=== PATIENT | male | born 1965 | race Caucasian/White ===

== ENCOUNTER 2020-09-10 09:25 | Outpatient (REF) | payer OTHER, SELFPAY | END 2020-09-10 09:26 | disposition home or self-care (01) | LOC: HO.LAB 09:25 | PROVIDERS: Visit Provider Internal Medicine | DX: Z20.828 Contact with and (suspected) exposure to other viral communicable diseases (principal) | CPT/HCPCS: C9803; U0003 ==

== ENCOUNTER 2021-01-16 07:29 | Outpatient (REF) | payer OTHER, SELFPAY ==
--- NOTE | ~2021-01-16 | US_ITS ---
EXAMINATION: US ABDOMEN COMPLETE CLINICAL INFORMATION: Liver cirrhosis. COMPARISON: Ultrasound abdomen 12/06/2019 and 12/27/2018. CT abdomen pelvis 06/23/2010. TECHNIQUE: Real-time imaging of the abdominal viscera. FINDINGS: PANCREAS: Normal ABDOMINAL AORTA: The proximal, mid, and distal segments are normal in caliber. INFERIOR VENA CAVA: Visualized portions are normal. LIVER: The liver is normal in size. The liver contour is normal. Liver echotexture is increased. No focal hepatic lesion. There is no intrahepatic biliary duct dilatation seen. GALLBLADDER: Normal. The gallbladder is physiologically distended without evidence of stones, sludge, polyps, wall thickening or pericholecystic fluid. COMMON BILE DUCT: Normal in caliber measuring 0.3 cm in diameter. RIGHT KIDNEY: Normal. No hydronephrosis. No renal calculi or focal parenchymal lesions. The kidney measures 10.3 cm in maximum dimension. LEFT KIDNEY: Normal. No hydronephrosis. No renal calculi or focal parenchymal lesions. The kidney measures 11.6 cm in maximum dimension. SPLEEN: Normal. The spleen measures 10.0 cm in maximum dimension. FREE FLUID: None. US/US abdomen complete IMPRESSION: Echogenic liver. No focal liver lesion or evidence of cirrhosis.
== END 2021-01-16 07:30 | disposition home or self-care (01) ==
LOC: HO.US 07:29
PROVIDERS: Visit Provider Internal Medicine Geriatric Medicine
DX: K74.60 Unspecified cirrhosis of liver (principal)
CPT/HCPCS: 76700

== ENCOUNTER 2021-02-04 10:17 | Outpatient (REF) | payer OTHER, SELFPAY ==
--- NOTE | ~2021-02-04 | XR_ITS ---
EXAMINATION: XR SHOULDER, RIGHT CLINICAL INFORMATION: Shoulder pain. COMPARISON: None TECHNIQUE: AP external rotation, Grashey, scapular Y, and axillary views of the right shoulder. FINDINGS: The bones and soft tissues are normal. No fracture. Mild acromioclavicular arthritis. Glenohumeral and acromioclavicular alignment is anatomic with normal joint space. No abnormal soft tissue calcifications. XR/XR shoulder RT min 2V IMPRESSION: Mild acromioclavicular arthritis.
== END 2021-02-04 10:18 | disposition home or self-care (01) ==
LOC: HO.XRAY 10:17
PROVIDERS: PCP Internal Medicine Geriatric Medicine; Visit Provider Internal Medicine Geriatric Medicine
DX: M25.511 Pain in right shoulder (principal)
CPT/HCPCS: 73030

== ENCOUNTER 2021-05-17 13:51 | Outpatient (REF) | payer OTHER, SELFPAY ==
--- NOTE | ~2021-05-17 | XR_ITS ---
EXAMINATION: XR LUMBOSACRAL SPINE WITH OBLIQUES CLINICAL INFORMATION: Lumbago and sciatica. COMPARISON: None TECHNIQUE: AP, both oblique, and lateral views of the lumbar spine. Lateral view of the lumbosacral junction. FINDINGS: There is maintained lumbar lordosis. The vertebral heights, alignment and disc heights are normal. There is mild ventral superior endplate spondylosis at L3 and L4 vertebra. No lytic or sclerotic process seen. The paravertebral soft tissues are normal. The SI joints are symmetrical and normal. XR/XR lumbar spine 4V min IMPRESSION: Mild ventral superior endplate spondylosis L3 and L4 vertebra. No visible acute fracture or dislocation seen.
== END 2021-05-17 13:52 | disposition home or self-care (01) ==
LOC: HO.XRAY 13:51
PROVIDERS: Absent Provider Internal Medicine Geriatric Medicine; PCP Internal Medicine Geriatric Medicine; Visit Provider Registered Nurse
DX: M54.41 Lumbago with sciatica, right side (principal); M54.42 Lumbago with sciatica, left side; M79.605 Pain in left leg; M79.672 Pain in left foot
CPT/HCPCS: 72110

== ENCOUNTER 2022-01-14 11:50 | Emergency (ER) | payer OTHER, SELFPAY ==
--- NOTE | ~2022-01-14 | CT_ITS ---
EXAMINATION: CT BRAIN AND CHEST X-RAY. CLINICAL INFORMATION: Dizziness and lower extremity weakness. COMPARISON: None TECHNIQUE: 5 mm thin axial and reformatted 2 mm thin sagittal and coronal images of brain were obtained without contrast. DLP 711 FINDINGS: BRAIN: There is no acute intra-axial, extra-axial bleed, masses or midline shift. There is no acute infarction evolution. The anderson to white matter difference is maintained normal. The lateral ventricles are symmetrical in size and configuration without enlargement. Bone windows reveal no calvarial abnormality. There is a left posterior occipital scalp lipoma on axial image 26/3. No soft tissue swelling seen. CHEST: The lungs are well-expanded and clear. Heart size and pulmonary vascularity is normal. No gross bony abnormality seen. CT/CT head/brain wo con IMPRESSION: Unremarkable CT brain without contrast.
[2022-01-14 12:27] VITALS: BP 142/82; PULSE 85; RESP 18; TEMP 37.1; O2SAT 96
--- NOTE | 2022-01-14 12:29 | ECG_ITS ---
Test Reason : dizziness Blood Pressure : / mmHG Vent. Rate : 074 BPM Atrial Rate : 074 BPM P-R Int : 162 ms QRS Dur : 084 ms QT Int : 378 ms P-R-T Axes : 010 004 028 degrees QTc Int : 419 ms Normal sinus rhythm Normal ECG When compared with ECG of 07-MAR-2014 22:59, No significant change was found Referred By: Generic ED Physician Electronically Signed By:LEFTY MILLER MD
[2022-01-14 13:19] LABS: MANUAL DIFF FLAG NO
[2022-01-14 13:21] LABS: Basophils Percent Auto 0.3 % (0-2); Eosinophils Absolute Auto 0.1 X10*3/uL (0.0-0.4); Eosinophils Percent Auto 1.4 % (0-4); Hematocrit 40.9 % (42.0-52.0); Hemoglobin 14.7 g/dl (14.0-18.0); Imm Gran Abs Auto 0.02 X10*3/uL (0.00-0.03); Imm Gran Pct Auto 0.3 % (0.0-0.4); Lymphocytes Absolute Auto 1.7 X10*3/uL (1.2-4.9); Lymphocytes Percent Auto 27.8 % (20-40); Mean Corpuscular HGB Conc 35.9 g/dl (31.0-36.0); Mean Corpuscular Hemoglobin 30.5 pg (27.0-33.0); Mean Corpuscular Volume 84.9 fL (80.0-98.0); Mean Platelet Volume 10.7 fL (9.4-12.4); Monocytes Absolute Auto 0.5 X10*3/uL (0.1-1.2); Monocytes Percent Auto 7.9 % (2-11); Neutrophils Absolute Auto 3.9 x10*3/uL (2.0-8.3); Neutrophils Percent Auto 62.3 % (45-73); Platelet Count 166 X10*3/uL (160-400); Red Blood Count 4.82 X10*6/uL (4.60-5.80); Red Cell Distribution Width 11.9 % (11.0-16.0); White Blood Count 6.2 X10*3/uL (4.8-10.8)
[2022-01-14 13:37] LABS: Alanine Aminotransferase 39 U/L (0-40); Albumin Level 4.5 g/dL (3.5-5.0); Alkaline Phosphatase 48 U/L (39-117); Anion Gap 12 (12-20); Aspartate Amino Transferase 30 U/L (5-37); Blood Urea Nitrogen 15 mg/dL (9-16); Calcium 9.8 mg/dL (8.4-10.2); Carbon Dioxide 31 mmol/L (22-29); Chloride 103 mmol/L (96-108); Creatinine Clr Calc Pharmacy 90.3; Estimated Glomerular Filt Rate > 60; Glucose Random 96 mg/dL (60-115); Potassium 3.7 mmol/L (3.3-5.1); Sodium 142 mmol/L (135-145); Total Protein 7.3 g/dL (6.5-8.0)
[2022-01-14 13:38] LABS: COVID-19 Test Negative (Negative)
[2022-01-14 13:42] LABS: IDNOW Serial# 08D9AD1C; Influenza A Negative (Negative); Influenza B2 Negative (Negative)
[2022-01-14 13:43] LABS: Troponin-I High Sensitivity < 3.5 ng/L (<3.5-35.0)
[2022-01-14 13:51] LABS: Appearance Urine CLEAR; Color Urine YELLOW; Glucose Urine UA NEG (NEG); Leukocyte Esterase Urine NEG (NEG); Nitrite Urine NEG (NEG); Urine Blood NEG (NEG); Urine Ketones NEG (NEG); Urine Protein NEG (NEG-TRACE)
[2022-01-14 14:07] LABS: Amphetamine Screen Urine Not Detected (Not Detect); Barbiturates, Urine Not Detected (Not Detect); Benzodiazepines Screen Urine Not Detected (Not Detect); Cannabinoid Screen Urine Not Detected (Not Detect); Cocaine Screen Urine Not Detected (Not Detect); Fentanyl, urine Not Detected (Not Detect); Opiate Screen Urine Not Detected (Not Detect); Phencyclidine Screen Urine Not Detected (Not Detect)
[2022-01-14 15:19] VITALS: BP 136/92; PULSE 77; RESP 11; TEMP 36.8; O2SAT 98
--- NOTE | 2022-01-14 15:43 | ED_ITS ---
HPI - Dizziness General Chief Complaint: Dizziness Stated Complaint: dizziness/fatigue Time Seen by Provider: 01/14/22 15:29 Source: patient Mode of arrival: ambulatory Limitations: no limitations History of Present Illness HPI Narrative: 56 y/o male with history of HTN presents to the ER with 2+ weeks of intermittent dizziness, malaise, generalized fatigue, lower extremity weakness and shakiness. He also reports intermittently having night sweats. He denies any fevers or chills. He has been eating and drinking normally. He states the dizziness and lightheadedness are worse when he is standing on his feet for several hours at a time, especially at work. He is very active and walking around a lot at work. He denies any shortness of breath or dizziness. He feels intermittently like he may pass out, but this subsides with sitting down and rest. He denies any episodes of diaphoresis when feeling lightheaded. No nausea or vomiting. He feels like he is not getting enough sleep and feels extremely fatigued throughout the day. He denies any joint or muscle pain. No known sick contacts. He does not spend time outside to go hiking. No known tick bites. No new medications and no supplements. MD elicited complaint: dizziness and lightheadedness Onset (ago): week(s) (2) Timing: gradual onset, intermittent and episodic Severity: moderate Description: lightheadedness and near-syncope History of similar symptoms: No Exacerbating factors: movement/ambulation Relieving factors: rest Associated symptoms: malaise and weakness Stroke scale total: 0 Related Data Allergies Allergy/AdvReac Type Severity Reaction Status Date / Time sulfamethoxazole Allergy Unknown ITCHINESS Verified 01/14/22 12:26 [From Bactrim] trimethoprim [From Bactrim] Allergy Unknown ITCHINESS Verified 01/14/22 12:26 Review of Systems Review of Systems: Constitutional: No Fever, No Chills, +night sweats ENT/Mouth: No sore throat, No Rhinorrhea, No Swallowing Difficulty Eyes: No Eye Pain, No Swelling, No Redness Cardiovascular: No Chest Pain, No SOB, No Orthopnea, No Edema Respiratory: No Cough, No Sputum, No Wheezing, No dyspnea Gastrointestinal: No Nausea, No Vomiting, No Diarrhea, No abdominal Pain, No Hematochezia, No Melena Genitourinary: No Dysuria, No Urinary Frequency, No Hematuria Musculoskeletal: No joint pain, No Myalgias Skin: No Skin Lesions, No rash Neuro: + Weakness, No Numbness, + Dizziness, No Headache Psych: No Anxiety/Panic, No Depression Heme/Lymph: No Bruising, No Lymphadenopathy Endocrine: No Polyuria, No Polydipsia [facility] Social History Social History Alcohol intake: never Patient Tobacco Use Status: Never used Tobacco Use of substances other than those prescribed or required for medical reasons: No Advance Directives: No Advance Directives Information Provided: Yes Physical Exam Vital Signs: Vital Signs: Last Vital Signs Temp 98.2 F 01/14/22 15:19 Pulse 75 01/14/22 16:18 Resp 11 L 01/14/22 15:19 BP 129/91 H 01/14/22 16:18 Pulse Ox 98 01/14/22 15:19 BMI result Body Mass Index 30.0 Appearance: Alert. Oriented X3. No acute distress. Eyes: Pupils equal, round and reactive to light. ENT: Pharynx normal. Neck: Normal inspection. Neck supple. CVS: Normal heart rate and rhythm. Pulses normal. Respiratory: No respiratory distress. Breath sounds normal. Abdomen: Soft and nontender. +BS x4 Skin: Skin warm and dry. Normal skin color. Normal skin turgor. No rashes. Extremities: No lower extremity edema. Neuro: Oriented X 3. No motor deficit. No sensory deficit. Equal and symmetrical strength throughout. Steady gait. Normal speech. CN II-XII intact. Course Course Course Narrative: 56-year-old male with history of hypertension presents to the ER with vague constitutional complaints. He reports intermittent lightheaded and dizziness for the last 2 weeks along with generalized weakness, fatigue. He states he intermittently has had night sweats as well. He just generally feels unwell and not like himself. His boss sent him in for evaluation. On arrival to the ER patient's vital signs are normal. His physical examination is unremarkable. No focal neural deficits. Will get basic lab workup, chest x- ray, CT head, EKG, viral swabs, orthostatic VS. He appears well. Reevaluation(s) Reevaluation #1: Workup is unremarkable. No leukocytosis. COVID and flu negative. CT head is normal. Chest x-ray normal. EKG normal and troponin is negative. Orthostatics are normal. Unclear etiology of patient's symptoms. This appears to be no signs of infection. At this time patient is stable for discharge home with plan to follow up with his primary care doctor or return to the ER for new or worsening symptoms. Patient agrees with plan. Work note provided per request. MDM - Dizziness Medical Records Attestation: I reviewed the patient's medical records. Medical records narrative: HTN Lab Data Attestation: I reviewed the patient's lab results. Result diagrams: 01/14/22 13:15 01/14/22 13:15 Labs: Lab Results 01/14/22 01/14/22 01/14/22 Range/Units 13:15 13:15 13:15 WBC 6.2 (4.8-10.8) X10*3/uL RBC 4.82 (4.60-5.80) X10*6/uL Hgb 14.7 (14.0-18.0) g/dl Hct 40.9 L (42.0-52.0) % MCV 84.9 (80.0-98.0) fL MCH 30.5 (27.0-33.0) pg MCHC 35.9 (31.0-36.0) g/dl RDW 11.9 (11.0-16.0) % Plt Count 166 (160-400) X10*3/uL MPV 10.7 (9.4-12.4) fL Immature Gran % (Auto) 0.3 (0.0-0.4) % Neut % (Auto) 62.3 (45-73) % Lymph % (Auto) 27.8 (20-40) % [place] % (Auto) 7.9 (2-11) % Eos % (Auto) 1.4 (0-4) % Baso % (Auto) 0.3 (0-2) % Lymph # (Auto) 1.7 (1.2-4.9) X10*3/uL [place] # (Auto) 0.5 (0.1-1.2) X10*3/uL Eos # (Auto) 0.1 (0.0-0.4) X10*3/uL Baso # (Auto) 0.0 (0.0-0.2) X10*3/uL Abs Immat Gran (auto) 0.02 (0.00-0.03) X10*3/uL Absolute Neuts (auto) 3.9 (2.0-8.3) x10*3/uL Absolute Nucleated RBC 0.000 (0.0-0.012) X10*3/uL Nucleated RBC % (auto) 0.0 (0.0-0.2) /100WBC Sodium 142 (135-145) mmol/L Potassium 3.7 (3.3-5.1) mmol/L Chloride 103 (96-108) mmol/L Carbon Dioxide 31 H (22-29) mmol/L Anion Gap 12 (12-20) BUN 15 (9-16) mg/dL Creatinine 0.90 (0.5-1.4) mg/dL Estim Creat Clear Calc 90.3 Estimated GFR > 60 Random Glucose 96 (60-115) mg/dL Calcium 9.8 (8.4-10.2) mg/dL Total Bilirubin 1.0 (0.0-1.0) mg/dL AST 30 (5-37) U/L ALT 39 (0-40) U/L Alkaline Phosphatase 48 (39-117) U/L Troponin I High Sens (<3.5-35.0) ng/L Total Protein 7.3 (6.5-8.0) g/dL Albumin 4.5 (3.5-5.0) g/dL Urine Color Urine Appearance Urine pH (5.0-8.0) Ur Specific [place] (1.005-1.025) Urine Protein (NEG-TRACE) MG/DL Urine Glucose (UA) (NEG) MG/DL Urine Ketones (NEG) MG/DL Urine Blood (NEG) Urine Nitrite (NEG) Ur Leukocyte Esterase (NEG) Urine Opiates Screen (Not Detect) Urine Fentanyl Screen (Not Detect) Ur Barbiturates Screen (Not Detect) Ur Phencyclidine Scrn (Not Detect) Ur Amphetamines Screen (Not Detect) U Benzodiazepines Scrn (Not Detect) Urine Cocaine Screen (Not Detect) U Marijuana (THC) Screen (Not Detect) COVID-19 (YENNI) Negative (Negative) COVID-19 Clin Com See Note Influenza Type A (RAIN) (Negative) Influenza Type B (RAIN) (Negative) Influenza A & B Note 01/14/22 01/14/22 01/14/22 Range/Units 13:15 13:15 13:32 WBC (4.8-10.8) X10*3/uL RBC (4.60-5.80) X10*6/uL Hgb (14.0-18.0) g/dl Hct (42.0-52.0) % MCV (80.0-98.0) fL MCH (27.0-33.0) pg MCHC (31.0-36.0) g/dl RDW (11.0-16.0) % Plt Count (160-400) X10*3/uL MPV (9.4-12.4) fL Immature Gran % (Auto) (0.0-0.4) % Neut % (Auto) (45-73) % Lymph % (Auto) (20-40) % [place] % (Auto) (2-11) % Eos % (Auto) (0-4) % Baso % (Auto) (0-2) % Lymph # (Auto) (1.2-4.9) X10*3/uL [place] # (Auto) (0.1-1.2) X10*3/uL Eos # (Auto) (0.0-0.4) X10*3/uL Baso # (Auto) (0.0-0.2) X10*3/uL Abs Immat Gran (auto) (0.00-0.03) X10*3/uL Absolute Neuts (auto) (2.0-8.3) x10*3/uL Absolute Nucleated RBC (0.0-0.012) X10*3/uL Nucleated RBC % (auto) (0.0-0.2) /100WBC Sodium (135-145) mmol/L Potassium (3.3-5.1) mmol/L Chloride (96-108) mmol/L Carbon Dioxide (22-29) mmol/L Anion Gap (12-20) BUN (9-16) mg/dL Creatinine (0.5-1.4) mg/dL Estim Creat Clear Calc Estimated GFR Random Glucose (60-115) mg/dL Calcium (8.4-10.2) mg/dL Total Bilirubin (0.0-1.0) mg/dL AST (5-37) U/L ALT (0-40) U/L Alkaline Phosphatase (39-117) U/L Troponin I High Sens < 3.5 (<3.5-35.0) ng/L Total Protein (6.5-8.0) g/dL Albumin (3.5-5.0) g/dL Urine Color Urine Appearance Urine pH (5.0-8.0) Ur Specific [place] (1.005-1.025) Urine Protein (NEG-TRACE) MG/DL Urine Glucose (UA) (NEG) MG/DL Urine Ketones (NEG) MG/DL Urine Blood (NEG) Urine Nitrite (NEG) Ur Leukocyte Esterase (NEG) Urine Opiates Screen Not Detected (Not Detect) Urine Fentanyl Screen Not Detected (Not Detect) Ur Barbiturates Screen Not Detected (Not Detect) Ur Phencyclidine Scrn Not Detected (Not Detect) Ur Amphetamines Screen Not Detected (Not Detect) U Benzodiazepines Scrn Not Detected (Not Detect) Urine Cocaine Screen Not Detected (Not Detect) U Marijuana (THC) Screen Not Detected (Not Detect) COVID-19 (YENNI) (Negative) COVID-19 Clin Com Influenza Type A (RAIN) Negative (Negative) Influenza Type B (RAIN) Negative (Negative) Influenza A & B Note See Note 01/14/22 Range/Units 13:32 WBC (4.8-10.8) X10*3/uL RBC (4.60-5.80) X10*6/uL Hgb (14.0-18.0) g/dl Hct (42.0-52.0) % MCV (80.0-98.0) fL MCH (27.0-33.0) pg MCHC (31.0-36.0) g/dl RDW (11.0-16.0) % Plt Count (160-400) X10*3/uL MPV (9.4-12.4) fL Immature Gran % (Auto) (0.0-0.4) % Neut % (Auto) (45-73) % Lymph % (Auto) (20-40) % [place] % (Auto) (2-11) % Eos % (Auto) (0-4) % Baso % (Auto) (0-2) % Lymph # (Auto) (1.2-4.9) X10*3/uL [place] # (Auto) (0.1-1.2) X10*3/uL Eos # (Auto) (0.0-0.4) X10*3/uL Baso # (Auto) (0.0-0.2) X10*3/uL Abs Immat Gran (auto) (0.00-0.03) X10*3/uL Absolute Neuts (auto) (2.0-8.3) x10*3/uL Absolute Nucleated RBC (0.0-0.012) X10*3/uL Nucleated RBC % (auto) (0.0-0.2) /100WBC Sodium (135-145) mmol/L Potassium (3.3-5.1) mmol/L Chloride (96-108) mmol/L Carbon Dioxide (22-29) mmol/L Anion Gap (12-20) BUN (9-16) mg/dL Creatinine (0.5-1.4) mg/dL Estim Creat Clear Calc Estimated GFR Random Glucose (60-115) mg/dL Calcium (8.4-10.2) mg/dL Total Bilirubin (0.0-1.0) mg/dL AST (5-37) U/L ALT (0-40) U/L Alkaline Phosphatase (39-117) U/L Troponin I High Sens (<3.5-35.0) ng/L Total Protein (6.5-8.0) g/dL Albumin (3.5-5.0) g/dL Urine Color YELLOW Urine Appearance CLEAR Urine pH 6.0 (5.0-8.0) Ur Specific [place] 1.020 (1.005-1.025) Urine Protein NEG (NEG-TRACE) MG/DL Urine Glucose (UA) NEG (NEG) MG/DL Urine Ketones NEG (NEG) MG/DL Urine Blood NEG (NEG) Urine Nitrite NEG (NEG) Ur Leukocyte Esterase NEG (NEG) Urine Opiates Screen (Not Detect) Urine Fentanyl Screen (Not Detect) Ur Barbiturates Screen (Not Detect) Ur Phencyclidine Scrn (Not Detect) Ur Amphetamines Screen (Not Detect) U Benzodiazepines Scrn (Not Detect) Urine Cocaine Screen (Not Detect) U Marijuana (THC) Screen (Not Detect) COVID-19 (YENNI) (Negative) COVID-19 Clin Com Influenza Type A (RAIN) (Negative) Influenza Type B (RAIN) (Negative) Influenza A & B Note ECG Data Attestation: I personally reviewed and interpreted this ECG as follows: ECG interpretation date: 01/14/22 ECG interpretation time: 16:40 Prior ECG tracings: available for review Interpretation: Normal sinus rhythm, heart rate 74 beats per minute, normal GA interval, normal QTC, no ST segment elevations or depressions, no change from prior in 2013. Critical Care Time Critical Care Time Critical Care Time: No Discharge Plan Discharge Clinical Impression: Intermittent lightheadedness, Fatigue Patient Disposition: Home, Self-Care Instructions: Dizziness (ED), Fatigue (ED) Additional Instructions: Your lab workup today was normal. Your CT scan was normal. Your x-ray was normal. You were negative for Influenza and COVID. Unclear cause of your symptoms. Recommend rest, drinking plenty of fluids. Follow up with your doctor. If you develop new or worsening symptoms call 911 or come back to the ER for further evaluation. Referrals: Name,MD Rishi [Primary Care Provider] - (lightheadedness, fatigue, gen weakness x2 weeks workup negative in ED) Stand Alone Forms: Work/School Release
[2022-01-14 16:15] VITALS: BP 130/86; PULSE 72
[2022-01-14 16:16] VITALS: BP 135/94; PULSE 71
[2022-01-14 16:18] VITALS: BP 129/91; PULSE 75
== END 2022-01-14 16:45 | disposition home or self-care (01) ==
PROVIDERS: Emergency Provider Emergency Medicine; PCP Internal Medicine Geriatric Medicine
DX: R42 Dizziness and giddiness (principal); I10 Essential (primary) hypertension; R53.83 Other fatigue; Z20.822 Contact with and (suspected) exposure to COVID-19
CPT/HCPCS: 70450; 71045; 80053; 80307; 81003; 84484; 85025; 87502; 87635; 93005; 99284

== ENCOUNTER 2022-06-06 08:52 | Outpatient (REF) | payer OTHER, SELFPAY ==
--- NOTE | ~2022-06-06 | XR_ITS ---
EXAMINATION: XR LUMBOSACRAL SPINE CLINICAL INFORMATION: Lumbago with sciatica. COMPARISON: Lumbar radiographs 05/17/2021, 03/08/2009, ultrasound abdomen 01/16/2021. TECHNIQUE: Three views of the lumbosacral spine. FINDINGS: There is normal lumbar segmentation with 5 nonrib-bearing lumbar vertebrae of normal height and normal lumbar lordosis. No vertebral compression, spondylolisthesis, or destructive process. There are mild degenerative changes with multilevel vertebral body spurring. No focal disc narrowing or definite endplate sclerosis. No erosive changes. The SI joints and visualized sacrum are unremarkable. There are some small calcifications overlying the renal fossa or mesenteric lymph nodes on the frontal view similar to prior exam 2020. No renal calculi visualized on ultrasound abdomen. XR/XR lumbar spine 2-3V IMPRESSION: -Multilevel vertebral body spurring. -No vertebral compression, spondylolisthesis, or definite disc narrowing.
== END 2022-06-06 08:53 | disposition home or self-care (01) ==
LOC: HO.XRAY 08:52
PROVIDERS: Absent Provider Internal Medicine Geriatric Medicine; PCP Internal Medicine Geriatric Medicine; Visit Provider Family Medicine
DX: M54.41 Lumbago with sciatica, right side (principal); M54.42 Lumbago with sciatica, left side
CPT/HCPCS: 72100

== ENCOUNTER 2022-10-07 11:00 | Outpatient (RCR) | payer OTHER, SELFPAY ==
--- NOTE | 2022-09-10 17:00 | MHC.PT.EP ---
[facility] Office [place] Office [place] Office [address] Osbaldo Knox [address] [phone] F: [phone] F: [phone] F: [phone] F: [phone] Physical Therapy Plan of Care Date of Evaluation: Date of Surgery: N/A Diagnosis: radiculopathy lumbar region (RC) Assessment: pt is a 57 y/o male presenting to physical therapy w/ referring diagnosis of radiculopathy lumbar region. pt's signs and symptoms more consistent w/ poor muscular extensibility. Impairments include pain, decreased range of motion, decreased strength, impaired functional mobility, impaired postural awareness, and altered ambulation mechanics. pt is a good candidate for skilled PT due to age, potential remediation of impairments, typical disease/condition progression and prognosis, comorbidities, and motivation. pt would benefit from skilled PT intervention to provide a tailored strengthening and stretching exercise program, functional training, gait training, postural re-training, neuromuscular re-education, modalities as needed for pain, equipment safety demonstration. Frequency and Duration: The patient will be seen 2x/wk for 6 wks Short Term Goals: pt will be I w/ HEP to promote self-management of condition. pt will improve B hip abduction strength by 1 MMT grade to reduce postural sway w/ gait on even ground. Penitentiary Goals: pt will report a statistically significant improvement in self-reported outcome measure, Surendra, to promote return to PLOF. pt will demo proper lifting mechanics w/ 30# object from floor to chest height x5 reps w/o verbal cueing to promote neutral spine w/ work-related tasks. Treatment Plan: Modalities to reduce pain, spasms and effusion. Manual therapy to restore motion and function. Therapeutic exercise to improve strength and flexibility. Neuromuscular re-education for posture and balance. Therapeutic activities to return to functional activities of daily living. Electronically signed by: Ngoc Courtney PT, DPT Please sign and return to therapist. Thank you for your referral.
--- NOTE | 2022-10-21 10:29 | MHC.PT.DC ---
[facility] [place] Office [place] Office [place] Office [address] Osbaldo Knox [address] [phone] F: [phone] F: [phone] F: [phone] F: [phone] Physical Therapy Discharge Report Diagnosis: radiculopathy lumbar region (RC) Date of Surgery: N/A Date of Evaluation: 09/10/22 Date of Discharge: 10/21/22 Treatments to Date: 5 Cancellations to Date: 2 No Shows to Date: 1 Discharge Status: Improved Function Independent with HEP Discharge Summary: The patient has been experiencing little to no pain over the past couple weeks and visits. He no showed his last scheduled appointment and has not rescheduled. At the time of his last visit he was independent with his home exercise program. He is discharged from this physical therapy plan of care at this time. Electronically signed by: Ngoc Courtney PT, DPT Please sign and return to therapist. Thank you for your referral.
== END 2022-10-21 10:30 | disposition home or self-care (01) ==
LOC: HO.PT 11:00
PROVIDERS: PCP Internal Medicine Geriatric Medicine; Visit Provider Nurse Practitioner Family
DX: M47.816 Spondylosis without myelopathy or radiculopathy, lumbar region (principal); M51.36 Other intervertebral disc degeneration, lumbar region; M53.3 Sacrococcygeal disorders, not elsewhere classified; M54.16 Radiculopathy, lumbar region
CPT/HCPCS: 97110; 97140; 97162; 97530

== ENCOUNTER 2023-01-09 19:56 | Inpatient (IN) | payer OTHER, SELFPAY ==
--- NOTE | ~2023-01-09 | CT_ITS ---
EXAMINATION: CT ABDOMEN AND PELVIS WITHOUT CONTRAST CLINICAL INFORMATION: Left lower quadrant vein COMPARISON: CT abdomen/pelvis dated 06/23/2010 TECHNIQUE: Multidetector volumetric imaging was performed from the superior aspect of the liver through the pubic symphysis. Sagittal and coronal reformatted images were obtained on the technologist's workstation. This CT examination was performed using dose optimization techniques as appropriate, variously including the following: *Automated exposure control *Adjustment of mA and/or kV according to patient size (this includes techniques or standardized protocols for targeted exams where dose is matched to indication/reason for exam; i.e. extremities or head) *Use of iterative reconstruction technique DLP: 555 mGy-cm FINDINGS: LUNG BASES: The visualized lung bases are unremarkable. LIVER, GALLBLADDER, AND BILIARY TREE: The liver is normal in size, shape, and contour. Diffuse hepatic steatosis. No focal hepatic lesion or biliary ductal dilatation is present. The gallbladder is unremarkable with no evidence of radiopaque gallstones, gallbladder wall thickening, or obvious pericholecystic inflammatory changes. PANCREAS: Unremarkable. SPLEEN: Unremarkable. ADRENAL GLANDS: Unremarkable. KIDNEYS AND URETERS: The kidneys are normal in size, shape, and attenuation. Multiple bilateral nonobstructive intrarenal calculi number at least 5 within the right kidney and 4 within the left kidney. The largest in the right kidney measures up to 7 mm, while the largest in the left kidney measures 3 mm. No ureteral calculi or hydronephrosis. No perinephric abnormalities. BLADDER: Unremarkable. GASTROINTESTINAL TRACT: There is focal edematous wall thickening of the distal descending colon centered around an inflamed diverticulum, associated with pericolic fat stranding. No associated fluid collection to suggest abscess formation. No intraperitoneal free air to suggest gross perforation. Diverticulosis coli. Normal appendix. Stomach and small bowel unremarkable. ABDOMINAL WALL: No significant hernia is appreciated. LYMPH NODES: Normal. VASCULAR: Unremarkable. PELVIC VISCERA: Prostate and seminal vesicles unremarkable. OSSEOUS STRUCTURES: No acute or suspicious osseous abnormalities. CT/CT abdomen pelvis wo IV con IMPRESSION: * Acute uncomplicated distal descending colonic diverticulitis. * Diffuse hepatic steatosis. * Bilateral nonobstructive intrarenal calculi.
--- NOTE | ~2023-01-09 | XR_ITS ---
EXAMINATION: XR PORTABLE CHEST CLINICAL INFORMATION: Chest pain COMPARISON: 10/22/2017 TECHNIQUE: AP portable upright view of the chest FINDINGS: Mild elevation of the right hemidiaphragm. No consolidation, pneumothorax, or pleural effusion. Cardiac and mediastinal contours are normal. Pulmonary vasculature is unremarkable. Osseous structures are unremarkable. XR/XR chest 1V IMPRESSION: No acute cardiopulmonary findings
[2023-01-09 20:06] VITALS: BP 142/97; PULSE 86; RESP 16; TEMP 36.1; O2SAT 98; BMI 28.2
[2023-01-09 20:15] LABS: Hematocrit 44.8 % (42.0-52.0); Hemoglobin 15.9 g/dl (14.0-18.0); Mean Corpuscular HGB Conc 35.5 g/dl (31.0-36.0); Mean Corpuscular Hemoglobin 29.8 pg (27.0-33.0); Mean Corpuscular Volume 84.1 fL (80.0-98.0); Mean Platelet Volume 10.8 fL (9.4-12.4); Platelet Count 187 X10*3/uL (160-400); Red Blood Count 5.33 X10*6/uL (4.60-5.80); Red Cell Distribution Width 11.8 % (11.0-16.0)
[2023-01-09 20:40] LABS: Alanine Aminotransferase 53 U/L (0-40); Albumin Level 4.6 g/dL (3.5-5.0); Alkaline Phosphatase 55 U/L (39-117); Anion Gap 12 (12-20); Aspartate Amino Transferase 36 U/L (5-37); Bilirubin Direct 0.2 mg/dL (0.0-0.5); Blood Urea Nitrogen 17 mg/dL (9-16); Calcium 9.7 mg/dL (8.4-10.2); Carbon Dioxide 29 mmol/L (22-29); Chloride 105 mmol/L (96-108); Creatinine Clr Calc Pharmacy 73.3; Estimated Glomerular Filt Rate > 60; Glucose Random 92 mg/dL (60-115); Lipase 40 U/L (8-78); Potassium 4.2 mmol/L (3.3-5.1); Sodium 142 mmol/L (135-145); Total Protein 7.3 g/dL (6.5-8.0)
[2023-01-09 21:38] VITALS: BP 150/92; PULSE 83; RESP 20; TEMP 36.8; O2SAT 100
[2023-01-09 21:50] LABS: Appearance Urine Clear; Color Urine Yellow; Glucose Urine UA Negative (Negative); Leukocyte Esterase Urine Negative (Negative); Nitrite Urine Negative (Negative); Urine Blood Negative (Negative); Urine Ketones Negative (Negative); Urine Protein Negative (Neg-Trace)
[2023-01-09 21:55] LABS: Bacteria Urine None Seen (None Seen); Hyaline Casts Urine 0-2 /LPF (0-2); RBC Urine 0-2 /HPF (0-2); Squamous Epithelial Cell Urine 0-2 /HPF (0-2); WBC Urine 0-5 /HPF (0-5)
--- NOTE | 2023-01-09 22:06 | ED.ABDPAIN ---
HPI - Abdominal Pain General Chief Complaint: Abdominal Pain Stated Complaint: Lower Left abd pain Time Seen by Provider: 01/09/23 22:01 Source: patient Mode of arrival: ambulatory Limitations: no limitations History of Present Illness HPI narrative: 57-year-old male came in for evaluation of left lower quadrant abdominal pain started since this a.m. when he was working. Pain started in the left lower quadrant area as a mild pain 3/10 and progressively getting worse now it is 10/10 pain is radiating to the left side of his back, pain is constantly now no association with nausea, vomiting, diarrhea , frequency urination or hematuria. No exacerbating factors, no relieving factors, never had similar pain in the past, no history of intra-abdominal surgery. Related Data Home Medications Medication Instructions Recorded Confirmed lisinopril 10 mg tablet 10 mg PO DAILY 07/22/22 triamcinolone acetonide 55 mcg intranasal 07/22/22 nasal spray aerosol Previous Rx's Medication Instructions Recorded diclofenac potassium 50 mg tablet 50 mg PO BID PRN pain 30 days #60 07/22/22 tabs lidocaine 5 % topical patch 1 patch topical DAILY PRN pain 30 07/22/22 days #30 ea methocarbamol 750 mg tablet 750 mg PO BID-TID PRN muscle spasm 07/22/22 30 days #90 tabs Allergies Allergy/AdvReac Type Severity Reaction Status Date / Time sulfamethoxazole Allergy Unknown ITCHINESS Verified 01/14/22 12:26 [From Bactrim] trimethoprim [From Bactrim] Allergy Unknown ITCHINESS Verified 01/14/22 12:26 Review of Systems Review of Systems All other systems are reviewed and are negative Constitutional: Reports as per HPI and Reports no additional constitutional complaints Eyes: Reports as per HPI and Reports no additional eye complaints Reports system reviewed and no additional complaints, except as documented Cardiovascular: Reports as per HPI and Reports no additional cardiovascular complaints Respiratory: Reports as per HPI and Reports no additional respiratory complaints Gastrointestinal: Reports as per HPI and Reports no additional gastrointestinal complaints Genitourinary: Reports no additional female genitourinary complaints Musculoskeletal: Reports no additional musculoskeletal complaints Skin/Breast: Reports system reviewed and no additional complaints, except as docu Psychiatric: Reports no additional psychiatric complaints Endocrine: Reports no additional endocrine complaints Hematologic/Lymphatic: Reports no additional hematologic/lymphatic complaints Allergic/Immunologic: Reports no additional allergic/immunologic complaints Reports system reviewed and no additional complaints, except as documented and Reports Abnormal speech present [facility] Past Medical History Medical History Allergic rhinitis, seasonal Bilateral carpal tunnel syndrome BPH associated with nocturia COVID Fatigue Hepatitis C Hypertension Liver cirrhosis Lumbar spondylosis Other intervertebral disc degeneration, lumbar region Vitamin D deficiency Social History Social History Alcohol intake: former Patient Tobacco Use Status: Former Tobacco user Substance Use Type: Crack/Cocaine and Heroin Advance Directives: No Advance Directives Information Provided: Yes Physical Exam ED Vital Signs: Vital Signs - 24 hr 01/09/23 20:06 01/09/23 21:38 01/10/23 00:53 Temperature 97 F 98.2 F 98.3 F Pulse Rate 86 83 93 Respiratory Rate 16 20 18 Blood Pressure 142/97 H 150/92 H 135/76 Pulse Oximetry 98 100 98 Oxygen Delivery Method Room Air Room Air Room Air BMI result Body Mass Index 28.2 Vital signs have been reviewed as appeared to be correct. Blood pressure normal. Heart rate normal. Respiration rate normal. Temperature normal. Oxygen saturation normal. Appearance: Alert. Oriented X3. No acute distress. Head: Normal external exam. Normocephalic. Atraumatic. No Hamilton signs noted. No raccoon eyes noted Eyes: PERRLA. EOMI. Conjunctiva and sclera normal. Eyelids normal. ENT: TM's Normal. Pharynx normal. Uvula midline. Moist mucous membranes. No trismus noted. No drooling noted. No muffled voice noted. Neck: Normal inspection. Neck supple. FROM. No adenopathy. Thyroid Normal. No meningeal signs. No neck mass noted. CVS: Normal heart rate and rhythm. Heart sound normal. No murmurs noted. Pulses normal throughout. Respiratory: No respiratory distress. Painless inspiration. Breath sounds normal. No wheezes/rales/rhonchi noted. Chest nontender. No accessory muscle usage noted or decreased air movement noted. Abdomen: Soft, left lower quadrant tenderness, no rebound tenderness, no guarding. Bowel sounds normal in all 4 quadrants. No distention noted. No organomegaly noted. No visible injury noted. Back: Left CVA tenderness. Full range of motion noted. Skin: Skin warm and dry. Normal skin color. Normal skin turgor. No rashes/lesions/lacerations noted. Extremities: No lower extremity edema. Extremities exhibit normal range of motion. Extremities nontender. Neuro: Oriented X 3. Cranial nerve exam: II-XII are grossly intact No motor deficit. No sensory deficit. Reflexes normal. Course Course Course Narrative: 57-year-old male came in with severe abdominal pain due to an acute diverticulitis, patient required multiple doses pain medications in the ED, will require admission for pain control and antibiotic patient meets criteria for discharge. Reevaluation(s) Reevaluation #1: 57-year-old male with left lower abdominal pain, CT of the abdomen and pelvis is showing diverticulitis patient meet criteria for SIRS but no septic shock or severe sepsis will start the patient Zosyn. Time: 01:13 Medical Decision Making Differential Diagnosis Differential Diagnoses: The differential diagnosis associated with the presentation includes (Intra-abdominal pathology, diverticulitis, left ureteric stone perforated viscus, colitis, chest pain, ACS, pneumonia.) Admission/Observation Consideration of admission/observation: Escalation of care including admission/observation considered Consult Healthcare Provider Management of the patient was discussed with: Hospitalist Lab Data MDM Lab Attestation statement: I reviewed the patient's lab results. 01/09/23 20:10 01/09/23 20:10 Labs: Lab Results 01/09/23 01/09/23 01/09/23 Range/Units 20:10 20:10 21:41 WBC 12.0 H (4.8-10.8) X10*3/uL RBC 5.33 (4.60-5.80) X10*6/uL Hgb 15.9 (14.0-18.0) g/dl Hct 44.8 (42.0-52.0) % MCV 84.1 (80.0-98.0) fL MCH 29.8 (27.0-33.0) pg MCHC 35.5 (31.0-36.0) g/dl RDW 11.8 (11.0-16.0) % Plt Count 187 (160-400) X10*3/uL MPV 10.8 (9.4-12.4) fL Absolute Nucleated RBC 0.000 (0.0-0.012) X10*3/uL Nucleated RBC % (auto) 0.0 (0.0-0.2) /100WBC Sodium 142 (135-145) mmol/L Potassium 4.2 (3.3-5.1) mmol/L Chloride 105 (96-108) mmol/L Carbon Dioxide 29 (22-29) mmol/L Anion Gap 12 (12-20) BUN 17 H (9-16) mg/dL Creatinine 1.10 (0.5-1.4) mg/dL Estim Creat Clear Calc 73.3 Estimated GFR > 60 Random Glucose 92 (60-115) mg/dL Calcium 9.7 (8.4-10.2) mg/dL Total Bilirubin 1.0 (0.0-1.0) mg/dL Direct Bilirubin 0.2 (0.0-0.5) mg/dL AST 36 (5-37) U/L ALT 53 H (0-40) U/L Alkaline Phosphatase 55 (39-117) U/L Troponin I High Sens (<3.5-35.0) ng/L Total Protein 7.3 (6.5-8.0) g/dL Albumin 4.6 (3.5-5.0) g/dL Lipase 40 (8-78) U/L Urine Color Yellow Urine Appearance Clear Urine pH 6.0 (5.0-9.0) Ur Specific [place] 1.020 (1.005-1.025) Urine Protein Negative (Neg-Trace) mg/dL Urine Glucose (UA) Negative (Negative) mg/dL Urine Ketones Negative (Negative) mg/dL Urine Blood Negative (Negative) Urine Nitrite Negative (Negative) Ur Leukocyte Esterase Negative (Negative) Urine RBC 0-2 (0-2) /HPF Urine WBC 0-5 (0-5) /HPF Ur Squamous Epith Cells 0-2 (0-2) /HPF Urine Bacteria None Seen (None Seen) Hyaline Casts 0-2 (0-2) /LPF 01/09/23 Range/Units 22:12 WBC (4.8-10.8) X10*3/uL RBC (4.60-5.80) X10*6/uL Hgb (14.0-18.0) g/dl Hct (42.0-52.0) % MCV (80.0-98.0) fL MCH (27.0-33.0) pg MCHC (31.0-36.0) g/dl RDW (11.0-16.0) % Plt Count (160-400) X10*3/uL MPV (9.4-12.4) fL Absolute Nucleated RBC (0.0-0.012) X10*3/uL Nucleated RBC % (auto) (0.0-0.2) /100WBC Sodium (135-145) mmol/L Potassium (3.3-5.1) mmol/L Chloride (96-108) mmol/L Carbon Dioxide (22-29) mmol/L Anion Gap (12-20) BUN (9-16) mg/dL Creatinine (0.5-1.4) mg/dL Estim Creat Clear Calc Estimated GFR Random Glucose (60-115) mg/dL Calcium (8.4-10.2) mg/dL Total Bilirubin (0.0-1.0) mg/dL Direct Bilirubin (0.0-0.5) mg/dL AST (5-37) U/L ALT (0-40) U/L Alkaline Phosphatase (39-117) U/L Troponin I High Sens < 3.5 (<3.5-35.0) ng/L Total Protein (6.5-8.0) g/dL Albumin (3.5-5.0) g/dL Lipase (8-78) U/L Urine Color Urine Appearance Urine pH (5.0-9.0) Ur Specific [place] (1.005-1.025) Urine Protein (Neg-Trace) mg/dL Urine Glucose (UA) (Negative) mg/dL Urine Ketones (Negative) mg/dL Urine Blood (Negative) Urine Nitrite (Negative) Ur Leukocyte Esterase (Negative) Urine RBC (0-2) /HPF Urine WBC (0-5) /HPF Ur Squamous Epith Cells (0-2) /HPF Urine Bacteria (None Seen) Hyaline Casts (0-2) /LPF Independent Interpretation I performed an independent interpretation of an: EKG (Normal sinus rhythm at 82 beats per minutes, left axis deviation, normal intervals, no ST-T changes.), Plain X-Ray (No acute intrathoracic pathology.) and CT Scan (Uncomplicated distal descending colonic diverticulitis.) Radiology Impression Discussion of test interpretation with radiology: I have reviewed the radiologist's reading. Medications Administered Discontinued Medications Generic Name Dose Route Start Last Admin Trade Name Yvette PRN Reason Stop Dose Admin Hydromorphone HCl 2 mg 01/09/23 22:52 01/09/23 23:50 Hydromorphone Hcl 2 Mg/Ml Vial IVPUSH 01/09/23 22:53 2 mg ONCE ONE Administration Protocol Sodium Chloride 1,000 mls @ 999 mls/hr 01/09/23 22:09 01/09/23 23:45 Ns IV 01/09/23 23:09 Infused .Q1H1M ONE Infusion Ketorolac Tromethamine 15 mg 01/09/23 22:08 01/09/23 22:20 Ketorolac Tromethamine 15 Mg/Ml Vial IVPUSH 01/09/23 22:09 15 mg ONCE ONE Administration Morphine Sulfate 2 mg 01/09/23 22:08 01/09/23 22:20 Morphine Sulfate 2 Mg/Ml Cartridge IVPUSH 01/09/23 22:09 2 mg ONCE ONE Administration Protocol Discharge Plan Discharge Clinical Impression: Acute diverticulitis Patient Disposition: Admitted As Inpatient
--- NOTE | 2023-01-09 22:07 | ECG_ITS ---
Test Reason : ABD PAIN Blood Pressure : / mmHG Vent. Rate : 082 BPM Atrial Rate : 082 BPM P-R Int : 158 ms QRS Dur : 084 ms QT Int : 354 ms P-R-T Axes : 017 -02 016 degrees QTc Int : 413 ms Normal sinus rhythm Normal ECG When compared with ECG of 14-JAN-2022 12:59, No significant change was found Referred By: Estefania Denney Electronically Signed By:RANJAN MONROY
[2023-01-09] MEDS: Morphine Sulfate 2 MG/ML CARTRIDGE IVPUSH (22:20)
[2023-01-09] MEDS: 0.9 % Sodium Chloride 1,000 ML 999 ML IV (22:20)
[2023-01-09] MEDS: Ketorolac Tromethamine 15 MG/ML VIAL IVPUSH (22:20)
[2023-01-09 22:54] LABS: Troponin-I High Sensitivity < 3.5 ng/L (<3.5-35.0)
[2023-01-09] MEDS: HYDROmorphone HCl 2 MG/ML VIAL IVPUSH (23:50)
[2023-01-10 00:53] VITALS: BP 135/76; PULSE 93; RESP 18; TEMP 36.8; O2SAT 98
--- NOTE | 2023-01-10 01:49 | P.HPHOSP_ITS ---
History of Present Illness Date of Service: 01/10/23 Chief Complaint: Abdominal Pain This is a 57-year-old male with pertinent history of essential hypertension, degenerative lumbar disc disease presents to the emergency department for evaluation of abdominal discomfort. Patient states he had sudden onset of left lower quadrant pain that started in the morning. It was progressive and soon became constant. It was nonradiating and without any relieving factors. It was associated with nausea. Patient states throughout the day it progressed and he could not tolerate and hence he decided to present to the ER. No history of similar complaints in the past. Patient denies fever, chills, chest discomfort, palpitations, shortness of breath, changes in urinary or bowel habits In the emergency department, imaging revealed acute uncomplicated diverticulitis Review of Systems Constitutional: Constitutional: Reports no additional constitutional complaints Cardiovascular: Cardiovascular: Reports no additional cardiovascular complaints Respiratory: Respiratory: Reports no additional respiratory complaints Gastrointestinal: Gastrointestinal: Reports abdominal pain and Reports nausea Genitourinary: Genitourinary: Reports no additional male genitourinary complaints Musculoskeletal: Musculoskeletal: Reports no additional musculoskeletal complaints [facility] Medical History Allergic rhinitis, seasonal Bilateral carpal tunnel syndrome BPH associated with nocturia COVID Fatigue Hepatitis C Hypertension Liver cirrhosis Lumbar spondylosis Other intervertebral disc degeneration, lumbar region Vitamin D deficiency Pertinent family history: No family history of CAD Social History Alcohol intake: former Patient Tobacco Use Status: Former Tobacco user Substance Use Type: Crack/Cocaine and Heroin Advance Directives: No Advance Directives Information Provided: Yes Meds Allergies Allergy/AdvReac Type Severity Reaction Status Date / Time sulfamethoxazole Allergy Unknown ITCHINESS Verified 01/14/22 12:26 [From Bactrim] trimethoprim [From Bactrim] Allergy Unknown ITCHINESS Verified 01/14/22 12:26 Active Medications: Current Medications Acetaminophen (Acetaminophen 325 Mg Tablet) 650 mg PO Q6H PRN PRN Reason: Pain, Mild (Pain Scale 1-3) Acetaminophen (Acetaminophen Supp 650 Mg Supp.Rect) 650 mg IN Q6H PRN PRN Reason: Pain, Mild (Pain Scale 1-3) Enoxaparin Sodium (Enoxaparin Sodium 40 Mg/0.4 Ml Syringe) 40 mg SUBCUT Q24H VANESA Melatonin (Melatonin 3 Mg Tablet) 6 mg PO BEDTIME PRN PRN Reason: Insomnia Morphine Sulfate (Morphine Sulfate 4 Mg/Ml Cartridge) 4 mg IVPUSH Q4H PRN; Protocol PRN Reason: Pain, Severe (Pain Scale 7-10) Ondansetron HCl (Ondansetron Hcl 4 Mg/2 Ml Vial) 4 mg IVPUSH Q8H PRN PRN Reason: Nausea and Vomiting Pharmacy Consult (Consult Rx Perform Med Rec) 1 each MISCELLANE ONCE PRN PRN Reason: Consult order Home Medications Medication Instructions Recorded Confirmed Last Taken Type lisinopril 10 mg tablet 10 mg PO DAILY 07/22/22 Unknown History triamcinolone acetonide 55 mcg intranasal 07/22/22 Unknown History nasal spray aerosol Physical Exam Vital Signs and Narrative: Vital Signs: Last Vital Signs Temp 98.3 F 01/10/23 00:53 Pulse 93 01/10/23 00:53 Resp 18 01/10/23 00:53 BP 135/76 01/10/23 00:53 Pulse Ox 98 01/10/23 00:53 O2 Del Method Room Air 01/10/23 00:53 BMI result Body Mass Index 28.2 Middle-aged male lying in bed in mild distress Neck supple, no JVD Regular rate and rhythm, S1-S2 heard Regular breath sounds bilaterally, no wheezing or crackles appreciated Abdomen with left lower quadrant tenderness, no guarding, no rigidity, no rebound tenderness Patient is awake, alert and oriented to self, place, time and person ; no focal motor deficit Psych: Normal mood No pedal edema Results Labs 01/09/23 20:10 01/09/23 20:10 Labs: Laboratory Results - last 24 hr 01/09/23 01/09/23 01/09/23 20:10 20:10 21:41 MCV 84.1 MCH 29.8 MCHC 35.5 RDW 11.8 Plt Count 187 MPV 10.8 Absolute Nucleated RBC 0.000 Nucleated RBC % (auto) 0.0 Anion Gap 12 Estim Creat Clear Calc 73.3 Estimated GFR > 60 Random Glucose 92 Calcium 9.7 Total Bilirubin 1.0 Direct Bilirubin 0.2 AST 36 ALT 53 H Alkaline Phosphatase 55 Troponin I High Sens Total Protein 7.3 Albumin 4.6 Lipase 40 Urine Color Yellow Urine Appearance Clear Urine pH 6.0 Ur Specific [place] 1.020 Urine Protein Negative Urine Glucose (UA) Negative Urine Ketones Negative Urine Blood Negative Urine Nitrite Negative Ur Leukocyte Esterase Negative Urine RBC 0-2 Urine WBC 0-5 Ur Squamous Epith Cells 0-2 Urine Bacteria None Seen Hyaline Casts 0-2 01/09/23 22:12 MCV MCH MCHC RDW Plt Count MPV Absolute Nucleated RBC Nucleated RBC % (auto) Anion Gap Estim Creat Clear Calc Estimated GFR Random Glucose Calcium Total Bilirubin Direct Bilirubin AST ALT Alkaline Phosphatase Troponin I High Sens < 3.5 Total Protein Albumin Lipase Urine Color Urine Appearance Urine pH Ur Specific [place] Urine Protein Urine Glucose (UA) Urine Ketones Urine Blood Urine Nitrite Ur Leukocyte Esterase Urine RBC Urine WBC Ur Squamous Epith Cells Urine Bacteria Hyaline Casts Imaging Radiologist's Impressions: Impressions Chest X-Ray 01/09/23 22:28 IMPRESSION: No acute cardiopulmonary findings Abdomen/Pelvis CT 01/09/23 22:35 IMPRESSION: * Acute uncomplicated distal descending colonic diverticulitis. * Diffuse hepatic steatosis. * Bilateral nonobstructive intrarenal calculi. Assessment and Plan (1) Acute diverticulitis: Status: Acute Plan This is a 57-year-old male with pertinent history of essential hypertension, degenerative lumbar disc disease presents to the emergency department for evaluation of abdominal discomfort. #. Sepsis due to Acute uncomplicated diverticulitis: Resuscitated with IV cr ystalloids. Initiated empiric IV antibiotics. Pain control with IV morphine p.r.n.. Lactic acid pending. Full liquid diet and advance as tolerated. Recommend outpatient colonoscopy in 6-8 weeks after symptom resolution #. Essential hypertension: Hold home antihypertensives in the setting of sepsis. Restart as appropriate #. Lumbar degenerative disc disease: Continue home muscle relaxants Med rec pending DVT prophylaxis: Lovenox 40 mg daily Full code Full liquid diet. Advance as tolerated Admit as inpatient and will require two night minimum hospital stay for IV antibiotics Time Spent With Patient Time: Total time managing care of this patient today ____ minutes. Quality Stroke Does the patient have a stroke diagnosis?: No VTE Prior VTE?: No VTE Risk Level:: Medical - moderate - high VTE Device Contraindication: Treatment Not Indicated VTE Drug Contraindication: N/A - Med Ordered
[2023-01-10] MEDS: Piperacillin Sodium/Tazobactam 3.375 GM in 0.9 % Sodium Chloride 50 ML IV ×4 (02:03→20:10)
[2023-01-10 02:18] LABS: COVID-19 Test Negative (Negative); IDNOW Serial# BCCEAD1C
[2023-01-10 03:00] VITALS: BMI 29.8
[2023-01-10 03:06] VITALS: BP 134/81; PULSE 82; RESP 18; TEMP 36.2; O2SAT 98
[2023-01-10] MEDS: Enoxaparin Sodium 40 MG/0.4 ML SYRINGE SUBCUT (05:04)
[2023-01-10 05:44] LABS: MANUAL DIFF FLAG NO
[2023-01-10 05:49] LABS: Basophils Percent Auto 0.2 % (0-2); Eosinophils Percent Auto 0.3 % (0-4); Hematocrit 39.5 % (42.0-52.0); Hemoglobin 14.1 g/dl (14.0-18.0); Imm Gran Abs Auto 0.05 X10*3/uL (0.00-0.03); Imm Gran Pct Auto 0.5 % (0.0-0.4); Lymphocytes Percent Auto 8.9 % (20-40); Mean Corpuscular HGB Conc 35.7 g/dl (31.0-36.0); Mean Corpuscular Hemoglobin 30.5 pg (27.0-33.0); Mean Corpuscular Volume 85.5 fL (80.0-98.0); Mean Platelet Volume 11.1 fL (9.4-12.4); Monocytes Absolute Auto 0.8 X10*3/uL (0.1-1.2); Monocytes Percent Auto 7.4 % (2-11); Neutrophils Percent Auto 82.7 % (45-73); Platelet Count 164 X10*3/uL (160-400); Red Blood Count 4.62 X10*6/uL (4.60-5.80); Red Cell Distribution Width 11.8 % (11.0-16.0); White Blood Count 10.9 X10*3/uL (4.8-10.8)
[2023-01-10 06:10] LABS: Anion Gap 13 (12-20); Blood Urea Nitrogen 15 mg/dL (9-16); Calcium 8.8 mg/dL (8.4-10.2); Carbon Dioxide 24 mmol/L (22-29); Chloride 108 mmol/L (96-108); Creatinine Clr Calc Pharmacy 98.5; Estimated Glomerular Filt Rate > 60; Glucose Random 155 mg/dL (60-115); Potassium 3.8 mmol/L (3.3-5.1); Sodium 141 mmol/L (135-145)
[2023-01-10 07:36] VITALS: BP 107/64; PULSE 80; RESP 18; TEMP 36.7; O2SAT 96
[2023-01-10 08:13] LABS: C Reactive Protein 0.77 mg/dL (< or = 0.50)
[2023-01-10] MEDS: Lactated Ringers 1,000 ML 100 ML IVCONT ×2 (08:39→20:41)
--- NOTE | 2023-01-10 09:03 | PHA.MEDREC ---
Pharmacy Consult ? Medication Reconciliation Pharmacy has completed the medication reconciliation. spoke with patient through an appliance fixer. patient verified his medications.
--- NOTE | 2023-01-10 10:55 | PM.EVENT ---
Event Note Date of Service: 01/10/23 Event Note: Day hospitalist update S: C/o LLQ pain No fever or hematochezia O: Temp Pulse Resp BP Pulse Ox O2 Del Method 98.0 F 80 18 107/64 96 Room Air 01/10/23 07:36 01/10/23 07:36 01/10/23 07:36 01/10/23 07:36 01/10/23 07:36 01/10/23 07:36 Gen: in no acute distress HEENT: sclera anicteric, moist mucus membranes Neck: supple Lungs: clear to auscultation bilaterally Heart: regular rate and rhythm, no murmurs Abd: soft, tender LLQ, non-distended Ext: no edema Skin: warm/well-perfused Neuro: alert and oriented x3, no focal findings Psych: appropriate affect Labs: WBC 10.9, CRP 0.77 A/P: hospital day#1 57yo M with HTN admitted for sepsis from diverticulitis # sepsis from acute diverticulitis - pip/joel d#1, full liquid diet, IV fluids - lactate normal - full liquid diet # HTN - hold lisinopril # polysubstance abuse - no withdrawal syndrome - screen HBV/HCV/HIV # VTE ppx: LMWH # dispo: anticipate home eventually In my clinical judgment, the patient requires continued inpatient hospitalization for the following reasons: IV ABX Time Spent With Patient Time: Total time managing care of this patient today ____ minutes.
[2023-01-10 14:59] VITALS: BP 119/71; PULSE 86; RESP 18; TEMP 36.7; O2SAT 96
[2023-01-10] MEDS: Morphine Sulfate 4 MG/ML CARTRIDGE IVPUSH (14:59)
[2023-01-10 20:00] VITALS: BP 128/77; PULSE 110; RESP 18; TEMP 37.4; O2SAT 97
[2023-01-10 23:43] VITALS: BP 109/69; PULSE 90; RESP 18; TEMP 36.9; O2SAT 94
[2023-01-11] MEDS: Piperacillin Sodium/Tazobactam 3.375 GM in 0.9 % Sodium Chloride 50 ML IV ×4 (02:28→19:32)
[2023-01-11] MEDS: Lactated Ringers 1,000 ML 100 ML IVCONT ×2 (06:05→17:55)
[2023-01-11 06:07] LABS: Hematocrit 39.2 % (42.0-52.0); Hemoglobin 13.9 g/dl (14.0-18.0); Mean Corpuscular HGB Conc 35.5 g/dl (31.0-36.0); Mean Corpuscular Volume 84.5 fL (80.0-98.0); Platelet Count 152 X10*3/uL (160-400); Red Blood Count 4.64 X10*6/uL (4.60-5.80); Red Cell Distribution Width 11.9 % (11.0-16.0); White Blood Count 7.9 X10*3/uL (4.8-10.8)
[2023-01-11] MEDS: Enoxaparin Sodium 40 MG/0.4 ML SYRINGE SUBCUT (06:07)
[2023-01-11 06:43] LABS: Anion Gap 15 (12-20); Blood Urea Nitrogen 9 mg/dL (9-16); Calcium 8.8 mg/dL (8.4-10.2); Carbon Dioxide 25 mmol/L (22-29); Chloride 106 mmol/L (96-108); Creatinine Clr Calc Pharmacy 82.8; Estimated Glomerular Filt Rate > 60; Glucose Random 93 mg/dL (60-115); Potassium 3.6 mmol/L (3.3-5.1); Sodium 142 mmol/L (135-145)
[2023-01-11 07:28] VITALS: BP 133/98; PULSE 78; RESP 18; TEMP 37.2; O2SAT 96
--- NOTE | 2023-01-11 09:24 | P.PNIM_ITS ---
Subjective Subjective Date of Service: 01/11/23 Interval History: This history was taken in Turkish from the patient. Abd pain improved, tolerating liquids, hungry. C/o back pain. Review of Systems Review of Systems: Yes all other systems are reviewed and are negative Physical Exam Vital Signs: Vital Signs: Last Vital Signs Temp 99.0 F 01/11/23 07:28 Pulse 78 01/11/23 07:28 Resp 18 01/11/23 07:28 BP 133/98 H 01/11/23 07:28 Pulse Ox 96 01/11/23 07:28 O2 Del Method Room Air 01/11/23 07:28 BMI result Body Mass Index 29.8 Gen: in no acute distress HEENT: sclera anicteric, moist mucus membranes Neck: supple Lungs: clear to auscultation bilaterally Heart: regular rate and rhythm, no murmurs Abd: soft, tender LLQ, non-distended Ext: no edema Skin: warm/well-perfused Neuro: alert and oriented x3, no focal findings Psych: appropriate affect Objective Data Active Medications Acetaminophen (Acetaminophen 325 Mg Tablet) 650 mg PO Q6H PRN PRN Reason: Pain, Mild (Pain Scale 1-3) Acetaminophen (Acetaminophen Supp 650 Mg Supp.Rect) 650 mg MI Q6H PRN PRN Reason: Pain, Mild (Pain Scale 1-3) Enoxaparin Sodium (Enoxaparin Sodium 40 Mg/0.4 Ml Syringe) 40 mg SUBCUT Q24H [facility] Last Admin: 01/11/23 06:07 Dose: 40 mg Documented By: MIKE Lactated Ringer's (Lr) 1,000 mls @ 100 mls/hr IVCONT .Q10H [facility] Last Admin: 01/11/23 06:05 Dose: 100 mls/hr Documented By: MIKE Piperacillin Sod/Tazobactam (Sod 3.375 gm/ Sodium Chloride) 50 mls @ 200 mls/hr IV Q6H [facility] Last Infusion: 01/11/23 08:12 Dose: 0 mls/hr Documented By: BHASKAR Lidocaine (Lidocaine 4 % Patch Adh..Patch) 1 patch TRANSDERMA DAILY [facility]; Protocol Melatonin (Melatonin 3 Mg Tablet) 6 mg PO BEDTIME PRN PRN Reason: Insomnia Morphine Sulfate (Morphine Sulfate 4 Mg/Ml Cartridge) 4 mg IVPUSH Q4H PRN; Protocol PRN Reason: Pain, Severe (Pain Scale 7-10) Last Admin: 01/10/23 14:59 Dose: 4 mg Documented By: BHASKAR Ondansetron HCl (Ondansetron Hcl 4 Mg/2 Ml Vial) 4 mg IVPUSH Q8H PRN PRN Reason: Nausea and Vomiting Pharmacy Consult (Consult Rx Perform Med Rec) 1 each MISCELLANE ONCE PRN PRN Reason: Consult order Labs 01/11/23 05:25 01/11/23 05:25 Labs: Laboratory Results - last 24 hr 01/11/23 01/11/23 05:25 05:25 MCV 84.5 MCH 30.0 MCHC 35.5 RDW 11.9 Plt Count 152 L MPV 11.0 Absolute Nucleated RBC 0.000 Nucleated RBC % (auto) 0.0 Anion Gap 15 Estim Creat Clear Calc 82.8 Estimated GFR > 60 Random Glucose 93 Calcium 8.8 Microbiology Microbiology Results: Microbiology 01/10/23 01:47 Blood Culture - Preliminary Blood - Venous No growth after 24 hours. 01/10/23 01:47 Blood Culture - Preliminary Blood - Venous No growth after 24 hours. Assessment and Plan (1) Acute diverticulitis: Status: Acute Plan hospital day#2 57yo M with HTN admitted for sepsis from diverticulitis # sepsis from acute diverticulitis - pip/joel d#2, IV fluids - lactate normal - advance diet to solids # HTN - hold lisinopril, resume if BP persistently high # back pain - lidocaine patch, APAP # polysubstance abuse - no withdrawal syndrome - screen HBV/HCV/HIV # VTE ppx: LMWH # dispo: anticipate home, possibly tomorrow In my clinical judgment, the patient requires continued inpatient hospital ization for the following reasons: IV ABX Time Spent With Patient Time: Total time managing care of this patient today _35___ minutes. Quality Stroke Does the patient have a stroke diagnosis?: No VTE Prior VTE?: No VTE Risk Level:: Medical - moderate - high VTE Device Contraindication: Treatment Not Indicated VTE Drug Contraindication: N/A - Med Ordered
[2023-01-11] MEDS: Lidocaine 4 % Patch ADH..PATCH 1 PATCH TRANSDERMA (09:59)
--- NOTE | 2023-01-11 15:38 | MHC.CM.PN ---
PT REPORTS HE LIVES WITH [facility] S/O, WORKS AND IS INDEPENDENT WITH CARE PT HAS NO DME AND NO SERVICES PT DECLINES TO COMPLETE A HCP PCP: ASHWINI NAME HE IS PAULIEID VAX X 3 DCP: HOME NO SERVICES FAMILY/FRIEND TRANSPORT
[2023-01-11 15:47] VITALS: BP 131/74; PULSE 76; RESP 17; TEMP 36.4; O2SAT 96
[2023-01-11 19:17] VITALS: BP 136/86; PULSE 85; RESP 18; TEMP 36.2; O2SAT 95
[2023-01-11] MEDS: Acetaminophen 325 MG TABLET 650 MG PO (19:38)
[2023-01-12] MEDS: Lactated Ringers 1,000 ML 100 ML IVCONT (02:50)
[2023-01-12] MEDS: Piperacillin Sodium/Tazobactam 3.375 GM in 0.9 % Sodium Chloride 50 ML IV ×2 (02:50→09:15)
[2023-01-12 03:01] VITALS: BP 113/67; PULSE 64; RESP 16; TEMP 36.1; O2SAT 93
[2023-01-12] MEDS: Enoxaparin Sodium 40 MG/0.4 ML SYRINGE SUBCUT (05:39)
[2023-01-12 06:45] LABS: Anion Gap 11 (12-20); Blood Urea Nitrogen 12 mg/dL (9-16); Calcium 8.8 mg/dL (8.4-10.2); Carbon Dioxide 28 mmol/L (22-29); Chloride 108 mmol/L (96-108); Creatinine Clr Calc Pharmacy 80.4; Estimated Glomerular Filt Rate > 60; Glucose Random 103 mg/dL (60-115); Potassium 3.8 mmol/L (3.3-5.1); Sodium 143 mmol/L (135-145)
[2023-01-12 07:02] VITALS: BP 130/84; PULSE 74; RESP 18; TEMP 36.6; O2SAT 97
[2023-01-12 07:10] LABS: HIV AB/AG Nonreactive (Nonreactive); HIV Num 1 0.07 S/CO (0.00-0.99)
[2023-01-12 08:34] LABS: HBc Num1 7.71 S/CO (0.00-0.79); Hepatitis B Surface Antigen Negative (Negative); ~Hepatitis B Surface Antibody REACTIVE (Nonreactive)
[2023-01-12 08:35] LABS: ~HepC Num1 13.63 S/CO (0.00-0.79); ~Hepatitis C Antibody Reactive (Nonreactive)
[2023-01-12] MEDS: Lidocaine 4 % Patch ADH..PATCH 1 PATCH TRANSDERMA (09:16)
[2023-01-12 10:01] LABS: HBc Num2 7.76 S/CO; HBc Num3 8.02 S/CO; Hepatitis B Core Antibody Reactive (Nonreactive)
--- NOTE | 2023-01-12 10:10 | PM.DS ---
DS: Providers Provider Date of Service: 01/12/23 Date of admission: 01/10/23 01:46 Date of discharge: 01/12/23 Primary care physician: Rishi Hyman MD DS: Diagnosis Discharge Diagnosis (1) Acute diverticulitis: Status: Acute (2) Sepsis: Status: Acute (3) Hepatitis C antibody positive in blood: Status: Acute DS: Summary Hospital Course Hospital Course: from admission H+P by hospitalist Rosa Peters MD, 01/10/23: This is a 57-year-old male with pertinent history of essential hypertension, degenerative lumbar disc disease presents to the emergency department for evaluation of abdominal discomfort.? Patient states he had sudden onset of left lower quadrant pain that started in the morning.? It was progressive and soon became constant.? It was nonradiating and without any relieving factors.? It was associated with nausea.? Patient states throughout the day it progressed and he could not tolerate and hence he decided to present to the ER.? No history of similar complaints in the past.? Patient denies fever, chills, chest discomfort, palpitations, shortness of breath, changes in urinary or bowel habits In the emergency department, imaging revealed acute uncomplicated diverticulitis 57yo M with HTN admitted for sepsis from diverticulitis. He was treated with 2 days of piperacillin-tazobactam IV plus fluids. Lactate was normal. Diet was gradually advanced to solids. His pain improved and he was discharged on 8 days of amoxicillin-clavaulante. He should follow up with his primary care doctor and be referred to Gastroenterology for a colonoscopy in about a month or so. HCV screening antibody was positive; he should follow-up with his primary care doctor for viral load testing and treatment if positive. Time Spent with Patient Time attestation: Total time managing care of this patient today ___35_ minutes. Discharge coordination time: Greater than 30 minutes Quality: Safe Use of Opioids Does Pt have an Active Cancer Diagnosis on the Problem List?: No Quality: Stroke Does the patient have a stroke diagnosis?: No Physical Exam Vital Signs: Vital Signs: Last Vital Signs Temp 98 F 01/12/23 07:02 Pulse 74 01/12/23 07:02 Resp 18 01/12/23 07:02 BP 130/84 01/12/23 07:02 Pulse Ox 97 01/12/23 07:02 O2 Del Method Room Air 01/12/23 07:02 BMI result Body Mass Index 29.8 Gen: in no acute distress HEENT: sclera anicteric, moist mucus membranes Neck: supple Lungs: clear to auscultation bilaterally Heart: regular rate and rhythm, no murmurs Abd: soft, mild LLQ tenderness, non-distended, no rebound or guarding Ext: no edema Skin: warm/well-perfused Neuro: alert and oriented x3, no focal findings Psych: appropriate affect DS: Data Data Completed and Pending Labs on day of discharge: Laboratory Results - last 24 hr 01/11/23 01/11/23 01/12/23 05:25 05:25 05:15 Sodium 143 Potassium 3.8 Chloride 108 Carbon Dioxide 28 Anion Gap 11 L BUN 12 Creatinine 1.03 Estim Creat Clear Calc 80.4 Estimated GFR > 60 Random Glucose 103 Calcium 8.8 Hep Bs Antigen Negative Hep Bs Antibody REACTIVE Hep B Core Total Ab Reactive Hep B Core IgM Ab Cancelled Hepatitis C Ab (EIA) Reactive H HIV 1&2 Ab/P24 Ag 4thGn 01/12/23 07:06 Sodium Potassium Chloride Carbon Dioxide Anion Gap BUN Creatinine Estim Creat Clear Calc Estimated GFR Random Glucose Calcium Hep Bs Antigen Hep Bs Antibody Hep B Core Total Ab Hep B Core IgM Ab Hepatitis C Ab (EIA) HIV 1&2 Ab/P24 Ag 4thGn Nonreactive Preliminary micro results at discharge 01/10/23 01:47 Blood Culture - Preliminary Blood - Venous No growth after 48 hours. 01/10/23 01:47 Blood Culture - Preliminary Blood - Venous No growth after 48 hours. Discharge Plan Discharge Anticipated Discharge Date/Time: 01/12/23 09:53 Patient Disposition: Home, Self-Care Discharge Diagnosis: acute diverticulitis Referrals: Name,MD Rishi [Primary Care Provider] - 1 Week Meghan Hunter MD [Physician] - 1 Month Discharge Medications: New amoxicillin-pot clavulanate 875-125 mg tablet 1 tab PO BID Qty: 16 0RF oxycodone 5 mg tablet 5 mg PO Q8H PRN (Reason: severe pain) Qty: 9 0RF Rx Instructions: Partial Fill upon patient request. Continued acetaminophen 500 mg Tablet 1,000 mg PO DAILY PRN (Reason: Pain) triamcinolone acetonide 55 mcg aerosol,spray 2 spray intranasal DAILY Rx Instructions: in each nostril lisinopril 10 mg tablet 10 mg PO DAILY Discharge Orders: Discharge Order (Routine); Ordered 01/12/23 Ordered By: Mouna Ruiz Diet: high-fibre diet Activity on Discharge: As tolerated Stand Alone Forms: Patient Portal Discharge page, Work/School Release Care Plan Goals: recovery from diverticulitis Health Concerns: diverticulitis Plan of Treatment: amoxicillin-clavulanate 875-125 mg twice daily x 8 days high-fibre diet GI referral- needs colonoscopy in approximately 1 month Please follow up with your primary care doctor within 1 week. Return to the hospital if you experience recurrent or worsening symptoms. Hepatitis C antibody positive. Please follow-up with primary care for confirmatory testing and treatment if needed. Assessment: See Discharge Summary.
--- NOTE | 2023-01-12 10:27 | MHC.CM.PN ---
pt dcd home no skilled serveis ordered by
--- NOTE | 2023-01-12 11:45 | P.CDIM_ITS ---
PROVIDER RESPONSE TEXT: To clarify, the appropriate diagnosis supported by the clinical indicators: Sepsis due to Acute diverticulitis-Resolved QUERY TEXT: PHYSICIAN'S DOCUMENTATION REQUEST Date of Query: 01/12/2023 10:07 AM EDT Patient Name: Daniel Cloud Admit Date: 01/10/2023 Dear Mouna Ruiz, A review of the medical record indicates additional documentation may be needed. Please review below and update the documentation accordingly. ED 01/10 - BP normal, Temperature normal, Respiratory normal, heart rate normal, oxygen sat normal WBC 10.9 LA 1.0 Temperature 97 HR 93 RR 16 Multiple doses of pain meds given in the ED - 57 year old w left lower abdominal pain, CT of abdomen and pelvis showing diverticulitis, patient meets criteria for SIRS Not septic shock or severe sepsis, Zosyn Sepsis Systemic manifestations of infection, with 2 or more SIRS criteria which include: Fever > 100.4?F or hypothermia < 96.8?F Leukocytosis WBC > 12,000 or leukopenia, WBC < 4,000, or > 10% bands Tachycardia- > 90 beats/minute Tachypnea- RR > 20 breaths/minute or PaCO2 < 32mmHg Based on the above information and the recognized standard for sepsis, could you please clarify if th is diagnoses is still accurate and reflective of the patient's condition to ensure quality of the medical record. Sepsis due to Acute diverticulitis-Resolved After study the Sepsis has been ruled out Acute diverticulitis Other or unable to determine Other (explain) Clinically unable to determine (explain) Thank you, Nguyen Back, CCS, CDIS Use of terms such as suspected, likely, concern for, or probable (associated with a specific diagnosi s that is being evaluated, monitored, or treated as if it exists) are acceptable and can be coded in the inpatient se tting, when documented at the time of discharge. Please use your independent medical judgment in providing your response. THIS QUERY IS PART OF THE PERMANENT MEDICAL RECORD
[2023-01-15 13:22] LABS: HCV Log PCR <1.18 NOT DETECTED Log IU/mL (NOT DETECTED); HepC Viral Load <15 NOT DETECTED IU/mL (NOT DETECTED)
== END 2023-01-12 10:35 | disposition home or self-care (01) | DRG 720 ==
LOC: HO.ED 01-10 01:14 → HO.EDOVER 01-10 01:50 → HO.S3 01-10 02:31
PROVIDERS: Admitting Provider Student in an Organized Health Care Education/Training Program; Emergency Provider Emergency Medicine; PCP Internal Medicine Geriatric Medicine; Visit Provider Family Medicine
DX: A41.9 Sepsis, unspecified organism (principal); B19.20 Unspecified viral hepatitis C without hepatic coma; K57.32 Diverticulitis of large intestine without perforation or abscess without bleeding; F19.10 Other psychoactive substance abuse, uncomplicated; I10 Essential (primary) hypertension; M51.36 Other intervertebral disc degeneration, lumbar region; Z20.822 Contact with and (suspected) exposure to COVID-19; Z79.899 Other long term (current) drug therapy
CPT/HCPCS: 36415; 71045; 74176; 80048; 80053; 81001; 82248; 83605; 83690; 84484; 85025; 85027; 86140; 86704; 86706; 86803; 87040; 87340; 87389; 87522; 87635; 93005; 99221; 99285; J1170; J1650; J1885; J2270; J2543

== ENCOUNTER 2023-06-30 16:46 | Emergency (ER) | payer OTHER, SELFPAY ==
--- NOTE | ~2023-06-30 | CT_ITS ---
EXAMINATION: CT ABDOMEN AND PELVIS WITHOUT CONTRAST CLINICAL INFORMATION: Abdominal pain, history of diverticulitis COMPARISON: 12/10/2022 TECHNIQUE: Multidetector volumetric imaging was performed from the superior aspect of the liver through the pubic symphysis. Sagittal and coronal reformatted images were obtained on the technologist's workstation. This CT examination was performed using dose optimization techniques as appropriate, variously including the following: *Automated exposure control *Adjustment of mA and/or kV according to patient size (this includes techniques or standardized protocols for targeted exams where dose is matched to indication/reason for exam; i.e. extremities or head) *Use of iterative reconstruction technique DLP: 621 mGy-cm FINDINGS: LUNG BASES: The visualized lung bases are unremarkable. LIVER, GALLBLADDER, AND BILIARY TREE: The liver demonstrates hypoattenuation consistent with steatosis. No focal hepatic lesion or biliary ductal dilatation is identified. The gallbladder is unremarkable. PANCREAS: Unremarkable. SPLEEN: Unremarkable. ADRENAL GLANDS: Unremarkable. KIDNEYS AND URETERS: No hydronephrosis or obstructing calculus identified bilaterally. There are several scattered calculi within each kidney measuring up to approximately 7 mm in size. Small mid right renal cyst is suspected; no follow-up recommended. BLADDER: Minimally distended and suboptimally assessed. GASTROINTESTINAL TRACT: There is mild colonic diverticulosis without diverticulitis. No evidence of bowel obstruction or wall thickening. The appendix is unremarkable. No free fluid or free air is seen. ABDOMINAL WALL: No significant hernia is appreciated. LYMPH NODES: Normal. VASCULAR: Unremarkable. PELVIC VISCERA: Unremarkable. OSSEOUS STRUCTURES: Unremarkable. CT/CT abdomen pelvis wo IV con IMPRESSION: No acute findings identified in the abdomen/pelvis. Several scattered bilateral renal calculi without hydronephrosis. Hepatic steatosis.
[2023-06-30 18:05] VITALS: BP 141/90; PULSE 75; RESP 18; TEMP 36.4; O2SAT 98; BMI 29.8
--- NOTE | 2023-06-30 18:10 | ED_ITS ---
HPI - Abdominal Pain General Chief Complaint: Abdominal Pain Stated Complaint: Abdominal pain Time Seen by Provider: 07/01/23 00:14 Source: patient Mode of arrival: ambulatory History of Present Illness HPI narrative: 58-year-old male with history of diverticulitis presents with lower abdominal discomfort that is also associated with dysuria and reports chills as well as mild nausea. Related Data Home Medications Medication Instructions Recorded Confirmed lisinopril 10 mg tablet 10 mg PO DAILY 07/22/22 01/10/23 triamcinolone acetonide 55 mcg 2 spray intranasal DAILY 07/22/22 01/10/23 nasal spray aerosol acetaminophen 500 mg tablet 1,000 mg PO DAILY PRN Pain 01/10/23 01/10/23 Previous Rx's Medication Instructions Recorded amoxicillin 875 mg-potassium 1 tab PO BID #16 tabs 01/12/23 clavulanate 125 mg tablet oxycodone 5 mg tablet 5 mg PO Q8H PRN severe pain #9 tabs 01/12/23 Allergies Allergy/AdvReac Type Severity Reaction Status Date / Time sulfamethoxazole Allergy Unknown ITCHINESS Verified 01/14/22 12:26 [From Bactrim] trimethoprim [From Bactrim] Allergy Unknown ITCHINESS Verified 01/14/22 12:26 Review of Systems Review of Systems Pertinent positives and negatives as stated in HPI PMFSH Past Medical History Source: nursing notes reviewed Medical History Bilateral carpal tunnel syndrome BPH associated with nocturia Hepatitis C Vitamin D deficiency COVID Allergic rhinitis, seasonal Liver cirrhosis Hypertension Lumbar spondylosis Other intervertebral disc degeneration, lumbar region Fatigue Social History Social History Household Members: Spouse Housing: House Do you presently have visiting nurse or other home services: No Alcohol intake: never Patient Tobacco Use Status: Former Tobacco user Substance Use Type: Crack/Cocaine and Heroin Advance Directives: No Advance Directives Information Provided: Yes service: No Current occupational status: employed Physical Exam ED Vital Signs: Vital Signs - 24 hr 06/30/23 18:05 07/01/23 00:22 Temperature 97.6 F 97.9 F Pulse Rate 75 71 Respiratory Rate 18 15 Blood Pressure 141/90 H 132/87 Pulse Oximetry 98 97 Oxygen Delivery Method Room Air Room Air BMI result Body Mass Index 29.8 VITAL SIGNS: Reviewed. GENERAL: Well developed, well nourished, in no acute distress. HEAD: Normocephalic/atraumatic EYES: PERRLA, EOMI EARS: Ext canals without abnormality NOSE: Nares patent bilateral OROPHARYNX: no oral lesions noted, posterior pharynx clear NECK: Supple, no adenopathy LUNGS: Normal breath sounds. No adventitious sounds or accessory muscle use. SpO2<97> CARDIOVASCULAR: Regular rate and rhythm without noted murmurs ABDOMEN: Soft, non-tender, non-distended with bowel sounds. MUSCULOSKELETAL: No tenderness, deformities, or effusions noted on gross inspection. EXTREMITIES: No cyanosis, clubbing or edema. SKIN: Inspection of the skin reveals no rashes NEUROLOGIC: Alert and oriented x 4. Strength and sensation to light touch were grossly intact x 4. Course Course Course Narrative: This is an RME: Additional HPI, ROS, PE not included below will be deferred to primary provider. This is a 58-year-old male presenting to the emergency department with complaints of lower abdominal pain. He has a history of admission for diverticulitis in December. Reports symptoms feel somewhat similar. Reports pain in the suprapubic area frequent urination tenderness to palpation in the lower abdomen, no rebound or guarding. Vital signs stable. Also hx of kidney stones on imaging. Will defer imaging until seen by primary provider Plan: Labs, UA, ct abd/pelvis ordered Medical Decision Making Medical Decision Making MDM Narrative: 58-year-old male with history and clinical presentation, DDX: UTI, renal colic, diverticulitis I reviewed all investigations and hematologic indices are negative for leukocytosis/left shift and negative for anemia and low platelets are chronically stable. Chemistry indices are grossly within normal limits without NEREIDA and no evidence of electrolyte or liver enzyme abnormalities. Urinalysis negative for UTI or hematuria. CT scan negative for renal colic or diverticulitis and otherwise my interpretation is in agreement with radiology's impression. We also checked PVRs which demonstrated 46 cc. My interpretation is that patient is experiencing musculoskeletal pain as there is no evidence intra-abdominal infection/ infection. Patient provided with combination analgesics and will be discharged home with instructions follow-up with primary care doctor. Differential Diagnosis Differential Diagnoses: The differential diagnosis associated with the presentation includes Please see the discussion above Admission/Observation Consideration of admission/observation: Escalation of care including admission/observation considered Please see the discussion above Lab Data MDM Lab Attestation statement: I reviewed the patient's lab results. Please see the discussion above 06/30/23 19:38 06/30/23 19:38 Labs: Lab Results 06/30/23 07/01/23 Range/Units 19:38 01:12 WBC 7.2 (4.8-10.8) X10*3/uL RBC 4.85 (4.60-5.80) X10*6/uL Hgb 14.7 (14.0-18.0) g/dl Hct 41.2 L (42.0-52.0) % MCV 84.9 (80.0-98.0) fL MCH 30.3 (27.0-33.0) pg MCHC 35.7 (31.0-36.0) g/dl RDW 11.7 (11.0-16.0) % Plt Count 152 L (160-400) X10*3/uL MPV 10.8 (9.4-12.4) fL Immature Gran % (Auto) 0.3 (0.0-0.4) % Neut % (Auto) 55.2 (45-73) % Lymph % (Auto) 31.9 (20-40) % [place] % (Auto) 9.2 (2-11) % Eos % (Auto) 2.8 (0-4) % Baso % (Auto) 0.6 (0-2) % Lymph # (Auto) 2.3 (1.2-4.9) X10*3/uL [place] # (Auto) 0.7 (0.1-1.2) X10*3/uL Eos # (Auto) 0.2 (0.0-0.4) X10*3/uL Baso # (Auto) 0.0 (0.0-0.2) X10*3/uL Abs Immat Gran (auto) 0.02 (0.00-0.03) X10*3/uL Absolute Neuts (auto) 4.0 (2.0-8.3) x10*3/uL Absolute Nucleated RBC 0.000 (0.0-0.012) X10*3/uL Nucleated RBC % (auto) 0.0 (0.0-0.2) /100WBC Sodium 141 (135-145) mmol/L Potassium 3.9 (3.3-5.1) mmol/L Chloride 105 (96-108) mmol/L Carbon Dioxide 27 (22-29) mmol/L Anion Gap 13 (12-20) BUN 14 (9-16) mg/dL Creatinine 0.95 (0.5-1.4) mg/dL Estim Creat Clear Calc 86.0 Estimated GFR > 60 Random Glucose 109 (60-115) mg/dL Calcium 9.5 D (8.4-10.2) mg/dL Magnesium 2.1 (1.6-2.6) mg/dL Total Bilirubin 0.8 (0.0-1.0) mg/dL Direct Bilirubin 0.2 (0.0-0.5) mg/dL AST 27 (5-37) U/L ALT 35 (0-40) U/L Alkaline Phosphatase 46 (39-117) U/L Total Protein 7.1 (6.5-8.0) g/dL Albumin 4.3 (3.5-5.0) g/dL Lipase 29 (8-78) U/L Urine Color Yellow Urine Appearance Clear Urine pH 6.5 (5.0-9.0) Ur Specific [place] 1.020 (1.005-1.025) Urine Protein Negative (Neg-Trace) mg/dL Urine Glucose (UA) Negative (Negative) mg/dL Urine Ketones Negative (Negative) mg/dL Urine Blood Negative (Negative) Urine Nitrite Negative (Negative) Ur Leukocyte Esterase Negative (Negative) Radiology Impression Discussion of test interpretation with radiology: I have reviewed the radiologist's reading. Radiologist Impression: Please see the discussion above Chronic Conditions Patient?s care impacted by: Hypertension Discharge Plan Discharge Clinical Impression: Bilateral lower abdominal discomfort Patient Disposition: Home, Self-Care Instructions: Abdominal Pain (ED) Additional Instructions: 1. Reanudar todos los medicamentos caseros seg?n lo recetado. 2. Sherry un seguimiento con bonilla m?dico de atenci?n primaria los pr?ximos 1 o 2 d?as. Para reevaluaci?n adicional del manejo ambulatorio. Bonilla examen de esta noche fue negativo para infecci?n del tracto urinario, diverticulitis. Regrese a la adan de emergencias si los s?ntomas empeoran. 1. Resume all home medications as prescribed. 2. Follow-up with your primary care doctor the next 1-2 days. For re-evaluation further outpatient management. Your workup tonight was negative for urinary tract infection, diverticulitis. Return to the ER for any worsening symptoms. Prescriptions: No Action acetaminophen 500 mg Tablet 1,000 mg PO DAILY PRN (Reason: Pain) amoxicillin-pot clavulanate 875-125 mg tablet 1 tab PO BID Qty: 16 0RF oxycodone 5 mg tablet 5 mg PO Q8H PRN (Reason: severe pain) Qty: 9 0RF Rx Instructions: Partial Fill upon patient request. triamcinolone acetonide 55 mcg aerosol,spray 2 spray intranasal DAILY Rx Instructions: in each nostril lisinopril 10 mg tablet 10 mg PO DAILY Referrals: Name,MD Rishi [Primary Care Provider] - Print Language: Croatian
[2023-06-30 19:42] LABS: MANUAL DIFF FLAG NO
[2023-06-30 19:45] LABS: Basophils Percent Auto 0.6 % (0-2); Eosinophils Absolute Auto 0.2 X10*3/uL (0.0-0.4); Eosinophils Percent Auto 2.8 % (0-4); Hematocrit 41.2 % (42.0-52.0); Hemoglobin 14.7 g/dl (14.0-18.0); Imm Gran Abs Auto 0.02 X10*3/uL (0.00-0.03); Imm Gran Pct Auto 0.3 % (0.0-0.4); Lymphocytes Absolute Auto 2.3 X10*3/uL (1.2-4.9); Lymphocytes Percent Auto 31.9 % (20-40); Mean Corpuscular HGB Conc 35.7 g/dl (31.0-36.0); Mean Corpuscular Hemoglobin 30.3 pg (27.0-33.0); Mean Corpuscular Volume 84.9 fL (80.0-98.0); Mean Platelet Volume 10.8 fL (9.4-12.4); Monocytes Absolute Auto 0.7 X10*3/uL (0.1-1.2); Monocytes Percent Auto 9.2 % (2-11); Neutrophils Percent Auto 55.2 % (45-73); Platelet Count 152 X10*3/uL (160-400); Red Blood Count 4.85 X10*6/uL (4.60-5.80); Red Cell Distribution Width 11.7 % (11.0-16.0); White Blood Count 7.2 X10*3/uL (4.8-10.8)
[2023-06-30 19:59] LABS: Alanine Aminotransferase 35 U/L (0-40); Albumin Level 4.3 g/dL (3.5-5.0); Alkaline Phosphatase 46 U/L (39-117); Anion Gap 13 (12-20); Aspartate Amino Transferase 27 U/L (5-37); Bilirubin Direct 0.2 mg/dL (0.0-0.5); Bilirubin Total 0.8 mg/dL (0.0-1.0); Blood Urea Nitrogen 14 mg/dL (9-16); Calcium 9.5 mg/dL (8.4-10.2); Carbon Dioxide 27 mmol/L (22-29); Chloride 105 mmol/L (96-108); Estimated Glomerular Filt Rate > 60; Glucose Random 109 mg/dL (60-115); Lipase 29 U/L (8-78); Magnesium 2.1 mg/dL (1.6-2.6); Potassium 3.9 mmol/L (3.3-5.1); Sodium 141 mmol/L (135-145); Total Protein 7.1 g/dL (6.5-8.0)
[2023-07-01 00:22] VITALS: BP 132/87; PULSE 71; RESP 15; TEMP 36.6; O2SAT 97
[2023-07-01 01:19] LABS: Appearance Urine Clear; Color Urine Yellow; Glucose Urine UA Negative (Negative); Leukocyte Esterase Urine Negative (Negative); Nitrite Urine Negative (Negative); PH 6.5 (5.0-9.0); Urine Blood Negative (Negative); Urine Ketones Negative (Negative); Urine Protein Negative (Neg-Trace)
[2023-07-01 02:22] VITALS: BP 135/97; PULSE 74; RESP 12; TEMP 36.7; O2SAT 97
[2023-07-01] MEDS: Ibuprofen 400 MG TABLET PO (02:27)
[2023-07-01] MEDS: Acetaminophen 325 MG TABLET 975 MG PO (02:27)
== END 2023-07-01 02:29 | disposition home or self-care (01) ==
PROVIDERS: Physician Assistant Medical; Emergency Provider Student in an Organized Health Care Education/Training Program; PCP Internal Medicine Geriatric Medicine
DX: R10.30 Lower abdominal pain, unspecified (principal); I10 Essential (primary) hypertension; Z87.891 Personal history of nicotine dependence; Z79.899 Other long term (current) drug therapy
CPT/HCPCS: 36415; 74176; 80048; 80076; 81003; 83690; 83735; 85025; 99284

== ENCOUNTER 2023-07-04 19:47 | Emergency (ER) | payer OTHER, SELFPAY ==
[2023-07-04 20:11] VITALS: BP 136/92; PULSE 78; RESP 18; TEMP 36.3; O2SAT 98; BMI 28.3
--- NOTE | 2023-07-04 20:12 | ED_ITS ---
HPI - Eye Problem General Chief complaint: Eye Problems Stated complaint: Right eye irritation Time Seen by Provider: 07/04/23 22:25 Source: patient, family (nephew) and RN notes reviewed Mode of arrival: ambulatory Limitations: no limitations History of Present Illness HPI Narrative: 58-year-old male presents for evaluation of right eye pain. Patient reports that he was removing a wall from inside the house. He was destroying the drywall and he felt a piece get in his right eye He has had increasing pain, redness since pain His pain is worse any time he blinks He denies any blurry vision He does not follow-up with Ophthalmology and does not wear contacts or glasses His pain is a 5/10 and burning in nature Related Data Home Medications Medication Instructions Recorded Confirmed lisinopril 10 mg tablet 10 mg PO DAILY 07/22/22 01/10/23 triamcinolone acetonide 55 mcg 2 spray intranasal DAILY 07/22/22 01/10/23 nasal spray aerosol acetaminophen 500 mg tablet 1,000 mg PO DAILY PRN Pain 01/10/23 01/10/23 Previous Rx's Medication Instructions Recorded amoxicillin 875 mg-potassium 1 tab PO BID #16 tabs 01/12/23 clavulanate 125 mg tablet oxycodone 5 mg tablet 5 mg PO Q8H PRN severe pain #9 tabs 01/12/23 tobramycin 0.3 % eye drops 2 drp ophthalmic-Right Q4H 5 days 07/04/23 #5 mL Allergies Allergy/AdvReac Type Severity Reaction Status Date / Time sulfamethoxazole Allergy Unknown ITCHINESS Verified 07/04/23 20:10 [From Bactrim] trimethoprim [From Bactrim] Allergy Unknown ITCHINESS Verified 07/04/23 20:10 Review of Systems Constitutional: Constitutional: Denies chills, Denies fever(s) and Denies headache(s) Eyes: Eyes: Denies change in vision, Reports eye pain, Denies requires jules ective lenses, Denies seeing flashes, Denies photophobia and Denies spots in vision ENT: Denies headache(s) Neurologic: Denies headache(s) PMFSH Past Medical History Medical History Bilateral carpal tunnel syndrome BPH associated with nocturia Hepatitis C Vitamin D deficiency COVID Allergic rhinitis, seasonal Liver cirrhosis Hypertension Lumbar spondylosis Other intervertebral disc degeneration, lumbar region Fatigue Social History Social History Household Members: Spouse Housing: House Do you presently have visiting nurse or other home services: No Alcohol intake: never Patient Tobacco Use Status: Former Tobacco user Smoked in Last 30 Days: No Substance Use Type: Crack/Cocaine and Heroin Advance Directives: No Advance Directives Information Provided: No service: No Current occupational status: employed Physical Exam Vital Signs: Vital Signs: Last Vital Signs Temp 97.3 F 07/04/23 20:11 Pulse 78 07/04/23 20:11 Resp 18 07/04/23 20:11 BP 136/92 H 07/04/23 20:11 Pulse Ox 98 07/04/23 20:11 O2 Del Method Room Air 07/04/23 20:11 BMI result Body Mass Index 28.3 Const: General: healthy appearing, comfortable, no acute distress, alert and awake Nutritional Appearance: well nourished Orientation/consciousness: patient oriented x3 HEENT: Head: Yes normocephalic and Yes atraumatic Throat: Yes posterior oropharynx normal Eyes: Other: No obvious foreign body visible. Alignment and Position: alignment normal Periorbital: periorbital findings normal Eyelids: Yes eyelids normal Conjunctivae: conjunctival abnormal right conjunctival injection; without chemosis, without discharge, without pterygia and without subconjunctival hemmorhages Corneas: corneas abnormal on the right fluorescein used and abrasion linear and at the following clock position (Seven to 8 o'clock position) and fluorescein used Pupils: Equal, round and reactive pupils present, Pupils normal by confrontation and Pupil accommodation reflex normal EOM: EOMs intact bilaterally Direct Ophthalmoscopy: no papilledema, fundi normal bilaterally and No photophobia Neck: Neck: Yes full ROM Resp: Effort & Inspection: normal respiratory effort, able to speak in complete sentences and not labored Skin: General skin exam: elasticity normal Neuro: General: patient oriented x3 Cranial nerves: Yes Equal, round and reactive pupils present and Yes Bilaterally intact EOM present Cognition (Neuro): normal cognition Course Course Course Narrative: This is an RME: Additional HPI, ROS, PE not included below will be deferred to primary provider. This is a 27-lbge-lnx-male, with a hx of hepatitis C, HTN, presenting to the ER with complaints of right eye irritation. 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 He endorses some pain. No changes in vision. Does not wear glasses or contacts. Plan: needs visual acuity, fluorescein stain Medications Administered Discontinued Medications Generic Name Dose Route Start Last Admin Trade Name Yvette PRN Reason Stop Dose Admin Fluorescein Sodium 1 strip 07/04/23 20:14 07/04/23 21:35 Fluorescein Sodium Strip EYE-RIGHT 07/04/23 20:15 1 strip ONCE ONE Administration Tetracaine HCl 1 drop 07/04/23 20:14 07/04/23 21:35 Tetracaine Hcl/Pf 0.5% Oph Isabel 4 Ml Drops EYE-RIGHT 07/04/23 20:15 1 drop ONCE ONE Administration Tobramycin Sulfate 2 drop 07/04/23 22:39 07/04/23 23:04 Tobramycin Sulfate 0.3% Iasbel Op 5 Ml Btl EYE-RIGHT 07/04/23 22:40 2 drop ONCE ONE Administration Medical Decision Making Medical Decision Making [facility] Narrative: Patient had a minor eye injury with a piece of drywall striking in the eye while he was destroying a wall. There is no obvious foreign body present. I did still irrigate the eye with saline. Visual acuity testing is significant for the affected eye and 20/30. He has an obvious corneal abrasion that was confirmed with fluorescein staining. There is no concern for globe rupture. The patient has a round pupil with no defects. There is no negative Alexia sign. Patient's extraocular motions are intact in all cardinal directions Differential Diagnosis Differential Diagnoses: The differential diagnosis associated with the presentation includes Corneal abrasion Foreign body Iritis Globe rupture Conjunctivitis Discharge Plan Discharge Clinical Impression: Abrasion, corneal Patient Disposition: Home, Self-Care Instructions: Corneal Abrasion (ED) Additional Instructions: There is no obvious foreign body still in your eye You have a corneal abrasion which is a scratch to the surface of your eye Apply tobramycin eye drops every 4 hours to the right eye for the next 5 days If you are still having pain after 5 days, you may follow-up with Dr. Leija who is an director transition However, I expect your pain will be gone within 2-3 days. In the meantime, you may use Motrin and/or Tylenol for pain Prescriptions: New tobramycin 0.3 % drops 2 drp ophthalmic-Right Q4H 5 Days Qty: 5 0RF No Action acetaminophen 500 mg Tablet 1,000 mg PO DAILY PRN (Reason: Pain) amoxicillin-pot clavulanate 875-125 mg tablet 1 tab PO BID Qty: 16 0RF oxycodone 5 mg tablet 5 mg PO Q8H PRN (Reason: severe pain) Qty: 9 0RF Rx Instructions: Partial Fill upon patient request. triamcinolone acetonide 55 mcg aerosol,spray 2 spray intranasal DAILY Rx Instructions: in each nostril lisinopril 10 mg tablet 10 mg PO DAILY Interventions: ED Discharge Assessment Last Done: 07/04/23 23:07 Discharge Date/Time: 07/04/23 23:07
--- NOTE | 2023-07-04 20:28 | PC.NURSE ---
visual acuity complete. walks well. talking w/o issue. pinkness/redness to right eye.
[2023-07-04] MEDS: Tetracaine HCl/PF 0.5% Oph Sol 4 ML DROPS 1 DROP EYE-RIGHT (21:35)
[2023-07-04] MEDS: Fluorescein Sodium STRIP 1 STRIP EYE-RIGHT (21:35)
--- NOTE | 2023-07-04 22:40 | ED.GENADULT ---
HPI - General Adult General Chief complaint: Eye Problems Stated complaint: Right eye irritation Time Seen by Provider: 07/04/23 22:25 Related Data Home Medications Medication Instructions Recorded Confirmed lisinopril 10 mg tablet 10 mg PO DAILY 07/22/22 01/10/23 triamcinolone acetonide 55 mcg 2 spray intranasal DAILY 07/22/22 01/10/23 nasal spray aerosol acetaminophen 500 mg tablet 1,000 mg PO DAILY PRN Pain 01/10/23 01/10/23 Previous Rx's Medication Instructions Recorded amoxicillin 875 mg-potassium 1 tab PO BID #16 tabs 01/12/23 clavulanate 125 mg tablet oxycodone 5 mg tablet 5 mg PO Q8H PRN severe pain #9 tabs 01/12/23 tobramycin 0.3 % eye drops 2 drp ophthalmic-Right Q4H 5 days 07/04/23 #5 mL Allergies Allergy/AdvReac Type Severity Reaction Status Date / Time sulfamethoxazole Allergy Unknown ITCHINESS Verified 07/04/23 20:10 [From Bactrim] trimethoprim [From Bactrim] Allergy Unknown ITCHINESS Verified 07/04/23 20:10 PMF Past Medical History Medical History Bilateral carpal tunnel syndrome BPH associated with nocturia Hepatitis C Vitamin D deficiency COVID Allergic rhinitis, seasonal Liver cirrhosis Hypertension Lumbar spondylosis Other intervertebral disc degeneration, lumbar region Fatigue Social History Social History Household Members: Spouse Housing: House Do you presently have visiting nurse or other home services: No Alcohol intake: never Patient Tobacco Use Status: Former Tobacco user Smoked in Last 30 Days: No Substance Use Type: Crack/Cocaine and Heroin Advance Directives: No Advance Directives Information Provided: No service: No Current occupational status: employed Physical Exam ED Vital Signs: Vital Signs - 24 hr 07/04/23 20:11 Temperature 97.3 F Pulse Rate 78 Respiratory Rate 18 Blood Pressure 136/92 H Pulse Oximetry 98 Oxygen Delivery Method Room Air BMI result Body Mass Index 28.3 Medications Administered Discontinued Medications Generic Name Dose Route Start Last Admin Trade Name Freq PRN Reason Stop Dose Admin Fluorescein Sodium 1 strip 07/04/23 20:14 07/04/23 21:35 Fluorescein Sodium Strip EYE-RIGHT 07/04/23 20:15 1 strip ONCE ONE Administration Tetracaine HCl 1 drop 07/04/23 20:14 07/04/23 21:35 Tetracaine Hcl/Pf 0.5% Oph Isabel 4 Ml Drops EYE-RIGHT 07/04/23 20:15 1 drop ONCE ONE Administration Discharge Plan Discharge Clinical Impression: Abrasion, corneal Patient Disposition: Home, Self-Care Instructions: Corneal Abrasion (ED) Additional Instructions: There is no obvious foreign body still in your eye You have a corneal abrasion which is a scratch to the surface of your eye Apply tobramycin eye drops every 4 hours to the right eye for the next 5 days If you are still having pain after 5 days, you may follow-up with Dr. Leija who is an re recording mixer However, I expect your pain will be gone within 2-3 days. In the meantime, you may use Motrin and/or Tylenol for pain Prescriptions: New tobramycin 0.3 % drops 2 drp ophthalmic-Right Q4H 5 Days Qty: 5 0RF No Action acetaminophen 500 mg Tablet 1,000 mg PO DAILY PRN (Reason: Pain) amoxicillin-pot clavulanate 875-125 mg tablet 1 tab PO BID Qty: 16 0RF oxycodone 5 mg tablet 5 mg PO Q8H PRN (Reason: severe pain) Qty: 9 0RF Rx Instructions: Partial Fill upon patient request. triamcinolone acetonide 55 mcg aerosol,spray 2 spray intranasal DAILY Rx Instructions: in each nostril lisinopril 10 mg tablet 10 mg PO DAILY
[2023-07-04] MEDS: Tobramycin Sulfate 0.3% Sol Op 5 ML BTL 2 DROP EYE-RIGHT (23:04)
== END 2023-07-04 23:07 | disposition home or self-care (01) ==
PROVIDERS: Emergency Provider Internal Medicine
DX: S05.01XA Injury of conjunctiva and corneal abrasion without foreign body, right eye, initial encounter (principal); X58.XXXA Exposure to other specified factors, initial encounter; Y93.9 Activity, unspecified; Y92.9 Unspecified place or not applicable; Y99.9 Unspecified external cause status
CPT/HCPCS: 99283; 99284

== ENCOUNTER 2023-09-15 09:49 | Outpatient (AMB) | payer OTHER, SELFPAY ==
--- NOTE | 2023-09-15 09:52 | MHC.OFFVIS ---
Intake Vital Signs 09/15/23 09:55 Height 5 ft 6 in Weight 180 lb 12.465 oz BMI 29.2 BP 134/86 Blood Pressure Location Lt brachial Position Sitting Pulse 83 Intake Visit Reasons: Diverticulitis Intake Note: Daniel presents in the office as a new patient for Diverticulitis. CC: He states that he is here because he was diagnosed with Diverticulitis. Pains in the stomach - he was in the hospital in January. Uncomfortable - he denies diarrhea but he has constipation. Medical Transport Specialist Required: No Allergies sulfamethoxazole [From Bactrim] Allergy (Unknown, Verified 09/15/23 09:56) ITCHINESS trimethoprim [From Bactrim] Allergy (Unknown, Verified 09/15/23 09:56) ITCHINESS HPI Diverticulitis HPI Details 58-year-old male with past medical history of hep C, lumbar spondylosis, diverticulitis is here today for initial consultation. Patient reports to have been hospitalized for diverticulitis in the past. Last time was in January. Patient reports that he has been constipated. Was told that he should follow high-fiber diet and then stopped because one of his friend told him that he should not eat anything that has seeds in it. Patient melena, hematochezia, unintentional weight loss or ribbon like stools. Patient had CT scan of abdomen and pelvis in June during ED visit in June and it was negative for diverticulitis. [facility] Medical History Bilateral carpal tunnel syndrome BPH associated with nocturia Hepatitis C Vitamin D deficiency COVID Allergic rhinitis, seasonal Liver cirrhosis Hypertension Lumbar spondylosis Other intervertebral disc degeneration, lumbar region Fatigue Social History Household Members: Spouse Housing: House Do you presently have visiting nurse or other home services: No Alcohol intake: never Patient Tobacco Use Status: Former Tobacco user Substance Use Type: Crack/Cocaine and Heroin service: No Current occupational status: employed Review of Systems Const Denies weight gain and Denies weight loss ENT Reports no additional complaints, Denies dysphagia and Denies odynophagia Card Reports no additional complaints Resp Reports no additional complaints GI Denies abdominal pain, Denies belching, Denies melena, Denies bloating, Reports constipation, Denies dysphagia, Denies excessive flatus, Denies dyspepsia, Denies heartburn, Denies diarrhea, Denies loose stools, Denies nausea, Denies odynophagia and Denies vomiting Reports no additional complaints Musc Reports no additional complaints Neuro Reports no additional complaints Psych Reports no additional complaints Endo Reports no additional complaints Physical Exam Vital Signs: Last Vital Signs Pulse 83 09/15/23 09:55 BP 134/86 09/15/23 09:55 BMI result Body Mass Index 29.2 Const General: healthy appearing, no acute distress and well developed Nutritional Appearance: obese Orientation/consciousness: patient oriented x3 HEENT Head: Yes normal to inspection, Yes normocephalic and Yes atraumatic Face and sinus: Yes normal facial exam Mouth: Normal oral and palatal mucosa present Throat: Yes posterior oropharynx normal, Yes tonsils normal and Yes uvula midline Eyes General: appearance normal, both eyes and all related structures Neck Neck: Yes normal visual inspection, Yes full ROM and Yes trachea midline Thyroid: Thyroid normal Resp Effort & Inspection: normal respiratory effort, able to speak in complete sentences, no tracheal deviation and symmetric chest movement Auscultation: clear to auscultation bilaterally Cardio Rate: regular rate GI Inspection: Yes normal to inspection, No distended and Yes obesity Palpation (GI): Soft to palpation, not firm, nontender and No hepatosplenomegaly present Auscultation: normal bowel sounds General: Yes no CVA tenderness Back/Spine/Pelvis Back: no CVA tenderness Skin General skin exam: elasticity normal, turgor normal and dry skin Neuro General: patient oriented x3 Psych Appearance: grossly normal Mental Status: mental status grossly normal Affect: normal affect Results Reviewed Results Reviewed: ABDOMEN AND PELVIS CT SCAN 07/01/2023 FINDINGS: LUNG BASES: The visualized lung bases are unremarkable. LIVER, GALLBLADDER, AND BILIARY TREE: The liver demonstrates hypoattenuation consistent with steatosis. No focal hepatic lesion or biliary ductal dilatation is identified. The gallbladder is unremarkable. PANCREAS: Unremarkable. SPLEEN: Unremarkable. ADRENAL GLANDS: Unremarkable. KIDNEYS AND URETERS: No hydronephrosis or obstructing calculus identified bilaterally. There are several scattered calculi within each kidney measuring up to approximately 7 mm in size. Small mid right renal cyst is suspected; no follow-up recommended. BLADDER: Minimally distended and suboptimally assessed. GASTROINTESTINAL TRACT: There is mild colonic diverticulosis without diverticulitis. No evidence of bowel obstruction or wall thickening. The appendix is unremarkable. No free fluid or free air is seen. ABDOMINAL WALL: No significant hernia is appreciated. LYMPH NODES: Normal. VASCULAR: Unremarkable. PELVIC VISCERA: Unremarkable. OSSEOUS STRUCTURES: Unremarkable. CT/CT abdomen pelvis wo IV con IMPRESSION: No acute findings identified in the abdomen/pelvis. Several scattered bilateral renal calculi without hydronephrosis. Hepatic steatosis. Assessment & Plan Assessment & Plan (1) Hepatitis C antibody positive in blood: Code(s): R76.8 - Other specified abnormal immunological findings in serum (2) Diverticulosis: Code(s): K57.90 - Diverticulosis of intestine, part unspecified, without perforation or abscess without bleeding Plan Patient will start taking MiraLax daily. He was encouraged to increase fluid intake and activity to promote better bowel motility. Hep C antibody, negative viral load. Patient will return in 2 months to discuss colonoscopy. Patient is agreeable to this plan and verbalizes understanding of instructions. He was given the opportunity to ask questions and all questions answered. Thank you for allowing me to participate in his care Medications: New polyethylene glycol 3350 (Miralax) 17 grams PO DAILY 510 grams 2RF Coding Level of Care Code New Pt Level 3 (97015) Diagnoses Hepatitis C antibody positive in blood R76.8 Diverticulosis K57.90 Time Spent (min) 40 Comment 30 minutes spent with patient and additional 10 minutes spent reviewing her records
[2023-09-15 09:55] VITALS: BP 134/86; PULSE 83; BMI 29.2
== END 2023-09-15 10:15 | disposition home or self-care (01) ==
PROVIDERS: PCP Internal Medicine Geriatric Medicine; Visit Provider Nurse Practitioner Family
DX: R76.8 Other specified abnormal immunological findings in serum (principal); K57.90 Diverticulosis of intestine, part unspecified, without perforation or abscess without bleeding
CPT/HCPCS: 99203

== ENCOUNTER → 2023-09-15 09:49 | Outpatient (BNVA) | payer OTHER, SELFPAY | PROVIDERS: PCP Internal Medicine Geriatric Medicine; Visit Provider Nurse Practitioner Family ==

== ENCOUNTER 2023-10-20 09:24 | Emergency (ER) | payer OTHER, SELFPAY ==
--- NOTE | ~2023-10-20 | CT_ITS ---
EXAMINATION: CT ABDOMEN AND PELVIS WITH CONTRAST CLINICAL INFORMATION: Left lower quadrant pain COMPARISON: CT abdomen pelvis 07/01/2023 TECHNIQUE: Multidetector volumetric images were obtained from the superior aspect of the liver through the pubic symphysis following administration 85 mL of Omnipaque 350 intravenous contrast. Sagittal and coronal reformatted images were obtained on the technologist's workstation. Oral contrast: No This CT examination was performed using dose optimization techniques as appropriate, variously including the following: *Automated exposure control *Adjustment of mA and/or kV according to patient size (this includes techniques or standardized protocols for targeted exams where dose is matched to indication/reason for exam; i.e. extremities or head) *Use of iterative reconstruction technique DLP: 577 mGy-cm FINDINGS: LUNG BASES: The visualized lung bases are unremarkable. LIVER, GALLBLADDER, AND BILIARY TREE: The liver is normal in size and shape but demonstrates decreased attenuation suggesting hepatic steatosis. There is focal fatty sparing around the gallbladder. No focal hepatic lesion or biliary ductal dilatation is present. The gallbladder is unremarkable with no evidence of radiopaque gallstones, gallbladder wall thickening, or obvious pericholecystic inflammatory changes. PANCREAS: Unremarkable. SPLEEN: Unremarkable. ADRENAL GLANDS: Unremarkable. KIDNEYS AND URETERS: The kidneys are normal in size, shape, and attenuation. Multiple bilateral benign Bosniak class I renal cysts are noted which require no additional imaging or follow-up. No solid renal masses are seen. Bilateral multiple nonobstructing renal calculi are present. The largest on the left is at the upper pole measuring 4 mm in diameter and the largest on the right is in the mid kidney measuring 5 mm. The stones measure about 1 Hounsfield units. The largest stone on the right is 10.8 cm from the posterior axillary line and the largest stone on the left is 9 cm from the posterior axillary line. No hydronephrosis, hydroureter, or ureteral calculi seen. No perinephric stranding. BLADDER: Bladder is poorly distended with symmetric wall thickening. GASTROINTESTINAL TRACT: The small and large bowel are unremarkable aside from colonic diverticula without diverticulitis. The appendix is unremarkable. ABDOMINAL WALL: No significant hernia is appreciated. LYMPH NODES: Prominent groin lymph nodes are seen along with some shotty retroperitoneal lymph nodes but there is no adenopathy. VASCULAR: Unremarkable. PELVIC VISCERA: There is mild BPH. Seminal vesicles appear normal. OSSEOUS STRUCTURES: Unremarkable. CT/CT abdomen pelvis w IV con IMPRESSION: 1. A cause for the patient's acute left lower quadrant pain has not been found. 2. Incidental note made of hepatic steatosis, bilateral benign Bosniak class I renal cysts which require no additional imaging or follow-up, bilateral nonobstructing renal calculi, colonic diverticulosis without diverticulitis and mild BPH. Fleischner guidelines were followed.
[2023-10-20 09:45] VITALS: BP 134/81; PULSE 79; RESP 19; TEMP 36.6; O2SAT 98; BMI 28.9
[2023-10-20 10:23] LABS: MANUAL DIFF FLAG NO
[2023-10-20 10:24] LABS: Basophils Percent Auto 0.3 % (0-2); Eosinophils Absolute Auto 0.2 X10*3/uL (0.0-0.4); Eosinophils Percent Auto 2.4 % (0-4); Hematocrit 41.3 % (42.0-52.0); Hemoglobin 14.6 g/dl (14.0-18.0); Imm Gran Abs Auto 0.02 X10*3/uL (0.00-0.03); Imm Gran Pct Auto 0.3 % (0.0-0.4); Lymphocytes Absolute Auto 1.7 X10*3/uL (1.2-4.9); Lymphocytes Percent Auto 25.4 % (20-40); Mean Corpuscular HGB Conc 35.4 g/dl (31.0-36.0); Mean Corpuscular Hemoglobin 30.2 pg (27.0-33.0); Mean Corpuscular Volume 85.3 fL (80.0-98.0); Mean Platelet Volume 10.9 fL (9.4-12.4); Monocytes Absolute Auto 0.5 X10*3/uL (0.1-1.2); Monocytes Percent Auto 8.1 % (2-11); Neutrophils Absolute Auto 4.2 x10*3/uL (2.0-8.3); Neutrophils Percent Auto 63.5 % (45-73); Platelet Count 161 X10*3/uL (160-400); Red Blood Count 4.84 X10*6/uL (4.60-5.80); Red Cell Distribution Width 11.9 % (11.0-16.0); White Blood Count 6.7 X10*3/uL (4.8-10.8)
[2023-10-20 10:44] LABS: Alanine Aminotransferase 36 U/L (0-40); Albumin Level 4.2 g/dL (3.5-5.0); Alkaline Phosphatase 48 U/L (39-117); Anion Gap 11 (12-20); Aspartate Amino Transferase 24 U/L (5-37); Bilirubin Direct 0.2 mg/dL (0.0-0.5); Bilirubin Total 0.8 mg/dL (0.0-1.0); Blood Urea Nitrogen 14 mg/dL (9-16); Calcium 9.6 mg/dL (8.4-10.2); Carbon Dioxide 27 mmol/L (22-29); Chloride 108 mmol/L (96-108); Creatinine Clr Calc Pharmacy 75.3; Estimated Glomerular Filt Rate > 60; Glucose Random 111 mg/dL (60-115); Lipase 26 U/L (8-78); Potassium 4.3 mmol/L (3.3-5.1); Sodium 142 mmol/L (135-145)
[2023-10-20 11:12] LABS: Influenza A PCR NEGATIVE (Negative); Influenza B PCR NEGATIVE (Negative); Resp Syncy Virus RNA Qual PCR NEGATIVE (Negative); SARS COV2 PCR INHOUSE NEGATIVE (Negative)
[2023-10-20 22:02] VITALS: BP 140/87; PULSE 68; RESP 16; TEMP 36.8; O2SAT 98
[2023-10-20 22:10] LABS: Appearance Urine Clear; Color Urine Yellow; Glucose Urine UA Negative (Negative); Leukocyte Esterase Urine Negative (Negative); Nitrite Urine Negative (Negative); PH 6.5 (5.0-9.0); Urine Blood Negative (Negative); Urine Ketones Negative (Negative); Urine Protein Negative (Neg-Trace)
--- NOTE | 2023-10-20 22:14 | ED.ABDPAIN ---
HPI - Abdominal Pain General Chief Complaint: Abdominal Pain Stated Complaint: Low Abdominal Pain Body Aches All Over Time Seen by Provider: 10/20/23 21:45 Source: patient Mode of arrival: ambulatory Limitations: no limitations History of Present Illness HPI narrative: Patient comes to the emergency room complaining of 2 weeks of left lower quadrant pain/burning sensation. Also, patient complaining of diffuse body aches for 2 days, headache. Patient denies any chest pain or shortness of breath. Denies any rectal bleeding or black stool. Related Data Home Medications Medication Instructions Recorded Confirmed lisinopril 10 mg tablet 10 mg PO DAILY 07/22/22 01/10/23 triamcinolone acetonide 55 mcg 2 spray intranasal DAILY 07/22/22 01/10/23 nasal spray aerosol Previous Rx's Medication Instructions Recorded tobramycin 0.3 % eye drops 2 drp ophthalmic-Right Q4H 5 days 07/04/23 #5 mL polyethylene glycol 3350 17 17 g PO DAILY #510 grams 09/15/23 gram/dose oral powder (Miralax) hyoscyamine sulfate 0.125 mg tablet 0.125 mg PO BID #7 tabs 10/21/23 Allergies Allergy/AdvReac Type Severity Reaction Status Date / Time sulfamethoxazole Allergy Unknown ITCHINESS Verified 10/20/23 09:45 [From Bactrim] trimethoprim [From Bactrim] Allergy Unknown ITCHINESS Verified 10/20/23 09:45 Review of Systems Review of Systems Constitutional : No Weight loss, No Fever, No Chills, No Night Sweats, No Fatigue, No Malaise ENT/Mouth : No Hearing loss, No Ear Pain, No Nasal Congestion, No Sinus Pain, No Hoarseness, No sore throat, No Rhinorrhea, No Swallowing Difficulty Eyes: No Eye Pain, No Swelling, No Redness, No Foreign Body, No Discharge, No Vision Changes Cardiovascular : No Chest Pain, No SOB, No Dyspnea on Exertion, No Orthopnea, No Edema, No Palpitations Respiratory : No Cough, No Sputum, No Wheezing, No Smoke Exposure, No Dyspnea Gastrointestinal : No Nausea, No Vomiting, No Diarrhea, No Constipation, complaining of left lower quadrant burning sensation Genitourinary : no irregular bleeding, No Dysuria, No Urinary Frequency, No Hematuria, No Urinary Incontinence, No Urgency, No Flank Pain, No Urinary Flow Changes, No Hesitancy Musculoskeletal : No joint pain, No Myalgias, No Joint Swelling Skin : No Skin Lesions, No rash Neuro : No Weakness, No Numbness, No Paresthesias, No Loss of Consciousness, No Dizziness, No Headache Psych : No Anxiety/Panic, No Depression, No SI/HI/AH/VH, No Social Issues, Heme/Lymph: No Bruising, No Bleeding,No Lymphadenopathy Endocrine : No Polyuria, No Polydipsia, No Temperature Intolerance PMFSH Past Medical History Onset Date is defined in the Problem List Problems that require an onset date and time if occurred within 24 hrs of arrival to the ED Aortic Dissection and Rupture; Neurologic impairment; Cardiopulmonary Arrest; Endotracheal Intubation; Insertion or Replacement of Mechanical Circulatory Assist Device Medical History Bilateral carpal tunnel syndrome BPH associated with nocturia Hepatitis C Vitamin D deficiency COVID Allergic rhinitis, seasonal Liver cirrhosis Hypertension Lumbar spondylosis Other intervertebral disc degeneration, lumbar region Fatigue Social History Social History Household Members: Spouse Housing: House Do you presently have visiting nurse or other home services: No Alcohol intake: never Patient Tobacco Use Status: Former Tobacco user Smoked in Last 30 Days: Yes Use of substances other than those prescribed or required for medical reasons: No Substance Use Type: Crack/Cocaine and Heroin Advance Directives: No Advance Directives Information Provided: No service: No Current occupational status: employed Physical Exam ED Vital Signs: Vital Signs - 24 hr 10/20/23 09:45 10/20/23 22:02 Temperature 98 F 98.2 F Pulse Rate 79 68 Respiratory Rate 19 16 Blood Pressure 134/81 140/87 H Pulse Oximetry 98 98 Oxygen Delivery Method Room Air Room Air BMI result Body Mass Index 28.9 Const Other: Appearance: Alert. Oriented X3. No acute distress. Well appearing Eyes: Pupils equal, round and reactive to light. ENT: Pharynx normal. Neck: Normal inspection. Neck supple. No lymph nodes noted. No crepitus CVS: Normal heart rate and rhythm. Pulses normal. Normal S1 and S2 Respiratory: No respiratory distress. Breath sounds normal. No Wheezing. No rales Abdomen: Soft , mild pain to palpation in suprapubic area, mild in the left lower quadrant, no rebound, no guarding Skin: Skin warm and dry. Normal skin color. Normal skin turgor. Extremities: No lower extremity edema. No Lacerations. No Rash Neuro: Oriented X 3. No motor deficit. No sensory deficit. Moving all extremities. No slurred speech. CN 2 through 12 grossly intact Psych: calm, cooperative, normal affect Medical Decision Making Medical Decision Making [facility] Narrative: -my interpretation of labs, normal hematology and chemistry. Normal chemistry, urinalysis negative, serology negative for influenza RSV and COVID -patient well-appearing, normal vitals -CT scan of the abdomen pending -my interpretation of CT scan: No obvious abnormalities. No SBO. No obvious diverticulitis -patient overall feeling well. Playing on his phone, states that he is hungry Patient ready for discharge Differential Diagnosis Differential Diagnoses: The differential diagnosis associated with the presentation includes (Diverticulitis, renal colic, ureterolithiasis, pyelonephritis, functional abdominal pain) Admission/Observation Consideration of admission/observation: Escalation of care including admission/observation considered (Given patient's initial presentation and history, patient was considered) Lab Data [facility] Lab Attestation statement: I reviewed the patient's lab results. 10/20/23 10:18 10/20/23 10:18 Labs: Lab Results 10/20/23 10/20/23 Range/Units 10:18 21:54 WBC 6.7 (4.8-10.8) X10*3/uL RBC 4.84 (4.60-5.80) X10*6/uL Hgb 14.6 (14.0-18.0) g/dl Hct 41.3 L (42.0-52.0) % MCV 85.3 (80.0-98.0) fL MCH 30.2 (27.0-33.0) pg MCHC 35.4 (31.0-36.0) g/dl RDW 11.9 (11.0-16.0) % Plt Count 161 (160-400) X10*3/uL MPV 10.9 (9.4-12.4) fL Immature Gran % (Auto) 0.3 (0.0-0.4) % Neut % (Auto) 63.5 (45-73) % Lymph % (Auto) 25.4 (20-40) % Butts % (Auto) 8.1 (2-11) % Eos % (Auto) 2.4 (0-4) % Baso % (Auto) 0.3 (0-2) % Lymph # (Auto) 1.7 (1.2-4.9) X10*3/uL Butts # (Auto) 0.5 (0.1-1.2) X10*3/uL Eos # (Auto) 0.2 (0.0-0.4) X10*3/uL Baso # (Auto) 0.0 (0.0-0.2) X10*3/uL Abs Immat Gran (auto) 0.02 (0.00-0.03) X10*3/uL Absolute Neuts (auto) 4.2 (2.0-8.3) x10*3/uL Absolute Nucleated RBC 0.000 (0.0-0.012) X10*3/uL Nucleated RBC % (auto) 0.0 (0.0-0.2) /100WBC Sodium 142 (135-145) mmol/L Potassium 4.3 (3.3-5.1) mmol/L Chloride 108 (96-108) mmol/L Carbon Dioxide 27 (22-29) mmol/L Anion Gap 11 L (12-20) BUN 14 (9-16) mg/dL Creatinine 1.07 (0.5-1.4) mg/dL Estim Creat Clear Calc 75.3 Estimated GFR > 60 Random Glucose 111 (60-115) mg/dL Calcium 9.6 (8.4-10.2) mg/dL Total Bilirubin 0.8 (0.0-1.0) mg/dL Direct Bilirubin 0.2 (0.0-0.5) mg/dL AST 24 (5-37) U/L ALT 36 (0-40) U/L Alkaline Phosphatase 48 (39-117) U/L Total Protein 7.0 (6.5-8.0) g/dL Albumin 4.2 (3.5-5.0) g/dL Lipase 26 (8-78) U/L Urine Color Yellow Urine Appearance Clear Urine pH 6.5 (5.0-9.0) Ur Specific [place] 1.020 (1.005-1.025) Urine Protein Negative (Neg-Trace) mg/dL Urine Glucose (UA) Negative (Negative) mg/dL Urine Ketones Negative (Negative) mg/dL Urine Blood Negative (Negative) Urine Nitrite Negative (Negative) Ur Leukocyte Esterase Negative (Negative) Influenza Type A (PCR) NEGATIVE (Negative) Influenza Type B (PCR) NEGATIVE (Negative) RSV RNA Qual (PCR) NEGATIVE (Negative) SARS-CoV-2 RNA (RT-PCR) NEGATIVE (Negative) Independent Interpretation I performed an independent interpretation of an: CT Scan Radiology Impression Discussion of test interpretation with radiology: I have reviewed the radiologist's reading. Radiologist Impression: FINDINGS: LUNG BASES: The visualized lung bases are unremarkable. LIVER, GALLBLADDER, AND BILIARY TREE: The liver is normal in size and shape but demonstrates decreased attenuation suggesting hepatic steatosis. There is focal fatty sparing around the gallbladder. No focal hepatic lesion or biliary ductal dilatation is present. The gallbladder is unremarkable with no evidence of radiopaque gallstones, gallbladder wall thickening, or obvious pericholecystic inflammatory changes. PANCREAS: Unremarkable. SPLEEN: Unremarkable. ADRENAL GLANDS: Unremarkable. KIDNEYS AND URETERS: The kidneys are normal in size, shape, and attenuation. Multiple bilateral benign Bosniak class I renal cysts are noted which require no additional imaging or follow-up. No solid renal masses are seen. Bilateral multiple nonobstructing renal calculi are present. The largest on the left is at the upper pole measuring 4 mm in diameter and the largest on the right is in the mid kidney measuring 5 mm. The stones measure about 1 Hounsfield units. The largest stone on the right is 10.8 cm from the posterior axillary line and the largest stone on the left is 9 cm from the posterior axillary line. No hydronephrosis, hydroureter, or ureteral calculi seen. No perinephric stranding. BLADDER: Bladder is poorly distended with symmetric wall thickening. GASTROINTESTINAL TRACT: The small and large bowel are unremarkable aside from colonic diverticula without diverticulitis. The appendix is unremarkable. ABDOMINAL WALL: No significant hernia is appreciated. LYMPH NODES: Prominent groin lymph nodes are seen along with some shotty retroperitoneal lymph nodes but there is no adenopathy. VASCULAR: Unremarkable. PELVIC VISCERA: There is mild BPH. Seminal vesicles appear normal. OSSEOUS STRUCTURES: Unremarkable. CT/CT abdomen pelvis w IV con IMPRESSION: 1. A cause for the patient's acute left lower quadrant pain has not been found. 2. Incidental note made of hepatic steatosis, bilateral benign Bosniak class I renal cysts which require no additional imaging or follow-up, bilateral nonobstructing renal calculi, colonic diverticulosis without diverticulitis and mild BPH. Medications Administered Discontinued Medications Generic Name Dose Route Start Last Admin Trade Name Codyq PRN Reason Stop Dose Admin Iohexol 85 ml 10/20/23 22:19 10/20/23 22:19 Iohexol 350 Mg/Ml 100 Ml Infus..Btl IV 10/20/23 22:20 85 ml ONCE ONE Administration Critical Care Time Critical Care Time Critical Care Time: Yes Total Critical Care Time: 60 Attestation: I have personally provided critical care time. Time includes review of lab data, radiology results, discussion with consultants, and monitoring for potential decompensation. Intervention performed as documented. Discharge Plan Discharge Clinical Impression: Abdominal pain Patient Disposition: Home, Self-Care Instructions: Abdominal Pain (ED) Additional Instructions: Please follow-up with your primary care physician tomorrow. If you have any worsening or new symptoms, please return to the emergency room or call 911 Prescriptions: New hyoscyamine sulfate 0.125 mg tablet 0.125 mg PO BID Qty: 7 0RF No Action tobramycin 0.3 % drops 2 drp ophthalmic-Right Q4H 5 Days Qty: 5 0RF triamcinolone acetonide 55 mcg aerosol,spray 2 spray intranasal DAILY Rx Instructions: in each nostril lisinopril 10 mg tablet 10 mg PO DAILY polyethylene glycol 3350 [Miralax] 17 gram/dose powder 17 g PO DAILY Qty: 510 2RF Stand Alone Forms: Work/School Release
[2023-10-20] MEDS: iohexoL 350 MG/ML 100 ML INFUS..BTL 85 ML IV (22:19)
[2023-10-21 00:39] VITALS: PULSE 72; RESP 16; O2SAT 99
== END 2023-10-21 00:49 | disposition home or self-care (01) ==
PROVIDERS: Emergency Provider Emergency Medicine; PCP Internal Medicine Geriatric Medicine
DX: R10.32 Left lower quadrant pain (principal); M79.10 Myalgia, unspecified site; Z20.822 Contact with and (suspected) exposure to COVID-19; Z20.828 Contact with and (suspected) exposure to other viral communicable diseases; Z87.891 Personal history of nicotine dependence; Z79.899 Other long term (current) drug therapy
CPT/HCPCS: 0241U; 36415; 74177; 80048; 80076; 81003; 83690; 85025; 99284; Q9967

== ENCOUNTER 2023-10-26 10:32 | Emergency (ER) | payer OTHER, SELFPAY ==
[2023-10-26 10:37] VITALS: BP 137/97; PULSE 90; RESP 18; TEMP 37; O2SAT 96; BMI 32.4
[2023-10-26 11:59] LABS: MANUAL DIFF FLAG NO
[2023-10-26 12:06] LABS: Basophils Percent Auto 0.3 % (0-2); Eosinophils Absolute Auto 0.2 X10*3/uL (0.0-0.4); Eosinophils Percent Auto 2.1 % (0-4); Hematocrit 44.5 % (42.0-52.0); Hemoglobin 15.8 g/dl (14.0-18.0); Imm Gran Abs Auto 0.04 X10*3/uL (0.00-0.03); Imm Gran Pct Auto 0.6 % (0.0-0.4); Lymphocytes Absolute Auto 1.8 X10*3/uL (1.2-4.9); Mean Corpuscular HGB Conc 35.5 g/dl (31.0-36.0); Mean Corpuscular Hemoglobin 30.2 pg (27.0-33.0); Mean Corpuscular Volume 85.1 fL (80.0-98.0); Mean Platelet Volume 10.9 fL (9.4-12.4); Monocytes Absolute Auto 0.4 X10*3/uL (0.1-1.2); Monocytes Percent Auto 6.3 % (2-11); Neutrophils Absolute Auto 4.6 x10*3/uL (2.0-8.3); Neutrophils Percent Auto 65.7 % (45-73); Platelet Count 172 X10*3/uL (160-400); Red Blood Count 5.23 X10*6/uL (4.60-5.80)
[2023-10-26 12:14] LABS: Alanine Aminotransferase 45 U/L (0-40); Albumin Level 4.4 g/dL (3.5-5.0); Alkaline Phosphatase 57 U/L (39-117); Anion Gap 14 (12-20); Aspartate Amino Transferase 28 U/L (5-37); Bilirubin Total 0.7 mg/dL (0.0-1.0); Blood Urea Nitrogen 15 mg/dL (9-16); Calcium 9.9 mg/dL (8.4-10.2); Carbon Dioxide 27 mmol/L (22-29); Chloride 105 mmol/L (96-108); Creatinine Clr Calc Pharmacy 68.5; Estimated Glomerular Filt Rate > 60; Glucose Random 152 mg/dL (60-115); Magnesium 2.1 mg/dL (1.6-2.6); Potassium 4.5 mmol/L (3.3-5.1); Sodium 141 mmol/L (135-145); Total Protein 7.6 g/dL (6.5-8.0)
[2023-10-26 12:15] LABS: Appearance Urine Clear; Color Urine Yellow; Glucose Urine UA Negative (Negative); Leukocyte Esterase Urine Negative (Negative); Nitrite Urine Negative (Negative); PH 5.5 (5.0-9.0); Urine Blood Negative (Negative); Urine Ketones Negative (Negative); Urine Protein Negative (Neg-Trace)
[2023-10-26 12:17] LABS: COVID-19 Test Negative (Negative); IDNOW Serial# 08D9AD1C
[2023-10-26 12:29] LABS: IDNOW Serial# 9DB6401D; Influenza A Negative (Negative); Influenza B2 Negative (Negative)
--- NOTE | 2023-10-26 15:21 | ED.GENADULT ---
HPI - General Adult General Chief complaint: Abdominal Pain Stated complaint: abd pain Time Seen by Provider: 10/26/23 15:20 Source: patient Mode of arrival: ambulatory Limitations: no limitations History of Present Illness HPI narrative: Patient is a 58 year old assigned male at with a history of hepatitis C presenting to the emergency department today with lower abdominal pain. Patient states that it is the same pain he had on 10/20/2023. Patient states that he is also having difficulty ejaculating. Patient states that he feels like it needs to come out but it isn't. Patient states that he would like some rest days from work. Patient denies any dizziness, lightheadedness, vomiting, fever, chills, blurry vision, double vision, loss of vision, chest pain, difficulty breathing, shortness of breath, back pain, night sweats, pain with urination, increased urinary frequency, increased urinary urgency, blood in his urine or stool, syncope or a near syncopal episode, recent trauma or falls, bowel incontinence, bladder incontinence, bowel retention, bladder retention, or any other complaints at this time. Onset (ago): week(s) (7) Location: abdomen Severity: mild Severity scale (1-10): 2 Relieving factors: none Exacerbating factors: none Associated symptoms: nausea/vomiting Treatments prior to arrival: none Related Data Home Medications Medication Instructions Recorded Confirmed lisinopril 10 mg tablet 10 mg PO DAILY 07/22/22 01/10/23 triamcinolone acetonide 55 mcg 2 spray intranasal DAILY 07/22/22 01/10/23 nasal spray aerosol Previous Rx's Medication Instructions Recorded tobramycin 0.3 % eye drops 2 drp ophthalmic-Right Q4H 5 days 07/04/23 #5 mL polyethylene glycol 3350 17 17 g PO DAILY #510 grams 09/15/23 gram/dose oral powder (Miralax) hyoscyamine sulfate 0.125 mg tablet 0.125 mg PO BID #7 tabs 10/21/23 Allergies Allergy/AdvReac Type Severity Reaction Status Date / Time sulfamethoxazole Allergy Unknown ITCHINESS Verified 10/26/23 10:40 [From Bactrim] trimethoprim [From Bactrim] Allergy Unknown ITCHINESS Verified 10/26/23 10:40 Review of Systems Constitutional: Constitutional: Reports no additional constitutional complaints, Denies chills, Denies fever(s) and Denies night sweats Eyes: Eyes: Reports no additional eye complaints, Denies blurry vision, Denies change in vision, Denies diplopia, Denies eye discharge, Denies loss of vision and Denies eye pain ENT: Denies dizziness Cardiovascular: Cardiovascular: Reports no additional cardiovascular complaints, Denies chest pain, Denies lightheadedness, Denies Loss of Consciousness and Denies dyspnea Respiratory: Respiratory: Reports no additional respiratory complaints and Denies dyspnea Gastrointestinal: Gastrointestinal: Reports no additional gastrointestinal complaints, Reports abdominal pain, Denies melena, Denies hematochezia, Denies change in bowel habits, Denies change in stool character and Reports nausea Genitourinary: Genitourinary: Reports no additional male genitourinary complaints, Denies hematuria, Denies oliguria, Denies difficulty urinating, Denies dysuria, Denies urinary frequency, Denies urinary hesitancy, Denies urinary incontinence and Denies urinary urgency Comments: difficulty ejaculating Musculoskeletal: Musculoskeletal: Reports no additional musculoskeletal complaints, Denies numbness and Denies tingling Neurologic: Denies dizziness, Denies loss of vision, Denies numbness and Denies tingling Psychiatric: Psychiatric: Reports no additional psychiatric complaints Endocrine: Endocrine: Reports no additional endocrine complaints Hematologic/Lymphatic: Hematologic/Lymphatic: Reports no additional hematologic/lymphatic complaints Allergic/Immunologic: Allergic/Immunologic: Reports no additional allergic/immunologic complaints PMFSH Past Medical History Attestation statement: The following information was validated with the patient. Source: old records reviewed and nursing notes reviewed Onset Date is defined in the Problem List Problems that require an onset date and time if occurred within 24 hrs of arrival to the ED Aortic Dissection and Rupture; Neurologic impairment; Cardiopulmonary Arrest; Endotracheal Intubation; Insertion or Replacement of Mechanical Circulatory Assist Device Medical History Bilateral carpal tunnel syndrome BPH associated with nocturia Hepatitis C Vitamin D deficiency COVID Allergic rhinitis, seasonal Liver cirrhosis Hypertension Lumbar spondylosis Other intervertebral disc degeneration, lumbar region Fatigue Social History Social History Household Members: Spouse Housing: House Do you presently have visiting nurse or other home services: No Alcohol intake: never Patient Tobacco Use Status: Former Tobacco user Substance Use Type: Crack/Cocaine and Heroin Advance Directives: No Advance Directives Information Provided: No service: No Current occupational status: employed Physical Exam ED Vital Signs: Vital Signs - 24 hr 10/26/23 10:37 Temperature 98.6 F Pulse Rate 90 Respiratory Rate 18 Blood Pressure 137/97 H Pulse Oximetry 96 Oxygen Delivery Method Room Air BMI result Body Mass Index 32.4 Const General: cooperative, no acute distress, alert and awake Nutritional Appearance: well nourished Orientation/consciousness: patient oriented x3 Limitations: no limitations HENMT Head: Yes normal to inspection and Yes atraumatic Ears: hearing grossly normal bilaterally and external ears normal General nose exam: Normal external nose present, no nasal discharge noted and no epistaxis Face and sinus: Yes normal facial exam, No abrasion and No laceration Mouth: Normal oral and palatal mucosa present, no drooling and no muffled voice Eyes General: appearance normal, both eyes and all related structures Periorbital: periorbital findings normal Eyelids: Yes eyelids normal Conjunctivae: conjunctivae normal Pupils: Equal, round and reactive pupils present EOM: EOMs intact bilaterally Neck Neck: Yes normal visual inspection, Yes full ROM and Yes no lymphadenopathy Chest Chest palpation & inspection: normal inspection of the chest Resp Effort & Inspection: normal respiratory effort and able to speak in complete sentences GI Inspection: Yes normal to inspection Palpation (GI): Soft to palpation, not firm, nontender, no guarding and not rigid Neuro General: patient oriented x3 and moves all extremities Cranial nerves: Yes Equal, round and reactive pupils present Cognition (Neuro): normal cognition Motor exam (neuro): 5/5 motor strength present throughout Sensory Exam: Normal double simultaneous stimulation for sensation Coordination: [id number] test normal Extrem General: Yes normal to inspection, Yes full ROM and Yes capillary refill normal Psych Appearance: grossly normal Mental Status: mental status grossly normal Affect: normal affect Attitude: cooperative Thought process: Normal thought process present Thought content: Normal thought content present Insight: Good insight present (Psych) Medications Administered Discontinued Medications Generic Name Dose Route Start Last Admin Trade Name Freq PRN Reason Stop Dose Admin Ketorolac Tromethamine 15 mg 10/26/23 15:26 10/26/23 15:31 Ketorolac Tromethamine 15 Mg/Ml Vial IM 10/26/23 15:27 15 mg ONCE ONE Administration Medical Decision Making Medical Decision Making MDM Narrative: Patient is a 58 year old assigned male at with a history of hepatitis C presenting to the emergency department today with abdominal pain, nausea, and inability to ejaculate. Patient's physical exam was unremarkable. Patient's blood work was unremarkable. Patient's urine showed no acute process. Patient's bladder scan was unremarkable. I explained my physical exam findings as well as all test results to the patient. I answered all questions asked by the patient. I stressed the importance of the patient taking his medication as prescribed. I stressed the importance of the patient following up with his primary care provider, a urologist for his ejaculation issue, and a GI specialist for his chronic low abdominal pain. I stressed the importance of the patient returning to the emergency department immediately if his symptoms were to worsen or if he were to develop any dizziness, shortness of breath, difficulty breathing, chest pain, blurry vision, loss of vision, nausea, vomiting, abdominal pain, fever, chills, back pain, or any other complaints. Patient verbalized agreement and understanding with this treatment plan and discharge. Differential Diagnosis Differential Diagnoses: The differential diagnosis associated with the presentation includes Abdominal pain Chronic abdominal pain Inability to ejaculate Admission/Observation Consideration of admission/observation: Escalation of care including admission/observation considered Patient would have been admitted to the hospital had his work up had any findings where hospital admission was appropriate and his clinical presentation warranted hospital admission. Lab Data MDM Lab Attestation statement: I reviewed the patient's lab results. My interpretation of these studies and their corresponding values is that they are grossly normal. 10/26/23 11:53 10/26/23 11:53 Labs: Lab Results 10/26/23 10/26/23 Range/Units 11:53 11:57 WBC 7.0 (4.8-10.8) X10*3/uL RBC 5.23 (4.60-5.80) X10*6/uL Hgb 15.8 (14.0-18.0) g/dl Hct 44.5 (42.0-52.0) % MCV 85.1 (80.0-98.0) fL MCH 30.2 (27.0-33.0) pg MCHC 35.5 (31.0-36.0) g/dl RDW 12.0 (11.0-16.0) % Plt Count 172 (160-400) X10*3/uL MPV 10.9 (9.4-12.4) fL Immature Gran % (Auto) 0.6 H (0.0-0.4) % Neut % (Auto) 65.7 (45-73) % Lymph % (Auto) 25.0 (20-40) % [place] % (Auto) 6.3 (2-11) % Eos % (Auto) 2.1 (0-4) % Baso % (Auto) 0.3 (0-2) % Lymph # (Auto) 1.8 (1.2-4.9) X10*3/uL [place] # (Auto) 0.4 (0.1-1.2) X10*3/uL Eos # (Auto) 0.2 (0.0-0.4) X10*3/uL Baso # (Auto) 0.0 (0.0-0.2) X10*3/uL Abs Immat Gran (auto) 0.04 H (0.00-0.03) X10*3/uL Absolute Neuts (auto) 4.6 (2.0-8.3) x10*3/uL Absolute Nucleated RBC 0.000 (0.0-0.012) X10*3/uL Nucleated RBC % (auto) 0.0 (0.0-0.2) /100WBC Sodium 141 (135-145) mmol/L Potassium 4.5 (3.3-5.1) mmol/L Chloride 105 (96-108) mmol/L Carbon Dioxide 27 (22-29) mmol/L Anion Gap 14 (12-20) BUN 15 (9-16) mg/dL Creatinine 1.20 (0.5-1.4) mg/dL Estim Creat Clear Calc 68.5 Estimated GFR > 60 Random Glucose 152 H (60-115) mg/dL Calcium 9.9 (8.4-10.2) mg/dL Magnesium 2.1 (1.6-2.6) mg/dL Total Bilirubin 0.7 (0.0-1.0) mg/dL AST 28 (5-37) U/L ALT 45 H (0-40) U/L Alkaline Phosphatase 57 (39-117) U/L Total Protein 7.6 (6.5-8.0) g/dL Albumin 4.4 (3.5-5.0) g/dL Urine Color Yellow Urine Appearance Clear Urine pH 5.5 (5.0-9.0) Ur Specific [place] 1.020 (1.005-1.025) Urine Protein Negative (Neg-Trace) mg/dL Urine Glucose (UA) Negative (Negative) mg/dL Urine Ketones Negative (Negative) mg/dL Urine Blood Negative (Negative) Urine Nitrite Negative (Negative) Ur Leukocyte Esterase Negative (Negative) COVID-19 (YENNI) Negative (Negative) COVID-19 Clin Com See Note Influenza Type A (RAIN) Negative (Negative) Influenza Type B (RAIN) Negative (Negative) Influenza A & B Note See Note Tests considered The following testing was considered but not selected: CT abd/pelvis was considered however, the patient's symptoms are the same as they were when he was scanned on 10/20/2023 and that was a normal scan. I discussed this with the patient who verbalized agreement and understanding. Discharge Plan Discharge Clinical Impression: Abdominal pain Patient Disposition: Home, Self-Care Instructions: Abdominal Pain (ED) Additional Instructions: Follow up with your primary care provider and a GI specialist. Return to the emergency department immediately if your symptoms worsen or if you develop any dizziness, shortness of breath, difficulty breathing, chest pain, blurry vision, loss of vision, nausea, vomiting, abdominal pain, fever, chills, back pain, or any other complaints. Prescriptions: No Action tobramycin 0.3 % drops 2 drp ophthalmic-Right Q4H 5 Days Qty: 5 0RF hyoscyamine sulfate 0.125 mg tablet 0.125 mg PO BID Qty: 7 0RF triamcinolone acetonide 55 mcg aerosol,spray 2 spray intranasal DAILY Rx Instructions: in each nostril lisinopril 10 mg tablet 10 mg PO DAILY polyethylene glycol 3350 [Miralax] 17 gram/dose powder 17 g PO DAILY Qty: 510 2RF Referrals: [facility] [place] Group] (Call to establish and follow up with a GI specialist. ) [facility] [place] Group] (Call to establish and follow up with a urologist for your ejaculation problem. Llame para establecer y krishna seguimiento con un ur?logo para [place] problema de eyaculaci?n.) Name,MD Rishi [Primary Care Provider] - Stand Alone Forms: Work/School Release Print Language: Khmer
[2023-10-26] MEDS: Ketorolac Tromethamine 15 MG/ML VIAL IM (15:31)
== END 2023-10-26 15:58 | disposition home or self-care (01) ==
PROVIDERS: Physician Assistant Medical; Emergency Provider Emergency Medicine; PCP Internal Medicine Geriatric Medicine
DX: R10.30 Lower abdominal pain, unspecified (principal); R11.2 Nausea with vomiting, unspecified; Z79.899 Other long term (current) drug therapy; Z11.52 Encounter for screening for COVID-19; Z20.828 Contact with and (suspected) exposure to other viral communicable diseases
CPT/HCPCS: 80053; 81003; 83735; 85025; 87502; 87635; 96372; 99283; 99284; J1885

== ENCOUNTER 2023-10-27 10:38 | Outpatient (AMB) | payer OTHER, SELFPAY ==
--- NOTE | 2023-10-27 10:40 | A.OFFVIS_ITS ---
Intake Vital Signs 10/27/23 10:42 Height 5 ft 5 in Weight 182 lb 15.739 oz BMI 30.4 BP 145/88 H Blood Pressure Location Lt brachial Position Sitting Pulse 93 Intake Visit Reasons: Pt request s/p ER visit Intake Note: He states that he was seen in the ED. He does not take any of the mediations -- he states he only takes the powder at times. Allergies sulfamethoxazole [From Bactrim] Allergy (Unknown, Verified 10/27/23 10:43) ITCHINESS trimethoprim [From Bactrim] Allergy (Unknown, Verified 10/27/23 10:43) ITCHINESS HPI Pt request s/p ER visit HPI Details LAST VISIT: Hepatitis C antibody positive in blood Diverticulosis Plan Patient will start taking MiraLax daily. He was encouraged to increase fluid intake and activity to promote better bowel motility. Hep C antibody, negative viral load. Patient will return in 2 months to discuss colonoscopy. Patient is agreeable to this plan and verbalizes understanding of instructions. He was given the opportunity to ask questions and all questions answered. ? Thank you for allowing me to participate in his care Medications New polyethylene glycol 3350 (Miralax) 17 grams PO DAILY 510 grams 2RF TODAY'S VISIT Patient is here today requesting a visit. Seen in the ER yesterday for left lower quadrant pain. Patient has had this pain for over a year now on and off. Last CT scan did not show any acute processes, however patient did have a history of diverticulitis in the past. Patient denies any diarrhea. Reports that he is moving his bowels, however he does not feel like he is emptying his bowels completely every day. Patient reports that he has pain when bending over the pain is in the left lower quadrant. 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 Patient denies inguinal pain. Patient denies any urinary symptoms. Patient was referred to urologist by ED provider for symptoms inability to ejaculate. Patient had no leukocytosis. Denies any fever or chills. Patient denies melena, hematochezia, unintentional weight loss or ribbon like stools. [facility] Medical History Bilateral carpal tunnel syndrome BPH associated with nocturia Hepatitis C Vitamin D deficiency COVID Allergic rhinitis, seasonal Liver cirrhosis Hypertension Lumbar spondylosis Other intervertebral disc degeneration, lumbar region Fatigue Surgical History (Updated 10/27/23 @ 10:43 by CHAD Augustin) Hx of colonoscopy Social History Household Members: Spouse Housing: House Do you presently have visiting nurse or other home services: No Alcohol intake: never Patient Tobacco Use Status: Former Tobacco user Substance Use Type: Crack/Cocaine and Heroin service: No Current occupational status: employed Review of Systems Const Denies weight gain and Denies weight loss ENT Reports no additional complaints, Denies dysphagia and Denies odynophagia Card Reports no additional complaints Resp Reports no additional complaints GI Reports abdominal pain (LLQ), Denies belching, Denies melena, Denies bloating, Denies change in bowel habits, Reports constipation, Reports GI cramping, Denies dysphagia, Denies excessive flatus, Denies dyspepsia, Denies heartburn, Denies diarrhea, Denies loose stools, Denies nausea, Denies odynophagia and Denies vom iting Reports no additional complaints Musc Reports no additional complaints Neuro Reports no additional complaints Psych Reports no additional complaints Endo Reports no additional complaints Physical Exam Vital Signs: Last Vital Signs Pulse 93 10/27/23 10:42 BP 145/88 H 10/27/23 10:42 BMI result Body Mass Index 30.4 Const General: healthy appearing, no acute distress and well developed Nutritional Appearance: well nourished Orientation/consciousness: patient oriented x3 Resp Effort & Inspection: normal respiratory effort, able to speak in complete sentences, no tracheal deviation and symmetric chest movement Auscultation: clear to auscultation bilaterally Cardio Rate: regular rate GI Inspection: Yes normal to inspection and No distended Palpation (GI): Soft to palpation, not firm, Tenderness to palpation present (GI) in the LLQ and No hepatosplenomegaly present Auscultation: normal bowel sounds General: Yes no CVA tenderness Back/Spine/Pelvis Back: no CVA tenderness Skin General skin exam: elasticity normal, turgor normal and dry skin Neuro General: patient oriented x3 Psych Appearance: grossly normal Mental Status: mental status grossly normal Assessment & Plan Assessment & Plan (1) Abdominal pain: Code(s): R10.9 - Unspecified abdominal pain Qualifiers: Abdominal location: left lower quadrant Qualified Code(s): R10.32 - Left lower quadrant pain (2) Diverticulosis: Code(s): K57.90 - Diverticulosis of intestine, part unspecified, without perforation or abscess without bleeding (3) History of diverticulitis: Code(s): Z87.19 - Personal history of other diseases of the digestive system Plan Will send patient for abdominal CT scan with oral and IV contrast. I will see patient 2-3 weeks before he will be scheduled for the procedure. Patient can start taking Colace and MiraLax. Currently patient is on antibiotic for dental caries. He is on amoxicillin 500 mg 3 times a day for 10 days. He was only taking it twice a day and this is his 3rd day. Patient will continue taking it 3 times a day. Patient is agreeable to plan of care and verbalizes understand ing of instructions he was given the opportunity to ask questions and all questions answered. Thank you for allowing me to participate in his care Orders: Orders CT abdomen pelvis w IV con Today K57.90 - Diverticulosis of intestine, part unspecified, without perforation or abscess without bleeding, R10.9 - Unspecified abdominal pain, Z87.19 - Personal history of other diseases of the digestive system Medications: New docusate sodium 100 mg PO BEDTIME 90 caps 3RF K59.00 - Constipation, unspecified Coding Level of Care Code Est Pt Level 4 (62248) Diagnoses Left lower quadrant abdominal pain R10.32 Abdominal location: left lower quadrant Diverticulosis K57.90 History of diverticulitis Z87.19 Time Spent (min) 35 Comment 20 minutes spent with patient and additional 15 minutes spent reviewing his records
[2023-10-27 10:42] VITALS: BP 145/88; PULSE 93; BMI 30.4
== END 2023-10-27 11:19 | disposition home or self-care (01) ==
PROVIDERS: PCP Internal Medicine Geriatric Medicine; Visit Provider Nurse Practitioner Family
DX: R10.32 Left lower quadrant pain (principal); K57.90 Diverticulosis of intestine, part unspecified, without perforation or abscess without bleeding; Z87.19 Personal history of other diseases of the digestive system
CPT/HCPCS: 99214

== ENCOUNTER → 2023-10-27 10:38 | Outpatient (BNVA) | payer OTHER, SELFPAY | PROVIDERS: PCP Internal Medicine Geriatric Medicine; Visit Provider Nurse Practitioner Family ==

== ENCOUNTER 2023-11-02 13:02 | Day surgery (SDC) | payer OTHER, SELFPAY ==
--- NOTE | 2023-10-30 09:40 | P.CONAN_ITS ---
Documented by User: Sarah Nj NP 10/30/23 09:44 HPI - Anesthesia Eval Consult details Narrative: 58yo M for Colonoscopy PMFSH Active Problems Active Problems: All Active Problems (Updated 10/27/23 @ 00:00 by Hui Mares) Hepatitis C antibody positive in blood (Acute) Sepsis (Acute) Acute diverticulitis (Acute) Lumbar spondylosis (Acute) Other intervertebral disc degeneration, lumbar region (Acute) Muscle spasm of back (Acute) Lumbar radiculopathy (Acute) Sacroiliac joint pain (Acute) Past Medical History Medical History Bilateral carpal tunnel syndrome BPH associated with nocturia Hepatitis C Vitamin D deficiency COVID Allergic rhinitis, seasonal Liver cirrhosis Hypertension Lumbar spondylosis Other intervertebral disc degeneration, lumbar region Fatigue Surgical History Surgical History Hx of colonoscopy Social History Social History Household Members: Spouse Housing: House Do you presently have visiting nurse or other home services: No Alcohol intake: never Patient Tobacco Use Status: Former Tobacco user Substance Use Type: Crack/Cocaine and Heroin Have you been hit, kicked, punched, or otherwise hurt by someone within the past year? If so, by whom?: No Are you DNR?: No Advance Directives: No Advance Directives Information Provided: Yes Recently lost weight without trying: No Eating poorly because of decreased appetite: No Nutrition Risks: No Nutritional Risk Poor oral hygiene: No service: No Current occupational status: employed Meds Allergies Allergy/AdvReac Type Severity Reaction Status Date / Time sulfamethoxazole Allergy Unknown ITCHINESS Verified 10/27/23 10:43 [From Bactrim] trimethoprim [From Bactrim] Allergy Unknown ITCHINESS Verified 10/27/23 10:43 Home Medications Medication Instructions Recorded Confirmed Last Taken Type lisinopril 10 mg tablet 10 mg PO DAILY 07/22/22 01/10/23 01/09/23 History triamcinolone acetonide 55 mcg 2 spray intranasal DAILY 07/22/22 01/10/23 01/09/23 History nasal spray aerosol hyoscyamine sulfate 0.125 mg tablet 0.125 mg PO BID 10/27/23 Unknown History Exam Pertinent Lab Results Pertinent Lab Results: Laboratory Tests 10/26/23 11:53 WBC 7.0 Hgb 15.8 Hct 44.5 Plt Count 172 Sodium 141 Potassium 4.5 Chloride 105 Carbon Dioxide 27 BUN 15 Creatinine 1.20 Narrative Narrative: CT abdomen pelvis w IV con 10/2023 IMPRESSION: 1. A cause for the patient's acute left lower quadrant pain has not been found. 2. Incidental note made of hepatic steatosis, bilateral benign Bosniak class I renal cysts which require no additional imaging or follow-up, bilateral nonobstructing renal calculi, colonic diverticulosis without diverticulitis and mild BPH. EKG 12/2022 Vent. Rate : 082 BPM Atrial Rate : 082 BPM P-R Int : 158 ms QRS Dur : 084 ms QT Int : 354 ms P-R-T Axes : 017 -02 016 degrees QTc Int : 413 ms Normal sinus rhythm Normal ECG When compared with ECG of 14-JAN-2022 12:59, No significant change was found Assessment and Plan Assessment Anesthesia Assessment: Chart Reviewed Documented by User: Ngoc Stevens MD 11/02/23 14:15 [facility] Past Medical History Medical History Bilateral carpal tunnel syndrome BPH associated with nocturia Hepatitis C Vitamin D deficiency COVID Allergic rhinitis, seasonal Liver cirrhosis Hypertension Lumbar spondylosis Other intervertebral disc degeneration, lumbar region Fatigue Family History Family history of problems with anesthesia: No Surgical History Surgical History Hx of colonoscopy History of Problems with Anesthesia: No Social History Social History Household Members: Spouse Housing: House Do you presently have visiting nurse or other home services: No Alcohol intake: never Patient Tobacco Use Status: Former Tobacco user Substance Use Type: Crack/Cocaine and Heroin Have you been hit, kicked, punched, or otherwise hurt by someone within the past year? If so, by whom?: No Are you DNR?: No Advance Directives: No Advance Directives Information Provided: Yes Recently lost weight without trying: No Eating poorly because of decreased appetite: No Nutrition Risks: No Nutritional Risk Poor oral hygiene: No service: No Current occupational status: employed Meds Allergies Allergy/AdvReac Type Severity Reaction Status Date / Time sulfamethoxazole Allergy Unknown ITCHINESS Verified 10/27/23 10:43 [From Bactrim] trimethoprim [From Bactrim] Allergy Unknown ITCHINESS Verified 10/27/23 10:43 Home Medications Medication Instructions Recorded Confirmed Last Taken Type lisinopril 10 mg tablet 10 mg PO DAILY 07/22/22 01/10/23 01/09/23 History triamcinolone acetonide 55 mcg 2 spray intranasal DAILY 07/22/22 01/10/23 01/09/23 History nasal spray aerosol hyoscyamine sulfate 0.125 mg tablet 0.125 mg PO BID 10/27/23 Unknown History Exam Airway Mallampati Class: II (missing a couple) TM Dist: >3cm Neck ROM: Full Heart: rrr Lungs: cta Assessment and Plan Assessment Anesthesia Assessment: Anesthesia Plan Discussed Final Anesthetic Review Family History of Problems with Anesthesia: No History of Problems with Anesthesia: No NPO: Yes ASA Class: II Final Preanesthetic Review: No Changes in Pt Med Stat, Meds/Allgs Chart Reviewed and Consent Obtained/Reviewed Patient Risk: Intermediate Procedure Risk: Intermediate Anesthetic Plan Anesthetic Plan: MAC: Disposition: Standard PACU
[2023-11-02 13:56] VITALS: BP 122/81; PULSE 87; RESP 18; TEMP 36.8; O2SAT 96; BMI 28.2
[2023-11-02] MEDS: Lactated Ringers 1,000 ML 100 ML IVCONT (14:02)
--- NOTE | 2023-11-02 14:21 | MHC.SHP ---
Pre-Procedural Eval Section A Date of Service: 11/02/23 The patient is an INPATIENT: No Changes since office visit: Yes Patient answered all questions; No Cold of Flu in the past 2 weeks, No New Medical Problems and No Changes in Medication The History & Physical has been completed within 30 days and I have reviewed it.: Yes Section B Chief Complaint: screening, LLQ pain, hx of diverticulitis Allergies: Allergies Allergy/AdvReac Type Severity Reaction Status Date / Time sulfamethoxazole Allergy Unknown ITCHINESS Verified 10/27/23 10:43 [From Bactrim] trimethoprim [From Bactrim] Allergy Unknown ITCHINESS Verified 10/27/23 10:43 Exam Surgical H&P Exam: Normal: Heart, Normal: Lungs, Normal: Extremities and Normal: Abdomen Plan Diagnosis/Plan: Unchanged I have reviewed the history and physical and performed a pertinent physical examination on my patient. No changes have occurred unless specified. Time Spent With Patient Time: Total time managing care of this patient today ____ minutes.
--- NOTE | 2023-11-02 15:02 | P.OP_ITS ---
Operative Note Operative Note Date of Service: 11/02/23 Narrative: COLONOSCOPY TILL CECUM WITH BIOPSIES AND SNARE POLYECTOMY Pre-op diagnosis: Colon cancer screening, left lower quadrant pain, history of diverticulitis Post-op diagnosis:? Colon polyps, diverticulosis, hemorrhoids Endoscopist:? Marilu Curran MD Anesthesia:?MAC Consent: Indications for the procedure and potential complications of bleeding, perforation, reaction to medications and missed diagnosis were discussed with the patient and informed consent was obtained. Instrument: Olympus CF H 190 L variable stiffness adult colonoscope Monitoring: Vital signs and clinical assessment, intermittent blood pressure monitoring, continuous EKG monitoring, Pulse oximetry and Carbon Dioxide monitoring were done throughout the procedure. Please see anesthesia flowsheet. Colon withdrawl time was 23 minutes. Procedure: The patient was placed in the left lateral decubitis position and pre-procedure medications were administered. After a digital rectal examination of the ano-rectum, the video colonoscope was inserted into the rectum and advanced through the colon to the cecum. The colonoscope was slowly withdrawn in a retrograde panoramic fashion and the colon mucosa was carefully examined including a retroflexed view of the rectum. Findings and interventions are described below. Procedure Difficulty: Colon was long and tortuous and there was spasm and some loop formation. There was a sharp turn at the hepatic flexure which was navigated with some difficulty Findings: Terminal Ileum: Not evaluated Cecum: Normal Ascending Colon: A 12 to 15 mm sessile polyp in the mid AC - removed with a hot snare. A 4-5 mm sessile polyp - removed with a cold biopsy. Transverse Colon: Four 10 to 15 mm sessile polyps in the proximal and mid transverse colon - removed with a hot snare Descending Colon: A few 5 to 8 mm diminutive appearing polyps in the left colon - one removed with a cold snare. Moderate diverticulosis Sigmoid Colon: A few 5 to 8 mm diminutive appearing polyps in the left colon. Moderate diverticulosis Rectum: Normal Ano-rectum: Moderate internal hemorrhoids Colon preparation: Good after some irrigation [place] Bowel Preparation Scale Right colon; 2 Transverse colon: 2 Left colon; 2 (0 = Unprepared colon segment with mucosa not seen due to solid stool that cannot be cleared. 1 = Portion of mucosa of the colon segment seen, but other areas of the colon segment not well seen due to staining, residual stool and/or opaque liquid. 2 = Minor amount of residual staining, small fragments of stool and/or opaque liquid, but mucosa of colon segment seen well. 3 = Entire mucosa of colon segment seen well with no residual staining, small fragments of stool or opaque liquid) Impression and Post Procedure Diagnosis: Colonoscopy Findings: Seven polyps removed Moderate diverticulosis seen in the left colon Moderate hemorrhoids on retroflexed exam. Plan: Await pathology results Patient has an appointment on 11/13/23 in the [facility] with Maira Suh FNP- [facility]. Repeat Colonoscopy interval based on path results - in 2-3 years if polyps are adenomatous and 10 years if polyps are hyperplastic. Above findings were reviewed with the patient and colon polyps and diverticulosis handouts were given in the discharge area
[2023-11-02 16:00] VITALS: BP 91/60; PULSE 75; RESP 12; TEMP 36.1; O2SAT 97
[2023-11-02 16:15] VITALS: BP 128/72; PULSE 79; RESP 18; TEMP 36.1; O2SAT 98
== END 2023-11-02 16:32 | disposition home or self-care (01) ==
PROVIDERS: PCP Internal Medicine Geriatric Medicine; Visit Provider Internal Medicine Gastroenterology
PROC: 0DJD8ZZ Inspection of Lower Intestinal Tract, Via Natural or Artificial Opening Endoscopic (ICD-10-PCS; CPT 45378; principal; 2023-11-02 14:30)
DX: Z12.11 Encounter for screening for malignant neoplasm of colon (principal); D12.3 Benign neoplasm of transverse colon; D12.2 Benign neoplasm of ascending colon; K57.30 Diverticulosis of large intestine without perforation or abscess without bleeding; K64.8 Other hemorrhoids; K56.2 Volvulus; Z87.19 Personal history of other diseases of the digestive system; I10 Essential (primary) hypertension; K74.60 Unspecified cirrhosis of liver; Z87.891 Personal history of nicotine dependence
CPT/HCPCS: 45385; 45380; 88305; J2704

== ENCOUNTER → 2023-11-02 13:02 | Outpatient (BNV) | payer OTHER, SELFPAY | PROVIDERS: PCP Internal Medicine Geriatric Medicine; Visit Provider Internal Medicine Gastroenterology | DX: Z12.11 Encounter for screening for malignant neoplasm of colon (principal); K63.5 Polyp of colon; K57.90 Diverticulosis of intestine, part unspecified, without perforation or abscess without bleeding; K64.8 Other hemorrhoids | CPT/HCPCS: 45380; 45385 ==

== ENCOUNTER 2023-11-13 14:36 | Outpatient (AMB) | payer SELFPAY ==
[2023-11-13 14:54] VITALS: BP 132/86; PULSE 88; BMI 29.7
--- NOTE | 2023-11-13 14:54 | A.OFFVIS_ITS ---
Intake Vital Signs 11/13/23 14:54 Height 5 ft 6 in Weight 183 lb 13.848 oz BMI 29.7 BP 132/86 Blood Pressure Location Lt brachial Position Sitting Pulse 88 Intake Visit Reasons: S/P [place]; Intake Note: Patient returns to in office visit today in follow up s/p colonoscopy with Dr. Curran. CC: Patient reports he had 7 polyps removed during colonoscopy. He also states he has been scared to eat because he is afraid of getting diverticulitis pain again. [employer] Developer Required: Yes Accompanied by: Self / Same As Patient Allergies sulfamethoxazole [From Bactrim] Allergy (Unknown, Verified 11/13/23 15:03) ITCHINESS trimethoprim [From Bactrim] Allergy (Unknown, Verified 11/13/23 15:03) ITCHINESS HPI S/P [place]; HPI Details LAST VISIT: Abdominal pain Diverticulosis History of diverticulitis Plan Will send patient for abdominal CT scan with oral and IV contrast. I will see patient 2-3 weeks before he will be scheduled for the procedure. Patient can start taking Colace and MiraLax. Currently patient is on antibiotic for dental caries. He is on amoxicillin 500 mg 3 times a day for 10 days. He was only taking it twice a day and this is his 3rd day. Patient will continue taking it 3 times a day. Patient is agreeable to plan of care and verbalizes understanding of instructions he was given the opportunity to ask questions and all questions answered. ? Thank you for allowing me to participate in his care Orders Orders CT abdomen pelvis w IV con Today K57.90, R10.9, Z87.19 Medications New docusate sodium 100 mg PO BEDTIME 90 caps 3RF K59.00 COLONOSCOPY Findings: Terminal Ileum: Not evaluated Cecum: Normal Ascending Colon: A 12 to 15 mm sessile polyp in the mid AC - removed with a hot snare. A 4-5 mm sessile polyp - removed with a cold biopsy. Transverse Colon: Four 10 to 15 mm sessile polyps in the proximal and mid transverse colon - removed with a hot snare Descending Colon: A few 5 to 8 mm diminutive appearing polyps in the left colon - one removed with a cold snare. Moderate diverticulosis Sigmoid Colon: A few 5 to 8 mm diminutive appearing polyps in the left colon. Moderate diverticulosis Rectum: Normal Ano-rectum: Moderate internal hemorrhoids Colon preparation: Good after some irrigation [place] Bowel Preparation Scale Right colon; 2 Transverse colon: 2 Left colon; 2 (0 = Unprepared colon segment with mucos a not seen due to solid stool that cannot be cleared. 1 = Portion of mucosa of the colon segme nt seen, but other areas of the colon segment not well seen due to staining, residual stool and/or opaque liquid. 2 = Minor amount of residual staining, s mall fragments of stool and/or opaque liquid, but mucosa of colon segment seen well. 3 = Entire mucosa of colon segment seen well with no residual staining, small fragments of stool or opaque liquid) Impression and Post Procedure Diagnosis: Colonoscopy Findings: Seven polyps removed Moderate diverticulosis seen in the left colon Moderate hemorrhoids on retroflexed exam. Plan: Repeat Colonoscopy interval based on path results - in 2-3 years if polyps are adenomatous and 10 years if polyps are hyperplastic. PATHOLOGY RESULTS Diagnosis A. Colon, transverse, polyps: Sessile serrated lesions/polyps (two) without dysplasia, and hyperplastic polyp, one. B. Colon, ascending, polyps: Tubular adenoma, one; negative for high-grade dysplasia and carcinoma, and one fragment of colonic mucosa with no specific change. C. Colon, descending, polyp: Consistent with hyperplastic polyp. TODAY'S VISIT: Patient is here today for follow-up and to discuss colonoscopy results. Patient denies any ill effects from the prep, anesthesia or procedure itself. Patient is worry because he states that they found 7 polyps. To sessile serrated polyps found in transverse colon, ascending colon was found to have tubular adenoma. Negative for dysplasia, carcinoma. Patient also was found to have a moderate internal hemorrhoids and diverticulosis in sigmoid colon. Patient denies any melena, hematochezia, unintentional weight loss or ribbon like stools. Patient denies any dyspepsia, dysphagia or odynophagia. Patient reports that he is moving his bowels well. Takes Colace and MiraLax daily. Patient denies any GI concerning symptoms today. [facility] Medical History Bilateral carpal tunnel syndrome BPH associated with nocturia Hepatitis C Vitamin D deficiency COVID Allergic rhinitis, seasonal Liver cirrhosis Hypertension Lumbar spondylosis Other intervertebral disc degeneration, lumbar region Fatigue Surgical History Hx of colonoscopy Social History Household Members: Spouse Housing: House Do you presently have visiting nurse or other home services: No Alcohol intake: never Patient Tobacco Use Status: Former Tobacco user Substance Use Type: Crack/Cocaine and Heroin service: No Current occupational status: employed Physical Exam Vital Signs: Last Vital Signs Pulse 88 11/13/23 14:54 BP 132/86 11/13/23 14:54 BMI result Body Mass Index 29.7 Assessment & Plan Assessment & Plan (1) Abdominal pain: Code(s): R10.9 - Unspecified abdominal pain Qualifiers: Abdominal location: left lower quadrant Qualified Code(s): R10.32 - Left lower quadrant pain (2) Diverticulosis: Code(s): K57.90 - Diverticulosis of intestine, part unspecified, without perforation or abscess without bleeding (3) History of diverticulitis: Code(s): Z87.19 - Personal history of other diseases of the digestive system (4) Tubular adenoma of colon: Code(s): D12.6 - Benign neoplasm of colon, unspecified (5) Status post colonoscopy: Code(s): Z98.890 - Other specified postprocedural states Plan Colonoscopy will be repeated in 2-3 years, sooner if clinically necessary. Patient will continue taking MiraLax and Colace daily. High-fiber diet discussed with patient. Patient can take probiotics [id number]. List of food high in fiber given to patient. Patient is scheduled to go for CT scan, I will see him in 3 months sooner on as needed basis. Patient is agreeable to this plan and verbalizes understanding of instructions. He was given the opportunity to ask questions and all questions answered. Thank you for allowing me to participate in his care Coding Level of Care Code Est Pt Level 3 (28938) Diagnoses Left lower quadrant abdominal pain R10.32 Abdominal location: left lower quadrant Diverticulosis K57.90 History of diverticulitis Z87.19 Tubular adenoma of colon D12.6 Status post colonoscopy Z98.890 Time Spent (min) 30 Comment 20 minutes spent with patient and additional 10 minutes spent reviewing his records
== END 2023-11-13 15:29 | disposition home or self-care (01) ==
PROVIDERS: PCP Internal Medicine Geriatric Medicine; Visit Provider Nurse Practitioner Family
DX: R10.32 Left lower quadrant pain (principal); K57.90 Diverticulosis of intestine, part unspecified, without perforation or abscess without bleeding; Z87.19 Personal history of other diseases of the digestive system; D12.6 Benign neoplasm of colon, unspecified; Z98.890 Other specified postprocedural states
CPT/HCPCS: 99213

== ENCOUNTER → 2023-11-13 14:36 | Outpatient (BNVA) | payer OTHER, SELFPAY | PROVIDERS: PCP Internal Medicine Geriatric Medicine; Visit Provider Nurse Practitioner Family ==

== ENCOUNTER 2023-12-24 10:44 | Outpatient (AMB) | payer OTHER, SELFPAY ==
--- NOTE | 2023-12-24 11:43 | A.OFFVIS_ITS ---
Intake Intake Visit Reasons: inability to ejaculate Intake Note: New Patient presents for initial visit for inability to ejaculate Urology Medications: none Blood Thinner: none Antbiotic Allergy: Bactrim, sulfa, trimethoprim Rug Dyer Required: No Accompanied by: Self / Same As Patient Allergies sulfamethoxazole [From Bactrim] Allergy (Unknown, Verified 12/24/23 23:15) ITCHINESS trimethoprim [From Bactrim] Allergy (Unknown, Verified 12/24/23 23:15) ITCHINESS Medication List - Last Reconciled 12/24/23 by HANNAH MazariegosP- docusate sodium 100 mg PO BEDTIME hyoscyamine sulfate 0.125 mg PO BID lisinopril 10 mg PO DAILY polyethylene glycol 3350 (Miralax) 17 grams PO DAILY tamsulosin 0.4 mg PO BEDTIME 30 days triamcinolone acetonide 2 sprays intranasal DAILY HPI HPI Comments History of Present Illness Details Daniel is a very pleasant 58-year-old male patient of Dr. Hyman. He has a past medical history of bilateral carpal tunnel syndrome, BPH associated with nocturia, hep C, vitamin-D deficiency, allergic rhinitis, liver cirrhosis, hypertension, lumbar spondylosis, and fatigue. He presents to the office today as a new patient for nocturia and painful ejaculation. In discussion with the patient today he reports noting ongoing issues with painful ejaculation. He reports no issues with obtaining and maintaining erections. He reports noting to be having at times pressure-like sensation to the base of his penis when ejaculating. He also reports nocturia up to 5 times per night. Discussed at length potential causes of painful ejaculation as well as nocturia. He otherwise denies urinary urgency, urinary frequency, incontinence, hematuri a, dysuria, foul smelling urine, changes to urinary stream, flank pain, fever, and or chills. He denies any signs or symptoms of sleep apnea. In office urinalysis results reviewed with the patient today. KATHY offered however deferred. [facility] Medical History Bilateral carpal tunnel syndrome BPH associated with nocturia Hepatitis C Vitamin D deficiency COVID Allergic rhinitis, seasonal Liver cirrhosis Hypertension Lumbar spondylosis Other intervertebral disc degeneration, lumbar region Fatigue Surgical History Hx of colonoscopy Social History Household Members: Spouse Housing: House Do you presently have visiting nurse or other home services: No Alcohol intake: never Patient Tobacco Use Status: Former Tobacco user Substance Use Type: Crack/Cocaine and Heroin service: No Current occupational status: employed Review of Systems Const Reports no additional complaints Eyes Reports no additional complaints ENT Reports no additional complaints Card Reports as per [facility] Resp Reports as per [facility] GI Reports as per HPI Reports as per [facility] Musc Reports as per [facility] Neuro Reports as per HPI Psych Reports as per HPI Endo Reports no additional complaints Keven/Lymph Reports as per HPI Aller/Immun Reports as per HPI Physical Exam Const General: cooperative, healthy appearing, comfortable, no acute distress, well developed, alert and awake Orientation/consciousness: patient oriented x3 Limitations: no limitations HEENT Head: Yes normal to inspection, Yes normocephalic and Yes atraumatic Ears: hearing grossly normal bilaterally Eyes General: appearance normal, both eyes and all related structures Neck Neck: Yes normal visual inspection and Yes trachea midline Chest Chest palpation & inspection: normal inspection of the chest Resp Effort & Inspection: normal respiratory effort and able to speak in complete sentences Cardio Rate: regular rate GI Inspection: Yes normal to inspection General: Yes no CVA tenderness Back/Spine/Pelvis Back: no CVA tenderness Skin General skin exam: no rashes or lesions noted Neuro General: patient oriented x3 Extrem General: Yes normal to inspection Psych Appearance: grossly normal and well kempt Mental Status: mental status grossly normal Speech and movement: Normal speech and movement present and Clear speech present Affect: normal affect Attitude: cooperative Thought process: Normal thought process present Thought content: Normal thought content present Insight: Fair insight present (Psych) Judgement: Fair judgement present (Psych) Results AMB Urinalysis, Automated UA Leukoctes 0 Siobhan/uL Last Edit by Punchey Juan on 12/24/23 11:58 UA Nitrite Negative Last Edit by Tammy Martinez on 12/24/23 11:58 UA Urobilinogen 0.2 mg/dL Last Edit by Robodromjong Martinez on 12/24/23 11:58 UA Protein 0 mg/dL Last Edit by Robodromjong Martinez on 12/24/23 11:58 UA pH 6.0 Last Edit by Robodromjong Martinez on 12/24/23 11:58 UA Blood 0 Jerrell/uL Last Edit by Tammy Martinez on 12/24/23 11:58 UA Specific [place] 1.015 Last Edit by Tammy Martinez on 12/24/23 11:58 UA Ketone Negative Last Edit by Tammy Martinez on 12/24/23 11:58 UA Bilirubin 0 mg/dL Last Edit by Tammy Martinez on 12/24/23 11:58 UA Glucose 0 mg/dL Last Edit by Tammy Martinez on 12/24/23 11:58 Results Reviewed Results Reviewed: Laboratory Last Values Urine pH (Auto) 6.0 12/24/23 11:48 Specific [place] (Auto) 1.015 12/24/23 11:48 Urine Protein (Auto) 0 mg/dL 12/24/23 11:48 Glucose (UA)(Auto) 0 mg/dL 12/24/23 11:48 Urine Ketones (Auto) Negative 12/24/23 11:48 Urine Blood (Auto) 0 Jerrell/uL 12/24/23 11:48 Urine Nitrite (Auto) Negative 12/24/23 11:48 Urine Bilirubin (Auto) 0 mg/dL 12/24/23 11:48 Urine Urobilinogen (Auto) 0.2 mg/dL 12/24/23 11:48 Leukocyte Esterase (Auto) 0 Siobhan/uL 12/24/23 11:48 Assessment & Plan Assessment & Plan (1) Nocturia: Code(s): R35.1 - Nocturia (2) Painful ejaculation: Code(s): N53.12 - Painful ejaculation Plan In office urinalysis results reviewed with the patient today; as noted above. Discussed at length potential causes of nocturia as well as painful ejaculation. Discussed, educated, and instructed on the importance of drinking plenty of water daily. Will obtain retroperitoneal ultrasound for further assessment evaluation. Will obtain PSA for further assessment evaluation. KATHY offered however deferred. Start Flomax as discussed and prescribed. Discussed bladder triggers/irritants. Discussed lifestyle modifications to assist with nocturia Follow-up in 1-2 months with imaging, PSA, and PVR; or sooner with any issues, concerns, and or questions. Orders: Orders AMB Urinalysis Automated Today Z13.9 - Encounter for screening, unspecified US retroperitoneal comp Today R35.1 - Nocturia Prostate Specific Antigen Today R35.1 - Nocturia Medications: New tamsulosin 0.4 mg PO BEDTIME 30 days 30 caps 1RF N40.1 - Benign prostatic hyperplasia with lower urinary tract symptoms, R35.1 - Nocturia Patient Instructions: The patient had an opportunity to ask questions regarding the treatment plan. All questions were answered. Physical exam, labs, and imaging were discussed and reviewed in detail. As well as risks, benefits, and discussion of treatment choices. No major barriers to understanding were identified. The patient expressed understanding and agreement with the above treatment plan. The patient was made aware they should contact our office by phone for worsening of their current condition, the appearance of new symptoms, or with any questions or concerns. Compliance is encouraged with any medications and follow up testing that is ordered. It is a privilege to be allowed the opportunity to participate in? your urological care.? Again, if you have any questions or concerns If you have any questions or concerns please do not hesitate to contact me. The office is [phone]. This note is constructed using voice recognition software. While every effort has been made to ensure accuracy agricultural specialist errors may have been included. Yours sincerely, TONNY Mazariegos Coding Level of Care Code New Pt Level 4 (76234) Diagnoses Nocturia R35.1 Painful ejaculation N53.12
== END 2023-12-24 12:19 | disposition home or self-care (01) ==
PROVIDERS: PCP Internal Medicine Geriatric Medicine; Visit Provider Nurse Practitioner Family
DX: R35.1 Nocturia (principal); N53.12 Painful ejaculation
CPT/HCPCS: 99204

== ENCOUNTER → 2023-12-24 10:44 | Outpatient (BNVA) | payer OTHER, SELFPAY | PROVIDERS: PCP Internal Medicine Geriatric Medicine; Visit Provider Nurse Practitioner Family | DX: N53.12 Painful ejaculation (principal); N40.1 Benign prostatic hyperplasia with lower urinary tract symptoms; R35.1 Nocturia | CPT/HCPCS: 81003 ==

== ENCOUNTER 2023-12-25 08:27 | Outpatient (REF) | payer OTHER, SELFPAY ==
[2023-12-25 10:16] LABS: Prostate Specific Antigen 2.34 ng/mL (<0.05-4.0)
== END 2023-12-25 08:28 | disposition home or self-care (01) ==
LOC: HO.LAB 08:27
PROVIDERS: PCP Internal Medicine Geriatric Medicine; Visit Provider Nurse Practitioner Family
DX: R35.1 Nocturia (principal)
CPT/HCPCS: 36415; 84153

== ENCOUNTER 2024-01-06 10:04 | Outpatient (REF) | payer OTHER, SELFPAY ==
--- NOTE | ~2024-01-06 | US_ITS ---
EXAMINATION: US RETROPERITONEAL COMPLETE (RENAL) CLINICAL INFORMATION: Nocturia. COMPARISON: CT abdomen and pelvis 10/20/2023. Ultrasound abdomen complete 01/16/2021 and 12/06/2019. TECHNIQUE: Real-time imaging of the kidneys and bladder. FINDINGS: RIGHT KIDNEY: 10.5 x 6.5 x 5.7 cm (SAG x AP x TRV). The kidney is normal in size, contour, and echogenicity. Renal cortical thickness is normal. No hydronephrosis. There are 2 simple cysts, the largest is in the mid pole and measures 1.0 x 0.8 x 1.2 cm. No imaging follow-up is recommended. There are 2 nonobstructing calculi, the largest is in the upper pole and measures 0.5 x 0.4 x 0.3 cm. LEFT KIDNEY: 11.7 x 5.3 x 4.3 cm (SAG x AP x TRV). The kidney is normal in size, contour, and echogenicity. Renal cortical thickness is normal. No hydronephrosis. There is a 1.2 x 1.1 x 0.8 cm simple cyst in the mid kidney. No imaging follow-up is recommended. There are 2 nonobstructing calculi with the largest in the upper pole measuring 0.5 x 0.3 x 0.4 cm. BLADDER: Well distended and normal. Bilateral ureteral jets are demonstrated. Prevoid bladder volume is 223 mL. Postvoid bladder volume is 54.0 mL. Prostate volume 24.2 mL. US/US retroperitoneal comp IMPRESSION: 1. Bilateral nonobstructing renal calculi. 2. Mild to moderate post void residual. 3. Normal size prostate.
== END 2024-01-06 10:05 | disposition home or self-care (01) ==
LOC: HO.US 10:04
PROVIDERS: PCP Internal Medicine Geriatric Medicine; Visit Provider Nurse Practitioner Family
DX: R35.1 Nocturia (principal)
CPT/HCPCS: 76770

== ENCOUNTER 2024-02-12 08:46 | Outpatient (AMB) | payer OTHER, SELFPAY ==
--- NOTE | 2024-02-12 08:56 | A.OFFVIS_ITS ---
Vital Signs 02/12/24 08:58 Height 5 ft 6 in Weight 184 lb BMI 29.7 BP 141/91 H Blood Pressure Location Rt brachial Position Sitting Pulse 72 Intake Visit Reasons: 3 mth follow up Abd pain,diverticulosis,CT results Intake Note: Pt presents today for 3 mo follow up and test results. Denies abd pain and reports issues with bladder. Foreign Exchange Dealer Required: No Accompanied by: Self / Same As Patient Allergies sulfamethoxazole [From Bactrim] Allergy (Unknown, Verified 02/12/24 09:02) ITCHINESS trimethoprim [From Bactrim] Allergy (Unknown, Verified 02/12/24 09:02) ITCHINESS HPI HPI 3 mth follow up Abd pain,diverticulosis,CT results: Details: LAST VISIT: Abdominal pain Diverticulosis History of diverticulitis Tubular adenoma of colon Status post colonoscopy Plan Colonoscopy will be repeated in 2-3 years, sooner if clinically necessary. Patient will continue taking MiraLax and Colace daily. High-fiber diet discussed with patient. Patient can take probiotics [id number]. List of food high in fiber given to patient. Patient is scheduled to go for CT scan, I will see him in 3 months sooner on as needed basis. Patient is agreeable to this plan and verbalizes understanding of instructions. He was given the opportunity to ask questions and all questions answered. ? TODAY'S VISIT Patient is here today for follow-up. Patient reports that he has been feeling better. Patient no longer has left upper quadrant pain. Moving his bowels better. Patient started taking Metamucil once and sometimes twice a day and reports that he is moving his bowels well. Denies any melena, hematochezia, unintentional weight loss or ribbon like stools. Patient has seen Urology for his pelvic pain. Patient denies any nausea or vomiting. Patient denies any dys pepsia, dysphagia or odynophagia. Patient denies any other GI concerning symptoms [facility] Medical History Bilateral carpal tunnel syndrome BPH associated with nocturia Hepatitis C Vitamin D deficiency COVID Allergic rhinitis, seasonal Liver cirrhosis Hypertension Lumbar spondylosis Other intervertebral disc degeneration, lumbar region Fatigue Surgical History Hx of colonoscopy Social History Household Members: Spouse Housing: House Do you presently have visiting nurse or other home services: No Alcohol intake: never Patient Tobacco Use Status: Former Tobacco user Substance Use Type: Crack/Cocaine and Heroin service: No Current occupational status: employed Review of Systems Const Denies weight gain and Denies weight loss ENT Reports no additional complaints, Denies dysphagia and Denies odynophagia Card Reports no additional complaints Resp Reports no additional complaints GI Denies abdominal pain, Denies belching, Denies melena, Denies bloating, Denies change in bowel habits, Denies dysphagia, Denies excessive flatus, Denies dyspepsia, Denies heartburn, Denies diarrhea, Denies loose stools, Denies nausea, Denies odynophagia and Denies vomiting Reports no additional complaints Musc Reports no additional complaints Neuro Reports no additional complaints Psych Reports no additional complaints Endo Reports no additional complaints Physical Exam Vital Signs: Last Vital Signs Pulse 72 02/12/24 08:58 BP 141/91 H 02/12/24 08:58 BMI result Body Mass Index 29.7 Const General: healthy appearing, no acute distress and well developed Nutritional Appearance: well nourished Orientation/consciousness: patient oriented x3 Resp Effort & Inspection: normal respiratory effort, able to speak in complete sentences, no tracheal deviation and symmetric chest movement Auscultation: clear to auscultation bilaterally Cardio Rate: regular rate GI Inspection: Yes normal to inspection, No distended and Yes obesity Palpation (GI): Soft to palpation, not firm, Tenderness to palpation present (GI) in the LLQ and No hepatosplenomegaly present Auscultation: normal bowel sounds General: Yes no CVA tenderness Back/Spine/Pelvis Back: no CVA tenderness Skin General skin exam: elasticity normal, turgor normal and dry skin Neuro General: patient oriented x3 Psych Appearance: grossly normal Mental Status: mental status grossly normal Assessment & Plan Assessment & Plan (1) Abdominal pain: Code(s): R10.9 - Unspecified abdominal pain Qualifiers: Abdominal location: left upper quadrant Qualified Code(s): R10.12 - Left upper quadrant pain (2) Diverticulosis: Code(s): K57.90 - Diverticulosis of intestine, part unspecified, without perforation or abscess without bleeding (3) History of diverticulitis: Code(s): Z87.19 - Personal history of other diseases of the digestive system (4) Tubular adenoma of colon: Code(s): D12.6 - Benign neoplasm of colon, unspecified (5) Status post colonoscopy: Code(s): Z98.890 - Other specified postprocedural states (6) Hepatic steatosis: Code(s): K76.0 - Fatty (change of) liver, not elsewhere classified Plan Patient no longer is experiencing abdominal discomfort. Patient can continue taking Metamucil. History of hep C in the past, hepatic steatosis seen on CT scan. Will send patient for ultrasound with liver elastography, liver profile and fibrosis panel. He will return in 6 months, sooner on as needed basis. Patient is agreeable to this plan and verbalizes understanding of instructions. He was given the opportunity to ask questions and all questions answered. Thank you for allowing me to participate in his care Orders: Orders US abdomen peres w elastography Today R74.01 - Elevation of levels of liver transaminase levels Liver Panel Today R74.01 - Elevation of levels of liver transaminase levels Liver Fibrosis Pnl Today R74.8 - Abnormal levels of other serum enzymes Coding Level of Care Code Est Pt Level 4 (52547) Diagnoses Left upper quadrant abdominal pain R10.12 Abdominal location: left upper quadrant Diverticulosis K57.90 History of diverticulitis Z87.19 Tubular adenoma of colon D12.6 Status post colonoscopy Z98.890 Hepatic steatosis K76.0 Time Spent (min) 35 Comment 20 minutes spent with patient and additional 15 minutes spent reviewing his records
[2024-02-12 08:58] VITALS: BP 141/91; PULSE 72; BMI 29.7
== END 2024-02-12 09:30 | disposition home or self-care (01) ==
PROVIDERS: PCP Internal Medicine Geriatric Medicine; Visit Provider Nurse Practitioner Family
DX: R10.12 Left upper quadrant pain (principal); K57.90 Diverticulosis of intestine, part unspecified, without perforation or abscess without bleeding; Z87.19 Personal history of other diseases of the digestive system; D12.6 Benign neoplasm of colon, unspecified; Z98.890 Other specified postprocedural states; K76.0 Fatty (change of) liver, not elsewhere classified
CPT/HCPCS: 99214

== ENCOUNTER → 2024-02-12 08:46 | Outpatient (BNVA) | payer OTHER, SELFPAY | PROVIDERS: PCP Internal Medicine Geriatric Medicine; Visit Provider Nurse Practitioner Family | DX: R10.12 Left upper quadrant pain (principal); K57.90 Diverticulosis of intestine, part unspecified, without perforation or abscess without bleeding; K76.0 Fatty (change of) liver, not elsewhere classified; Z86.010 Personal history of colon polyps; Z87.19 Personal history of other diseases of the digestive system | CPT/HCPCS: 99212 ==

== ENCOUNTER 2024-02-17 08:38 | Outpatient (AMB) | payer OTHER, SELFPAY ==
--- NOTE | 2024-02-17 08:43 | MHC.OFFVIS ---
Intake Visit Reasons: 2m/US/PSA(set) Intake Note: Patient presents for follow up visit for psa lab and imaging results for Nocturia and painful ejaculation Urology Medications: Tamsulosin Blood Thinner: none Antbiotic Allergy: Bactrim, sulfa, trimethoprim PVR: 25ml's Patient Registration Supervisor Required: No Accompanied by: Self / Same As Patient Allergies sulfamethoxazole [From Bactrim] Allergy (Unknown, Verified 02/17/24 09:09) ITCHINESS trimethoprim [From Bactrim] Allergy (Unknown, Verified 02/17/24 09:09) ITCHINESS Medication List - Last Reconciled 02/17/24 by DARCY Mazariegos- docusate sodium 100 mg PO BEDTIME hyoscyamine sulfate 0.125 mg PO BID lisinopril 10 mg PO DAILY psyllium husk (Metamucil) 1 tbsp PO DAILY tamsulosin 0.4 mg PO BEDTIME 90 days triamcinolone acetonide 2 sprays intranasal DAILY HPI Comments Details: Daniel is a very pleasant 58-year-old male patient of Dr. Hyman. He has a past medical history of bilateral carpal tunnel syndrome, BPH associated with nocturia, hep C, vitamin-D deficiency, allergic rhinitis, liver cirrhosis, hypertension, lumbar spondylosis, and fatigue. He presents to the office today for follow-up. Of note, patient was seen approximately 2 months ago as a new patient for nocturia and premature ejaculation at which time a retroperitoneal ultrasound and PSA were ordered for further assessment evaluation. These results were reviewed with the patient today. Bilateral kidneys with simple cysts that require no imaging follow-up per radiology report. Bilateral nonobstructing calculi a proximally 5 mm. The bladder is well distended and normal. Bilateral ureteral jets are demonstrated. Pre void bladder volume is approximately 220 mL. Postvoid baldder a volume is approximately 55 mL. Prostate volume is approximately 25 mL. PSA 01/02 2.3. He reports significant improvement in nocturia with limiting fluids 2-3 hours prior to bed and compliance with flomax as prescribed. Discussed further treatment options for premature ejaculation. He does report to be able to obtain and maintain his erections however feels he reaches climax sooner than he would like. He otherwise denies urinary urgency, urinary frequency, incontinence, hematuria, dysuria, foul smelling urine, changes to urinary stream, flank pain, fever, and or chills. In office urinalysis results reviewed with the patient today. PVR 25 mL. He otherwise offers no other issues or concerns at this time. [facility]LY [facility], [facility] Medical History Bilateral carpal tunnel syndrome BPH associated with nocturia Hepatitis C Vitamin D deficiency COVID Allergic rhinitis, seasonal Liver cirrhosis Hypertension Lumbar spondylosis Other intervertebral disc degeneration, lumbar region Fatigue Surgical History Hx of colonoscopy Social History Household Members: Spouse Housing: House Do you presently have visiting nurse or other home services: No Alcohol intake: never Patient Tobacco Use Status: Former Tobacco user Substance Use Type: Crack/Cocaine and Heroin service: No Current occupational status: employed Review of Systems Const Reports no additional complaints Eyes Reports no additional complaints ENT Reports no additional complaints Card Reports as per HPI Resp Reports as per HPI GI Reports as per HPI Reports as per HPI Musc Reports as per HPI Neuro Reports as per HPI Psych Reports as per HPI Endo Reports no additional complaints Keven/Lymph Reports as per HPI Aller/Immun Reports as per HPI Physical Exam Const General: cooperative, healthy appearing, comfortable, no acute distress, well developed, alert and awake Orientation/consciousness: patient oriented x3 Limitations: no limitations HEENT Head: Yes normal to inspection, Yes normocephalic and Yes atraumatic Ears: hearing grossly normal bilaterally Eyes General: appearance normal, both eyes and all related structures Neck Neck: Yes normal visual inspection and Yes trachea midline Chest Chest palpation & inspection: normal inspection of the chest Resp Effort & Inspection: normal respiratory effort and able to speak in complete sentences Cardio Rate: regular rate GI Inspection: Yes normal to inspection General: Yes no CVA tenderness Back/Spine/Pelvis Back: no CVA tenderness Skin General skin exam: no rashes or lesions noted Neuro General: patient oriented x3 Extrem General: Yes normal to inspection Psych Appearance: grossly normal and well kempt Mental Status: mental status grossly normal Speech and movement: Normal speech and movement present and Clear speech present Affect: normal affect Attitude: cooperative Thought process: Normal thought process present Thought content: Normal thought content present Insight: Fair insight present (Psych) Judgement: Fair judgement present (Psych) Office Procedures Post Void Residual Post Residual Void Post Void Residual (PVR): 25 [id number] Void Residual by ultrasound Results AMB Urinalysis, Automated UA Leukoctes 0 Siobhan/uL Last Edit by Tammy Martinez on 02/17/24 08:57 UA Nitrite Negative Last Edit by Tammy Martinez on 02/17/24 08:57 UA Urobilinogen 0.2 mg/dL Last Edit by Tammy Martinez on 02/17/24 08:57 UA Protein 0 mg/dL Last Edit by Tammy Martinez on 02/17/24 08:57 UA pH 6.5 Last Edit by Tammy Martinez on 02/17/24 08:57 UA Blood 0 Jerrell/uL Last Edit by Tammy Martinez on 02/17/24 08:57 UA Specific [place] 1.020 Last Edit by Tammy Martinez on 02/17/24 08:57 UA Ketone Negative Last Edit by Tammy Martinez on 02/17/24 08:57 UA Bilirubin 0 mg/dL Last Edit by Tammy Martinez on 02/17/24 08:57 UA Glucose 0 mg/dL Last Edit by Tammy Martinez on 02/17/24 08:57 Results Reviewed Results Reviewed: Laboratory Last Values Urine pH (Auto) 6.5 02/17/24 08:55 Specific [place] (Auto) 1.020 02/17/24 08:55 Urine Protein (Auto) 0 mg/dL 02/17/24 08:55 Glucose (UA)(Auto) 0 mg/dL 02/17/24 08:55 Urine Ketones (Auto) Negative 02/17/24 08:55 Urine Blood (Auto) 0 Jerrell/uL 02/17/24 08:55 Urine Nitrite (Auto) Negative 02/17/24 08:55 Urine Bilirubin (Auto) 0 mg/dL 02/17/24 08:55 Urine Urobilinogen (Auto) 0.2 mg/dL 02/17/24 08:55 Leukocyte Esterase (Auto) 0 Siobhan/uL 02/17/24 08:55 Date of Service: 01/06/24 EXAMINATION: US RETROPERITONEAL COMPLETE (RENAL) FINDINGS: RIGHT KIDNEY: 10.5 x 6.5 x 5.7 cm (SAG x AP x TRV). The kidney is normal in size, contour, and echogenicity. Renal cortical thickness is normal. No hydronephrosis. There are 2 simple cysts, the largest is in the mid pole and measures 1.0 x 0.8 x 1.2 cm. No imaging follow-up is recommended. There are 2 nonobstructing calculi, the largest is in the upper pole and measures 0.5 x 0.4 x 0.3 cm. LEFT KIDNEY: 11.7 x 5.3 x 4.3 cm (SAG x AP x TRV). The kidney is normal in size, contour, and echogenicity. Renal cortical thickness is normal. No hydronephrosis. There is a 1.2 x 1.1 x 0.8 cm simple cyst in the mid kidney. No imaging follow-up is recommended. There are 2 nonobstructing calculi with the largest in the upper pole measuring 0.5 x 0.3 x 0.4 cm. BLADDER: Well distended and normal. Bilateral ureteral jets are demonstrated. Prevoid bladder volume is 223 mL. Postvoid bladder volume is 54.0 mL. Prostate volume 24.2 mL. IMPRESSION: 1. Bilateral nonobstructing renal calculi. 2. Mild to moderate post void residual. 3. Normal size prostate. Assessment & Plan Assessment & Plan (1) Premature ejaculation: Code(s): F52.4 - Premature ejaculation Category: Medical (2) Nocturia: Code(s): R35.1 - Nocturia Category: Medical Plan In office urinalysis results reviewed with the patient today; as noted above. PVR 25 mL. Recent retroperitoneal ultrasound results reviewed with the patient today; as noted above. Recent PSA results reviewed with the patient today; as noted above. Continue Flomax as prescribed Continue with lifestyle modifications and decreasing fluids 2-3 hours prior to bed Discussed OTC duration to assist with climax. Patient otherwise denies any bothersome urinary issues or concerns. He reports be happy with current voiding parameters on 0.4mg of flomax; will continue; refill provided. Will obtain PSA in 4 months. Follow-up in 4 months with PSA to be completed prior; or sooner with any issues, concerns, and or questions. Orders: Orders AMB Urinalysis Automated Today Z13.9 - Encounter for screening, unspecified AMB Post Void Residual by ultrasound Today R35.1 - Nocturia Prostate Specific Antigen 4 Months N40.0 - Benign prostatic hyperplasia without lower urinary tract symptoms Medications: Changed From tamsulosin 0.4 mg PO BEDTIME 30 caps 1RF 30 days N40.1 - Benign prostatic hyperplasia with lower urinary tract symptoms, R35.1 - Nocturia To tamsulosin 0.4 mg PO BEDTIME 90 caps 1RF 90 days N40.1 - Benign prostatic hyperplasia with lower urinary tract symptoms, R35.1 - Nocturia Patient Instructions: The patient had an opportunity to ask questions regarding the treatment plan. All questions were answered. Physical exam, labs, and imaging were discussed and reviewed in detail. As well as risks, benefits, and discussion of treatment choices. No major barriers to understanding were identified. The patient expressed understanding and agreement with the above treatment plan. The patient was made aware they should contact our office by phone for worsening of their current condition, the appearance of new symptoms, or with any questions or concerns. Compliance is encouraged with any medications and follow up testing that is ordered. It is a privilege to be allowed the opportunity to participate in? your urological care.? Again, if you have any questions or concerns If you have any questions or concerns please do not hesitate to contact me. The office is [phone]. This note is constructed using voice recognition software. While every effort has been made to ensure accuracy gig tender errors may have been included. Yours sincerely, TONNY Mazariegos Coding Level of Care Code Est Pt Level 3 (78743) Diagnoses Premature ejaculation F52.4 Nocturia R35.1 CPT Codes Post Residual Void - PVR CPT Code: 36555-Qcsq Void Residual by ultrasound ([id number])
== END 2024-02-17 09:18 | disposition home or self-care (01) ==
PROVIDERS: PCP Internal Medicine Geriatric Medicine; Visit Provider Nurse Practitioner Family
DX: F52.4 Premature ejaculation (principal); R35.1 Nocturia; Z13.9 Encounter for screening, unspecified
CPT/HCPCS: 99213

== ENCOUNTER → 2024-02-17 08:38 | Outpatient (BNVA) | payer OTHER, SELFPAY | PROVIDERS: PCP Internal Medicine Geriatric Medicine; Visit Provider Nurse Practitioner Family | DX: N40.1 Benign prostatic hyperplasia with lower urinary tract symptoms (principal); R35.1 Nocturia; F52.4 Premature ejaculation; Z79.899 Other long term (current) drug therapy | CPT/HCPCS: 51798; 81003 ==

== ENCOUNTER 2024-06-20 08:42 | Outpatient (REF) | payer OTHER, SELFPAY ==
[2024-06-20 10:25] LABS: Prostate Specific Antigen 2.99 ng/mL (<0.05-4.0)
== END 2024-06-20 08:43 | disposition home or self-care (01) ==
LOC: HO.LAB 08:42
PROVIDERS: PCP Internal Medicine Geriatric Medicine; Visit Provider Nurse Practitioner Family
DX: N40.0 Benign prostatic hyperplasia without lower urinary tract symptoms (principal)
CPT/HCPCS: 36415; 84153

== ENCOUNTER 2024-06-21 08:16 | Outpatient (AMB) | payer OTHER, SELFPAY ==
--- NOTE | 2024-06-21 08:21 | A.OFFVIS_ITS ---
Intake Visit Reasons: 4m/PSA Intake Note: Patient presents today for follow up on: PSA lab, Nocturia, and Premature Ejaculation Urology Medications: Tamsulosin (pt not taking) Blood Thinner: none Antbiotic Allergy: Bactrim, sulfa, trimethoprim PVR: 22ml's Rabies Inspector Required: No Accompanied by: Self / Same As Patient Allergies sulfamethoxazole [From Bactrim] Allergy (Unknown, Verified 06/21/24 08:51) ITCHINESS trimethoprim [From Bactrim] Allergy (Unknown, Verified 06/21/24 08:51) ITCHINESS Medication List - Last Reconciled 06/21/24 by DARCY Mazariegos- docusate sodium 100 mg PO BEDTIME hyoscyamine sulfate 0.125 mg PO BID lisinopril 10 mg PO DAILY psyllium husk (Metamucil) 1 tbsp PO DAILY triamcinolone acetonide 2 sprays intranasal DAILY HPI Comments Details: Daniel is a very pleasant 59-year-old male patient of Dr. Hyman. He has a past medical history of bilateral carpal tunnel syndrome, BPH associated with nocturia, hep C, vitamin-D deficiency, allergic rhinitis, liver cirrhosis, hypertension, lumbar spondylosis, and fatigue. He presents to the office today for follow-up. In discussion with the patient today he reports noting significant improvement in nocturia with Flomax daily however was experiencing retrograde ejaculation therefore stopped taking the medication. We discussed further treatment options at length. Previous workup has included a retroperitoneal ultrasound and PSA were ordered for further assessment evaluation. These results were reviewed with the patient today. Bilateral kidneys with simple cysts that require no imaging follow-up per radiology report. Bilateral nonobstructing calculi a proximally 5 mm. The bladder is well distended and normal. Bilateral ureteral jets are demonstrated. Pre void bladder volume is approximately 220 mL. Postvoid baldder a volume is approximately 55 mL. Prostate volume is approximately 25 mL. PSAs are as follows 01/02 2.3, 07/05 3.0 When asked he does report noting dysuria at end of urinary stream. In office urinalysis results reviewed with the patient today. KATHY performed boggy prostate noted. We discussed likelihood of prostatitis given urinary symptoms and KATHY. He otherwise denies incontinence, hematuria, foul-smelling urine, changes to urinary stream, flank pain, fever, and or chills. PVR 22 mL. He otherwise offers no other issues or concerns at this time. [facility] Medical History Bilateral carpal tunnel syndrome BPH associated with nocturia Hepatitis C Vitamin D deficiency COVID Allergic rhinitis, seasonal Liver cirrhosis Hypertension Lumbar spondylosis Other intervertebral disc degeneration, lumbar region Fatigue Surgical History Hx of colonoscopy Social History Household Members: Spouse Housing: House Do you presently have visiting nurse or other home services: No Alcohol intake: never Patient Tobacco Use Status: Former Tobacco user Substance Use Type: Crack/Cocaine and Heroin service: No Current occupational status: employed Review of Systems Const Reports no additional complaints Eyes Reports no additional complaints ENT Reports no additional complaints Card Reports as per HPI Resp Reports as per HPI GI Reports as per HPI Reports as per HPI Musc Reports as per HPI Neuro Reports as per HPI Psych Reports as per HPI Endo Reports no additional complaints Keven/Lymph Reports as per HPI Aller/Immun Reports as per HPI Physical Exam Const General: cooperative, healthy appearing, comfortable, no acute distress, well developed, alert and awake Orientation/consciousness: patient oriented x3 Limitations: no limitations HEENT Head: Yes normal to inspection, Yes normocephalic and Yes atraumatic Ears: hearing grossly normal bilaterally Eyes General: appearance normal, both eyes and all related structures Neck Neck: Yes normal visual inspection and Yes trachea midline Chest Chest palpation & inspection: normal inspection of the chest Resp Effort & Inspection: normal respiratory effort and able to speak in complete sentences Cardio Rate: regular rate GI Inspection: Yes normal to inspection General: Yes no CVA tenderness Back/Spine/Pelvis Back: no CVA tenderness Skin General skin exam: no rashes or lesions noted Neuro General: patient oriented x3 Extrem General: Yes normal to inspection Psych Appearance: grossly normal and well kempt Mental Status: mental status grossly normal Speech and movement: Normal speech and movement present and Clear speech present Affect: normal affect Attitude: cooperative Thought process: Normal thought process present Thought content: Normal thought content present Insight: Fair insight present (Psych) Judgement: Fair judgement present (Psych) Office Procedures Post Void Residual Post Residual Void Post Void Residual (PVR): 22 [id number] Void Residual by ultrasound Results AMB Urinalysis, Automated UA Leukoctes 0 Siobhan/uL Last Edit by Tammy Martinez on 06/21/24 08:34 UA Nitrite Last Edit by Tammy Martinez on 06/21/24 08:34 UA Urobilinogen 0.2 mg/dL Last Edit by Tammy Martinez on 06/21/24 08:34 UA Protein 0 mg/dL Last Edit by Tammy Martinez on 06/21/24 08:34 UA pH 6.0 Last Edit by Tammy Martinez on 06/21/24 08:34 UA Blood 0 Jerrell/uL Last Edit by Attune Systemsadrian on 06/21/24 08:34 UA Specific [place] 1.015 Last Edit by WaveConnexleroy Martinez on 06/21/24 08:34 UA Ketone Last Edit by Tammy Martinez on 06/21/24 08:34 UA Bilirubin 0 mg/dL Last Edit by En[employer] Social Productionsjong Martinez on 06/21/24 08:34 UA Glucose 0 mg/dL Last Edit by WaveConnexleroy Martinez on 06/21/24 08:34 Results Reviewed Results Reviewed: Laboratory Last Values Urine pH (Auto) 6.0 06/21/24 08:33 Specific [place] (Auto) 1.015 06/21/24 08:33 Urine Protein (Auto) 0 mg/dL 06/21/24 08:33 Glucose (UA)(Auto) 0 mg/dL 06/21/24 08:33 Urine Blood (Auto) 0 Jerrell/uL 06/21/24 08:33 Urine Bilirubin (Auto) 0 mg/dL 06/21/24 08:33 Urine Urobilinogen (Auto) 0.2 mg/dL 06/21/24 08:33 Leukocyte Esterase (Auto) 0 Siobhan/uL 06/21/24 08:33 Assessment & Plan Assessment & Plan (1) Prostatitis: Code(s): N41.9 - Inflammatory disease of prostate, unspecified Category: Medical (2) Lower urinary tract symptoms: Code(s): R39.9 - Unspecified symptoms and signs involving the genitourinary system Category: Medical (3) Nocturia: Code(s): R35.1 - Nocturia Category: Medical Plan In office urinalysis results reviewed with the patient today; as noted above. PVR 22 mL. Discussed likelihood of prostatitis; given patient's symptoms as well as in office KATHY. Recent PSA results reviewed with the patient today. Start Cipro as discussed and prescribed Stop Flomax. Start alfuzosin. Discussed near future in office cystoscopy if symptoms continue and or worsen. Discussed potential causes of prostatitis. Will obtain redraw of PSA in 6-8 weeks. Follow-up in 6-8 weeks; or sooner with any issues, concerns, and or questions. Orders: Orders AMB Urinalysis Automated Today Z13.9 - Encounter for screening, unspecified AMB Post Void Residual by ultrasound Today R35.1 - Nocturia Prostate Specific Antigen 6 Weeks N41.9 - Inflammatory disease of prostate, unspecified Medications: New alfuzosin ER Take before bedtime 10 mg PO .nightly 30 tabs 2RF 30 days N32.0 - Bladder- neck obstruction, N40.1 - Benign prostatic hyperplasia with lower urinary tract symptoms, R33.9 - Retention of urine, unspecified, R35.1 - Nocturia ciprofloxacin HCl 500 mg PO Q12H 28 tabs 0RF 14 days C61 - Malignant neoplasm of prostate Patient Instructions: The patient had an opportunity to ask questions regarding the treatment plan. All questions were answered. Physical exam, labs, and imaging were discussed and reviewed in detail. As well as risks, benefits, and discussion of treatment choices. No major barriers to understanding were identified. The patient expressed understanding and agreement with the above treatment plan. The patient was made aware they should contact our office by phone for worsening of their current condition, the appearance of new symptoms, or with any questions or concerns. Compliance is encouraged with any medications and follow up testing that is ordered. It is a privilege to be allowed the opportunity to participate in? your urological care.? Again, if you have any questions or concerns If you have any questions or concerns please do not hesitate to contact me. The office is [phone]. This note is constructed using voice recognition software. While every effort has been made to ensure accuracy comber operator errors may have been included. Yours sincerely, TONNY Mazariegos Coding Level of Care Code Est Pt Level 4 (88017) Diagnoses Prostatitis N41.9 Lower urinary tract symptoms R39.9 Nocturia R35.1 CPT Codes Post Residual Void - PVR CPT Code: 91581-Mhed Void Residual by ultrasound ([id number])
== END 2024-06-21 08:53 | disposition home or self-care (01) ==
PROVIDERS: PCP Internal Medicine Geriatric Medicine; Visit Provider Nurse Practitioner Family
DX: N41.9 Inflammatory disease of prostate, unspecified (principal); R39.9 Unspecified symptoms and signs involving the genitourinary system; R35.1 Nocturia; Z13.9 Encounter for screening, unspecified
CPT/HCPCS: 99214

== ENCOUNTER → 2024-06-21 08:16 | Outpatient (BNVA) | payer OTHER, SELFPAY | PROVIDERS: PCP Internal Medicine Geriatric Medicine; Visit Provider Nurse Practitioner Family | DX: N41.9 Inflammatory disease of prostate, unspecified (principal); R39.9 Unspecified symptoms and signs involving the genitourinary system; N40.1 Benign prostatic hyperplasia with lower urinary tract symptoms; R35.1 Nocturia | CPT/HCPCS: 51798; 81003 ==

== ENCOUNTER 2024-08-17 07:11 | Outpatient (REF) | payer OTHER, SELFPAY ==
[2024-08-17 08:18] LABS: Alanine Aminotransferase 51 U/L (0-40); Albumin Level 4.5 g/dL (3.5-5.0); Alkaline Phosphatase 65 U/L (39-117); Aspartate Amino Transferase 38 U/L (5-37); Bilirubin Direct 0.3 mg/dL (0.0-0.5); Bilirubin Total 1.1 mg/dL (0.0-1.0); Total Protein 7.3 g/dL (6.5-8.0)
[2024-08-17 08:30] LABS: Prostate Specific Antigen 2.88 ng/mL (<0.05-4.0)
[2024-08-25 17:43] LABS: FIB-ALT 35 U/L (9-46); FIB-Alpha-2-Macroglobulin 336 mg/dL (106-279); FIB-Apolipoprotein A1 147 mg/dL (94-176); FIB-GGT 32 U/L (3-85); FIB-Haptoglobin 75 mg/dL (43-212); Liver Fibrosis Score 0.71; Liver Fibrosis Stage F3; Nec Inflam Act Grade A1; Nec Inflam Act Score 0.29; Reference ID 5201427
== END 2024-08-17 07:12 | disposition home or self-care (01) ==
LOC: HO.LAB 07:11
PROVIDERS: Absent Provider Nurse Practitioner Family; PCP Internal Medicine Geriatric Medicine; Visit Provider Nurse Practitioner Family
DX: N41.9 Inflammatory disease of prostate, unspecified (principal); R74.01 Elevation of levels of liver transaminase levels; R74.8 Abnormal levels of other serum enzymes; Z12.5 Encounter for screening for malignant neoplasm of prostate; R39.9 Unspecified symptoms and signs involving the genitourinary system; R35.1 Nocturia
CPT/HCPCS: 36415; 51798; 80076; 81003; 81596; 84153

== ENCOUNTER 2024-08-17 08:42 | Outpatient (AMB) | payer OTHER, SELFPAY ==
--- NOTE | 2024-08-17 08:53 | A.OFFVIS_ITS ---
Intake Visit Reasons: 2m/PSA/PVR Intake Note: Patient presents today for follow up on: PSA lab, Nocturia, and Premature Ejaculation PSA: 2.88 Urology Medications: Alfuzosin Blood Thinner: none Antbiotic Allergy: Bactrim, sulfa, trimethoprim PVR: 22ml's Survey Supervisor Required: No Accompanied by: Self / Same As Patient Allergies sulfamethoxazole [From Bactrim] Allergy (Unknown, Verified 08/17/24 09:18) ITCHINESS trimethoprim [From Bactrim] Allergy (Unknown, Verified 08/17/24 09:18) ITCHINESS Medication List - Last Reconciled 08/17/24 by Lana Quinn [facility]- alfuzosin ER 10 mg PO .nightly 30 days docusate sodium 100 mg PO BEDTIME hyoscyamine sulfate 0.125 mg PO BID lisinopril 10 mg PO DAILY psyllium husk (Metamucil) 1 tbsp PO DAILY triamcinolone acetonide 2 sprays intranasal DAILY HPI Comments Details: Daniel is a very pleasant 59-year-old male patient of Dr. Hyman. He has a past medical history of bilateral carpal tunnel syndrome, BPH associated with nocturia, hep C, vitamin-D deficiency, allergic rhinitis, liver cirrhosis, hypertension, lumbar spondylosis, and fatigue. He presents to the office today for follow-up. In discussion with the patient today he reports noting somewhat improvement in nocturia with alfuzosin 10 mg at bedtime however he feels urinary symptoms are variable. He reports there are nights that he does not experience nocturia. He denies any bothersome urinary issues or concerns throughout the day. Previous workup has included a retroperitoneal ultrasound 01/02 noting bilateral kidneys with simple cysts that require no imaging follow-up per radiology report. Bilateral nonobstructing calculi a proximally 5 mm. The bladder is well distended and normal. Bilateral ureteral jets are demonstrated. Pre void bladder volume is approximately 220 mL. Postvoid baldder a volume is approximately 55 mL. Prostate volume is approximately 25 mL. PSAs are as follows... 01/02 2.3, 07/05 3.0, 08/04 2.9 During last office visit patient had been reporting dysuria at the end of his urinary stream and KATHY noted boggy prostate therefore he was treated with Cipro for presumed prostatitis. He reports the symptoms have subsided. However, he continues with intermittent episodes of nocturia. We discussed obtaining bladder diary for further assessment evaluation given symptoms are variable. In office urinalysis results reviewed with the patient today. PVR 22ml's. He otherwise denies incontinence, hematuria, foul-smelling urine, changes to urinary stream, flank pain, fever, and or chills. He has previously trialed Flomax however experienced retrograde ejaculation and did not want to continue taking this medication although we did discuss this is a side effect. He otherwise offers no other issues or concerns at this time. [facility] Medical History Bilateral carpal tunnel syndrome BPH associated with nocturia Hepatitis C Vitamin D deficiency COVID Allergic rhinitis, seasonal Liver cirrhosis Hypertension Lumbar spondylosis Other intervertebral disc degeneration, lumbar region Fatigue Surgical History Hx of colonoscopy Social History Household Members: Spouse Housing: House Do you presently have visiting nurse or other home services: No Alcohol intake: never Patient Tobacco Use Status: Former Tobacco user Substance Use Type: Crack/Cocaine and Heroin service: No Current occupational status: employed Review of Systems Const Reports no additional complaints Eyes Reports no additional complaints ENT Reports no additional complaints Card Reports as per HPI Resp Reports as per HPI GI Reports as per HPI Reports as per HPI Musc Reports as per HPI Neuro Reports as per HPI Psych Reports as per HPI Endo Reports no additional complaints Keven/Lymph Reports as per HPI Aller/Immun Reports as per HPI Physical Exam Const General: cooperative, healthy appearing, comfortable, no acute distress, well developed, alert and awake Orientation/consciousness: patient oriented x3 Limitations: no limitations HEENT Head: Yes normal to inspection, Yes normocephalic and Yes atraumatic Ears: hearing grossly normal bilaterally Eyes General: appearance normal, both eyes and all related structures Neck Neck: Yes normal visual inspection and Yes trachea midline Chest Chest palpation & inspection: normal inspection of the chest Resp Effort & Inspection: normal respiratory effort and able to speak in complete sentences Cardio Rate: regular rate GI Inspection: Yes normal to inspection General: Yes no CVA tenderness Back/Spine/Pelvis Back: no CVA tenderness Skin General skin exam: no rashes or lesions noted Neuro General: patient oriented x3 Extrem General: Yes normal to inspection Psych Appearance: grossly normal and well kempt Mental Status: mental status grossly normal Speech and movement: Normal speech and movement present and Clear speech present Affect: normal affect Attitude: cooperative Thought process: Normal thought process present Thought content: Normal thought content present Insight: Fair insight present (Psych) Judgement: Fair judgement present (Psych) Office Procedures Post Void Residual Post Residual Void Post Void Residual (PVR): [id number] Void Residual by ultrasound Results AMB Urinalysis, Automated UA Leukoctes 0 Siobhan/uL Last Edit by Tammy Martinez on 08/17/24 09:07 UA Nitrite Last Edit by Tammy Martinez on 08/17/24 09:07 UA Urobilinogen 0.2 mg/dL Last Edit by Tammy Martinez on 08/17/24 09:07 UA Protein 15 mg/dL Last Edit by Property[employer] Martinez on 08/17/24 09:07 UA pH 6.0 Last Edit by Tammy Martinez on 08/17/24 09:07 UA Blood 0 Jerrell/uL Last Edit by Tammy Martinez on 08/17/24 09:07 UA Specific [place] 1.020 Last Edit by Tammy Martinez on 08/17/24 09:07 UA Ketone Last Edit by Propertybasejong NavarretePeak on 08/17/24 09:07 UA Bilirubin 0 mg/dL Last Edit by DariusTDI Basslinejong NavarretePeak on 08/17/24 09:07 UA Glucose 0 mg/dL Last Edit by Property[employer] Martinez on 08/17/24 09:07 Results Reviewed Results Reviewed: Laboratory Last Values Urine pH (Auto) 6.0 08/17/24 09:06 Specific [place] (Auto) 1.020 08/17/24 09:06 Urine Protein (Auto) 15 mg/dL 08/17/24 09:06 Glucose (UA)(Auto) 0 mg/dL 08/17/24 09:06 Urine Blood (Auto) 0 Jerrell/uL 08/17/24 09:06 Urine Bilirubin (Auto) 0 mg/dL 08/17/24 09:06 Urine Urobilinogen (Auto) 0.2 mg/dL 08/17/24 09:06 Leukocyte Esterase (Auto) 0 Siobhan/uL 08/17/24 09:06 Assessment & Plan Assessment & Plan (1) Lower urinary tract symptoms: Code(s): R39.9 - Unspecified symptoms and signs involving the genitourinary system Category: Medical (2) Nocturia: Code(s): R35.1 - Nocturia Category: Medical Plan In office urinalysis results reviewed with the patient today; as noted above. PVR 22 mL. Recent PSA results reviewed with the patient today. Continue alfuzosin 10mg as discussed and prescribed. Will obtain bladder diary for further assessment evaluation. We discussed at length potential causes of lower urinary tract symptoms patient is experiencing. Discussed importance of limiting fluids 2-3 hours prior to bed to decrease episodes of nocturia. Discussed bladder triggers/irritants. Discussed near future in office cystoscopy if symptoms continue and or worsen. Follow-up in 1-3 months with PVR; or sooner with any issues, concerns, and or questions. Orders: Orders AMB Urinalysis Automated Today Z13.9 - Encounter for screening, unspecified AMB Post Void Residual by ultrasound Today R39.9 - Unspecified symptoms and signs involving the genitourinary system Patient Instructions: The patient had an opportunity to ask questions regarding the treatment plan. All questions were answered. Physical exam, labs, and imaging were discussed and reviewed in detail. As well as risks, benefits, and discussion of treatment choices. No major barriers to understanding were identified. The patient expressed understanding and agreement with the above treatment plan. The patient was made aware they should contact our office by phone for worsening of their current condition, the appearance of new symptoms, or with any questions or concerns. Compliance is encouraged with any medications and follow up testing that is ordered. It is a privilege to be allowed the opportunity to participate in? your urological care.? Again, if you have any questions or concerns If you have any questions or concerns please do not hesitate to contact me. The office is [phone]. This note is constructed using voice recognition software. While every effort lowe s been made to ensure accuracy copy room technician errors may have been included. Yours sincerely, DARCY Mazariegos- Coding Level of Care Code Est Pt Level 3 (11568) Complex EM visit Add On G2211 Diagnoses Lower urinary tract symptoms R39.9 Nocturia R35.1 CPT Codes Post Residual Void - PVR CPT Code: 89317-Kngo Void Residual by ultrasound ([id number])
== END 2024-08-17 09:34 | disposition home or self-care (01) ==
LOC: HO.HUSH 08:43
PROVIDERS: PCP Internal Medicine Geriatric Medicine; Visit Provider Nurse Practitioner Family
DX: R39.9 Unspecified symptoms and signs involving the genitourinary system (principal); R35.1 Nocturia; Z13.9 Encounter for screening, unspecified
CPT/HCPCS: 99213; G2211

== ENCOUNTER 2025-01-10 15:16 | Outpatient (AMB) | payer OTHER, SELFPAY ==
--- NOTE | 2025-01-10 15:30 | A.OFFVIS_ITS ---
Intake Visit Reasons: 6w/PVR Intake Note: Patient presents today for follow up on: Nocturia Urology Medications: Alfuzosin Blood Thinner: none Antbiotic Allergy: Bactrim, sulfa, trimethoprim Patient symptoms: patient complaining of groin pain PVR: 15ml's Creative Designer Required: No Accompanied by: Self / Same As Patient Allergies sulfamethoxazole [From Bactrim] Allergy (Unknown, Verified 01/10/25 16:08) ITCHINESS trimethoprim [From Bactrim] Allergy (Unknown, Verified 01/10/25 16:08) ITCHINESS Medication List - Last Reconciled 01/10/25 by DARCY Mazariegos- alfuzosin ER 10 mg PO .nightly 30 days docusate sodium 100 mg PO BEDTIME hyoscyamine sulfate 0.125 mg PO BID lisinopril 10 mg PO DAILY psyllium husk (Metamucil) 1 tbsp PO DAILY triamcinolone acetonide 2 sprays intranasal DAILY HPI Comments Details: Daniel is a very pleasant 59-year-old male patient of Dr. Hyman. He has a past medical history of bilateral carpal tunnel syndrome, BPH associated with nocturia, hep C, vitamin-D deficiency, allergic rhinitis, liver cirrhosis, hypertension, lumbar spondylosis, and fatigue. He presents to the office today for follow-up of his ongoing lower urinary tract symptoms. In discussion with the patient today he does feel 10 mg of alfuzosin at bedtime has been somewhat helpful however still does feel lower urinary tract symptoms are bothersome. During last office visit recommendations were made for bladder diary for further assessment evaluation as patient is lower urinary tract symptoms very and patient remains vague. Previous workup has included a retroperitoneal ultrasound 01/02 noting bilateral kidneys with simple cysts that require no imaging follow-up per radiology report. Bilateral nonobstructing calculi a proximally 5 mm. The bladder is well distended and normal. Bilateral ureteral jets are demonstrated. Pre void bladder volume is approximately 220 mL. Postvoid baldder a volume is approximately 55 mL. Prostate volume is approximately 25 mL. PSAs are as follows... 01/02 2.3, 07/05 3.0, 08/04 2.9 He continues to describe episodes of nocturia as well as lower bladder pressure in office urinalysis results reviewed with the patient today. PVR 0 mL. Patient with a previous history of presumed prostatitis as KATHY noted boggy prostate however had no resolution of symptoms status post completion of ciprofloxacin. We discussed importance of obtaining bladder diary for further assessment evaluation as symptoms are vague as well as variable. He otherwise denies incontinence, hematuria, foul-smelling urine, changes to urinary stream, flank pain, fever, and or chills. He has previously trialed Flomax however experienced retrograde ejaculation and did not want to continue taking this medication although we did discuss this is a side effect. He otherwise offers no other issues or concerns at this time. [facility] Medical History Bilateral carpal tunnel syndrome BPH associated with nocturia Hepatitis C Vitamin D deficiency COVID Allergic rhinitis, seasonal Liver cirrhosis Hypertension Lumbar spondylosis Other intervertebral disc degeneration, lumbar region Fatigue Surgical History Hx of colonoscopy Social History Household Members: Spouse Housing: House Do you presently have visiting nurse or other home services: No Alcohol intake: never Patient Tobacco Use Status: Former Tobacco user Substance Use Type: Crack/Cocaine and Heroin service: No Current occupational status: employed Review of Systems Const Reports no additional complaints Eyes Reports no additional complaints ENT Reports no additional complaints Card Reports as per HPI Resp Reports as per HPI GI Reports as per HPI Reports as per HPI Musc Reports as per HPI Neuro Reports as per HPI Psych Reports as per HPI Endo Reports no additional complaints Keven/Lymph Reports as per HPI Aller/Immun Reports as per HPI Physical Exam Const General: cooperative, healthy appearing, comfortable, no acute distress, well developed, alert and awake Orientation/consciousness: patient oriented x3 Limitations: no limitations HEENT Head: Yes normal to inspection, Yes normocephalic and Yes atraumatic Ears: hearing grossly normal bilaterally Eyes General: appearance normal, both eyes and all related structures Neck Neck: Yes normal visual inspection and Yes trachea midline Chest Chest palpation & inspection: normal inspection of the chest Resp Effort & Inspection: normal respiratory effort and able to speak in complete sentences Cardio Rate: regular rate GI Inspection: Yes normal to inspection General: Yes no CVA tenderness Back/Spine/Pelvis Back: no CVA tenderness Skin General skin exam: no rashes or lesions noted Neuro General: patient oriented x3 Extrem General: Yes normal to inspection Psych Appearance: grossly normal and well kempt Mental Status: mental status grossly normal Speech and movement: Normal speech and movement present and Clear speech present Affect: normal affect Attitude: cooperative Thought process: Normal thought process present Thought content: Normal thought content present Insight: Fair insight present (Psych) Judgement: Fair judgement present (Psych) Office Procedures Post Void Residual Post Residual Void Post Void Residual (PVR): 15 [id number] Void Residual by ultrasound Results AMB Urinalysis, Automated UA Leukoctes 0 Siobhan/uL Last Edit by [employer] on 01/10/25 15:44 UA Nitrite Negative Last Edit by [employer] on 01/10/25 15:44 UA Urobilinogen 0.2 mg/dL Last Edit by [employer] on 01/10/25 15:44 UA Protein 0 mg/dL Last Edit by [employer] on 01/10/25 15:44 UA pH 6.0 Last Edit by [employer] on 01/10/25 15:44 UA Blood 0 Jerrell/uL Last Edit by [employer] on 01/10/25 15:44 UA Specific [place] 1.015 Last Edit by [employer] on 01/10/25 15:44 UA Ketone Last Edit by [employer] on 01/10/25 15:44 UA Bilirubin 0 mg/dL Last Edit by [employer] on 01/10/25 15:44 UA Glucose 0 mg/dL Last Edit by [employer] on 01/10/25 15:44 Results Reviewed Results Reviewed: Laboratory Last Values Urine pH (Auto) 6.0 01/10/25 15:42 Specific [place] (Auto) 1.015 01/10/25 15:42 Urine Protein (Auto) 0 mg/dL 01/10/25 15:42 Glucose (UA)(Auto) 0 mg/dL 01/10/25 15:42 Urine Blood (Auto) 0 Jerrell/uL 01/10/25 15:42 Urine Nitrite (Auto) Negative 01/10/25 15:42 Urine Bilirubin (Auto) 0 mg/dL 01/10/25 15:42 Urine Urobilinogen (Auto) 0.2 mg/dL 01/10/25 15:42 Leukocyte Esterase (Auto) 0 Siobhan/uL 01/10/25 15:42 Assessment & Plan Assessment & Plan (1) Lower urinary tract symptoms: Code(s): R39.9 - Unspecified symptoms and signs involving the genitourinary system Category: Medical (2) Prostatitis: Code(s): N41.9 - Inflammatory disease of prostate, unspecified Category: Medical (3) Premature ejaculation: Code(s): F52.4 - Premature ejaculation Category: Medical (4) Nocturia: Code(s): R35.1 - Nocturia Category: Medical Plan In office urinalysis results reviewed with the patient today; as noted above. PVR 15 mL. Continue alfuzosin 10mg as discussed and prescribed; refill We discussed importance of obtaining bladder diary for further assessment evaluation. We discussed at length potential causes of lower urinary tract symptoms patient is experiencing. Discussed importance of limiting fluids 2-3 hours prior to bed to decrease episodes of nocturia. Discussed bladder triggers/irritants. Discussed near future in office cystoscopy if symptoms continue and or worsen. Follow-up in 3 months with PVR and bladder diary; or sooner with any issues, concerns, and or questions. Orders: Orders AMB Urinalysis Automated Today Z13.9 - Encounter for screening, unspecified AMB Post Void Residual by ultrasound Today R39.9 - Unspecified symptoms and signs involving the genitourinary system Patient Instructions: The patient had an opportunity to ask questions regarding the treatment plan. All questions were answered. Physical exam, labs, and imaging were discussed and reviewed in detail. As well as risks, benefits, and discussion of treatment choices. No major barriers to understanding were identified. The patient expressed understanding and agreement with the above treatment plan. The patient was made aware they should contact our office by phone for worsening of their current condition, the appearance of new symptoms, or with any questions or concerns. Compliance is encouraged with any medications and follow up testing that is ordered. It is a privilege to be allowed the opportunity to participate in? your urological care.? Again, if you have any questions or concerns If you have any questions or concerns please do not hesitate to contact me. The office is [phone]. This note is constructed using voice recognition software. While every effort has been made to ensure accuracy solar designer/installer errors may have been included. Yours sincerely, TONNY Mazariegos Coding Level of Care Code Est Pt Level 3 (76473) Complex EM visit Add On G2211 Diagnoses Lower urinary tract symptoms R39.9 Prostatitis N41.9 Premature ejaculation F52.4 Nocturia R35.1 CPT Codes Post Residual Void - PVR CPT Code: 75842-[id number] Void Residual by ultrasound ([id number])
== END 2025-01-10 16:09 | disposition home or self-care (01) ==
LOC: HO.HUSH 15:16
PROVIDERS: PCP Internal Medicine Geriatric Medicine; Visit Provider Nurse Practitioner Family
DX: R39.9 Unspecified symptoms and signs involving the genitourinary system (principal); N41.9 Inflammatory disease of prostate, unspecified; F52.4 Premature ejaculation; R35.1 Nocturia; Z13.9 Encounter for screening, unspecified
CPT/HCPCS: 99213; G2211

== ENCOUNTER → 2025-01-10 15:16 | Outpatient (BNVA) | payer OTHER, SELFPAY | PROVIDERS: PCP Internal Medicine Geriatric Medicine; Visit Provider Nurse Practitioner Family | DX: N40.1 Benign prostatic hyperplasia with lower urinary tract symptoms (principal); R35.1 Nocturia; N41.9 Inflammatory disease of prostate, unspecified; F52.4 Premature ejaculation | CPT/HCPCS: 51798; 81003 ==

== ENCOUNTER 2025-02-16 12:29 | Emergency (ER) | payer OTHER, SELFPAY ==
--- NOTE | ~2025-02-16 | XR_ITS ---
EXAMINATION: XR THORACIC SPINE CLINICAL INFORMATION: fall COMPARISON: None available. TECHNIQUE: 3 views of the thoracic spine were obtained. FINDINGS: Multilevel marginal osteophyte formation and endplate sclerosis. Mild endplate deformities ribs and 10% volume loss likely old. No acute cortical disruption or malalignment. No lytic or blastic lesions. XR/XR thoracic spine 3V IMPRESSION: Multilevel spondylosis without acute fracture or gross listhesis. Electronically signed by: Abiodun Mcrae MD 02/16/2025 01:10 PM EDT
--- NOTE | ~2025-02-16 | XR_ITS ---
EXAMINATION: XR LUMBOSACRAL SPINE CLINICAL INFORMATION: fall COMPARISON: June 06, 2022. TECHNIQUE: Three views of the lumbosacral spine. FINDINGS: Multilevel endplate sclerosis and marginal osteophyte formation. No acute cortical disruption or gross malalignment. 3 mm calcification overlapping the kidney shadows bilaterally. No lytic or blastic lesions. Probable spina bifida occulta S1. XR/XR lumbar spine 2-3V IMPRESSION: Level spondylosis without acute fracture or listhesis. Probable nephrolithiasis. Electronically signed by: Abiodun Mcrae MD 02/16/2025 01:11 PM EDT
--- NOTE | 2025-02-16 12:31 | ED_ITS ---
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 He states he is having lumbar and thoracic back pain with pain in both shoulders. Denies chest pain, SOB, bowel or bladder issues, blood in urine, black or bloody stool. MD elicited complaint: back pain and back injury (fall ) Pertinent past history: prior back pain (chronic ) Onset (ago): month(s) (1) Timing: constant Severity: moderate Quality: aching Location: lumbar spine and thoracic spine Radiation: none Exacerbating factors: walking Relieving factors: none Context: fall (down stairs at home ) Associated symptoms: denies other symptoms Related Data Home Medications ?Medication ?Instructions ?Recorded ?Confirmed lisinopril 10 mg tablet 10 mg PO DAILY 07/22/22 01/10/23 triamcinolone acetonide 55 mcg 2 spray intranasal DAILY 07/22/22 01/10/23 nasal spray aerosol hyoscyamine sulfate 0.125 mg tablet 0.125 mg PO BID 10/27/23 psyllium husk 3.4 gram/5.4 gram 1 tbsp PO DAILY 02/12/24 oral powder (Metamucil) Previous Rx's ?Medication ?Instructions ?Recorded docusate sodium 100 mg capsule 100 mg PO BEDTIME #90 caps 10/27/23 alfuzosin 10 mg tablet,extended 10 mg PO .nightly 30 days #30 tabs 10/14/24 release 24 hr lidocaine 5 % topical patch 1 patch topical DAILY #15 ea 02/16/25 naproxen 500 mg tablet 500 mg PO BID 14 days #28 tabs 02/16/25 prednisone 20 mg tablet 20 mg PO DAILY #7 tabs 02/16/25 Allergies Allergy/AdvReac Type Severity Reaction Status Date / Time sulfamethoxazole Allergy Unknown ITCHINESS Verified 02/16/25 12:35 [From Bactrim] trimethoprim [From Bactrim] Allergy Unknown ITCHINESS Verified 02/16/25 12:35 Review of Systems Review of Systems: as per HPI Yes all other systems are reviewed and are negative Constitutional: Constitutional: Reports as per HPI [facility] Past Medical History Medical History Bilateral carpal tunnel syndrome BPH associated with nocturia Hepatitis C Vitamin D deficiency COVID Allergic rhinitis, seasonal Liver cirrhosis Hypertension Lumbar spondylosis Other intervertebral disc degeneration, lumbar region Fatigue Surgical History Hx of colonoscopy Social History Social History Household Members: Spouse Housing: House Do you presently have visiting nurse or other home services: No Alcohol intake: never Patient Tobacco Use Status: Former Tobacco user Substance Use Type: Crack/Cocaine and Heroin Advance Directives: No Advance Directives Information Provided: Yes service: No Current occupational status: employed Physical Exam Vital Signs: Vital Signs: Last Vital Signs Temp 97.6 F 02/16/25 12:32 Pulse 105 H 02/16/25 12:32 Resp 18 02/16/25 12:32 BP 124/95 H 02/16/25 12:32 Pulse Ox 96 02/16/25 12:32 O2 Del Method Room Air 02/16/25 12:32 BMI result Body Mass Index 29.4 Vital signs have been reviewed and appear to be correct. Blood pressure normal. Heart rate normal. Respiratory rate normal. Temperature normal. Oxygen saturation normal. Const: General: cooperative, healthy appearing and no acute distress Orientation/consciousness: oriented to person, oriented to place, oriented to time and patient oriented x3 Limitations: no limitations HEENT: Head: Yes normocephalic and Yes atraumatic Ears: external ears normal General nose exam: Normal external nose present Face and sinus: Yes face symmetric Mouth: oropharynx normal and moist mucous membranes Throat: Yes uvula midline Eyes: Pupils: Equal, round and reactive pupils present Neck: Neck: Yes normal visual inspection and Yes supple Resp: Effort & Inspection: normal respiratory effort and able to speak in complete sentences Auscultation: clear to auscultation bilaterally Cardio: Rate: regular rate Rhythm: regular rhythm Heart sounds: S1 normal heart sound present and S2 normal heart sound present GI: Palpation (GI): Soft to palpation and nontender Auscultation: normoactive bowel sounds : General: Yes no CVA tenderness Back/Spine/Pelvis: Back: no CVA tenderness Thoracic/Lumbar Spine: thoracic and lumbar spine normal to inspection, thoraco-lumbar ROM normal, straight leg raise negative bilaterally, No pain with thoraco-lumbar ROM, paraspinal muscle tenderness on the left in the lower lumbar, No thoracic spinal tenderness and lumbar spinal tenderness at L4 and at L5 Skin: General skin exam: elasticity normal and turgor normal Neuro: General: oriented to person, oriented to place, oriented to time, patient oriented x3, gait normal, tone normal, moves all extremities, Normal light touch and pain sensation, no focal motor deficits, CN's II-XI intact bilaterally and deep tendon reflexes 2+ bilaterally Cranial nerves: Yes Equal, round and reactive pupils present Cognition (Neuro): normal cognition Motor exam (neuro): 5/5 motor strength present throughout, Normal motor muscle tone present throughout and Motor abnormalities not present Extrem: General: Yes full ROM, Yes no pedal edema and Yes no calf tenderness Psych: Mental Status: mental status grossly normal Affect: normal affect Thought process: Normal thought process present Course Course Course Narrative: This is a rapid medical exam performed by Kacy De Guzman NP: Additional HPI, ROS, PE not included below will be deferred to primary provider. 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 He states he is having lumbar and thoracic back pain with pain in both shoulders. Denies chest pain, SOB, bowel or bladder issues, blood in urine, black or bloody stool. 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 He states he is having lumbar and thoracic back pain with pain in both shoulders. Denies chest pain, SOB, bowel or bladder issues, blood in urine, black or bloody stool. On exam patient is awake, A+Ox3, VS WNL, afebrile, normal neurological exam without focal deficits, physical exam findings as above. Given reported symptoms and physical exam findings, initial differential includes but is not limited to initial differential includes lumbar strain, lumbar radiculopathy, degenerative disc disease, disc herniation, spinal stenosis, spondylosis. Less likely vertebral fracture. Do not suspect malignancy/mass, SEA, cauda equina/cord compression. . Course 13:50- Xray lumbar/thoracic reveal spondylosis with no lithesis, with probable nephrolithaisis, no fracture, or displacement. Patient specifically requesting no medications that could become addicting due to past history of drug use. W ill treat with naproxin, prednisone and lidocaine patches. Will refer to spine and sport. My interpretation is in agreement with the radiologist's interpretation. Differential Diagnosis Differential Diagnoses: The differential diagnosis associated with the presentation includes as per [facility] Admission/Observation Consideration of admission/observation: Escalation of care including admission/observation considered Independent Interpretation I performed an independent interpretation of an: Plain X-Ray Interpretation: Xray lumbar/thoracic reveal spondylosis with no lithesis, with probable nephrolithaisis, no fracture, or displacement Radiology Impression Discussion of test interpretation with radiology: I have reviewed the radiologist's reading. Radiologist Impression: EXAMINATION: XR THORACIC SPINE CLINICAL INFORMATION: fall COMPARISON: None available. TECHNIQUE: 3 views of the thoracic spine were obtained. FINDINGS: Multilevel marginal osteophyte formation and endplate sclerosis. Mild endplate deformities ribs and 10% volume loss likely old. No acute cortical disruption or malalignment. No lytic or blastic lesions. XR/XR thoracic spine 3V IMPRESSION: Multilevel spondylosis without acute fracture or gross listhesis. Electronically signed by: Abiodun Mcrae MD 02/16/2025 01:10 PM EDT [address] [address] XRay Report Signed Patient: Daniel Geiger MR#: [id number] : 1965 Acct:[id number] Age/Sex: 59 / M ADM Date: 02/16/25 Loc: HO.ED Attending Dr: Ordering Physician: Camryn De Guzman NP Date of Service: 02/16/25 Procedure(s): XR lumbar spine 2-3V Accession Number(s): [id number] cc: Name,Rishi ADAM; Camryn De Guzman NP~ EXAMINATION: XR LUMBOSACRAL SPINE CLINICAL INFORMATION: fall COMPARISON: June 06, 2022. TECHNIQUE: Three views of the lumbosacral spine. FINDINGS: Multilevel endplate sclerosis and marginal osteophyte formation. No acute cortical disruption or gross malalignment. 3 mm calcification overlapping the kidney shadows bilaterally. No lytic or blastic lesions. Probable spina bifida occulta S1. XR/XR lumbar spine 2-3V IMPRESSION: Level spondylosis without acute fracture or listhesis. Probable nephrolithiasis. Electronically signed by: Abiodun Mcrae MD 02/16/2025 01:11 PM EDT Prescription Management I considered prescription management with: Pain Medication Discharge Plan Discharge Clinical Impression: Spondylosis, Lumbar strain Patient Disposition: Home, Self-Care Instructions: Osteoarthritis (ED), Back Pain (ED) Additional Instructions: You were evaluated in the emergency department today for back pain. Your evaluation did not show signs of medical conditions requiring emergent intervention at this time. You have been prescribed 5% topical lidocaine patches which you can wear for up to 12 hours in a 24 hour period. Do not apply heat directly over the patches. You are being prescribed a course of prednisone which is a steroid to decrease inflammation. You are being prescribed naproxin which is an anti-imflammatory medicaiton. Please schedule an appointment for follow-up with your primary care physician this week for further evaluation of your symptoms. Return to the emergency department if you experience worsening back pain, difficulty walking, fevers, numbness, tingling, incontinence, groin numbness or tingling, or any other concerning symptoms. Prescriptions: New naproxen 500 mg tablet 500 mg PO BID 14 Days Qty: 28 0RF prednisone 20 mg tablet 20 mg PO DAILY Qty: 7 0RF lidocaine 5 % adhesive patch,medicated 1 patch topical DAILY Qty: 15 0RF Rx Instructions: leave on most painful area for up to 12 hrs No Action alfuzosin 10 mg tablet extended release 24 hr 10 mg PO .nightly 30 Days Qty: 30 2RF Rx Instructions: Take before bedtime triamcinolone acetonide 55 mcg aerosol,spray 2 spray intranasal DAILY Rx Instructions: in each nostril lisinopril 10 mg tablet 10 mg PO DAILY Metamucil 3.4 gram/5.4 gram powder 1 tbsp PO DAILY Rx Instructions: mix into at least 8 oz of water or juice before administering hyoscyamine sulfate 0.125 mg tablet 0.125 mg PO BID docusate sodium 100 mg capsule 100 mg PO BEDTIME Qty: 90 3RF Referrals: [facility] [Provider Group] - 1 week Print Language: Bruneian
[2025-02-16 12:32] VITALS: BP 124/95; PULSE 105; RESP 18; TEMP 36.4; O2SAT 96; BMI 29.4
[2025-02-16 14:10] VITALS: BP 124/95; PULSE 105; RESP 18; TEMP 36.4; O2SAT 96
--- OUTSIDE RECORDS SUMMARY | 2025-02-16 14:55 | XMS_ITS | Encounter Summary ---
Author Organization [employer] Address [address] [place] [address] Care Team Providers Care Cmm Inspector Name Role Phone Name, Rishi ADAM Primary Care Provider [phone] Reason for Visit * Reason Onset Date Comments Referral 07/15/2023 Encounter Details Date Type Department Care Team (Late st Contact Info) Description 07/15/2023 Telephone [facility] [address] [place], [place] [phone] Name, MD Rishi [address] [place] [address] Referral Social History Tobacco Use Types Packs/Day Years Used Date Smoking Tobacco: Never Passive Smoke Exposure: Never Smokeless Tobacco: Never Alcohol Use Standard Drinks/Week Comments Not Currently 0 (1 standard drink = 0.6 oz pur e alcohol) Depression Answer Date Recorded Patient Health Questionnaire-9 Score 3 01/28/2023 Depression Answer Date Recorded Patient Health Questionnaire-2 Score 0 01/28/2023 Sex and Gender Information Value Date Recorded Sex Assigned at Male 08/11/2022 10:19 AM EDT Legal Sex Male 10:19 AM EDT Gender Identity Male 08/11/2022 10:19 AM EDT Sexual Orientation Don't know 08/11/2022 10 :19 AM EDT documented as of this encounter Miscellaneous Notes * Telephone Encounter - Aleja Burch - 07/15/2023 10:26 AM EDT Referral and notes resubmitted to [facility] * Telephone Encounter - Celsa Davis - 07/15/2023 9:11 AM EDT Tc from pt calling in regards to gastroenterology referral. States office never received referral. Location: [address] [place] [address] [facility] [place] Date: n/a Time: n/a Fax: Specialty: gastroenterology documented in this encounter Plan of Treatment Upcoming Encounters Date Type Department Care Team (Late st Contact Info) Description 02/22/2025 10:00 AM EDT Office Visit [facility] [address] [place] [id number] Jacob Lima DDS [address] [place] [address] 04/11/2025 1:00 PM EDT Office Visit [facility] [address] [place] [phone] Name, MD Rishi [address] [place] [id number] documented as of this encounter Visit Diagnoses Not on filedocumented in this encounter Additional Health Concerns Assessment Noted Time PHQ-9 Depression Total Score: 3 01/29/20 23 9:39 AM EDT documented as of this encounter Care Teams Cmm Inspector Relationship Specialty Start Date End Date Name, MD Rishi [address] [place] [id number] PCP - General Family Medicine 12/25/15 documented as of this encounter
--- OUTSIDE RECORDS SUMMARY | 2025-02-16 14:55 | XMS_ITS | Encounter Summary ---
Author Organization [employer] Address [address] [place] [address] Care Team Providers Care Spiral Binder Name Role Phone Name, Rishi ADAM Primary Care Provider [phone] Encounter Details Date Type Department Care Team (Late st Contact Info) Description 11/05/2023 Abstract [facility] [address] [place], [place] [phone] Name, MD Rishi [address] [place], [place] [phone] Social History Tobacco Use Types Packs/Day Years Used Date Smoking Tobacco: Never Passive Smoke Exposure: Never Smokeless Tobacco: Never Alcohol Use Standard Drinks/Week Comments Not Currently 0 (1 standard drink = 0.6 oz pur e alcohol) Depression Answer Date Recorded Patient Health Questionnaire-9 Score 3 01/28/2023 Housing Stability Answer Date Recorded What is your housing situation today? I have stefani gunn 07/29/[address] you li ve. Do you have problems with any of the following? None of the above 07/29/2023 Food Insecurity Answer Date Recorded Within the past 12 months, y ou worried that your food would run out before you got money to buy more: Never True 07/29/2023 Within the past 12 months,th e food you bought just didn't last and you didn't have enough money to get more: Never True Transportation Answer Date Recorded In the past 12 months, has l ack of transportation kept you from medical appts, meetings, work or from getting things needed for daily living? No 07/29/2023 Utilities Answer Date Recorded In the past 12 months, has t he electric, gas, oil or water company threatened to shut off services in your home? Yes 07/23/2023 Depression Answer Date Recorded Patient Health Questionnaire-2 Score 0 01/28/2023 Sex and Gender Information Value Date Recorded Sex Assigned at Male 08/11/2022 10:19 AM EDT Legal Sex Male 10:19 AM EDT Gender Identity Male 08/11/2022 10:19 AM EDT Sexual Orientation Don't know 08/11/2022 10 :19 AM EDT documented as of this encounter Plan of Treatment Upcoming Encounters Date Type Department Care Team (Late st Contact Info) Description 02/22/2025 10:00 AM EDT Office Visit [facility] [address] [place] [id number] Jacob Lima DDS [address] [place] [address] 04/11/2025 1:00 PM EDT Office Visit [facility] [address] [place] [phone] NameRishi MD [address] [place] [id number] documented as of this encounter Procedures Procedure Name Priority Date/Time Associated Diagnosis Comments COLONOSCOPY Routine 11/02/2023 documented in this encounter Results * (ABNORMAL) Colonoscopy (11/02/2023) Colonoscopy Abnormal( A) Normal Comment:Colon Polyps (Tubula r Adenomas) Rishi Hyman MD HEALTH MAINTENANCE Final Result documented in this encounter Visit Diagnoses Not on filedocumented in this encounter Additional Health Concerns Assessment Noted Time PHQ-9 Depression Total Score: 3 01/29/20 23 9:39 AM EDT documented as of this encounter Care Teams Spiral Binder Relationship Specialty Start Date End Date Rishi Hyman MD [address] [place] [phone] PCP - General Family Medicine 12/25/15 documented as of this encounter
--- OUTSIDE RECORDS SUMMARY | 2025-02-16 14:55 | XMS_ITS | Encounter Summary ---
Author Organization [employer] Address [address] [facility] 7[address] [place] [address] Care Team Providers Care Clinic Specialist Name Role Phone Name, Rishi ADAM Primary Care Provider [phone] Encounter Details Date Type Department Care Team (Late st Contact Info) Description 02/16/2025 Orders Only [facility] External Provider, [facility] Social History Tobacco Use Types Packs/Day Years Used Date Smoking Tobacco: Former Cigarettes Passive Smoke Exposure: Never Smokeless Tobacco: Never Alcohol Use Standard Drinks/Week Comments Not Currently 0 (1 standard drink = 0.6 oz pur e alcohol) Depression Answer Date Recorded Patient Health Questionnaire-9 Score 0 03/01/2024 Patient Health Questionnaire-9 Score 0 03/01/2024 Last PHQ-9: Questionnaire Data Not on file 0 03/01/2024 Housing Stability Answer Date Recorded What is your housing situation today? I have stefani gunn 03/01/[address] you li ve. Do you have problems with any of the following? None of the above 03/01/2024 Food Insecurity Answer Date Recorded Within the past 12 months, y ou worried that your food would run out before you got money to buy more: Never True 03/01/2024 Within the past 12 months,th e food you bought just didn't last and you didn't have enough money to get more: Never True Transportation Answer Date Recorded In the past 12 months, has l ack of transportation kept you from medical appts, meetings, work or from getting things needed for daily living? No 03/01/2024 Utilities Answer Date Recorded In the past 12 months, has t he electric, gas, oil or water company threatened to shut off services in your home? No 03/01/2024 Depression Answer Date Recorded Patient Health Questionnaire-2 Score 0 03/01/2024 Sex and Gender Information Value Date Recorded Sex Assigned at Male 08/11/2022 10:19 AM EDT Legal Sex Male 10:19 AM EDT Gender Identity Male 08/11/2022 10:19 AM EDT Sexual Orientation Don't know 08/11/2022 10 :19 AM EDT documented as of this encounter Plan of Treatment Upcoming Encounters Date Type Department Care Team (Late st Contact Info) Description 02/22/2025 10:00 AM EDT Office Visit [facility] ADULT DENTAL [address] [place] [address] Jacob Lima, ZAHIRAS [address] [place] [address] 04/11/2025 1:00 PM EDT Office Visit [facility] MEDICINE [address] [place] [address] Name, MD Rishi [address] [place] [address] documented as of this encounter Procedures Procedure Name Priority Date/Time Associated Diagnosis Comments XR LUMBAR SPINE 2-3 VIEWS Routine 02/16/2025 12:35 PM EDT XR THORACIC SPINE 3 VIEWS Routine 02/16/2025 12:35 PM EDT documented in this encounter Results * XR Lumbar Spine 2-3 Views (02/16/2025 12:35 PM EDT) Anatomical Region Laterality Modality Spine, L-spine Radiographic Reny ging 02/16/2025 12:3 5 PM EDT Narrative 02/16/2025 1:14 PM EDT ? [facility] ?[address] ?[place] [address] ?XRay Report ? Signed ? Patient: Colon Odonnell,Daniel ?MR#: MM ?? [id number] ? : 1965 ?Acct:[id number] ? Age/Sex: 59 / M ?ADM Date: 05/08/25 ? Loc: HO.ED ? Attending Dr: ? Ordering Physician: Camryn De Guzman NP ?? Date of Service: 02/16/25 ?? Procedure(s): XR lumbar spine 2-3V ?? Accession Number(s): [id number] ? cc: Name,Rishi ADAM; Camryn De Guzman NP ? EXAMINATION: ?? XR LUMBOSACRAL SPINE ? CLINICAL INFORMATION: ?? fall ? COMPARISON: ?? June 06, 2022. ? TECHNIQUE: ?? Three views of the lumbosacral spine. ? FINDINGS: ?? Multilevel endplate sclerosis and marginal osteophyte formation. No ?? acute cortical disruption or gross malalignment. ?? 3 mm calcification overlapping the kidney shadows bilaterally. No lytic ?? or blastic lesions. ?? Probable spina bifida occulta S1. ? XR/XR lumbar spine 2-3V ?? IMPRESSION: ?? Level spondylosis without acute fracture or listhesis. ?? Probable nephrolithiasis. ? Electronically signed by: ??Abiodun Mcrae MD ??02/16/2025 01:11 PM ?? EDT RP ? Dictated By: ?Abiodun Mendoza MD ? Signed By: ?<Electronically signed by Abiodun Falcon MD in OV> ? 02/16/25 1311 ? DD/ 1235 ? TD/TT: 02/16/25 1303 ? Human Resources Team Member: ? Procedure Note Shaina, Image - 02/16/2025 [place] [address] XRay Report Signed Patient: Naomi GeigerR#: [id number] : 1965Acct:[id number] Age/Sex: 59 / MADM Date: 02/16/25 Loc: HO.ED Attending Dr: Ordering Physician: Camryn De Guzman NP Date of Service: 02/16/25 Procedure(s): XR lumbar spine 2-3V Accession Number(s): [id number] cc: Rishi Hyman MD; Camryn De Guzman NP EXAMINATION: XR LUMBOSACRAL SPINE CLINICAL INFORMATION: fall COMPARISON: June 06, 2022. TECHNIQUE: Three views of the lumbosacral spine. FINDINGS: Multilevel endplate sclerosis and marginal osteophyte formation. No acute cortical disruption or gross malalignment. 3 mm calcification overlapping the kidney shadows bilaterally. No lytic or blastic lesions. Probable spina bifida occulta S1. XR/XR lumbar spine 2-3V IMPRESSION: Level spondylosis without acute fracture or listhesis. Probable nephrolithiasis. Electronically signed by: Abiodun Mcrae MD 02/16/2025 01:11 PM EDT RP Dictated By: Abiodun Mendoza MD Signed By: <Electronically signed by Abiodun Falcon MDin OV> 02/16/25 1311 DD/ 1235 TD/TT: 02/16/25 1303 Human Resources Team Member: [facility] External Provider IMG XR PROCEDURES Edited Result - Final * XR Thoracic Spine 3 Views (02/16/2025 12:35 PM EDT) Anatomical Region Laterality Modality Spine, T-spine Radiographic Reny ging 02/16/2025 12:3 5 PM EDT Narrative 02/16/2025 1:13 PM EDT ? [facility] ?[address] ?[place] [address] ?XRay Report ? Signed ? Patient: Colon Odonnell,Daniel ?MR#: MM ?? [id number] ? : 1965 ?Acct:[id number] ? Age/Sex: 59 / M ?ADM Date: 02/16/25 ? Loc: HO.ED ? Attending Dr: ? Ordering Physician: Camryn De Guzman CUSTOMS AGENT ?? Date of Service: 02/16/25 ?? Procedure(s): XR thoracic spine 3V ?? Accession Number(s): [id number] ? cc: Name,Rishi ADAM; Camryn De Guzman NP ? EXAMINATION: ?? XR THORACIC SPINE ? CLINICAL INFORMATION: ?? fall ? COMPARISON: ?? None available. ? TECHNIQUE: ?? 3 views of the thoracic spine were obtained. ? FINDINGS: ?? Multilevel marginal osteophyte formation and endplate sclerosis. Mild ?? endplate deformities ribs and 10% volume loss likely old. ?? No acute cortical disruption or malalignment. No lytic or blastic ?? lesions. ? XR/XR thoracic spine 3V ?? IMPRESSION: ?? Multilevel spondylosis without acute fracture or gross listhesis. ? Electronically signed by: ??Abiodun Mcrae MD ??02/16/2025 01:10 PM ?? EDT RP ? Dictated By: ?Abiodun Mendoza MD ? Signed By: ?<Electronically signed by Abiodun Falcon MD in OV> ? 02/16/25 1310 ? DD/ 1235 ? TD/TT: 02/16/25 1303 ? Human Resources Team Member: ? Procedure Note Shaina, Image - 02/16/[address] [address] XRay Report Signed Patient: Charito Geiger#: MM [id number] : 1965Acct:[id number] Age/Sex: 59 / MADM Date: 02/16/25 Loc: HO.ED Attending Dr: Ordering Physician: Camryn De Guzman NP Date of Service: 02/16/25 Procedure(s): XR thoracic spine 3V Accession Number(s): [id number] cc: Rishi Hyman MD; Camryn De Guzman NP EXAMINATION: XR THORACIC SPINE CLINICAL INFORMATION: fall COMPARISON: None available. TECHNIQUE: 3 views of the thoracic spine were obtained. FINDINGS: Multilevel marginal osteophyte formation and endplate sclerosis. Mild endplate deformities ribs and 10% volume loss likely old. No acute cortical disruption or malalignment. No lytic or blastic lesions. XR/XR thoracic spine 3V IMPRESSION: Multilevel spondylosis without acute fracture or gross listhesis. Electronically signed by: Abiodun Mcrae MD 02/16/2025 01:10 PM EDT Dictated By: Abiodun Mendoza MD Signed By: <Electronically signed by Abiodun Falcon MDin OV> 02/16/25 1310 DD/ 1235 TD/TT: 02/16/25 1303 Human Resources Team Member: [facility] External Provider IMG XR PROCEDURES Edited Result - Final documented in this encounter Visit Diagnoses Not on filedocumented in this encounter Additional Health Concerns Assessment Noted Time PHQ-9 Depression Total Score: 0 03/01/20 24 9:11 AM EDT documented as of this encounter Care Teams Clinic Specialist Relationship Specialty Start Date End Date Name, MD Rishi [address] [place] [address] PCP - General Family Medicine 12/25/15 documented as of this encounter
--- OUTSIDE RECORDS SUMMARY | 2025-02-16 14:55 | XMS_ITS | Clinical Summary ---
Author Organization [employer] Address [address] [facility] 7[address] [place] [address] Care Team Providers Care Nurses Educator Name Role Phone Name, Rishi ADAM Primary Care Provider [phone] Allergies Active Allergy Reactions Criticality Noted Date Comments Sulfamethoxazole-Trimethoprim Hives 2022 Sulfamethoxazole Itching 04/24/2017 Other reaction(s): Itching Other reaction(s): ITCHINESS Trimethoprim Itching 04/24/2017 Other reaction(s): Itching Other reaction(s): ITCHINESS Medications cetirizine (ZyrTEC) 10 MG tabletIndicati ons:Seasonal allergic rhinitis due to pollen Take 1 tablet (10 mg) by mouth Once per day. 30 tablet 11 03/01/20 24 Active Blood Pressure kit 1 each 2 times daily. 1 kit 11/07/19 25 026 Active fluticasone (Flonase Allergy Relief) 50 MCG/ACT nasal spray Administer 1 spray into each nostril Once per day. Shake gently. Before first use, prime pump. After use, clean tip and replace cap. 16 g 11/07/19 25 026 Active Nirmatrelvir&R itonavir 300/100 (Paxlovid, 300/100,) 20 x 150 MG & 10 x 100MG tablet therapy pack Take 300 mg by mouth 2 times daily. Take 3 tablets 2x/day for 5 days 30 each 11/07/19 25 Active lisinopril 10 MG tablet TAKE 1 TABLET BY MOUTH EVERY DAY IN THE MORNING DIRECTED 90 tablet 3 02/03/20 25 Active lisinopril 10 MG tablet TAKE 1 TABLET BY MOUTH EVERY MORNING DIRECTED 90 tablet 3 04/ 025 Discontinued Active Problems Problem Noted Date Diagnosed Date Retained dental root 01/18/2024 Bilateral lower abdominal discomfort 10/30/2023 10/30/2023 Abrasion, corneal 10/30/2023 10/30/2023 Acute diverticulitis 10/30/2023 10/30/2023 Fatigue 10/30/2023 10/30/2023 Hepatitis C antibody positive in blood 10/30/2023 Intermittent lightheadedness 10/30/2023 Lumbar radiculopathy 10/30/2023 10/30/2023 Lumbar spondylosis 10/30/2023 10/30/2023 Muscle spasm of back 10/30/2023 10/30/2023 Other intervertebral disc degeneration, lumbar r egion 10/30/2023 10/30/2023 Sacroiliac joint pain 10/30/2023 10/30/2023 Sepsis 10/30/2023 10/30/2023 Dental abscess 10/22/2023 BPH associated with nocturia 05/21/2023 Carpal tunnel syndrome 05/21/2023 Frequent headaches 05/21/2023 Seasonal allergic rhinitis 05/21/2023 Sleep disorder 05/21/2023 Snoring 05/21/2023 Unintentional weight loss 05/21/2023 Vitamin D deficiency 05/21/2023 Diverticulitis 01/28/2023 Assessment & Plan (01/28/2023 5:12 PM EDT): Educated patient on diverticula and diverticulitis. Educated patient on why a referral to gastroenterology is necessary and why a colonoscopy is so important. We are not just looking for diverticula we are screening for cancer. Low vitamin D level 01/27/2023 Assessment & Plan (01/28/2023 1:34 PM EDT): He does not like taking too many medications so he agreed to getting his Vitamin D level checked and then talking about taking vitamin D again if it is low. Hepatitis C virus infection without hepatic coma 01/27/2023 Assessment & Plan (01/28/2023 1:31 PM EDT): Hep C lab ordered, looking for viral load. Routine adult health maintenance 01/27/2023 Assessment & Plan (01/27/2023 11:59 AM EDT): Referral to Gastroenterology for cancer screening colonoscopy. Dental caries 12/04/2022 Bilateral sciatica 01/17/2022 Complaints of total body pain 01/17/2022 Cirrhosis of liver without ascites 02/08/2018 Essential hypertension 12/25/2015 Resolved Problems Problem Noted Date Diagnosed Date Resolved Date Rhinosinusitis 05/21/2023 03/01/2024 Encounters Date Type Department Care Team Description 02/16/2025 Orders Only [facility] External Provider, [facility] 02/01/2025 Refill [facility] MEDICINE [address] [place] [address] Name, MD Rishi 01/03/2025 Telephone [facility] MEDICINE [address] [place], [place] [id number] Rafaela Key [place] appt change (Provider out ) from Last 3 Months Immunizations Name Administration Dates Next Due Hep B, adult 05/06/2013,12/07/2012,11/05/2012 Influenza, IIV3, injectable 08/02/2013 TD (adult), 2 Lf tetanus tox oid, preservative free, adsorbed 06/08/2019 Tdap 07/28/2014 Social History Tobacco Use Types Packs/Day Years Used Date Smoking Tobacco: Former Cigarettes Passive Smoke Exposure: Never Smokeless Tobacco: Never Tobacco Cessation:Counseling Given: Not Answered Alcohol Use Standard Drinks/Week Comments Not Currently [...] Don't know 08/11/2022 10 :19 AM EDT Last Filed Vital Signs Vital Sign Reading Time Taken Comments Blood Pressure 142/88 11/07/2024 8:51 AM EST Pulse 97 11/07/2024 8:51 AM EST Temperature 36.8 ??C (98.2 ??F) 11/07/2024 8:51 AM ES T Respiratory Rate 18 11/07/2024 8:51 AM EST Oxygen Saturation 95% 11/07/2024 8:51 AM EST Inhaled Oxygen Concentration - - Weight 85.3 kg (188 lb) 11/07/2024 8:51 AM EST Height 167.6 cm (5' 6 ) 07/15/2024 9:58 AM EDT Body Mass Index 30.34 07/15/2024 9:58 AM EDT Plan of Treatment Upcoming Encounters Date Type Department Care Team (Late st Contact Info) Description 02/22/2025 10:00 AM EDT Office Visit [facility] ADULT DENTAL [address] [place] [address] Jacob Lima DDS [address] [place] [address] 04/11/2025 1:00 PM EDT Office Visit [facility] MEDICINE [address] [place] [address] Name, MD Rishi [address] [place] [address] Health Maintenance Due Date Last Done Comments CT Colonography 1965 Dental Oral Exam 1965 Dental Prophylaxis 1965 Dental X-Ray: Bitewings 1965 Dental X-Ray: Full Mouth 1965 FIT DNA/Cologuard 1965 FIT 1965 FOBT 1965 Lipid Panel 1965 Sigmoidoscopy 1965 Alcohol/Substance Use Screening 1977 Pneumococcal Vaccine: 50+ Years (1 of 2 - PCV) 1984 Zoster Vaccines (1 of 2) 2015 COVID-19 Vaccine (3 - 2023-2 5 season) 2024 09/04/2021, 01/18/2021 Influenza Vaccine (#1) 2024 08/02/2013 Depression Screening 03/01/2025 03/01/2024, 03/01/2024 SDOH Screening 03/01/2025 03/01/2024 Tobacco Screening 11/07/2025 11/07/2024 Colonoscopy 11/02/2026 11/02/2023 Colorectal Cancer Screening 11/02/2026 DTaP/Tdap/Td Vaccines (3 - T d or Tdap) 06/08/2029 06/08/2019, 07/28/2014 RSV Patients and Patients Aged 60 years or older (1 - 1-dose 75+ series) 2040 Hepatitis B Vaccines Completed 05/06/2013, 12/07/2012, 11/05/2012 HIV Screening Completed 04/04/2021 HIB Vaccines Aged Out No longer eligi ble based on patient's age to complete this topic HPV Vaccines Aged Out No longer eligi ble based on patient's age to complete this topic Hepatitis A Vaccines Discontinued IPV Vaccines Aged Out No longer eligi ble based on patient's age to complete this topic Meningococcal Vaccine Aged Out No dk sri eligible based on patient's age to complete this topic RSV under 20 months Aged Out No longe r eligible based on patient's age to complete this topic Rotavirus Vaccines Aged Out No longer eligible based on patient's age to complete this topic Procedures Procedure Name Priority Date/Time Associated Diagnosis Comments XR LUMBAR SPINE 2-3 VIEWS Routine 02/16/2025 12:35 PM EDT XR THORACIC SPINE 3 VIEWS Routine 02/16/2025 12:35 PM EDT HM COLONOSCOPY Routine 11/02/2023 HIV 1/2 ANTIGEN/ANTIBODY, FOURTH GENERATION W/RFL Routine 04/04/2021 8:10 AM EDT from Last 3 Months or Most Recently Relevant to Health Maintenance Results * XR Lumbar Spine 2-3 Views (02/16/2025 12:35 PM EDT) Anatomical Region Laterality Modality Spine, L-spine Radiographic Reny ging 02/16/2025 12:3 5 PM EDT Narrative 02/16/2025 1:14 PM EDT ? [facility] ?[address] ?[place] [address] ?XRay Report ? Signed ? Patient: Daniel Geiger ?MR#: MM ?? [id number] ? : 1965 ?Acct:[id number] ? Age/Sex: 59 / M ?ADM Date: 02/16/25 ? Loc: HO.ED ? Attending Dr: ? Ordering Physician: Camryn De Guzman NP ?? Date of Service: 02/16/25 ?? Procedure(s): XR lumbar spine 2-3V ?? Accession Number(s): [id number] ? cc: Rishi Hyman MD; Camyrn De Guzman NP ? EXAMINATION: ?? XR [...] DD/ 1235 ? TD/TT: 02/16/25 1303 ? Accordion Maker: ? Procedure Note Licogloriater, Image - 02/16/[address] [address] XRay Report Signed Patient: Charito Geiger#: MM [id number] : 1965Acct:[id number] Age/Sex: 59 / MADM Date: 02/16/25 Loc: HO.ED Attending Dr: Ordering Physician: Camryn De Guzman NP Date of Service: 02/16/25 Procedure(s): XR lumbar spine 2-3V Accession Number(s): [id number] cc: Name,Rishi ADAM; Camryn De Guzman NP EXAMINATION: XR LUMBOSACRAL [...] Abiodun Mcrae MD 02/16/2025 01:11 PM EDT Dictated By: Abiodun Mendoza MD Signed By: <Electronically signed by Abiodun Falcon MDin OV> 02/16/25 1311 DD/ 1235 TD/TT: 02/16/25 1303 Accordion Maker: us [facility] External Provider IMG XR PROCEDURES Edited Result - Final * XR Thoracic Spine 3 Views (02/16/2025 12:35 PM EDT) Anatomical Region Laterality Modality Spine, T-spine Radiographic Reny ging 02/16/2025 12:3 5 PM EDT Narrative 02/16/2025 1:13 PM EDT ? [facility] ?[address] ?[place] [address] ?XRay Report ? Signed ? Patient: Pedro Luis Odonnell,Daniel ?MR#: MM ?? [id number] ? : 1965 ?Acct:[id number] ? Age/Sex: 59 / M ?ADM Date: 02/16/25 ? Loc: HO.ED ? Attending Dr: ? Ordering Physician: Camryn De Guzman NP ?? Date of Service: 02/16/25 ?? Procedure(s): XR thoracic spine 3V ?? Accession Number(s): [id number] ? cc: Rishi Hyman MD; Camryn De Guzman NP ? EXAMINATION: ?? [...] DD/ 1235 ? TD/TT: 02/16/25 1303 ? Accordion Maker: ? Procedure Note Seble Merritt - 02/16/[address] [place] [address] XRay Report Signed Patient: Charito Geiger#: MM [id number] : 1965Acct:[id number] Age/Sex: 59 / MADM Date: 02/16/25 Loc: HO.ED Attending Dr: Ordering Physician: Camryn De Guzman NP Date of Service: 02/16/25 Procedure(s): XR thoracic spine 3V Accession Number(s): [id number] cc: Name,Rishi ADAM; Camryn De Guzman NP EXAMINATION: XR THORACIC [...] Abiodun Mcrae MD 02/16/2025 01:10 PM EDT RP Dictated By: Abiodun Mendoza MD Signed By: <Electronically signed by Abiodun Falcon MDin OV> 02/16/25 1310 DD/ 1235 TD/TT: 02/16/25 1303 Accordion Maker: [facility] External Provider IMG XR PROCEDURES Edited Result - Final * (ABNORMAL) Colonoscopy (11/02/2023) Pathologist [facility] Colonoscopy Abnormal( A) Normal Comment:Colon Polyps (Tubula r Adenomas) Rishi Hyman MD HEALTH MAINTENANCE Final Result * HIV 1/2 ANTIGEN/ANTIBODY,FOURTH GENERATION W/RFL (04/04/2021 8:10 AM EDT) Pathologist [facility] HIV-1/2 ANTIGEN AND ANTIBODIES, 4TH GENERATION W/ REFLEX NON-REACT MARILIN NON-REACT MARILIN [facility] Comment: HIV-1 antigen and HIV-1/HIV-2 antibodies were not detected. There is no laboratory evidence of HIV infection. ?? PLEASE NOTE: This information has been disclosed to you from records whose confidentiality may be protected by state law. ??If your state requires such protection, then the state law prohibits you from making any further disclosure of the information without the specific written consent of the person to whom it pertains, or as otherwise permitted by law. A general authorization for the release of medical or other information is NOT sufficient for this purpose. ? For additional information please refer to http://education.Hopscot.ch/faq/MZD664 (This link is being provided for informational/ educational purposes only.) ? The performance of this assay has not been clinically validated in patients less than 2 years old. ?? 04/04/2021 8:10 AM EDT us Araceli Tabares SECURITY LEAD LAB BLOOD ORDERABLES Final Res ult [facility] [address] from Last 3 Months or Most Recently Relevant to Health Maintenance Insurance [facility] D[facility] - HSN FULL (MEDICAID) Care Teams Nurses Educator Relationship Specialty Start Date End Date Name, MD Rishi [address] [place] [address] PCP - General Family Medicine 12/25/15
--- OUTSIDE RECORDS SUMMARY | 2025-02-16 14:55 | XMS_ITS | Encounter Summary ---
Author Organization [employer] Address [address] [place] [address] Care Team Providers Care Vendette Name Role Phone Name, Rishi ADAM Primary Care Provider [phone] Encounter Details Date Type Department Care Team ([facility] Contact Info) Description 01/07/2023 Orders Only [facility] CHC MED & PEDS [address] [place], [place] [phone] Mady Guillen LPN Social History Tobacco Use Types Packs/Day Years Used Date Smoking Tobacco: Never Passive Smoke Exposure: Never Smokeless Tobacco: Never Alcohol Use Standard Drinks/Week Comments Yes 0 (1 standard drink = 0.6 oz pur e alcohol) Sex and Gender Information Value Date Recorded Sex Assigned at Male 08/11/2022 10:19 AM EDT Legal Sex Male 10:19 AM EDT Gender Identity Male 08/11/2022 10:19 AM EDT Sexual Orientation Don't know 08/11/2022 10 :19 AM EDT COVID-19 Exposure Response Date Recorded In the last 10 days, have yo u been in contact with someone who was confirmed or suspected to have Coronavirus/COVID-19? No / Unsure 12/15/2022 11:13 AM EST documented as of this encounter Plan of Treatment Upcoming Encounters Date Type Department Care Team (Late Contact Info) Description 02/22/2025 10:00 AM EDT Office Visit [facility] ADULT DENTAL [address] [place], [place] [phone] Jacob Lima DDS [address] [place], [place] [phone] 04/11/2025 1:00 PM EDT Office Visit [facility] MEDICINE [address] [place] [address] Name, MD Rishi [address] [place] [address] documented as of this encounter Procedures Procedure Name Priority Date/Time Associated Diagnosis Comments URINALYSIS WITH REFLEX MICROSCOPIC Routine 07/01/2023 1:12 AM EDT CBC WITH AUTO DIFFERENTIAL Routine 06/30/2023 7:38 PM EDT MAGNESIUM Routine 06/30/2023 7:38 PM EDT LIPASE Routine 06/30/2023 7:38 PM EDT HEPATIC FUNCTION PANEL Routine 3 7:38 PM EDT BASIC METABOLIC PANEL Routine 06/30/2023 7:38 PM EDT HIGH SENSITIVITY TROPONIN I Routine 01/09/2023 10:12 PM EDT URINALYSIS, COMPLETE, WITH REFLEX TO CULTURE Routine 01/09/2023 9:41 PM EDT CBC Routine 01/09/2023 8:10 PM EDT LIPASE Routine 01/09/2023 8:10 PM EDT HEPATIC FUNCTION PANEL Routine 3 8:10 PM EDT COMPREHENSIVE METABOLIC PANEL Routine 01/09/2023 8:10 PM EDT documented in this encounter Results * Urinalysis w/reflex microscopic (07/01/2023 1:12 AM EDT) Color Urine Yellow [facility] Appearance Urine Clear [facility] PH 6.5 5.0 - 9.0 [facility] Glucose Urine UA Negative Negative mg/dL [facility] Urine Blood Negative Negative [facility] Specific [place] - Urine 1.020 1.005 - 1.025 [facility] Urine Protein Negative Neg-Trace mg/dL [facility] Urine Ketones Negative Negative mg/dL [facility] Nitrite Urine Negative Negative [facility] Leukocyte Esterase Urine Negative Negative [facility] 07/01/2023 1:12 AM EDT 07/01/2023 1:16 AM EDT Narrative [facility] - 07/01/2023 1:20 AM EDT Urine, Clean Catch [facility] External Provider LAB URI NE ORDERABLES Final Result Performing Organization Address [facility] Co de Phone Number [facility] [address] [place] [phone] * Lipase (06/30/2023 7:38 PM EDT) Lipase 29 8 - 78 U/L [facility] 06/30/2023 7:38 PM EDT 06/30/2023 7:40 PM EDT Generic External Data Provider LAB BLOOD ORDERAB LES Final Result Performing Organization Address [facility] Co de Phone Number [facility] [address] [place] [phone] * Magnesium (06/30/2023 7:38 PM EDT) Magnesium 2.1 1.6 - 2.6 mg/dL [facility] 06/30/2023 7:38 PM EDT 06/30/2023 7:40 PM EDT Generic External Data Provider LAB BLOOD ORDERAB LES Final Result Performing Organization Address [facility] Co de Phone Number [facility] [address] [place] [phone] * Basic Metabolic Panel (06/30/2023 7:38 PM EDT) Sodium 141 135 - 145 mmol/L [facility] Potassium 3.9 3.3 - 5.1 mmol/L [facility] Chloride 105 96 - 108 mmol/L [facility] Carbon Dioxide 27 22 - 29 mmol/L [facility] Anion Gap 13 12 - 20 [facility] Urea Nitrogen (BUN) 14 9 - 16 mg/dL [facility] Creatinine, Serum 0.95 0.5 - 1.4 mg/dL [facility] Creatinine Clr Calc Pharmacy 86.0 [facility] Comment:eGFR (calculated fro m the MDRD study equation) and eCrCl(calculated from the Cockcroft-Gault equation) are based ondifferent parameters and may not yield comparable results.If eCrCl result is absurd, please check patient'sheight/weight. Estimated Glomerular Filt Rate >60 [facility] Comment:NOTE: For -Am erican individuals, multiply the result by 1.210.Chronic Kidney Disease: Estimated GFR < 60 mL/min/[id number] Kidney Disease: Estimated GFR < 15 mL/min/1.73m2 Glucose 109 60 - 115 mg/dL [facility] Calcium 9.5 8.4 - 10.2 mg/dL [facility] 06/30/2023 7:38 PM EDT 06/30/2023 7:40 PM EDT us Generic External Data Provider LAB BLOOD ORDERAB LES Final Result [facility] [address] [place] [address] [phone] * Hepatic Function Panel (06/30/2023 7:38 PM EDT) Bilirubin, Total 0.8 0.0 - 1.0 mg/dL [facility] Bilirubin, Direct 0.2 0.0 - 0.5 mg/dL [facility] Aspartate Amino Transferase 27 5 - 37 U/L [facility] Alanine Aminotransferase 35 0 - 40 U/L [facility] Total Protein 7.1 6.5 - 8.0 g/dL [facility] Albumin Level 4.3 3.5 - 5.0 g/dL [facility] Alkaline Phosphatase 46 39 - 117 U/L [facility] 06/30/2023 7:38 PM EDT 06/30/2023 7:40 PM EDT us [facility] External Provider LAB BLO OD ORDERABLES Final Result [facility] [address] [place] [phone] * (ABNORMAL) CBC auto differential (06/30/2023 7:38 PM EDT) White Blood Count 7.2 4.8 - 10.8 X10*3/uL [facility] Red Blood Count 4.85 4.60 - 5.80 X10*6/uL [facility] Hemoglobin 14.7 14.0 - 18.0 g/dl [facility] Hematocrit 41.2(L) 42.0 - 52.0 % [facility] Mean Corpuscular Volume 84.9 80.0 - 98.0 fL [facility] Mean Corpuscular Hemoglobin 30.3 27.0 - 33.0 pg [facility] Mean Corpuscular HGB Conc 35.7 31.0 - 36.0 g/dl [facility] Red Cell Distribution Width 11.7 11.0 - 16.0 % [facility] Platelet Count 152(L) 160 - 400 X10*3/uL [facility] Mean Platelet Volume 10.8 9.4 - 12.4 fL [facility] Neutrophils Percent Auto 55.2 45 - 73 % [facility] Imm Gran Pct Auto 0.3 0.0 - 0.4 % [facility] Lymphocytes Percent Auto 31.9 20 - 40 % [facility] Monocytes Percent Auto 9.2 2 - 11 % [facility] Eosinophils Percent Auto 2.8 0 - 4 % [facility] Basophils Percent Auto 0.6 0 - 2 % [facility] NRBC Pct Auto 0.0 0.0 - 0.2 /100WBC [facility] Neutrophils Absolute Auto 4.0 2.0 - 8.3 x10*3/uL [facility] Imm Gran Abs Auto 0.02 0.00 - 0.03 X10*3/uL [facility] Lymphocytes Absolute Auto 2.3 1.2 - 4.9 X10*3/uL [facility] Monocytes Absolute Auto 0.7 0.1 - 1.2 X10*3/uL [facility] Eosinophils Absolute Auto 0.2 0.0 - 0.4 X10*3/uL [facility] Basophils Absolute Auto 0.0 0.0 - 0.2 X10*3/uL [facility] NRBC Abs Auto 0.000 0.0 - 0.012 X10*3/uL [facility] 06/30/2023 7:38 PM EDT 06/30/2023 7:40 PM EDT [facility] External Provider LAB BLO OD ORDERABLES Final Result Performing Organization Address [facility]/State/[facility] Co de Phone Number [facility] [address] [place] [phone] * HIGH SENSITIVITY TROPONIN I (01/09/2023 10:12 PM EDT) TROPONIN I HIGH SENSITIVITY <3.5 <3.5 - 35.0 ng/L [facility] Comment:The Landry high sens itivity Troponin-I results should beused in conjunction with other diagnostic information suchas ECG, clinical observations and information, and patientsymptoms to aid in the diagnosis of [place]. 01/09/2023 10:1 2 PM EDT 01/09/2023 10:15 PM EDT [facility] External Provider LAB BLO OD ORDERABLES Final Result Performing Organization Address City/[facility]/ZIP Co de Phone Number [facility] [address] [place] [phone] * Urinalysis, Complete, with Reflex to Culture (01/09/2023 9:41 PM EDT) Color Urine Yellow [facility] Appearance Urine Clear [facility] PH 6.0 5.0 - 9.0 [facility] Glucose Urine UA Negative Negative mg/dL [facility] Urine Blood Negative Negative [facility] Specific [place] - Urine 1.020 1.005 - 1.025 [facility] Urine Protein Negative Neg-Trace mg/dL [facility] Urine Ketones Negative Negative mg/dL [facility] Nitrite Urine Negative Negative [facility] Leukocyte Esterase Urine Negative Negative [facility] RBC Urine 0-2 0 - 2 /HPF [facility] Urine WBC 0-5 0 - 5 /HPF [facility] Urine Squamous Epithelial Cell 0-2 0 - 2 /HPF [facility] Urine Bacteria None Seen None Seen [facility] Hyaline Casts, Urine 0-2 0 - 2 /LPF [facility] 01/09/2023 9:41 PM EDT 01/09/2023 9:47 PM EDT Narrative [facility] - 01/09/2023 9:59 PM EDT [id number], Clean Catch us [facility] External Provider LAB URI NE ORDERABLES Final Result Performing Organization Address City/[facility]/ZIP Co de Phone Number [facility] [address] [place] [phone] * Lipase (01/09/2023 8:10 PM EDT) Lipase 40 8 - 78 U/L [facility] 01/09/2023 8:10 PM EDT 01/09/2023 8:12 PM EDT [facility] External Provider LAB BLO OD ORDERABLES Final Result Performing Organization Address City/[facility]/ZIP Co de Phone Number [facility] [address] [place] [phone] * Hepatic Function Panel (01/09/2023 8:10 PM EDT) Bilirubin, Direct 0.2 0.0 - 0.5 mg/dL [facility] 01/09/2023 8:10 PM EDT 01/09/2023 8:12 PM EDT [facility] External Provider LAB BLO OD ORDERABLES Final Result Performing Organization Address [facility] Co de Phone Number [facility] [address] [place] [address] [phone] * (ABNORMAL) Comprehensive Metabolic Panel (01/09/2023 8:10 PM EDT) Sodium 142 135 - 145 mmol/L [facility] Potassium 4.2 3.3 - 5.1 mmol/L [facility] Chloride 105 96 - 108 mmol/L [facility] Carbon Dioxide 29 22 - 29 mmol/L [facility] Anion Gap 12 12 - 20 [facility] Urea Nitrogen (BUN) 17(H) 9 - 16 mg/dL [facility] Creatinine, Serum 1.10 0.5 - 1.4 mg/dL [facility] Creatinine Clr Calc Pharmacy 73.3 [facility] Comment:eGFR (calculated fro m the MDRD study equation) and eCrCl(calculated from the Cockcroft-Gault equation) are based ondifferent parameters and may not yield comparable results.If eCrCl result is absurd, please check patient'sheight/weight. Estimated Glomerular Filt Rate >60 [facility] Comment:NOTE: For -Am erican individuals, multiply the result by 1.210.Chronic Kidney Disease: Estimated GFR < 60 mL/min/[id number] Kidney Disease: Estimated GFR < 15 mL/min/1.73m2 Glucose 92 60 - 115 mg/dL [facility] Calcium 9.7 8.4 - 10.2 mg/dL [facility] Bilirubin, Total 1.0 0.0 - 1.0 mg/dL [facility] Aspartate Amino Transferase 36 5 - 37 U/L [facility] Alanine Aminotransferase 53(H) 0 - 40 U/L [facility] Total Protein 7.3 6.5 - 8.0 g/dL [facility] Albumin Level 4.6 3.5 - 5.0 g/dL [facility] Alkaline Phosphatase 55 39 - 117 U/L [facility] 01/09/2023 8:10 PM EDT 01/09/2023 8:12 PM EDT us [facility] External Provider LAB BLO OD ORDERABLES Final Result [facility] [address] [place] [phone] * (ABNORMAL) CBC (01/09/2023 8:10 PM EDT) White Blood Count 12.0(H) 4.8 - 10.8 X10*3/uL [facility] Red Blood Count 5.33 4.60 - 5.80 X10*6/uL [facility] Hemoglobin 15.9 14.0 - 18.0 g/dl [facility] Hematocrit 44.8 42.0 - 52.0 % [facility] Mean Corpuscular Volume 84.1 80.0 - 98.0 fL [facility] Mean Corpuscular Hemoglobin 29.8 27.0 - 33.0 pg [facility] Mean Corpuscular HGB Conc 35.5 31.0 - 36.0 g/dl [facility] Red Cell Distribution Width 11.8 11.0 - 16.0 % [facility] Platelet Count 187 160 - 400 X10*3/uL [facility] Mean Platelet Volume 10.8 9.4 - 12.4 fL [facility] NRBC Pct Auto 0.0 0.0 - 0.2 /100WBC [facility] NRBC Abs Auto 0.000 0.0 - 0.012 X10*3/uL [facility] 01/09/2023 8:10 PM EDT 01/09/2023 8:12 PM EDT us [facility] External Provider LAB BLO OD ORDERABLES Final Result [facility] [address] [place] [phone] [phone] documented in this encounter Visit Diagnoses Not on filedocumented in this encounter Care Teams Vendette Relationship Specialty Start Date End Date Name, MD Rishi [address] [place] [phone] PCP - General Family Medicine 12/25/15 documented as of this encounter
--- OUTSIDE RECORDS SUMMARY | 2025-02-16 14:55 | XMS_ITS | Encounter Summary ---
Author Organization [employer] Address [address] [facility] [place] [address] Care Team Providers Care Toolroom Keeper Name Role Phone Name, Rishi ADAM Primary Care Provider [phone] Reason for Visit * Reason Comments Med Refill Encounter Details Date Type Department Care Team ([facility] Contact Info) Description 12/18/2022 Refill [facility] MEDICINE [address] [place], [place] [phone] Name, MD Rishi [address] [place] [address] Social History Tobacco Use Types Packs/Day Years [...] Upcoming Encounters Date Type Department Care Team ([facility] Contact Info) Description 02/22/2025 10:00 AM EDT Office Visit [facility] ADULT DENTAL [address] [place], [place] [phone] Jacob Lima DDS [address] [place], [place] [phone] 04/11/2025 1:00 PM EDT Office Visit [facility] MEDICINE [address] [place] [address] Name, MD Rishi [address] [place] [phone] documented as of this encounter Visit Diagnoses Not on filedocumented in this encounter Care Teams Toolroom Keeper Relationship Specialty Start Date End Date Name, MD Rishi [address] [place] [phone] PCP - General Family Medicine 12/25/15 documented as of this encounter
== END 2025-02-16 14:10 | disposition home or self-care (01) ==
PROVIDERS: Emergency Provider Emergency Medicine; PCP Internal Medicine Geriatric Medicine
DX: S39.012A Strain of muscle, fascia and tendon of lower back, initial encounter (principal); W10.8XXA Fall (on) (from) other stairs and steps, initial encounter; M47.816 Spondylosis without myelopathy or radiculopathy, lumbar region; M47.814 Spondylosis without myelopathy or radiculopathy, thoracic region; Y93.89 Activity, other specified; Y92.018 Other place in single-family (private) house as the place of occurrence of the external cause; Y99.9 Unspecified external cause status; M54.6 Pain in thoracic spine
CPT/HCPCS: 72072; 72100; 99282; 99283

== ENCOUNTER → 2025-02-16 12:35 | Outpatient (BNV) | payer OTHER, SELFPAY | PROVIDERS: PCP Internal Medicine Geriatric Medicine; Visit Provider Radiology Diagnostic Radiology | DX: M47.816 Spondylosis without myelopathy or radiculopathy, lumbar region (principal); M47.814 Spondylosis without myelopathy or radiculopathy, thoracic region | CPT/HCPCS: 72072; 72100 ==

== ENCOUNTER 2025-03-01 13:23 | Outpatient (AMB) | payer OTHER, SELFPAY ==
--- NOTE | 2025-03-01 13:28 | A.OFFVIS_ITS ---
Vital Signs 03/01/25 13:39 Height 5 ft 6 in Weight 182 lb BMI 29.4 BP 140/90 H Blood Pressure Location Rt brachial Position Sitting Pulse 92 Pulse Source Pulse Oximeter Pulse Oximetry (%) 98 Oxygen Delivery Method Room Air Intake Visit Reasons: 6 month follow up Abd pain / Liver Intake Note: ESTABLISHED PATIENT for mgmt of chronic abd pain and diverticulosis. CC: C.O. mild intermittent LLQ pain however; pt has been seen in the ED recently for back pain / injury and he is unable to determine if the pain is related to that instance or if it is related to GI concerns. Pt also reports concerns regarding his dental situation (teeth missing) and whether that can negatively impact his GI tract on a day to day basis. Education Supervisor Required: Yes Education Supervisor Services: Education Supervisor Offered & Declined Accompanied by: Self / Same As Patient Allergies sulfamethoxazole [From Bactrim] Allergy (Unknown, Verified 03/05/25 08:16) ITCHINESS trimethoprim [From Bactrim] Allergy (Unknown, Verified 03/05/25 08:16) ITCHINESS HPI HPI 6 month follow up Abd pain / Liver: Details: LAST VISIT Abdominal pain Diverticulosis History of diverticulitis Tubular adenoma of colon Status post colonoscopy Hepatic steatosis Plan Patient no longer is experiencing abdominal discomfort. Patient can continue taking Metamucil. History of hep C in the past, hepatic steatosis seen on CT scan. Will send patient for ultrasound with liver elastography, liver profile and fibrosis panel. He will return in 6 months, sooner on as needed basis. Patient is agreeable to this plan and verbalizes understanding of instructions. He was given the opportunity to ask questions and all questions answered. ? Thank you for allowing me to participate in his care Orders Orders US abdomen peres w elastography Today R74.01 Liver Panel Today R74.01 Liver Fibrosis Pnl Today R74.8 TODAY'S VISIT: Liver enzymes elevated, liver fibrosis F3. Patient did not go for ultrasound with liver elastography we will try to rebook it today. Patient denies any GI concerning symptoms although reports left back and flank pain. Patient reports dental caries and needs to see a dentist for partial crown. Patient is unable t o chew his food very well. Trying to eat soft and bland food. Denies any dyspepsia, dysphagia or odynophagia. Denies melena, hematochezia, unintentional weight loss or ribbon like stools. ON LICENSE OF [facility] Medical History Bilateral carpal tunnel syndrome BPH associated with nocturia Hepatitis C Vitamin D deficiency COVID Allergic rhinitis, seasonal Liver cirrhosis Hypertension Lumbar spondylosis Other intervertebral disc degeneration, lumbar region Fatigue Surgical History Hx of colonoscopy Social History Household Members: Spouse Housing: House Do you presently have visiting nurse or other home services: No Alcohol intake: never Patient Tobacco Use Status: Former Tobacco user Substance Use Type: Crack/Cocaine and Heroin Advance Directives: No Advance Directives Information Provided: Yes service: No Current occupational status: employed Review of Systems Const Denies weight gain and Denies weight loss ENT Reports no additional complaints, Denies dysphagia and Denies odynophagia Card Reports no additional complaints Resp Reports no additional complaints GI Denies abdominal pain, Denies belching, Denies melena, Denies bloating, Denies change in bowel habits, Denies dysphagia, Denies excessive flatus, Denies dyspepsia, Denies heartburn, Denies diarrhea, Denies loose stools, Denies nausea, Denies odynophagia and Denies vomiting Reports no additional complaints Musc Reports no additional complaints Neuro Reports no additional complaints Psych Reports no additional complaints Endo Reports no additional complaints Physical Exam Vital Signs: Last Vital Signs Pulse 92 03/01/25 13:39 BP 140/90 H 03/01/25 13:39 Pulse Ox 98 03/01/25 13:39 Oxygen Delivery Method Room Air 03/01/25 13:39 BMI result Body Mass Index 29.4 Const General: healthy appearing, no acute distress and well developed Nutritional Appearance: well nourished and obese Orientation/consciousness: patient oriented x3 Resp Effort & Inspection: normal respiratory effort, able to speak in complete sentences, no tracheal deviation and symmetric chest movement Auscultation: clear to auscultation bilaterally Cardio Rate: regular rate GI Inspection: Yes normal to inspection, No distended and Yes obesity Palpation (GI): Soft to palpation, not firm, Tenderness to palpation present (GI) in the LLQ and No hepatosplenomegaly present Auscultation: normal bowel sounds General: Yes no CVA tenderness Back/Spine/Pelvis Back: no CVA tenderness Skin General skin exam: elasticity normal, turgor normal and dry skin Neuro General: patient oriented x3 Psych Appearance: grossly normal Mental Status: mental status grossly normal Results Reviewed Results Reviewed: Laboratory Tests 08/17/24 07:32 Total Bilirubin 1.1 H Direct Bilirubin 0.3 AST 38 H ALT 51 H Alkaline Phosphatase 65 Liver Fibrosis Stage F3 Assessment & Plan Assessment & Plan (1) Abdominal pain: Code(s): R10.9 - Unspecified abdominal pain Qualifiers: Abdominal location: generalized Qualified Code(s): R10.84 - Generalized abdominal pain (2) Diverticulosis: Code(s): K57.90 - Diverticulosis of intestine, part unspecified, without perforation or abscess without bleeding (3) History of diverticulitis: Code(s): Z87.19 - Personal history of other diseases of the digestive system (4) Hepatic steatosis: Code(s): K76.0 - Fatty (change of) liver, not elsewhere classified Plan Patient will repeat liver fibrosis panel and liver panel. Patient was encouraged to schedule ultrasound. Patient will avoid dietary triggers and late night snacking. Staying upright for minimum 3 hours after meals discussed with patient. Increase fluid and fiber intake as well as activity to promote better bowel motility. Follow-up in 6 months, sooner on as needed basis. He is agreeable to this plan and verbalizes understanding of instructions. He was given the opportunity to ask questions and all questions answered. Thank you for allowing me to participate in his care Orders: Orders Liver Fibrosis Pnl 03/01/25 K76.0 - Fatty (change of) liver, not elsewhere classified Liver Panel 03/01/25 R74.01 - Elevation of levels of liver transaminase levels Coding Level of Care Code Est Pt Level 3 (26236) Diagnoses Generalized abdominal pain R10.84 Abdominal location: generalized Diverticulosis K57.90 History of diverticulitis Z87.19 Hepatic steatosis K76.0 Time Spent (min) 25 Comment 15 minutes spent with patient and additional 10 minutes spent reviewing his records
[2025-03-01 13:39] VITALS: BP 140/90; PULSE 92; O2SAT 98; BMI 29.4
--- OUTSIDE RECORDS SUMMARY | 2025-03-01 13:59 | XMS_ITS | Encounter Summary ---
Author Organization [employer] Address [address] [place] [address] 7t [place] [address] Care Team Providers Care Spar Cap Beveler Name Role Phone Name, Rishi ADAM Primary Care Provider [phone] Reason for Visit * Reason Comments Med Refill Encounter Details Date Type Department Care Team ([facility] Contact Info) Description 12/18/2022 Refill [facility] MEDICINE [address] [place], [place] [phone] Name, MD Rishi [address] [place] [address] Social History Tobacco Use Types Packs/Day Years [...] Upcoming Encounters Date Type Department Care Team ([facility] Contact Info) Description 03/22/2025 3:00 PM EDT Office Visit [facility] CHC ADULT DENTAL [address] [place] [address] Darryl Kuo 04/11/2025 1:00 PM EDT Office Visit [facility] MEDICINE [address] [facility] [place] [address] Name, MD Rishi [address] [place] [address] documented as of this encounter Visit Diagnoses Not on filedocumented in this encounter Care Teams Spar Cap Beveler Relationship Specialty Start Date End Date Name, MD Rishi [address] [place] [address] PCP - General Family Medicine 12/25/15 documented as of this encounter
--- OUTSIDE RECORDS SUMMARY | 2025-03-01 13:59 | XMS_ITS | Encounter Summary ---
Author Organization [employer] Address [address] [facility] 7t [place] [address] Care Team Providers Care Crossing Guard Name Role Phone Name, Rishi ADAM Primary Care Provider [phone] Encounter Details Date Type Department Care Team (Late st Contact Info) Description 11/05/2023 Abstract [facility] MEDICINE [address] [place], [place] [phone] Name, MD Rishi [address] [place], [place] [phone] Social History Tobacco Use Types Packs/Day Years Used Date Smoking Tobacco: Never Passive Smoke Exposure: Never Smokeless Tobacco: Never Alcohol Use Standard Drinks/Week Comments Not Currently 0 (1 standard drink = 0.6 oz pur e alcohol) Depression Answer Date Recorded Patient Health Questionnaire-9 Score 3 01/28/2023 Housing Stability Answer Date Recorded What is your housing situation today? I have stefanialvaro gunn 07/29/[address] you [...] Care Team (Late st Contact Info) Description 03/22/2025 3:00 PM EDT Office Visit [facility] CHC ADULT DENTAL [address] [place] [address] Darryl Kuo 04/11/2025 1:00 PM EDT Office Visit [facility] MEDICINE [address] [place] [address] Name, MD Rishi [address] [place] [address] documented as of this encounter Procedures Procedure [...] documented as of this encounter Care Teams Crossing Guard Relationship Specialty Start Date End Date Name, MD Rishi [address] [place] [address] PCP - General Family Medicine 12/25/15 documented as of this encounter
--- OUTSIDE RECORDS SUMMARY | 2025-03-01 13:59 | XMS_ITS | Encounter Summary ---
Author Organization [employer] Address [address] [facility] 7t [place] [address] Care Team Providers Care Information And Referral Director Name Role Phone Name, Rishi ADAM Primary Care Provider [phone] Reason for Visit * Reason Onset Date Comments Referral 07/15/2023 Encounter Details Date Type Department Care Team ([facility] st Contact Info) Description 07/15/[address] [facility] MEDICINE [address] [place], [place] [phone] Name, MD Rishi [address] [place] [address] Referral Social History Tobacco Use Types Packs/Day [...] AM EDT Referral and notes resubmitted to [facility] * Telephone Encounter - Celsa Davis - 07/15/2023 9:11 AM EDT Tc from pt calling in regards to gastroenterology referral. States office never received referral. Location: [address] [place] [address] Date: n/a Time: n/a Fax: Specialty: gastroenterology documented in this encounter Plan of Treatment Upcoming Encounters Date Type Department Care Team (Late st Contact Info) Description 03/22/2025 3:00 PM EDT Office Visit [facility] CHC ADULT DENTAL [address] [place] [address] Darryl Kuo 04/11/2025 1:00 PM EDT Office Visit [facility] MEDICINE [address] [place] [address] Name, MD Rishi [address] [place] [address] documented as of this encounter Visit Diagnoses Not on filedocumented in this encounter Additional Health Concerns Assessment Noted Time PHQ-9 Depression Total Score: 3 01/29/20 23 9:39 AM EDT documented as of this encounter Care Teams Information And Referral Director Relationship Specialty Start Date End Date Name, MD Rsihi [address] [place] [address] PCP - General Family Medicine 12/25/15 documented as of this encounter
--- OUTSIDE RECORDS SUMMARY | 2025-03-01 13:59 | XMS_ITS | Clinical Summary ---
Author Organization [employer] Address [address] [facility] 7t [place] [address] Care Team Providers Care Multifold Operator Name Role Phone Name, Rishi ADAM Primary Care Provider [phone] Allergies Active Allergy Reactions Criticality Noted Date [...] MOUTH EVERY MORNING DIRECTED 90 tablet 3 01/28/20 025 Discontinued Active Problems Problem Noted Date Diagnosed Date Dental calculus 02/22/2025 Missing teeth, acquired 02/22/2025 Retained dental root 01/18/2024 Bilateral lower abdominal [...] Encounters Date Type Department Care Team Description 02/22/2025 10:00 AM EDT Office Visit [facility] ADULT DENTAL [address] [place] [phone] Jacob Lima DDS Dental caries (Primary Dx); Dental plaque; Dental calculus; Missing teeth, acquired 02/16/2025 Orders Only [facility] External Provider, [employer] 02/01/2025 Refill [facility] MEDICINE [address] [place] [address] Name, MD Rishi 01/03/2025 Telephone [facility] MEDICINE [address] [place] [phone] Rafaela Key MD appt change (Provider out ) from Last 3 Months Immunizations Immunization Administration Dates Next Due Hep B, adult [...] Description 03/22/2025 3:00 PM EDT Office Visit [facility] ADULT DENTAL [address] [place] [address] Darryl Kuo 04/11/2025 1:00 PM EDT Office Visit [facility] MEDICINE [address] [place] [address] Name, MD Rishi [address] [facility] [place] [address] Health Maintenance Due Date Last Done Comments CT Colonography 1965 Dental Prophylaxis 1965 Dental X-Ray: Full Mouth 1965 FIT DNA/Cologuard 1965 FIT 1965 FOBT 1965 Lipid Panel 1965 Sigmoidoscopy 1965 Disability Screening 1965 Alcohol/Substance Use Screening 1977 Pneumococcal Vaccine: 50+ Years (1 of 2 - PCV) 1984 Zoster Vaccines (1 of 2) 2015 COVID-19 Vaccine (3 - 2023-2 5 season) 2024 09/04/2021, 01/18/2021 Influenza Vaccine (#1) 2024 08/02/2013 Depression Screening 03/01/2025 03/01/2024, 03/01/2024 SDOH Screening 03/01/2025 03/01/2024 Dental Oral Exam 08/26/2025 02/22/2025 Tobacco Screening 02/22/2026 02/22/2025 Dental X-Ray: Bitewings 02/23/2026 02/22/2025 Colonoscopy 11/02/2026 11/02/2023 Colorectal Cancer Screening 11/02/2026 [...] patient's age to complete this topic Meningococcal B Vaccine Aged Out No l onger eligible based on patient's age to complete [...] Procedure Name Priority Date/Time Associated Diagnosis Comments CASE PRESENTATION, DETAILED AND EXTENSIVE TREATMENT PLANNING Routine 02/22/2025 10:00 AM EDT BITEWINGS - 4 RADIOGRAPHIC IMAGES Routine 02/22/2025 10:00 AM EDT INTRAORAL - PERIAPICAL EACH ADDITIONAL RADIOGRAPHIC IMAGE Routine 02/22/2025 10:00 AM EDT INTRAORAL - PERIAPICAL FIRST RADIOGRAPHIC IMAGE Routine 02/22/2025 10:00 AM EDT COMPREHENSIVE ORAL EVALUATION - NEW OR ESTABLISHED PATIENT Routine 02/22/2025 10:00 AM EDT 19 O AMALGAM FILLING Routine 02/22/2025 12:00 AM EDT XR LUMBAR SPINE 2-3 VIEWS Routine 02/16/2025 [...] EDT Narrative 02/16/2025 1:14 PM EDT ? [facility] [employer] ?[address] ?[place] [address] ?XRay Report ? Signed ? Patient: Colon Odonnell,Daniel ?MR#: [id number] ?? [id number] ? : 1965 ?Acct:[id number] ? Age/Sex: 59 / M ?ADM Date: 05/08/25 ? Loc: HO.ED ? Attending Dr: ? Ordering Physician: Camryn De Guzman NP ?? Date of Service: 02/16/25 ?? Procedure(s): XR lumbar spine 2-3V ?? Accession Number(s): [id number] ? cc: Name,Rishi ADAM; Camryn De Guzman [...] DD/ 1235 ? TD/TT: 02/16/25 1303 ? Quotation Checker: ? Procedure Note Seble Merritt - 02/16/[address] [address] XRay Report Signed Patient: Charito Geiger#: [id number] : 1965Acct:[id number] Age/Sex: 59 / MADM Date: 02/16/25 Loc: HO.ED Attending Dr: Ordering Physician: Camryn De Guzman NP Date of Service: 02/16/25 Procedure(s): XR lumbar spine 2-3V Accession Number(s): [id number] cc: Rishi Hyman MD; Camryn De Guzman [...] 02/16/25 1311 DD/ 1235 TD/TT: 02/16/25 1303 Quotation Checker: [facility] External Provider IMG XR PROCEDURES Edited Result - Final * XR Thoracic Spine 3 Views (02/16/2025 12:35 PM EDT) Anatomical Region Laterality Modality Spine, T-spine Radiographic Reny ging 02/16/2025 12:3 5 PM EDT Narrative 02/16/2025 1:13 PM EDT ? [facility] ?[address] ?[place] [address] ?XRay Report ? Signed ? Patient: Colon Odonnell,Daniel ?MR#: [id number] ?? [id number] ? : 1965 ?Acct:[id number] ? Age/Sex: 59 / M ?ADM Date: 02/16/ ? Loc: HO.ED ? Attending Dr: ? Ordering Physician: Camryn De Guzman DEDICATED OWNER OPERATOR ?? Date of Service: 02/16/25 ?? Procedure(s): XR thoracic spine 3V ?? Accession Number(s): [id number] ? cc: Name,Rishi ADAM; Camryn De Guzman [...] DD/ 1235 ? TD/TT: 02/16/25 1303 ? Quotation Checker: ? Procedure Note Barbarater, Image - 02/16/[address] [address] XRay Report Signed Patient: Naomi GeigerR#: [id number] : 1965Acct:[id number] Age/Sex: 59 / MADM Date: 02/16/25 Loc: HO.ED Attending Dr: Ordering Physician: Camryn De Guzman NP Date of Service: 02/16/25 Procedure(s): XR thoracic spine 3V Accession Number(s): [id number] cc: Name,Rishi ADAM; Camryn De Guzman NP [...] 02/16/25 1310 DD/ 1235 TD/TT: 02/16/25 1303 Quotation Checker: [facility] External Provider IMG XR PROCEDURES Edited Result - Final * (ABNORMAL) Colonoscopy (11/02/2023) Colonoscopy Abnormal( A) Normal Comment:Colon Polyps (Tubula r Adenomas) Rishi Hyman MD HEALTH MAINTENANCE Final Result * HIV 1/2 ANTIGEN/ANTIBODY,FOURTH GENERATION W/RFL (04/04/2021 8:10 AM EDT) HIV-1/2 ANTIGEN AND ANTIBODIES, 4TH GENERATION W/ REFLEX NON-REACT MARILIN NON-REACT MARILIN [facility] Comment: HIV-1 antigen and HIV-1/HIV-2 [...] ? For additional information please refer to http://[email or web address]/faq/YME278 (This link is being provided for informational/ educational purposes only.) ? The performance of this assay has not been clinically validated in patients less than 2 years old. ?? 04/04/2021 8:10 AM EDT Araceli Tabares RAPID TRANSIT OPERATOR LAB BLOOD ORDERABLES Final Res ult [facility] [address] from Last 3 Months or Most Recently Relevant to Health Maintenance Insurance [facility] - HSN FULL (MEDICAID) Care Teams Multifold Operator Relationship Specialty Start Date End Date Name, MD Rishi [address] [place] [address] PCP - General Family Medicine 12/25/15
--- OUTSIDE RECORDS SUMMARY | 2025-03-01 13:59 | XMS_ITS | Encounter Summary ---
Author Organization [employer] Address [address] [place] [address] Care Team Providers Care Frame Assembler Name Role Phone Name, Rishi ADAM Primary Care Provider [phone] Encounter Details Date Type Department Care Team (Late st Contact Info) Description 01/07/2023 Orders Only [facility] CH[facility] MED & PEDS [address], [place] [phone] Mady Guillen LPN Social History Tobacco Use [...] Description 03/22/2025 3:00 PM EDT Office Visit [facility] CHC ADULT DENTAL [address] [place] [address] Darryl Kuo 04/11/2025 1:00 PM EDT Office Visit [facility] MEDICINE [address] [place], [place] [phone] Name, MD Rishi [address] [place] [address] documented as of this encounter Procedures Procedure [...] (07/01/2023 1:12 AM EDT) Color Urine Yellow [facility] Appearance Urine Clear [facility] PH 6.5 5.0 - 9.0 [facility] Glucose Urine UA Negative Negative mg/dL [facility] Urine Blood Negative Negative [facility] Specific [place] - Urine 1.020 1.005 - 1.025 [facility] Urine Protein Negative Neg-Trace mg/dL [facility] Urine Ketones Negative Negative mg/dL [facility] Nitrite Urine Negative Negative [facility] Leukocyte Esterase Urine Negative Negative [facility] 07/01/2023 1:12 AM EDT 07/01/2023 1:16 AM EDT Narrative [facility] - 07/01/2023 1:20 AM EDT Urine, Clean Catch us [facility] External Provider LAB URI NE ORDERABLES Final Result Performing Organization Address [facility]/ZIP Co de Phone Number [facility] [address] [place] [phone] * Lipase (06/30/2023 7:38 PM EDT) Lipase 29 8 - 78 U/L [facility] 06/30/2023 7:38 PM EDT 06/30/2023 7:40 PM EDT Generic External Data Provider LAB BLOOD ORDERAB LES Final Result Performing Organization Address [facility] Co de Phone Number [facility] [address] [place] [phone] * Magnesium (06/30/2023 7:38 PM EDT) Magnesium 2.1 1.6 - 2.6 mg/dL [facility] 06/30/2023 7:38 PM EDT 06/30/2023 7:40 PM EDT Generic External Data Provider LAB BLOOD ORDERAB LES Final Result Performing Organization Address [facility] Co de Phone Number [facility] [address] [place] [phone] * Basic Metabolic Panel (06/30/2023 7:38 PM EDT) Sodium 141 135 - 145 mmol/L [facility] Potassium 3.9 3.3 - 5.1 mmol/L [facility] Chloride 105 96 - 108 mmol/L [facility] Carbon Dioxide 27 22 - 29 mmol/L [facility] Anion Gap 13 12 - 20 [facility] Urea Nitrogen (BUN) 14 9 - 16 mg/dL [facility] Creatinine, Serum 0.95 0.5 - 1.4 mg/dL [facility] Creatinine Clr Calc Pharmacy 86.0 [facility] Comment:eGFR (calculated fro m the MDRD study equation) and eCrCl(calculated from the Cockcroft-Gault equation) are based ondifferent parameters and may not yield comparable results.If eCrCl result is absurd, please check patient'sheight/weight. Estimated Glomerular Filt Rate >60 [facility] Comment:NOTE: For -Am erican individuals, multiply the result by 1.210.Chronic Kidney Disease: Estimated GFR < 60 mL/min/[id number] Kidney Disease: Estimated GFR < 15 mL/min/1.73m2 Glucose 109 60 - 115 mg/dL [facility] Calcium 9.5 8.4 - 10.2 mg/dL [facility] 06/30/2023 7:38 PM EDT 06/30/2023 7:40 PM EDT us Generic External Data Provider LAB BLOOD ORDERAB LES Final Result [facility] [address] [place] [phone] * Hepatic Function Panel (06/30/2023 7:38 PM EDT) Bilirubin, Total 0.8 0.0 - 1.0 mg/dL [facility] Bilirubin, Direct 0.2 0.0 - 0.5 mg/dL [facility] Aspartate Amino Transferase 27 5 - 37 U/L [facility] Alanine Aminotransferase 35 0 - 40 U/L [facility] Total Protein 7.1 6.5 - 8.0 g/dL [facility] Albumin Level 4.3 3.5 - 5.0 g/dL [facility] Alkaline Phosphatase 46 39 - 117 U/L [facility] 06/30/2023 7:38 PM EDT 06/30/2023 7:40 PM EDT us [facility] External Provider LAB BLO OD ORDERABLES Final Result [facility] [address] [place] [phone] * (ABNORMAL) CBC auto differential (06/30/2023 7:38 PM EDT) White Blood Count 7.2 4.8 - 10.8 X10*3/uL [facility] Red Blood Count 4.85 4.60 - 5.80 X10*6/uL [facility] Hemoglobin 14.7 14.0 - 18.0 g/dl [facility] Hematocrit 41.2(L) 42.0 - 52.0 % [facility] Mean Corpuscular Volume 84.9 80.0 - 98.0 fL [facility] Mean Corpuscular Hemoglobin 30.3 27.0 - 33.0 pg [facility] Mean Corpuscular HGB Conc 35.7 31.0 - 36.0 g/dl [facility] Red Cell Distribution Width 11.7 11.0 - 16.0 % [facility] Platelet Count 152(L) 160 - 400 X10*3/uL [facility] Mean Platelet Volume 10.8 9.4 - 12.4 fL [facility] Neutrophils Percent Auto 55.2 45 - 73 % [facility] Imm Gran Pct Auto 0.3 0.0 - 0.4 % [facility] Lymphocytes Percent Auto 31.9 20 - 40 % [facility] Monocytes Percent Auto 9.2 2 - 11 % [facility] Eosinophils Percent Auto 2.8 0 - 4 % [facility] Basophils Percent Auto 0.6 0 - 2 % [facility] NRBC Pct Auto 0.0 0.0 - 0.2 /100WBC [facility] Neutrophils Absolute Auto 4.0 2.0 - 8.3 x10*3/uL [facility] Imm Gran Abs Auto 0.02 0.00 - 0.03 X10*3/uL [facility] Lymphocytes Absolute Auto 2.3 1.2 - 4.9 X10*3/uL [facility] Monocytes Absolute Auto 0.7 0.1 - 1.2 X10*3/uL [facility] Eosinophils Absolute Auto 0.2 0.0 - 0.4 X10*3/uL [facility] Basophils Absolute Auto 0.0 0.0 - 0.2 X10*3/uL [facility] NRBC Abs Auto 0.000 0.0 - 0.012 X10*3/uL [facility] 06/30/2023 7:38 PM EDT 06/30/2023 7:40 PM EDT [facility] External Provider LAB BLO OD ORDERABLES Final Result Performing Organization Address City/[facility]/ZIP Co de Phone Number [facility] [address] [place] [phone] * HIGH SENSITIVITY TROPONIN I (01/09/2023 10:12 PM EDT) TROPONIN I HIGH SENSITIVITY <3.5 <3.5 - 35.0 ng/L [facility] Comment:The Landry high sens itivity Troponin-I results should beused in conjunction with other diagnostic information suchas ECG, clinical observations and information, and patientsymptoms to aid in the diagnosis of IL. 01/09/2023 10:1 2 PM EDT 01/09/2023 10:15 PM EDT [facility] External Provider LAB BLO OD ORDERABLES Final Result Performing Organization Address City/[facility]/ZIP Co de Phone Number [facility] [address] [place] [phone] * Urinalysis, Complete, with Reflex to Culture (01/09/2023 9:41 PM EDT) Color Urine Yellow [facility] Appearance Urine Clear [facility] PH 6.0 5.0 - 9.0 [facility] Glucose Urine UA Negative Negative mg/dL [facility] Urine Blood Negative Negative [facility] Specific [place] - Urine 1.020 1.005 - 1.025 [facility] Urine Protein Negative Neg-Trace mg/dL [facility] Urine Ketones Negative Negative mg/dL [facility] Nitrite Urine Negative Negative [facility] Leukocyte Esterase Urine Negative Negative [facility] RBC Urine 0-2 0 - 2 /HPF [facility] Urine WBC 0-5 0 - 5 /HPF [facility] Urine Squamous Epithelial Cell 0-2 0 - 2 /HPF [facility] Urine Bacteria None Seen None Seen [facility] Hyaline Casts, Urine 0-2 0 - 2 /LPF [facility] 01/09/2023 9:41 PM EDT 01/09/2023 9:47 PM EDT Narrative [facility] - 01/09/2023 9:59 PM EDT [id number], Clean Catch [facility] External Provider LAB URI NE ORDERABLES Final Result Performing Organization Address City/[facility]/ZIP Co de Phone Number [facility] [address] [place] [phone] * Lipase (01/09/2023 8:10 PM EDT) Lipase 40 8 - 78 U/L [facility] 01/09/2023 8:10 PM EDT 01/09/2023 8:12 PM EDT [facility] External Provider LAB BLO OD ORDERABLES Final Result Performing Organization Address City/[facility]/ZIP Co de Phone Number [facility] [address] [place] [phone] * Hepatic Function Panel (01/09/2023 8:10 PM EDT) Bilirubin, Direct 0.2 0.0 - 0.5 mg/dL [facility] 01/09/2023 8:10 PM EDT 01/09/2023 8:12 PM EDT [facility] External Provider LAB BLO OD ORDERABLES Final Result Performing Organization Address [facility] Co de Phone Number [facility] [address] [place] [phone] * (ABNORMAL) Comprehensive Metabolic Panel (01/09/2023 8:10 PM EDT) Sodium 142 135 - 145 mmol/L [facility] Potassium 4.2 3.3 - 5.1 mmol/L [facility] Chloride 105 96 - 108 mmol/L [facility] Carbon Dioxide 29 22 - 29 mmol/L [facility] Anion Gap 12 12 - 20 [facility] Urea Nitrogen (BUN) 17(H) 9 - 16 mg/dL [facility] Creatinine, Serum 1.10 0.5 - 1.4 mg/dL [facility] Creatinine Clr Calc Pharmacy 73.3 [facility] Comment:eGFR (calculated fro m the MDRD study equation) and eCrCl(calculated from the Cockcroft-Gault equation) are based ondifferent parameters and may not yield comparable results.If eCrCl result is absurd, please check patient'sheight/weight. Estimated Glomerular Filt Rate >60 [facility] Comment:NOTE: For -Am erican individuals, multiply the result by 1.210.Chronic Kidney Disease: Estimated GFR < 60 mL/min/[id number] Kidney Disease: Estimated GFR < 15 mL/min/1.73m2 Glucose 92 60 - 115 mg/dL [facility] Calcium 9.7 8.4 - 10.2 mg/dL [facility] Bilirubin, Total 1.0 0.0 - 1.0 mg/dL [facility] Aspartate Amino Transferase 36 5 - 37 U/L [facility] Alanine Aminotransferase 53(H) 0 - 40 U/L [facility] Total Protein 7.3 6.5 - 8.0 g/dL [facility] Albumin Level 4.6 3.5 - 5.0 g/dL [facility] Alkaline Phosphatase 55 39 - 117 U/L [facility] 01/09/2023 8:10 PM EDT 01/09/2023 8:12 PM EDT us [facility] External Provider LAB BLO OD ORDERABLES Final Result [facility] [address] [place] [phone] * (ABNORMAL) CBC (01/09/2023 8:10 PM EDT) White Blood Count 12.0(H) 4.8 - 10.8 X10*3/uL [facility] Red Blood Count 5.33 4.60 - 5.80 X10*6/uL [facility] Hemoglobin 15.9 14.0 - 18.0 g/dl [facility] Hematocrit 44.8 42.0 - 52.0 % [facility] Mean Corpuscular Volume 84.1 80.0 - 98.0 fL [facility] Mean Corpuscular Hemoglobin 29.8 27.0 - 33.0 pg [facility] Mean Corpuscular HGB Conc 35.5 31.0 - 36.0 g/dl [facility] Red Cell Distribution Width 11.8 11.0 - 16.0 % [facility] Platelet Count 187 160 - 400 X10*3/uL [facility] Mean Platelet Volume 10.8 9.4 - 12.4 fL [facility] NRBC Pct Auto 0.0 0.0 - 0.2 /100WBC [facility] NRBC Abs Auto 0.000 0.0 - 0.012 X10*3/uL [facility] 01/09/2023 8:10 PM EDT 01/09/2023 8:12 PM EDT us [facility] External Provider LAB BLO OD ORDERABLES Final Result Performing Organization Address City/State/[facility] Co de Phone Number [facility] [address] [place] [phone] documented in this encounter Visit Diagnoses Not on filedocumented in this encounter Care Teams Frame Assembler Relationship Specialty Start Date End Date Name, MD Rishi [address] [place] [address] PCP - General Family Medicine 12/25/15 documented as of this encounter
== END 2025-03-01 14:14 | disposition home or self-care (01) ==
LOC: HO.HGI 13:24
PROVIDERS: PCP Internal Medicine Geriatric Medicine; Visit Provider Nurse Practitioner Family
DX: R10.84 Generalized abdominal pain (principal); K57.90 Diverticulosis of intestine, part unspecified, without perforation or abscess without bleeding; Z87.19 Personal history of other diseases of the digestive system; K76.0 Fatty (change of) liver, not elsewhere classified
CPT/HCPCS: 99213

== ENCOUNTER → 2025-03-01 13:23 | Outpatient (BNVA) | payer OTHER, SELFPAY | PROVIDERS: PCP Internal Medicine Geriatric Medicine; Visit Provider Nurse Practitioner Family | DX: K76.0 Fatty (change of) liver, not elsewhere classified (principal); R10.84 Generalized abdominal pain; K57.90 Diverticulosis of intestine, part unspecified, without perforation or abscess without bleeding; Z87.19 Personal history of other diseases of the digestive system | CPT/HCPCS: 99212 ==

== ENCOUNTER 2025-03-05 08:11 | Emergency (ER) | payer OTHER, SELFPAY ==
[2025-03-05 08:15] VITALS: BP 144/84; PULSE 78; RESP 18; TEMP 36.3; O2SAT 99
--- NOTE | 2025-03-05 08:18 | ED.EYEPROB ---
HPI - Eye Problem General Chief complaint: Eye Problems Stated complaint: eye irritation Time Seen by Provider: 03/05/25 08:18 History of Present Illness ED Provider: Gaurav Talbot MD HPI Narrative: Scratch to the left side yesterday by a branch. Complains of right eye with pain Related Data Home Medications ?Medication ?Instructions ?Recorded ?Confirmed lisinopril 10 mg tablet 10 mg PO DAILY 07/22/22 01/10/23 triamcinolone acetonide 55 mcg 2 spray intranasal DAILY 07/22/22 01/10/23 nasal spray aerosol hyoscyamine sulfate 0.125 mg tablet 0.125 mg PO BID 10/27/23 Previous Rx's ?Medication ?Instructions ?Recorded alfuzosin 10 mg tablet,extended 10 mg PO .nightly 30 days #30 tabs 10/14/24 release 24 hr lidocaine 5 % topical patch 1 patch topical DAILY #15 ea 02/16/25 naproxen 500 mg tablet 500 mg PO BID 14 days #28 tabs 02/16/25 polymyxin B sulfate 10,000 1 drp ophthalmic (eye) Q3H 7 days 03/05/25 unit-trimethoprim 1 mg/mL eye drops #10 mL Allergies Allergy/AdvReac Type Severity Reaction Status Date / Time sulfamethoxazole Allergy Unknown ITCHINESS Verified 03/05/25 08:16 [From Bactrim] trimethoprim [From Bactrim] Allergy Unknown ITCHINESS Verified 03/05/25 08:16 PMFSH Past Medical History Medical History Bilateral carpal tunnel syndrome BPH associated with nocturia Hepatitis C Vitamin D deficiency COVID Allergic rhinitis, seasonal Liver cirrhosis Hypertension Lumbar spondylosis Other intervertebral disc degeneration, lumbar region Fatigue Surgical History Hx of colonoscopy Social History Social History Household Members: Spouse Housing: House Do you presently have visiting nurse or other home services: No Alcohol intake: never Patient Tobacco Use Status: Former Tobacco user Substance Use Type: Crack/Cocaine and Heroin Advance Directives: No Advance Directives Information Provided: Yes service: No Current occupational status: employed Physical Exam Vital Signs: Vital Signs: Last Vital Signs Temp 97.3 F 03/05/25 09:23 Pulse 78 03/05/25 09:23 Resp 18 03/05/25 09:23 BP 144/84 H 03/05/25 09:23 Pulse Ox 99 03/05/25 09:23 O2 Del Method Room Air 03/05/25 09:23 BMI result Body Mass Index 30.0 Const: Other: Left eye gross vision intact. Slight conjunctival injection. Symmetric pupils 2-3 mm. EOMI. No proptosis. No lid lacerations. He has medial pterygium. Fluorescein staining with uptake at approximately 03:00 just lateral of the iris on the sclera Medications Administered Discontinued Medications Generic Name Dose Route Start Last Admin Trade Name Freq PRN Reason Stop Dose Admin Diphtheria/Tetanus/Acell Pertussis 0.5 ml 03/05/25 08:19 03/05/25 08:48 Diphth,Pertus(Acell),Tet Adult 0.5 Ml Syringe IM 03/05/25 08:20 0.5 ml .ONCE ONE Administration Fluorescein Sodium 1 strip 03/05/25 08:18 03/05/25 08:48 Fluorescein Sodium Strip EYE-LEFT 03/05/25 08:19 1 strip ONCE ONE Administration Ibuprofen 600 mg 03/05/25 08:19 03/05/25 08:49 Ibuprofen 600 Mg Tablet PO 03/05/25 08:20 600 mg ONCE ONE Administration Tetracaine HCl 3 drop 03/05/25 08:18 03/05/25 09:15 Tetracaine Hcl 0.5% Oph Isabel 5 Ml Drops EYE-LEFT 03/05/25 08:19 3 drop ONCE ONE Administration Medical Decision Making Medical Decision Making MDM Narrative: [age] male with scratch to the left eye from a branch. Fluorescein uptake suggestive of scleral abrasion. Antibiotic drops, tetanus update discharge Discharge Plan Discharge Clinical Impression: Abrasion of sclera Patient Disposition: Home, Self-Care Instructions: Corneal Abrasion (DC) Additional Instructions: DISCHARGE DIAGNOSES: Abrasion of the sclera HISTORY OF PRESENTATION: Scratch the eye yesterday from a branch EMERGENCY DEPARTMENT COURSE,TESTS, TREATMENTS: While in the ED today we checked your eye with a special dye that she found a small superficial scratch which we begun treatment DISCHARGE MEDICATIONS: ?[We have made no changes to your regular medication regimen] we have prescribed antibiotic drops to be taken while awake as prescribed FOLLOW-UP: ?Call your primary or general physician soon as possible to discuss your symptoms, your ED visit and to discuss follow up plans You can follow up with your primary regular doctor unless you have vision changes severe eye pain is severe weeping or discharge from your eye return back here INSTRUCTIONS ?& RETURN PRECAUTIONS: If any symptoms change first call your primary physician, if it is after-hours your primary doctors office should have a provider plastic and reconstructive surgeon you can speak with. If the symptoms are severe or very concerning to you then call 911 or return to the ED. Gaurav Talbot MD Emergency Physician [facility] Prescriptions: New polymyxin B sulf-trimethoprim 10,000 unit- 1 mg/mL drops 1 drp ophthalmic (eye) Q3H 7 Days Qty: 10 0RF Rx Instructions: while awake; do not exceed 6 doses in 24 hours No Action alfuzosin 10 mg tablet extended release 24 hr 10 mg PO .nightly 30 Days Qty: 30 2RF Rx Instructions: Take before bedtime naproxen 500 mg tablet 500 mg PO BID 14 Days Qty: 28 0RF lidocaine 5 % adhesive patch,medicated 1 patch topical DAILY Qty: 15 0RF Rx Instructions: leave on most painful area for up to 12 hrs triamcinolone acetonide 55 mcg aerosol,spray 2 spray intranasal DAILY Rx Instructions: in each nostril lisinopril 10 mg tablet 10 mg PO DAILY hyoscyamine sulfate 0.125 mg tablet 0.125 mg PO BID Interventions: ED Discharge Assessment Last Done: 03/05/25 09:23 Discharge Date/Time: 03/05/25 09:23 Print Language: Sami
[2025-03-05] MEDS: Diphth,Pertus(ACell),Tet Adult 0.5 ML SYRINGE IM (08:48)
[2025-03-05] MEDS: Fluorescein Sodium STRIP 1 STRIP EYE-LEFT (08:48)
[2025-03-05] MEDS: Ibuprofen 600 MG TABLET PO (08:49)
[2025-03-05] MEDS: Tetracaine HCl 0.5% Oph Sol 5 ML DROPS 3 DROP EYE-LEFT (09:15)
[2025-03-05 09:23] VITALS: BP 144/84; PULSE 78; RESP 18; TEMP 36.3; O2SAT 99
== END 2025-03-05 09:23 | disposition home or self-care (01) ==
PROVIDERS: Emergency Provider Emergency Medicine; PCP Internal Medicine Geriatric Medicine
DX: S05.02XA Injury of conjunctiva and corneal abrasion without foreign body, left eye, initial encounter (principal); X58.XXXA Exposure to other specified factors, initial encounter; Y93.9 Activity, unspecified; Y92.9 Unspecified place or not applicable; Y99.8 Other external cause status; Z23 Encounter for immunization
CPT/HCPCS: 90471; 90715; 99283; 99284

== ENCOUNTER 2025-03-21 07:18 | Emergency (ER) | payer OTHER, SELFPAY ==
[2025-03-21 07:22] VITALS: BP 135/96; PULSE 80; RESP 16; TEMP 36.2; O2SAT 97; BMI 28.2
--- OUTSIDE RECORDS SUMMARY | 2025-03-21 08:43 | XMS_ITS | Clinical Summary ---
Author Organization [employer] Address [address] [facility] [address] [place] [address] Care Team Providers Care Electrical Tester Name Role Phone Name, Rishi ADAM Primary Care Provider [phone] Allergies Active Allergy Reactions Criticality Noted Date Comments Sulfamethoxazole-Trimethoprim Hives 2022 Sulfamethoxazole Itching 04/24/2017 Other reaction(s): Itching Other reaction(s): ITCHINESS Trimethoprim Itching 04/24/2017 Other reaction(s): Itching Other reaction(s): ITCHINESS Medications cetirizine (ZyrTEC) 10 MG tabletIndicatio ns:Seasonal allergic rhinitis due to pollen Take 1 tablet (10 mg) by mouth Once per day. 30 tablet 11 4 Active Blood Pressure kit 1 each 2 times daily. 1 kit 5 11/07/19 26 Active fluticasone (Flonase Allergy Relief) 50 MCG/ACT nasal spray Administer 1 spray into each nostril Once per day. Shake gently. Before first use, prime pump. After use, clean tip and replace cap. 16 g 5 11/07/19 26 Active Nirmatrelvir&Ri tonavir 300/100 (Paxlovid, 300/100,) 20 x 150 MG & 10 x 100MG tablet therapy pack Take 300 mg by mouth 2 times daily. Take 3 tablets 2x/day for 5 days 30 each 5 Active lisinopril 10 MG tablet TAKE 1 TABLET BY MOUTH EVERY DAY IN THE MORNING DIRECTED 90 tablet 3 5 Active Active Problems Problem Noted Date Diagnosed Date [...] 10:00 AM EDT Office Visit [facility] [address] [place] [address] Jacob Lima DDS Dental caries (Primary Dx); Dental plaque; Dental calculus; Missing teeth, acquired 02/16/2025 Orders Only [facility] External Provider, [facility] 02/01/2025 Refill [facility] [address] [place] [address] Name, MD Rishi 01/03/2025 Telephone [facility] [address] [place] [address] Rafaela Key [place] appt change (Provider out [...] Description 03/22/2025 3:00 PM EDT Office Visit [facility] [address] [place] [address] Darryl Kuo 04/11/2025 1:00 PM EDT Office Visit [facility] [address] [place] [address] Name, MD Rishi [address] [place] [address] Health Maintenance Due Date Last Done Comments CT Colonography 1965 Dental Prophylaxis 1965 Dental X-Ray: Full Mouth 1965 FIT DNA/Cologuard 1965 FIT 1965 FOBT 1965 Lipid Panel 1965 Sigmoidoscopy 1965 Disability Screening 1965 Alcohol/Substance Use Screening 1977 Pneumococcal Vaccine: 50+ Years (1 of 2 - PCV) 1984 Zoster Vaccines (1 of 2) 2015 COVID-19 Vaccine (3 - 2023-2 5 season) 2024 09/04/2021, 01/18/2021 Depression Screening 03/01/2025 03/01/2024, 03/01/2024 SDOH Screening 03/01/2025 03/01/2024 Influenza Vaccine (Season Ended) 2025 08/02/2013 Dental Oral Exam 08/26/2025 02/22/2025 Tobacco Screening [...] EDT Narrative 02/16/2025 1:14 PM EDT ? [facility] ?[address] ?[place] [address] ?XRay Report ? Signed ? Patient: Colon Odonnell,Daniel ?MR#: MM ?? [id number] ? : 1965 ?Acct:[id number] ? Age/Sex: 59 / M ?ADM Date: 05/08/25 ? Loc: HO.ED ? Attending Dr: ? Ordering Physician: Camryn De Guzman NP ?? Date of Service: 02/16/25 ?? Procedure(s): XR lumbar spine 2-3V ?? Accession Number(s): [id number] ? cc: Name,Rishi ADAM; Camryn De Guzman [...] DD/ 1235 ? TD/TT: 02/16/25 1303 ? Health Safety And Environment Manager: ? Procedure Note Shaina, Seble - 02/16/2025 [place] [address] XRay Report Signed Patient: Naomi GeigerR#: [id number] : 1965Acct:[id number] Age/Sex: 59 / MADM Date: 02/16/25 Loc: HO.ED Attending Dr: Ordering Physician: Camryn De Guzman NP Date of Service: 02/16/25 Procedure(s): XR lumbar spine 2-3V Accession Number(s): [id number] cc: Rishi Hyman MD; Camryn De Guzman [...] 02/16/25 1311 DD/ 1235 TD/TT: 02/16/25 1303 Health Safety And Environment Manager: [facility] External Provider IMG XR PROCEDURES Edited Result - Final * XR Thoracic Spine 3 Views (02/16/2025 12:35 PM EDT) Anatomical Region Laterality Modality Spine, T-spine Radiographic Reny ging 02/16/2025 12:3 5 PM EDT Narrative 02/16/2025 1:13 PM EDT ? [facility] ?[address] ?[place] [address] ?XRay Report ? Signed ? Patient: Colon Odonnell,Daniel ?MR#: MM ?? [id number] ? : 1965 ?Acct:[id number] ? Age/Sex: 59 / M ?ADM Date: 02/16/25 ? Loc: HO.ED ? Attending Dr: ? Ordering Physician: Camryn De Guzman NP ?? Date of Service: 02/16/25 ?? Procedure(s): XR thoracic spine 3V ?? Accession Number(s): [id number] ? cc: Name,Rishi ADAM; Camryn De Guzman [...] DD/ 1235 ? TD/TT: 02/16/25 1303 ? Health Safety And Environment Manager: ? Procedure Note Donhernan, Image - 02/16/[address] [address] XRay Report Signed Patient: Charito Geiger#: [id number] : 1965Acct:[id number] Age/Sex: 59 / MADM Date: 02/16/25 Loc: HO.ED Attending Dr: Ordering Physician: Camryn De Guzman NP Date of Service: 02/16/25 Procedure(s): XR thoracic spine 3V Accession Number(s): [id number] cc: Rishi Hyman MD; Camryn De Guzman [...] 02/16/25 1310 DD/ 1235 TD/TT: 02/16/25 1303 Health Safety And Environment Manager: [facility] External Provider IMG XR PROCEDURES Edited Result - Final * (ABNORMAL) Colonoscopy (11/02/2023) Colonoscopy Abnormal( A) Normal Comment:Colon Polyps (Tubula r Adenomas) Rishi Hyman MD HEALTH MAINTENANCE Final Result * HIV 1/2 ANTIGEN/ANTIBODY,FOURTH GENERATION W/RFL (04/04/2021 8:10 AM EDT) HIV-1/2 ANTIGEN AND ANTIBODIES, 4TH GENERATION W/ REFLEX NON-REACT MARILIN NON-REACT MARILIN [facility] Comment: HIV-1 antigen and HIV-1/HIV-2 [...] ? For additional information please refer to http://education.[employer]/faq/SCK318 (This link is being provided for informational/ educational purposes only.) ? The performance of this assay has not been clinically validated in patients less than 2 years old. ?? 04/04/2021 8:10 AM EDT Araceli Tabares DAIRY LABORATORY TECHNICIAN LAB BLOOD ORDERABLES Final Res ult [facility] [address] from Last 3 Months or Most Recently Relevant to Health Maintenance Insurance [facility] FULL (MEDICAID) Care Teams Electrical Tester Relationship Specialty Start Date End Date Name, MD Rishi [address] [place], [place] PCP - General Family Medicine 12/25/15
--- NOTE | 2025-03-21 09:13 | ED.BACK ---
HPI - Back Pain/Injury General Chief Complaint: Back Pain/Injury Stated Complaint: Back pain Time Seen by Provider: 03/21/25 08:43 Source: patient Mode of arrival: ambulatory Limitations: no limitations History of Present Illness ED Provider: Haley Calles PA-C HPI Narrative: This is a 59-year-old male, with a past medical history of spondylosis, and chronic back pain, who presents emergency department with concerns of acute on chronic back pain for the last week. He denies any new trauma injury or falls. He reports that the back pain is constant worsens with movement. Pain is primarily on the left side and radiates down the back of his left leg. He denies any urinary symptoms. No saddle anesthesia. No urinary retention or incontinence. He was previously seen 1 month ago was prescribed naproxen and prednisone which helped his pain significantly however the pain did return. He has not followed up with the primary care physician regarding this. No other complaints or concerns at this time. MD elicited complaint: back pain Onset (ago): week(s) Timing: constant Quality: aching Location: lumbar spine Exacerbating factors: none Relieving factors: none Associated symptoms: denies other symptoms Related Data Home Medications ?Medication ?Instructions ?Recorded ?Confirmed lisinopril 10 mg tablet 10 mg PO DAILY 07/22/22 01/10/23 triamcinolone acetonide 55 mcg 2 spray intranasal DAILY 07/22/22 01/10/23 nasal spray aerosol hyoscyamine sulfate 0.125 mg tablet 0.125 mg PO BID 10/27/23 Previous Rx's ?Medication ?Instructions ?Recorded alfuzosin 10 mg tablet,extended 10 mg PO .nightly 30 days #30 tabs 10/14/24 release 24 hr lidocaine 5 % topical patch 1 patch topical DAILY #15 ea 02/16/25 naproxen 500 mg tablet 500 mg PO BID 14 days #28 tabs 02/16/25 polymyxin B sulfate 10,000 1 drp ophthalmic (eye) Q3H 7 days 03/05/25 unit-trimethoprim 1 mg/mL eye drops #10 mL acetaminophen 500 mg tablet 1,000 mg (2 x 500 mg) PO Q8H PRN 03/21/25 (Tylenol Extra Strength) pain #30 tabs lidocaine 5 % topical patch 1 patch topical DAILY #30 ea 03/21/25 naproxen 500 mg tablet 500 mg PO BID 10 days #20 tabs 03/21/25 prednisone 20 mg tablet 40 mg (2 x 20 mg) PO DAILY 5 days 03/21/25 #10 tabs Allergies Allergy/AdvReac Type Severity Reaction Status Date / Time sulfamethoxazole Allergy Unknown ITCHINESS Verified 03/21/25 07:23 [From Bactrim] trimethoprim [From Bactrim] Allergy Unknown ITCHINESS Verified 03/21/25 07:23 Review of Systems Review of Systems: Yes all other systems are reviewed and are negative Constitutional: Constitutional: Reports as per [facility] Past Medical History Medical History Bilateral carpal tunnel syndrome BPH associated with nocturia Hepatitis C Vitamin D deficiency COVID Allergic rhinitis, seasonal Liver cirrhosis Hypertension Lumbar spondylosis Other intervertebral disc degeneration, lumbar region Fatigue Surgical History Hx of colonoscopy Social History Social History Household Members: Spouse Housing: House Do you presently have visiting nurse or other home services: No Alcohol intake: former Patient Tobacco Use Status: Former Tobacco user Smoked in Last 30 Days: No Use of substances other than those prescribed or required for medical reasons: No Substance Use Type: Crack/Cocaine and Heroin Advance Directives: No Advance Directives Information Provided: Yes service: No Current occupational status: employed Physical Exam Vital Signs: Vital Signs: Last Vital Signs Temp 97.2 F 03/21/25 10:17 Pulse 80 03/21/25 10:17 Resp 16 03/21/25 10:17 BP 135/96 H 03/21/25 10:17 Pulse Ox 97 03/21/25 10:17 O2 Del Method Room Air 03/21/25 10:17 BMI result Body Mass Index 28.2 Const: General: cooperative, comfortable and no acute distress Orientation/consciousness: patient oriented x3 Limitations: no limitations HEENT: Head: Yes normal to inspection, Yes normocephalic and Yes atraumatic Ears: hearing grossly normal bilaterally General nose exam: Normal external nose present Face and sinus: Yes normal facial exam Mouth: Normal oral and palatal mucosa present, oropharynx normal and moist mucous membranes Throat: Yes posterior oropharynx normal Eyes: General: appearance normal, both eyes and all related structures Eyelids: Yes eyelids normal Conjunctivae: conjunctivae normal Sclerae: sclerae normal Pupils: Equal, round and reactive pupils present EOM: EOMs intact bilaterally Neck: Neck: Yes normal visual inspection, Yes full ROM and Yes no lymphadenopathy Lymphatic: no lymphadenopathy noted Chest: Chest palpation & inspection: normal inspection of the chest Resp: Effort & Inspection: normal respiratory effort and able to speak in complete sentences Auscultation: clear to auscultation bilaterally, no crackles, no rales, no rhonchi and no wheezes Cardio: Rate: regular rate Rhythm: regular rhythm Heart sounds: S1 normal heart sound present and S2 normal heart sound present GI: Inspection: Yes normal to inspection Back/Spine/Pelvis: Other: No overlying skin changes. Patient has tenderness palpation along the left SI joint extending into the left buttocks. Positive straight leg raise on the left. Strength 5/5 in lower extremities. DTRs are 2+. No calf tenderness or pedal edema noted. Cervical Spine: normal cervical lordosis Thoracic/Lumbar Spine: thoracic and lumbar spine normal to inspection Skin: General skin exam: no rashes or lesions noted Trauma: no lacerations or abrasions Wounds: no wounds Neuro: General: patient oriented x3 and moves all extremities Cranial nerves: Yes Equal, round and reactive pupils present Extrem: General: Yes normal to inspection Right upper extremity: normal to inspection Left upper extremity: normal to inspection Right lower extremity: normal to inspection Left lower extremity: normal to inspection Medications Administered Discontinued Medications Generic Name Dose Route Start Last Admin Trade Name Freq PRN Reason Stop Dose Admin Ketorolac Tromethamine 15 mg 03/21/25 09:55 03/21/25 10:17 Ketorolac Tromethamine 15 Mg/Ml Vial IM 03/21/25 09:56 15 mg ONCE ONE Administration Medical Decision Making Medical Decision Making [facility] Narrative: This is a 59-year-old male, with a past medical history of lumbar spondylosis, who presents emergency department with acute on chronic back pain. No new trauma or injury. On arrival, blood pressure slightly elevated 135/96. This patient presents with back pain most consistent with left lumbar radiculopathy. Differential diagnoses includes lumbago versus musculoskeletal spasm / strain versus sciatica. No back pain red flags on history or physical. Presentation not consistent with malignancy (lack of history of malignancy, lack of B symptoms), fracture (no trauma, no bony tenderness to palpation), cauda equina syndrome (no bowel or urinary incontinence/retention, no saddle anesthesia, no distal weakness), renal colic, pyelonephritis (afebrile, no CVAT, no urinary symptoms). Given the clinical picture, no indication for imaging at this time. Patient did have a x-ray of his back on February 16, 2025 revealing multilevel spondylosis without acute fracture or gross listhesis. I discussed with patient that his symptoms are likely consistent with lumbar radiculopathy. Will discharged on course of prednisone when naproxen, lidocaine patches. Stressed the importance of following up with primary care physician as referral to physical therapy is essential. He understands and agrees with plan. Patient given strict return precautions. Patient stable for discharge. Differential Diagnosis Differential Diagnoses: The differential diagnosis associated with the presentation includes See above Discharge Plan Discharge Clinical Impression: Acute left lumbar radiculopathy Patient Disposition: Home, Self-Care Instructions: Lumbar Radiculopathy (ED) Additional Instructions: You were seen in the emergency department due to ongoing back pain. You have symptoms consistent with lumbar radiculopathy. This is inflammation in your back causing you to have compression upon your nerves. Please rest, apply heat or ice, gentle stretching and massage can help. Take prescribed medication as directed, prednisone is a steroid that can help decrease inflammation. Naproxen can help with inflammation and pain as well. You may also take Tylenol as needed for pain. Lidocaine patches can also help, apply directly to the area that is causing you to have pain. Do not directly apply heat or ice to the patches as this can also cause ruvalcaba. You need to follow-up with your primary care physician as physical therapy can be very helpful for your symptoms. If any new or worsening symptoms occur including but not limited to numbness tingling into your groin, weakness in your legs, chest pain, shortness of breath, urinary symptoms, please seek emergent care. Prescriptions: New prednisone 20 mg tablet 40 mg PO DAILY 5 Days Qty: 10 0RF lidocaine 5 % adhesive patch,medicated 1 patch topical DAILY Qty: 30 0RF Rx Instructions: leave on most painful area for up to 12 hrs naproxen 500 mg tablet 500 mg PO BID 10 Days Qty: 20 0RF acetaminophen [Tylenol Extra Strength] 500 mg tablet 1,000 mg PO Q8H PRN (Reason: pain) Qty: 30 0RF No Action alfuzosin 10 mg tablet extended release 24 hr 10 mg PO .nightly 30 Days Qty: 30 2RF Rx Instructions: Take before bedtime naproxen 500 mg tablet 500 mg PO BID 14 Days Qty: 28 0RF lidocaine 5 % adhesive patch,medicated 1 patch topical DAILY Qty: 15 0RF Rx Instructions: leave on most painful area for up to 12 hrs polymyxin B sulf-trimethoprim 10,000 unit- 1 mg/mL drops 1 drp ophthalmic (eye) Q3H 7 Days Qty: 10 0RF Rx Instructions: while awake; do not exceed 6 doses in 24 hours triamcinolone acetonide 55 mcg aerosol,spray 2 spray intranasal DAILY Rx Instructions: in each nostril lisinopril 10 mg tablet 10 mg PO DAILY hyoscyamine sulfate 0.125 mg tablet 0.125 mg PO BID Stand Alone Forms: Work/School Release Interventions: ED Discharge Assessment Last Done: 03/21/25 10:17 Discharge Date/Time: 03/21/25 10:17 Print Language: Algerian
[2025-03-21 10:17] VITALS: BP 135/96; PULSE 80; RESP 16; TEMP 36.2; O2SAT 97
[2025-03-21] MEDS: Ketorolac Tromethamine 15 MG/ML VIAL IM (10:17)
== END 2025-03-21 10:17 | disposition home or self-care (01) ==
PROVIDERS: Emergency Provider Emergency Medicine Emergency Medical Services; PCP Internal Medicine Geriatric Medicine
DX: M54.16 Radiculopathy, lumbar region (principal); M54.50 Low back pain, unspecified; Z79.899 Other long term (current) drug therapy
CPT/HCPCS: 96372; 99284; J1885

== ENCOUNTER 2025-04-11 14:30 | Outpatient (AMB) | payer OTHER, SELFPAY ==
--- NOTE | 2025-04-11 14:35 | MHC.OFFVIS ---
Intake Visit Reasons: 3M follow up/ PVR Intake Note: Patient presents today for follow up on: Nocturia Urology Medications: Alfuzosin Blood Thinner: none Antbiotic Allergy: Bactrim, sulfa, trimethoprim PVR: Manager Scientific Required: No Accompanied by: Self / Same As Patient Allergies sulfamethoxazole (From Bactrim) Allergy (Unknown, Verified 04/11/25 21:57) ITCHINESS trimethoprim (From Bactrim) Allergy (Unknown, Verified 04/11/25 21:57) ITCHINESS Medication List - Last Reconciled 04/11/25 by DARCY Mazariegos-DIEGO acetaminophen (Tylenol Extra Strength) 1,000 mg (2 x 500 mg) PO Q8H PRN hyoscyamine sulfate 0.125 mg PO BID lidocaine 5% 1 patch topical DAILY lisinopril 10 mg PO DAILY naproxen 500 mg PO BID 10 days oxybutynin chloride ER 10 mg PO DAILY 30 days polymyxin B sulf-trimethoprim 10,000 unit- 1 mg/mL 1 drp ophthalmic (eye) Q3H 7 days triamcinolone acetonide 2 sprays intranasal DAILY HPI Comments Details: Daniel is a very pleasant 59-year-old male patient of Dr. Hyman. He has a past medical history of bilateral carpal tunnel syndrome, BPH associated with nocturia, hep C, vitamin-D deficiency, allergic rhinitis, liver cirrhosis, hypertension, lumbar spondylosis, and fatigue. He presents to the office today for follow-up of his ongoing lower urinary tract symptoms. In discussion with the patient today he reports having performed bladder diary as recommended however this was left at home. He does report feeling episodes of nocturia decrease to 2-3 times per night when he is compliant with alfuzosin however without alpha-yeni feels episodes of nocturia up to 5 times per night. He discusses he does not like to take alpha-yeni regularly as he experiences issues with retrograde ejaculation and nasal congestion. We did discuss trial of overactive bladder medication verses cystoscopy and or urodynamics for further assessment evaluation. In office urinalysis results reviewed with the patient today. PVR 17 mLs. Previous workup has included a retroperitoneal ultrasound 01/02 noting bilateral kidneys with simple cysts that require no imaging follow-up per radiology report. Bilateral nonobstructing calculi approximately 5 mm. The bladder is well distended and normal. Bilateral ureteral jets are demonstrated. Pre void bladder volume is approximately 220 mL. Postvoid baldder a volume is approximately 55 mL. Prostate volume is approximately 25 mL. PSAs are as follows... 01/02 2.3, 07/05 3.0, 09/04 2.9 We discussed further treatment options and risks and benefits of these treatment options. He denies incontinence, hematuria, foul-smelling urine, changes to urinary stream, flank pain, fever, and or chills. He has previously trialed Flomax however experienced retrograde ejaculation did not find this helpful experienced retrograde ejaculation. He otherwise offers no other issues or concerns at this time. [facility] Medical History Bilateral carpal tunnel syndrome BPH associated with nocturia Hepatitis C Vitamin D deficiency COVID Allergic rhinitis, seasonal Liver cirrhosis Hypertension Lumbar spondylosis Other intervertebral disc degeneration, lumbar region Fatigue Surgical History Hx of colonoscopy Social History Household Members: Spouse Housing: House Do you presently have visiting nurse or other home services: No Alcohol intake: former Patient Tobacco Use Status: Former Tobacco user Substance Use Type: Crack/Cocaine and Heroin service: No Current occupational status: employed Review of Systems Const Reports no additional complaints Eyes Reports no additional complaints ENT Reports no additional complaints Card Reports as per [facility] Resp Reports as per HPI GI Reports as per HPI Reports as per HPI Musc Reports as per [facility] Neuro Reports as per [facility] Psych Reports as per HPI Endo Reports no additional complaints Keven/Lymph Reports as per HPI Aller/Immun Reports as per HPI Physical Exam Const General: cooperative, healthy appearing, comfortable, no acute distress, well developed, alert and awake Orientation/consciousness: patient oriented x3 Limitations: no limitations HEENT Head: Yes normal to inspection, Yes normocephalic and Yes atraumatic Ears: hearing grossly normal bilaterally Eyes General: appearance normal, both eyes and all related structures Neck Neck: Yes normal visual inspection and Yes trachea midline Chest Chest palpation & inspection: normal inspection of the chest Resp Effort & Inspection: normal respiratory effort and able to speak in complete sentences Cardio Rate: regular rate GI Inspection: Yes normal to inspection General: Yes no CVA tenderness Back/Spine/Pelvis Back: no CVA tenderness Skin General skin exam: no rashes or lesions noted Neuro General: patient oriented x3 Extrem General: Yes normal to inspection Psych Appearance: grossly normal and well kempt Mental Status: mental status grossly normal Speech and movement: Normal speech and movement present and Clear speech present Affect: normal affect Attitude: cooperative Thought process: Normal thought process present Thought content: Normal thought content present Insight: Fair insight present (Psych) Judgement: Fair judgement present (Psych) Office Procedures Post Void Residual Post Residual Void Post Void Residual (PVR): 7 [id number]-[id number] Void Residual by ultrasound Results AMB Urinalysis, Automated UA Leukoctes 0 Siobhan/uL Last Edit by Tammy Martinez [facility] on 04/11/25 14:47 UA Nitrite Last Edit [facility] on 04/11/25 14:47 UA Urobilinogen 0.2 mg/dL [facility] Edit [facility] on 04/11/25 14:47 UA Protein 15 mg/dL Last Edit by [facility] on 04/11/25 14:47 UA pH 6.0 Last Edit [facility] on 04/11/25 14:47 UA Blood 0 Jerrell/uL Last Edit by [facility] Rosalba [facility] on 04/11/25 14:47 UA Specific [place] 1.015 Last Edit by [facility] Rosalba [facility] on 04/11/25 14:47 UA Ketone Last Edit by [facility] Rosalba [facility] on 04/11/25 14:47 UA Bilirubin 0 mg/dL Last Edit by [facility] on 04/11/25 14:47 UA Glucose 0 mg/dL Last Edit by [facility] Roslaba [facility] on 04/11/25 14:47 Results Reviewed Results Reviewed: Laboratory Last Values Urine pH (Auto) 6.0 04/11/25 14:38 Specific [place] (Auto) 1.015 04/11/25 14:38 Urine Protein (Auto) 15 mg/dL 04/11/25 14:38 Glucose (UA)(Auto) 0 mg/dL 04/11/25 14:38 Urine Blood (Auto) 0 Jerrell/uL 04/11/25 14:38 Urine Bilirubin (Auto) 0 mg/dL 04/11/25 14:38 Urine Urobilinogen (Auto) 0.2 mg/dL 04/11/25 14:38 Leukocyte Esterase (Auto) 0 Siobhan/uL 04/11/25 14:38 Assessment & Plan Assessment & Plan (1) Nocturia: Code(s): R35.1 - Nocturia Category: Medical (2) Premature ejaculation: Code(s): F52.4 - Premature ejaculation Category: Medical (3) Lower urinary tract symptoms: Code(s): R39.9 - Unspecified symptoms and signs involving the genitourinary system Category: Medical Plan In office urinalysis results reviewed with the patient today; as noted above. PVR 17 mL. Stop alfuzosin. Start oxybutynin as discussed and prescribed. We discussed importance of limiting fluids 2-3 hours prior to bed. We discussed near future in office cystoscopy and or urodynamics for further assessment evaluation. All questions were answered. Will obtain PSA Follow-up in 1-3 months with PSA and PVR; or sooner with any issues, concerns, and or questions. Orders: Orders AMB Post Void Residual by ultrasound Today R39.9 - Unspecified symptoms and signs involving the genitourinary system AMB Urinalysis Automated Today Z13.9 - Encounter for screening, unspecified Prostate Specific Antigen Today R35.1 - Nocturia Medications: New oxybutynin chloride ER 10 mg PO DAILY 30 tabs 3RF 30 days N32.81 - Overactive bladder Discontinued alfuzosin ER Take before bedtime Discontinued Reason: Doctor's Order 10 mg PO .nightly 30 days 30 tabs 2RF N32.0 - Bladder-neck obstruction, N40.1 - Benign prostatic hyperplasia with lower urinary tract symptoms, R33.9 - Retention of urine, unspecified, R35.1 - Nocturia Patient Instructions: The patient had an opportunity to ask questions regarding the treatment plan. All questions were answered. Physical exam, labs, and imaging were discussed and reviewed in detail. As well as risks, benefits, and discussion of treatment choices. No major barriers to understanding were identified. The patient expressed understanding and agreement with the above treatment plan. The patient was made aware they should contact our office by phone for worsening of their current condition, the appearance of new symptoms, or with any questions or concerns. Compliance is encouraged with any medications and follow up testing that is ordered. It is a privilege to be allowed the opportunity to participate in? your urological care.? Again, if you have any questions or concerns If you have any questions or concerns please do not hesitate to contact me. The office is [phone]. This note is constructed using voice recognition software. While every effort has been made to ensure accuracy director of officiating errors may have been included. Yours sincerely, DARCY Mzaariegos-DIEGO Coding Level of Care Code Est Pt Level 4 (65185) Diagnoses Nocturia R35.1 Premature ejaculation F52.4 Lower urinary tract symptoms R39.9 CPT Codes Post Residual Void - PVR CPT Code: 02808-Pnbb Void Residual by ultrasound ([id number])
== END 2025-04-11 15:06 | disposition home or self-care (01) ==
LOC: HO.HUSH 14:31
PROVIDERS: PCP Internal Medicine Geriatric Medicine; Visit Provider Nurse Practitioner Family
DX: R35.1 Nocturia (principal); F52.4 Premature ejaculation; R39.9 Unspecified symptoms and signs involving the genitourinary system; Z13.9 Encounter for screening, unspecified
CPT/HCPCS: 99214

== ENCOUNTER → 2025-04-11 14:30 | Outpatient (BNVA) | payer OTHER, SELFPAY | PROVIDERS: PCP Internal Medicine Geriatric Medicine; Visit Provider Nurse Practitioner Family | DX: R35.1 Nocturia (principal) | CPT/HCPCS: 51798; 81003 ==

== ENCOUNTER 2025-04-20 08:01 | Outpatient (REF) | payer OTHER, SELFPAY ==
--- NOTE | ~2025-04-20 | US_ITS ---
EXAMINATION: US ABDOMEN COMPLETE WITH LIVER ELASTOGRAPHY HISTORY: History of treated hep C, compensated cirrhosis TECHNIQUE: Real-time grayscale ultrasound imaging of the abdomen was performed and images were reviewed. COMPARISON: Comparison is made with the prior examination dated 01/16/2021. FINDINGS: Liver: The right lobe of the liver measures 15.0 cm in size. The left lobe of the liver measures 3.3 cm in size. The liver demonstrates increased echotexture, consistent with steatosis. No focal mass or intrahepatic biliary ductal dilatation is identified. There is normal hepatopedal flow in the portal vein. Ultrasound elastography of the liver was performed with 10 separate measurements of the liver parenchyma with the patient in the supine position. Measurements were obtained approximately 2 cm below Rhonda's capsule and perpendicular to the capsule. The median shear wave velocity is 1.68 m/s. The interquartile range/median (IQR/median) is 0.15. Gallbladder and biliary tree: The gallbladder is unremarkable, without evidence of calculi, wall thickening, or pericholecystic fluid. There is no sonographic Choi sign. The common bile duct is normal in caliber measuring 4 mm. Kidneys: The right kidney measures 11.1 cm in length and demonstrates multiple nonobstructing calculi, the largest of which is in the interpolar region measuring up to 6 mm in size. There are multiple cysts measuring up to 1.4 cm in size. The left kidney measures 11.4 cm in length. There are multiple nonobstructing left renal calculi, the largest of which is at the upper pole measuring 6 mm in diameter. Multiple cysts are noted measuring up to 1.4 cm. Pancreas: The pancreatic head, neck, and body are unremarkable. The pancreatic tail is obscured by bowel gas. Spleen: The spleen is normal in size and contour, measuring 11.8 cm in length. Abdominal aorta and inferior vena cava: The visualized portions of the abdominal aorta and inferior vena cava are normal in caliber. There is no free fluid in the abdomen. US/US abdomen comp w elastography IMPRESSION: 1. Hepatic steatosis. 2. Bilateral nephrolithiasis as described. No hydronephrosis. The median shear wave velocity in the liver is 1.68 m/s, corresponding to a median liver stiffness of 8.62 kPa. The IQR/median value is 0.15. This is indicative of a poor quality data set, and the estimated liver stiffness may be unreliable. Findings are indicative of a low elastography value which rules out advanced chronic liver disease in asymptomatic patients. REFERENCE: Society of Radiologists in Ultrasound Liver Stiffness Thresholds (2020): LIVER STIFFNESS THRESHOLDS: *Shear wave velocity less than 1.3 m/s (Liver Stiffness equal or less than 5 kPa): High probability of being normal. *Shear wave velocity less than 1.7 m/s (Liver Stiffness less than 9 kPa): In the absence of other known clinical signs, rules out compensated advanced chronic liver disease. *Shear wave velocity between 1.7-2.1 m/s (Liver Stiffness 9-13 kPa): Suggestive of compensated advanced chronic liver disease but need further test for confirmation. *Shear wave velocity between 2.1-2.4 m/s (Liver Stiffness 13-17 kPa): Rules in compensated advanced chronic liver disease. *Shear wave velocity greater than 2.4 m/s (Liver Stiffness over 17 kPa): Suggestive of clinically significant portal hypertension. QUALITY OF DATA SET: *IQR/Median value equal or less than 0.15 implies a quality data set. *IQR/Median value over 0.15 implies a poor quality data set. SIGNIFICANT CHANGE FROM PRIOR EXAM: Significant change if liver stiffness measurement is 10% or greater from prior exam. OTHER CONSIDERATIONS: The stage of liver fibrosis may be overestimated in the setting of acute hepatitis, liver inflammation, elevated liver function tests, hepatic vascular congestion, obstructive cholestasis, non-fasting state, and infiltrative diseases such as amyloidosis and lymphoma. In some patients with NAFLD, the liver stiffness thresholds for compensated advanced chronic liver disease may be lower. In causes other than viral hepatitis and NAFLD, liver stiffness thresholds are not well established. Electronically signed by: Anthony Acuña MD 04/20/2025 09:47 AM EDT
--- OUTSIDE RECORDS SUMMARY | 2025-04-20 08:07 | XMS_ITS | Clinical Summary ---
Author Organization [employer] Address [address] [place] [address] Care Team Providers Care Logistics Supervisor Name Role Phone Name, Rishi ADAM Primary Care Provider [phone] Allergies Active Allergy Reactions Criticality Noted Date [...] cap. 16 g 5 11/07/19 26 Active lisinopril 10 MG tablet TAKE 1 TABLET BY MOUTH EVERY DAY IN THE MORNING DIRECTED 90 tablet 3 5 Active naproxen (Naprosyn) 500 MG tablet 5 Active predniSONE (Deltasone) 20 MG tablet 5 Active Nirmatrelvir&R itonavir 300/100 (Paxlovid, 300/100,) 20 x 150 MG & 10 x 100MG tablet therapy pack Take 300 mg by mouth 2 times daily. Take 3 tablets 2x/day for 5 days 30 each 01/04/11/20 25 Discontinu ed(Therapy completed) Active Problems Problem Noted Date Diagnosed Date Dental calculus 02/22/2025 Missing teeth, acquired 02/22/2025 Retained dental root 01/18/2024 Hepatitis C antibody positive in blood 10/30/2023 Overview (04/11/2025): Component Ref Range & Units (hover) 2 yr ago HCV RNA, QN Real Time PCR <15 NOT DETECTED HCV RNA QN Real Time PCR <1.18 NOT DETECTED Comment: Treated at [facility], VL not detectable. Details of treatment on [employer] Lumbar radiculopathy 10/30/2023 10/30/2023 Lumbar spondylosis 10/30/2023 10/30/2023 Muscle spasm of back 10/30/2023 10/30/2023 Other intervertebral disc degeneration, lumbar r egion 10/30/2023 10/30/2023 Sacroiliac joint pain 10/30/2023 10/30/2023 BPH associated with nocturia 05/21/2023 Carpal tunnel syndrome 05/21/2023 Frequent headaches 05/21/2023 Seasonal allergic rhinitis 05/21/2023 Sleep disorder 05/21/2023 Snoring 05/21/2023 Vitamin D deficiency 05/21/2023 Diverticulitis 01/28/2023 Assessment & Plan (01/28/2023 5:12 PM EDT): Educated patient on diverticula and diverticulitis. Educated patient on why a referral to gastroenterology is necessary and why a colonoscopy is so important. We are not just looking for diverticula we are screening for cancer. Dental caries 12/04/2022 Bilateral sciatica 01/17/2022 Cirrhosis of liver without ascites 02/08/2018 Essential hypertension 12/25/2015 Resolved Problems Problem Noted Date Diagnosed Date Resolved Date Bilateral lower abdominal discomfort 10/30/202310/1204/11/2025 Abrasion, corneal 10/30/2023 10/30/2023 04/11/2025 Acute diverticulitis 10/30/2023 10/30/2023 025 Fatigue 10/30/2023 10/30/2023 04/11/2025 Intermittent lightheadedness 10/30/2023 10/30/2023 04/11/2025 Sepsis 10/30/2023 10/30/2023 04/11/2025 Dental abscess 10/22/2023 04/11/2025 Rhinosinusitis 05/21/2023 03/01/2024 Unintentional weight loss 05/21/2023 Low vitamin D level 01/27/2023 04/11/20 Assessment & Plan (01/28/2023 1:34 PM EDT): He does not like taking too many medications so he agreed to getting his Vitamin D level checked and then talking about taking vitamin D again if it is low. Hepatitis C virus infection without hepatic coma 01/27/2023 04/11/2025 Assessment & Plan (01/28/2023 1:31 PM EDT): Hep C lab ordered, looking for viral load. Routine adult health maintenance 01/27/2023 04/11/2025 Assessment & Plan (01/27/2023 11:59 AM EDT): Referral to Gastroenterology for cancer screening colonoscopy. Complaints of total body pain 01/17/2022 08/18/2023 04/11/2025 Encounters Date Type Department Care Team Description 04/11/2025 1:00 PM EDT Office Visit [facility] [address] [place] [id number] Rishi Hyman MD Essential hypertension (Primary Dx); Cirrhosis of liver without ascites, unspecified hepatic cirrhosis type (CMS/HCC); Screening for cholesterol level; Hepatitis C antibody positive in blood 04/11/2025 Travel 04/10/2025 Telephone [facility] [address] [place] [id number] Rishi Hyman MD Chart Prep 03/22/2025 3:00 PM EDT Office Visit [facility] [address] [place] [address] Darryl Kuo Dental calculus (Primary Dx) 02/22/2025 10:00 AM EDT Office Visit [facility] [address] [place] [address] Jacob Lima, YASH Dental caries (Primary Dx); Dental plaque; Dental calculus; Missing teeth, acquired 02/16/2025 Orders Only [facility] External Provider, [facility] 02/01/2025 Refill [facility] [address] [place] [address] Name, MD Rishi from Last 3 Months Immunizations Immunization Administration [...] Sign Reading Time Taken Comments Blood Pressure 132/82 04/11/2025 1:09 PM EDT Pulse 87 04/11/2025 1:09 PM EDT Temperature 36.6 C (97.8 F) 04/11/2025 1:09 PM EDT Respiratory Rate 14 04/11/2025 1:09 PM EDT Oxygen Saturation 98% 04/11/2025 1:09 PM EDT Inhaled Oxygen Concentration - - Weight 84.7 kg (186 lb 12.8 oz) 04/11/2025 1:09 PM EDT Height 165.1 cm (5' 5 ) 04/11/2025 1:09 PM EDT Body Mass Index 31.09 04/11/2025 1:09 PM EDT Plan of Treatment Upcoming Encounters Date Type Department Care Team (Late st Contact Info) Description 04/25/2025 10:30 AM EDT Office Visit [facility] [address] [place] [address] Javi Avalos [address] [place] [address] Health Maintenance Due Date Last Done Comments CT Colonography 1965 Dental X-Ray: Full Mouth 1965 FIT DNA/Cologuard 1965 FIT 1965 FOBT 1965 Lipid Panel 1965 Sigmoidoscopy 1965 Pneumococcal Vaccine: 50+ Years (1 of 2 - PCV) 1984 Zoster Vaccines (1 of 2) 2015 COVID-19 Vaccine ( - 2023-2 5 season) 2024 09/04/2021, 01/18/2021 Depression Screening 03/01/2025 03/01/2024, 03/01/2024 SDOH Screening 03/01/2025 03/01/2024 Influenza Vaccine (#1) 2025 08/02/2013 Dental Oral Exam 08/26/2025 02/22/2025 Dental Prophylaxis 09/22/2025 03/22/2025 Dental X-Ray: Bitewings 02/23/2026 02/22/2025 Alcohol/Substance Use Screening 04/11/2026 04/11/2025 Disability Screening 04/11/2026 04/11/2025 Tobacco Screening 04/11/2026 04/11/2025 Colonoscopy 11/02/2026 11/02/2023 Colorectal Cancer Screening 11/02/2026 DTaP/Tdap/Td Vaccines (4 - T d or Tdap) 03/05/2035 03/05/2025, 06/08/2019, 07/28/2014 RSV Patients and Patients Aged [...] PRESENTATION, DETAILED AND EXTENSIVE TREATMENT PLANNING Routine 03/22/2025 3:00 PM EDT ORAL HYGIENE INSTRUCTIONS Routine 03/22/2025 3:00 PM EDT PROPHYLAXIS - ADULT Routine 03/22/2025 3 :00 PM EDT CASE PRESENTATION, DETAILED AND EXTENSIVE TREATMENT PLANNING [...] PM EDT Narrative 02/16/2025 1:14 PM EDT [address] [address] XRay Report Signed Patient: Daniel Geiger MR#: [id number] : 1965 Acct:[id number] Age/Sex: 59 / M ADM Date: 02/16/25 Loc: .ED Attending Dr: Ordering Physician: Camryn De Guzman NP Date of Service: 02/16/25 Procedure(s): XR lumbar spine 2-3V Accession Number(s): [id number] cc: Name,Rishi ADAM; Camryn De Guzman NP [...] Signed By: <Electronically signed by Abiodun Falcon MD in OV> 02/16/25 1311 DD/ 1235 TD/TT: 02/16/25 1303 Fluxer: Procedure Note Donotuseinterpreter, Image - 02/16/[address] [address] XRay Report Signed Patient: Charito Geiger#: [id number] : 1965Acct:[id number] Age/Sex: 59 / MADM Date: 02/16/25 Loc: HO.ED Attending Dr: Ordering Physician: Camryn De Guzman NP Date of Service: 02/16/25 Procedure(s): XR lumbar spine 2-3V Accession Number(s): [id number] cc: Name,Rishi ADAM; Camryn De Guzman NP [...] 02/16/25 1311 DD/ 1235 TD/TT: 02/16/25 1303 Fluxer: us [facility] External Provider IMG XR PROCEDURES Edited Result - Final * XR Thoracic Spine 3 Views (02/16/2025 12:35 PM EDT) Anatomical Region Laterality Modality Spine, T-spine Radiographic Reny ging 02/16/2025 12:3 5 PM EDT Narrative 02/16/2025 1:13 PM EDT [address] [address] XRay Report Signed Patient: Daniel Geiger MR#: [id number] : 1965 Acct:[id number] Age/Sex: 59 / M ADM Date: 02/16/25 Loc: HO.ED Attending Dr: Ordering Physician: Camryn De Guzman NP Date of Service: 02/16/25 Procedure(s): XR thoracic spine 3V Accession Number(s): [id number] cc: Name,Rishi ADAM; Camryn De Guzman NP [...] Signed By: <Electronically signed by Abiodun Falcon MD in OV> 02/16/25 1310 DD/ 1235 TD/TT: 02/16/25 1303 Fluxer: Procedure Note Donotuseinterpreter, Image - 02/16/[address] [address] XRay Report Signed Patient: Naomi GeigerR#: [id number] : 1965Acct:[id number] Age/Sex: 59 / MADM Date: 02/16/25 Loc: HO.ED Attending Dr: Ordering Physician: Camryn De Guzman NP Date of Service: 02/16/25 Procedure(s): XR thoracic spine 3V Accession Number(s): [id number] cc: Yenni,Rishi ADAM; Camryn De Guzman NP EXAMINATION: XR [...] 02/16/25 1310 DD/ 1235 TD/TT: 02/16/25 1303 Fluxer: [facility] External Provider IMG XR PROCEDURES Edited Result - Final * (ABNORMAL) Colonoscopy (11/02/2023) Colonoscopy Abnormal( A) Normal Comment:Colon Polyps (Tubula r Adenomas) Rishi Hyman MD HEALTH MAINTENANCE Final Result * HIV 1/2 ANTIGEN/ANTIBODY,FOURTH GENERATION W/RFL (04/04/2021 8:10 AM EDT) HIV-1/2 ANTIGEN AND ANTIBODIES, 4TH GENERATION W/ REFLEX NON-REACT MARILIN NON-REACT MARILIN [facility] Comment: HIV-1 antigen and HIV-1/HIV-2 antibodies were not detected. There is no laboratory evidence of HIV infection. PLEASE NOTE: This information has been disclosed to you from records whose confidentiality may be protected by state law. If your state requires such protection, then the state law prohibits you from making any further disclosure of the information without the specific written consent of the person to whom it pertains, or as otherwise permitted by law. A general authorization for the release of medical or other information is NOT sufficient for this purpose. For additional information please refer to http://education.[employer]/faq/NFS354 (This link is being provided for informational/ educational purposes only.) The performance of this assay has not been clinically validated in patients less than 2 years old. 04/04/2021 8:10 AM EDT us Araceli Tabares [facility] BLOOD ORDERABLES Final Res ult [facility] [address] from Last 3 Months or Most Recently Relevant to Health Maintenance Insurance [facility] - HSN FULL (MEDICAID) Care Teams Logistics Supervisor Relationship Specialty Start Date End Date Name, MD Rishi [address] [place] [address] PCP - General Family Medicine 12/25/15
[2025-04-20 12:36] LABS: MANUAL DIFF FLAG NO
[2025-04-20 12:38] LABS: Hematocrit 42.8 % (42.0-52.0); Hemoglobin 14.9 g/dl (14.0-18.0); Imm Gran Abs Auto 0.02 X10*3/uL (0.00-0.03); Imm Gran Pct Auto 0.4 % (0.0-0.4); Lymphocytes Absolute Auto 1.4 X10*3/uL (1.2-4.9); Mean Corpuscular HGB Conc 34.8 g/dl (31.0-36.0); Mean Corpuscular Hemoglobin 30.0 pg (27.0-33.0); Mean Corpuscular Volume 86.3 fL (80.0-98.0); NRBC Abs Auto 0.000 X10*3/uL (0.0-0.012); NRBC Pct Auto 0.0 /100WBC (0.0-0.2); Platelet Count 168 X10*3/uL (160-400); Red Blood Count 4.96 X10*6/uL (4.60-5.80); White Blood Count 4.9 X10*3/uL (4.8-10.8)
[2025-04-20 13:02] LABS: Alanine Aminotransferase 55 U/L (0-40); Albumin Level 4.7 g/dL (3.5-5.0); Alkaline Phosphatase 55 U/L (39-117); Anion Gap 12 (12-20); Aspartate Amino Transferase 45 U/L (5-37); Blood Urea Nitrogen 15 mg/dL (9-16); Calcium 9.5 mg/dL (8.4-10.2); Carbon Dioxide 28 mmol/L (22-29); Chloride 106 mmol/L (96-108); Cholesterol 227 mg/dL (<200); Estimated Glomerular Filt Rate > 60; HDL Cholesterol 44 mg/dL (>40); Potassium 3.8 mmol/L (3.3-5.1); Sodium 142 mmol/L (135-145); Total Protein 7.2 g/dL (6.5-8.0); Triglycerides 116 mg/dL (<150)
[2025-04-20 13:11] LABS: Prostate Specific Antigen 3.80 ng/mL (<0.05-4.0)
[2025-04-22 15:44] LABS: HCV Log PCR <1.18 NOT DETECTED Log IU/mL (NOT DETECTED); HepC Viral Load <15 NOT DETECTED IU/mL (NOT DETECTED)
[2025-04-28 20:57] LABS: FIB-ALT 36 U/L (9-46); FIB-Alpha-2-Macroglobulin 317 mg/dL (106-279); FIB-Apolipoprotein A1 145 mg/dL (94-176); FIB-GGT 35 U/L (3-85); FIB-Haptoglobin 55 mg/dL (43-212); FIB-Total Bilirubin 0.6 mg/dL (0.2-1.2); Liver Fibrosis Score 0.66; Liver Fibrosis Stage F3; Nec Inflam Act Grade A0-A1; Nec Inflam Act Score 0.29
== END 2025-04-20 08:02 | disposition home or self-care (01) ==
LOC: HO.US 08:01
PROVIDERS: Nurse Practitioner Family; PCP Internal Medicine Geriatric Medicine; Referring Provider Internal Medicine Geriatric Medicine; Visit Provider Nurse Practitioner Family
DX: R35.1 Nocturia (principal); I10 Essential (primary) hypertension; K74.60 Unspecified cirrhosis of liver; R76.8 Other specified abnormal immunological findings in serum; Z13.220 Encounter for screening for lipoid disorders; R74.01 Elevation of levels of liver transaminase levels; K76.0 Fatty (change of) liver, not elsewhere classified; N20.0 Calculus of kidney; Z12.5 Encounter for screening for malignant neoplasm of prostate
CPT/HCPCS: 36415; 76700; 76981; 80053; 80061; 81596; 82248; 84153; 85025; 87522

== ENCOUNTER → 2025-04-20 08:32 | Outpatient (BNV) | payer OTHER, SELFPAY | PROVIDERS: PCP Internal Medicine Geriatric Medicine; Referring Provider Internal Medicine Geriatric Medicine; Visit Provider Radiology Diagnostic Radiology | DX: K76.0 Fatty (change of) liver, not elsewhere classified (principal); N20.0 Calculus of kidney | CPT/HCPCS: 76700; 76981 ==

== ENCOUNTER 2025-06-15 13:39 | Outpatient (AMB) | payer OTHER, SELFPAY ==
--- NOTE | 2025-06-15 13:44 | MHC.OFFVIS ---
Intake Visit Reasons: 2m/PVR Intake Note: patient presents today for: 2mo/PVR urology medications: oxybutynin chloride blood thinners: none today's PVR: 0mls Deputy Attorney General Required: Yes Deputy Attorney General Services: Deputy Attorney General Present Deputy Attorney General Name: Amelia [id number] Accompanied by: Self / Same As Patient Allergies sulfamethoxazole (From Bactrim) Allergy (Unknown, Verified 06/15/25 14:15) ITCHINESS trimethoprim (From Bactrim) Allergy (Unknown, Verified 06/15/25 14:15) ITCHINESS Medication List - Last Reconciled 06/15/25 by TONNY Mazariegos acetaminophen (Tylenol Extra Strength) 1,000 mg (2 x 500 mg) PO Q8H PRN lidocaine 5% 1 patch topical DAILY lisinopril 10 mg PO DAILY HPI Comments Details: Daniel is a very pleasant 60-year-old male patient of Dr. Hyman. He has a past medical history of bilateral carpal tunnel syndrome, BPH associated with nocturia, hep C, vitamin-D deficiency, allergic rhinitis, liver cirrhosis, hypertension, lumbar spondylosis, and fatigue. He presents to the office today for follow-up of his ongoing lower urinary tract symptoms. In discussion with the patient today he continues to report ongoing lower urinary tract symptoms. He reports despite trial of oxybutynin that was prescribed during last office visit he continues with urinary urgency, urinary frequency and nocturia. He reports his most bothersome issue is nocturia. He reports nocturia up to 5 times per night. He does report he is limiting fluids 3-4 hours prior to bed. However he does continue to indulge in soda drinking. We did again discussed bladder triggers and irritants. Patient has previously trialed Flomax however had issues with retrograde ejaculation as well as nasal congestion. He then trialed alfuzosin however did not find this helpful. Previous workup has included a retroperitoneal ultrasound 01/02 noting bilateral kidneys with simple cysts that require no imaging follow-up per radiology report. Bilateral nonobstructing calculi approximately 5 mm. The bladder is well distended and normal. Bilateral ureteral jets are demonstrated. Pre void bladder volume is approximately 220 mL. Postvoid baldder a volume is approximately 55 mL. Prostate volume is approximately 25 mL. PSAs are as follows... 01/02 2.3, 07/05 3.0, 09/04 2.9, 06/05 3.8 We discussed further treatment options and risks and benefits of these treatment options. He denies any signs or symptoms of sleep apnea We did discussed importance of surveillance monitoring of PSA as patient at the higher end of normal. KATHY was offered however deferred. He denies incontinence, hematuria, foul-smelling urine, changes to urinary stream, flank pain, fever, and or chills. All questions were answered. He otherwise offers no other issues or concerns at this time. [facility] Medical History Bilateral carpal tunnel syndrome BPH associated with nocturia Hepatitis C Vitamin D deficiency COVID Allergic rhinitis, seasonal Liver cirrhosis Hypertension Lumbar spondylosis Other intervertebral disc degeneration, lumbar region Fatigue Surgical History Hx of colonoscopy Social History Household Members: Spouse Housing: House Do you presently have visiting nurse or other home services: No Alcohol intake: former Patient Tobacco Use Status: Former Tobacco user Substance Use Type: Crack/Cocaine and Heroin service: No Current occupational status: employed Review of Systems Const Reports no additional complaints Eyes Reports no additional complaints ENT Reports no additional complaints Card Reports as per HPI Resp Reports as per HPI GI Reports as per HPI Reports as per HPI Musc Reports as per HPI Neuro Reports as per HPI Psych Reports as per HPI Endo Reports no additional complaints Keven/Lymph Reports as per HPI Aller/Immun Reports as per HPI Physical Exam Const General: cooperative, healthy appearing, comfortable, no acute distress, well developed, alert and awake Orientation/consciousness: patient oriented x3 Limitations: no limitations HEENT Head: Yes normal to inspection, Yes normocephalic and Yes atraumatic Ears: hearing grossly normal bilaterally Eyes General: appearance normal, both eyes and all related structures Neck Neck: Yes normal visual inspection and Yes trachea midline Chest Chest palpation & inspection: normal inspection of the chest Resp Effort & Inspection: normal respiratory effort and able to speak in complete sentences Cardio Rate: regular rate GI Inspection: Yes normal to inspection General: Yes no CVA tenderness Back/Spine/Pelvis Back: no CVA tenderness Skin General skin exam: no rashes or lesions noted Neuro General: patient oriented x3 Extrem General: Yes normal to inspection Psych Appearance: grossly normal and well kempt Mental Status: mental status grossly normal Speech and movement: Normal speech and movement present and Clear speech present Affect: normal affect Attitude: cooperative Thought process: Normal thought process present Thought content: Normal thought content present Insight: Fair insight present (Psych) Judgement: Fair judgement present (Psych) Office Procedures Post Void Residual Post Residual Void Post Void Residual (PVR): 0 [id number] Void Residual by ultrasound Results AMB Urinalysis, Automated UA Leukoctes 0 Siobhan/uL Last Edit by AMISH Krishna on 06/15/25 13:59 UA Nitrite Negative Last Edit by Cate Carmona CCM on 06/15/25 13:59 UA Urobilinogen 0.2 mg/dL Last Edit by Cate Carmona CCM on 06/15/25 13:59 UA Protein 0 mg/dL Last Edit by Cate Carmona CCM on 06/15/25 13:59 UA pH 6.0 Last Edit by Cate Carmona CCM on 06/15/25 13:59 UA Blood 0 Jerrell/uL Last Edit by Cate Carmona [facility] on 06/15/25 13:59 UA Specific Elizabeth 1.015 Last Edit by AMISH Krishna on 06/15/25 13:59 UA Ketone Negative Last Edit by Cate Carmona CCM on 06/15/25 13:59 UA Bilirubin 0 mg/dL Last Edit by Cate Carmona CCM on 06/15/25 13:59 UA Glucose 0 mg/dL Last Edit by Cate Carmona [facility] on 06/15/25 13:59 Results Reviewed Results Reviewed: Laboratory Last Values Urine pH (Auto) 6.0 06/15/25 13:58 Specific Elizabeth (Auto) 1.015 06/15/25 13:58 Urine Protein (Auto) 0 mg/dL 06/15/25 13:58 Glucose (UA)(Auto) 0 mg/dL 06/15/25 13:58 Urine Ketones (Auto) Negative 06/15/25 13:58 Urine Blood (Auto) 0 Jerrell/uL 06/15/25 13:58 Urine Nitrite (Auto) Negative 06/15/25 13:58 Urine Bilirubin (Auto) 0 mg/dL 06/15/25 13:58 Urine Urobilinogen (Auto) 0.2 mg/dL 06/15/25 13:58 Leukocyte Esterase (Auto) 0 Siobhan/uL 06/15/25 13:58 Assessment & Plan Assessment & Plan (1) Nocturia: Code(s): R35.1 - Nocturia Category: Medical (2) Lower urinary tract symptoms: Code(s): R39.9 - Unspecified symptoms and signs involving the genitourinary system Category: Medical Plan In office urinalysis results reviewed with the patient today; as noted above. PVR 0 mL. Recent PSA results reviewed with the patient today; as noted above. We discussed bladder triggers and irritants. Stop oxybutynin. We did discussed potential causes of lower urinary tract symptoms. We discussed continuing to limit fluids 2-3 hours prior to bed. All questions were answered. Will continue with surveillance monitoring of PSAs. Next available in office cysoscopy; or sooner with any issues, concerns, and or questions. Orders: Orders AMB Post Void Residual by ultrasound Today R35.1 - Nocturia AMB Urinalysis Automated Today Z13.9 - Encounter for screening, unspecified Prostate Specific Antigen 4 Months R39.9 - Unspecified symptoms and signs involving the genitourinary system Patient Instructions: The patient had an opportunity to ask questions regarding the treatment plan. All questions were answered. Physical exam, labs, and imaging were discussed and reviewed in detail. As well as risks, benefits, and discussion of treatment choices. No major barriers to understanding were identified. The patient expressed understanding and agreement with the above treatment plan. The patient was made aware they should contact our office by phone for worsening of their current condition, the appearance of new symptoms, or with any questions or concerns. Compliance is encouraged with any medications and follow up testing that is ordered. It is a privilege to be allowed the opportunity to participate in? your urological care.? Again, if you have any questions or concerns If you have any questions or concerns please do not hesitate to contact me. The office is [phone]. This note is constructed using voice recognition software. While every effort has been made to ensure accuracy gold letterer errors may have been included. Yours sincerely, TONNY Mazariegos Coding Level of Care Code Est Pt Level 3 (37164) Diagnoses Nocturia R35.1 Lower urinary tract symptoms R39.9 CPT Codes Post Residual Void - PVR CPT Code: 60539-Pyep Void Residual by ultrasound ([id number])
--- OUTSIDE RECORDS SUMMARY | 2025-06-15 14:56 | XMS_ITS | Clinical Summary ---
Author Organization [employer] Address [address] [facility] [address] [place] [address] Care Team Providers Care Produce Department Manager Name Role Phone Name, Rishi ADAM Primary Care Provider [phone] Allergies Active Allergy Reactions Criticality Noted Date Comments Sulfamethoxazole-Trimethoprim Hives 2022 Sulfamethoxazole Itching 04/24/2017 Other reaction(s): Itching Other reaction(s): ITCHINESS Trimethoprim Itching 04/24/2017 Other reaction(s): Itching Other reaction(s): ITCHINESS Medications cetirizine (ZyrTEC) 10 MG tabletIndicatio ns:Seasonal allergic rhinitis due to pollen Take 1 tablet (10 mg) by mouth Once per day. 30 tablet 11 4 Active Additional Information Patient not taking.Reported on 05/01/2025 Blood Pressure kit 1 each 2 times [...] predniSONE (Deltasone) 20 MG tablet 5 Active Active Problems Problem Noted Date Diagnosed Date Dental calculus 02/22/2025 Missing teeth, acquired 02/22/2025 Retained dental root 01/18/2024 Hepatitis C antibody positive in blood 01/10/30/2023 Overview (04/11/2025): Component Ref Range & Units (hover) 2 yr ago HCV RNA, QN Real Time PCR <15 NOT DETECTED HCV RNA QN Real Time PCR <1.18 NOT DETECTED Comment: Tre[place] at [facility], VL not detectable. Details of treatment [...] Encounters Date Type Department Care Team Description 06/13/2025 Telephone [facility] [address] [place] [phone] Rafaela Key MA nov recallalexandra 05/29/2025 1:40 PM EDT Office Visit [facility] [address] [address] Starr Perez NP Viral URI 05/29/2025 Travel 05/25/2025 9:40 AM EDT Office Visit [facility] [address] [address] Fatmata Posada MD Viral upper respiratory tract infection (Primary Dx) 05/25/2025 Travel 05/11/2025 2:00 PM EDT Office Visit [facility] ADULT DENTAL [address] [place] [address] Gail Henderson DDS 05/01/2025 1:00 PM EDT Office Visit [facility] ADULT DENTAL [address] [place] [address] Javi Avalos 04/25/2025 10:30 AM EDT Office Visit [facility] ADULT DENTAL [address] [place] [address] Javi Avalos 04/20/2025 Orders Only GENERIC EXTERNAL DATA DEPARTMENT Provider, Generic External Data 04/11/2025 1:00 PM EDT Office Visit [facility] [address] [place] [address] Rishi Hyman MD Essential hypertension (Primary Dx); Cirrhosis of liver without ascites, unspecified hepatic cirrhosis type (CMS/HCC); Screening for cholesterol level; Hepatitis C antibody positive in blood 04/11/2025 Travel 04/10/2025 Telephone [facility] [address] [place] [address] Rishi Hyman MD Chart Prep 03/22/2025 3:00 PM EDT Office Visit [facility] ADULT DENTAL [address] [place] [address] Darryl Kuo Dental calculus (Primary Dx) from Last 3 Months Immunizations Immunization Administration [...] Sign Reading Time Taken Comments Blood Pressure 149/96 05/29/2025 1:36 PM EDT Pulse 96 05/29/2025 1:36 PM EDT Temperature 36.8 C (98.2 F) 05/29/2025 1:36 PM EDT Respiratory Rate 18 05/29/2025 1:36 PM EDT Oxygen Saturation 98% 05/29/2025 1:36 PM EDT Inhaled Oxygen Concentration - - Weight 85.5 kg (188 lb 9.6 oz) 05/29/2025 1:36 P M EDT Height 165.1 cm (5' 5 ) 04/11/2025 1:09 PM EDT Body Mass Index 31.38 04/11/2025 1:09 PM EDT Plan of Treatment Health Maintenance Due Date Last Done Comments CT Colonography 1965 Dental X-Ray: Full Mouth 1965 FIT DNA/Cologuard 1965 FIT 1965 FOBT 1965 Sigmoidoscopy 1965 Pneumococcal Vaccine: 50+ Years (1 of 2 - PCV) 1984 Zoster Vaccines (1 of 2) 2015 Depression Screening 03/01/2025 03/01/2024, 03/01/2024 SDOH Screening 03/01/2025 03/01/2024 RSV Patients and Patients Aged 60 years or older (1 - Risk 60-74 years 1-dose series) 2025 COVID-19 Vaccine (3 - 2024-2 6 season) 2025 09/04/2021, 01/18/2021 Influenza Vaccine (#1) 2025 08/02/2013 Dental Oral Exam 08/26/2025 02/22/2025 Dental Prophylaxis 09/22/2025 03/22/2025 Dental X-Ray: Bitewings 02/23/2026 02/22/2025 Alcohol/Substance Use Screening 04/11/2026 04/11/2025 Disability Screening 04/11/2026 04/11/2025 Tobacco Screening 05/11/2026 05/11/2025 Colonoscopy 11/02/2026 11/02/2023 Colorectal Cancer Screening 11/02/2026 Lipid Panel 04/20/2030 04/20/2025 DTaP/Tdap/Td Vaccines (4 - T d or Tdap) 03/05/2035 03/05/2025, 06/08/2019, 07/28/2014 Hepatitis B Vaccines Completed 05/06/2013, 12/07/2012, 11/05/2012 [...] Procedure Name Priority Date/Time Associated Diagnosis Comments POCT INFLUENZA B (ID NOW RAPID MOLECULAR) Routine 05/29/2025 1:51 PM EDT Viral URI POCT INFLUENZA A (ID NOW RAPID MOLECULAR) Routine 05/29/2025 1:51 PM EDT Viral URI POCT RAPID COVID ANTIGEN Routine 05/29/2025 1:51 PM EDT Viral URI POCT INFLUENZA B (ID NOW RAPID MOLECULAR) Routine 05/25/2025 10:01 AM EDT Viral upper respiratory tract infection POCT INFLUENZA A (ID NOW RAPID MOLECULAR) Routine 05/25/2025 10:01 AM EDT Viral upper respiratory tract infection POCT RAPID COVID ANTIGEN Routine 05/25/2025 10:01 AM EDT Viral upper respiratory tract infection 10 MDL RESIN-BASED COMPOSITE - 3 SURF, ANTERIOR Routine 05/11/2025 2:00 PM EDT CASE PRESENTATION, DETAILED AND EXTENSIVE TREATMENT PLANNING Routine 05/11/2025 2:00 PM EDT ORAL HYGIENE INSTRUCTIONS Routine 05/01/2025 1:00 PM EDT CASE PRESENTATION, DETAILED AND EXTENSIVE TREATMENT PLANNING Routine 05/01/2025 1:00 PM EDT 5 MOD RESIN-BASED COMPOSITE - 3 SURF, POSTERIOR Routine 05/01/2025 1:00 PM EDT 4 MO RESIN-BASED COMPOSITE - 2 SURF, POSTERIOR Routine 05/01/2025 1:00 PM EDT ORAL HYGIENE INSTRUCTIONS Routine 04/25/2025 10:30 AM EDT CARIES RISK ASSESSMENT AND DOCUMENTATION, HIGH RISK Routine 04/25/2025 10:30 AM EDT CASE PRESENTATION, DETAILED AND EXTENSIVE TREATMENT PLANNING Routine 04/25/2025 10:30 AM EDT RE-EVAL - LIMITED, PROBLEM FOCUSED (EST PATIENT; NOT POST-OP VISIT) Routine 04/25/2025 10:30 AM EDT US ABDOMEN COMPLETE WITH ELASTOGRAPHY Routine 04/20/2025 8:53 AM EDT Cirrhosis of liver without ascites, unspecified hepatic cirrhosis type (CMS/HCC) LIVER FIBROSIS, FIBROTEST ACTITEST PANEL Routine 04/20/2025 8:07 AM EDT PSA, TOTAL Routine 04/20/2025 8:07 AM EDT HEPATIC FUNCTION PANEL Routine 04/20/2025 8:07 AM EDT HEPATITIS C VIRAL RNA, QUANTITATIVE, REAL-TIME PCR Routine 04/20/2025 8:07 AM EDT Cirrhosis of liver without ascites, unspecified hepatic cirrhosis type (CMS/HCC) Hepatitis C antibody positive in blood LIPID PANEL, STANDARD Routine 04/20/2025 8:07 AM EDT Screening for cholesterol level COMPREHENSIVE METABOLIC PANEL Routine 04/20/2025 8:07 AM EDT Cirrhosis of liver without ascites, unspecified hepatic cirrhosis type (CMS/HCC) Essential hypertension CBC WITH AUTO DIFFERENTIAL Routine 04/20/2025 8:07 AM EDT Cirrhosis of liver without ascites, unspecified hepatic cirrhosis type (CMS/HCC) CASE PRESENTATION, DETAILED AND EXTENSIVE TREATMENT PLANNING Routine 03/22/2025 3:00 PM EDT ORAL HYGIENE INSTRUCTIONS Routine 03/22/2025 3:00 PM EDT PROPHYLAXIS - ADULT Routine 03/22/2025 3 :00 PM EDT BITEWINGS - 4 RADIOGRAPHIC IMAGES Routine 02/22/2025 10:00 AM EDT COMPREHENSIVE ORAL EVALUATION - NEW OR ESTABLISHED PATIENT Routine 02/22/2025 10:00 AM EDT HM COLONOSCOPY Routine 11/02/2023 HIV 1/2 ANTIGEN/ANTIBODY, FOURTH GENERATION W/RFL Routine 04/04/2021 8:10 AM EDT from Last 3 Months or Most Recently Relevant to Health Maintenance Results * Influenza B (ID NOW Rapid Molecular) (05/29/2025 1:51 PM EDT) Only the most recent of2 resultswithin the time period is included. Influenza B Negative Negative, Indeterminate [facility] Swab 05/29/2025 1:51 PM EDT Starr Perez NP POINT OF CARE TEST ENTER/EDIT OR DERABLES Final Result [facility] [address] [place] [phone] * Influenza A (ID NOW Rapid Molecular) (05/29/2025 1:51 PM EDT) Only the most recent of2 resultswithin the time period is included. Influenza A Negative Negative, Indeterminate [facility] Swab 05/29/2025 1:51 PM EDT Starr Graef [employer] POINT OF CARE TEST ENTER/EDIT OR DERABLES Final Result Performing Organization Address [facility] Co de Phone Number [facility] [address] [place] [phone] * POCT Rapid COVID Ag (05/29/2025 1:51 PM EDT) Only the most recent of2 resultswithin the time period is included. Rapid COVID Ag Negative [facility] Swab 05/29/2025 1:51 PM EDT Starr Graef [employer] POINT OF CARE TEST ENTER/EDIT OR DERABLES Final Result Performing Organization Address [facility] de Phone Number [facility] [address] [place] [phone] * US Abdomen Comp w elastography (04/20/2025 8:53 AM EDT) Anatomical Region Laterality Modality Abdomen Ultrasound 04/20/2025 8:53 AM EDT Narrative 04/20/2025 9:49 AM EDT [address] [address] Ultrasound Report Signed Patient: Daniel Geiger MR#: [id number] : 1965 Acct:[id number] Age/Sex: 59 / M ADM Date: 04/20/25 Loc: HO.US Attending Dr: Maira Suh [facility]- Ordering Physician: Name,Rishi ADAM Date of Service: 04/20/25 Procedure(s): US abdomen comp w elastography Accession Number(s): [id number] cc: Name,Rishi ADAM EXAMINATION: US ABDOMEN COMPLETE WITH LIVER ELASTOGRAPHY HISTORY: History of treated hep C, compensated cirrhosis TECHNIQUE: Real-time grayscale ultrasound imaging of the abdomen was performed and images were reviewed. COMPARISON: Comparison is made with the prior examination dated 01/16/2021. FINDINGS: Liver: The right lobe of the liver measures 15.0 cm in size. The left lobe of the liver measures 3.3 cm in size. The liver demonstrates increased echotexture, consistent with steatosis. No focal mass or intrahepatic biliary ductal dilatation is identified. There is normal hepatopedal flow in the portal vein. Ultrasound elastography of the liver was performed with 10 separate measurements of the liver parenchyma with the patient in the supine position. Measurements were obtained approximately 2 cm below Rhonad's capsule and perpendicular to the capsule. The median shear wave velocity is 1.68 m/s. The interquartile range/median (IQR/median) is 0.15. Gallbladder and biliary tree: The gallbladder is unremarkable, without evidence of calculi, wall thickening, or pericholecystic fluid. There is no sonographic Choi sign. The common bile duct is normal in caliber measuring 4 mm. Kidneys: The right kidney measures 11.1 cm in length and demonstrates multiple nonobstructing calculi, the largest of which is in the interpolar region measuring up to 6 mm in size. There are multiple cysts measuring up to 1.4 cm in size. The left kidney measures 11.4 cm in length. There are multiple nonobstructing left renal calculi, the largest of which is at the upper pole measuring 6 mm in diameter. Multiple cysts are noted measuring up to 1.4 cm. Pancreas: The pancreatic head, neck, and body are unremarkable. The pancreatic tail is obscured by bowel gas. Spleen: The spleen is normal in size and contour, measuring 11.8 cm in length. Abdominal aorta and inferior vena cava: The visualized portions of the abdominal aorta and inferior vena cava are normal in caliber. There is no free fluid in the abdomen. US/US abdomen comp w elastography IMPRESSION: 1. Hepatic steatosis. 2. Bilateral nephrolithiasis as described. No hydronephrosis. The median shear wave velocity in the liver is 1.68 m/s, corresponding to a median liver stiffness of 8.62 kPa. The IQR/median value is 0.15. This is indicative of a poor quality data set, and the estimated liver stiffness may be unreliable. Findings are indicative of a low elastography value which rules out advanced chronic liver disease in asymptomatic patients. REFERENCE: Society of Radiologists in Ultrasound Liver Stiffness Thresholds (2019): LIVER STIFFNESS THRESHOLDS: *Shear wave velocity less than 1.3 m/s (Liver Stiffness equal or less than 5 kPa): High probability of being normal. *Shear wave velocity less than 1.7 m/s (Liver Stiffness less than 9 kPa): In the absence of other known clinical signs, rules out compensated advanced chronic liver disease. *Shear wave velocity between 1.7-2.1 m/s (Liver Stiffness 9-13 kPa): Suggestive of compensated advanced chronic liver disease but need further test for confirmation. *Shear wave velocity between 2.1-2.4 m/s (Liver Stiffness 13-17 kPa): Rules in compensated advanced chronic liver disease. *Shear wave velocity greater than 2.4 m/s (Liver Stiffness over 17 kPa): Suggestive of clinically significant portal hypertension. QUALITY OF DATA SET: *IQR/Median value equal or less than 0.15 implies a quality data set. *IQR/Median value over 0.15 implies a poor quality data set. SIGNIFICANT CHANGE FROM PRIOR EXAM: Significant change if liver stiffness measurement is 10% or greater from prior exam. OTHER CONSIDERATIONS: The stage of liver fibrosis may be overestimated in the setting of acute hepatitis, liver inflammation, elevated liver function tests, hepatic vascular congestion, obstructive cholestasis, non-fasting state, and infiltrative diseases such as amyloidosis and lymphoma. In some patients with NAFLD, the liver stiffness thresholds for compensated advanced chronic liver disease may be lower. In causes other than viral hepatitis and NAFLD, liver stiffness thresholds are not well established. Electronically signed by: Anthony Acuña MD 04/20/2025 09:47 AM EDT Dictated By: Anthony Acuña MD Signed By: <Electronically signed by Anthony Acuña MD in OV> 04/20/25 0947 DD/ 0853 TD/TT: 04/20/25922 Telephone Maintenance Mechanic: Procedure Note Donotuseinterpreter, Image - 04/20/[address] [address] Ultrasound Report Signed Patient: Charito Geiger#: [id number] : 1965Acct:[id number] Age/Sex: 59 / MADM Date: 04/20/25 Loc: HO.US Attending Dr: Maira Suh [facility]- Ordering Physician: Rishi Hyman MD Date of Service: 04/20/25 Procedure(s): US abdomen comp w elastography Accession Number(s): [id number] cc: Name,Rishi ADAM EXAMINATION: US ABDOMEN COMPLETE WITH LIVER ELASTOGRAPHY HISTORY: History of treated hep C, compensated cirrhosis TECHNIQUE: Real-time grayscale ultrasound imaging of the abdomen was performed and images were reviewed. COMPARISON: Comparison is made with the prior examination dated 01/16/2021. FINDINGS: Liver: The right lobe of the liver measures 15.0 cm in size. The left lobe of the liver measures 3.3 cm in size. The liver demonstrates increased echotexture, consistent with steatosis. No focal mass or intrahepatic biliary ductal dilatation is identified. There is normal hepatopedal flow in the portal vein. Ultrasound elastography of the liver was performed with 10 separate measurements of the liver parenchyma with the patient in the supine position. Measurements were obtained approximately 2 cm below Rhonda's capsule and perpendicular to the capsule. The median shear wave velocity is 1.68 m/s. The interquartile range/median (IQR/median) is 0.15. Gallbladder and biliary tree: The gallbladder is unremarkable, without evidence of calculi, wall thickening, or pericholecystic fluid. There is no sonographic Choi sign. The common bile duct is normal in caliber measuring 4 mm. Kidneys: The right kidney measures 11.1 cm in length and demonstrates multiple nonobstructing calculi, the largest of which is in the interpolar region measuring up to 6 mm in size. There are multiple cysts measuring up to 1.4 cm in size. The left kidney measures 11.4 cm in length. There are multiple nonobstructing left renal calculi, the largest of which is at the upper pole measuring 6 mm in diameter. Multiple cysts are noted measuring up to 1.4 cm. Pancreas: The pancreatic head, neck, and body are unremarkable. The pancreatic tail is obscured by bowel gas. Spleen: The spleen is normal in size and contour, measuring 11.8 cm in length. Abdominal aorta and inferior vena cava: The visualized portions of the abdominal aorta and inferior vena cava are normal in caliber. There is no free fluid in the abdomen. US/US abdomen comp w elastography IMPRESSION: 1. Hepatic steatosis. 2. Bilateral nephrolithiasis as described. No hydronephrosis. The median shear wave velocity in the liver is 1.68 m/s, corresponding to a median liver stiffness of 8.62 kPa. The IQR/median value is 0.15. This is indicative of a poor quality data set, and the estimated liver stiffness may be unreliable. Findings are indicative of a low elastography value which rules out advanced chronic liver disease in asymptomatic patients. REFERENCE: Society of Radiologists in Ultrasound Liver Stiffness Thresholds (2019): LIVER STIFFNESS THRESHOLDS: *Shear wave velocity less than 1.3 m/s (Liver Stiffness equal or less than 5 kPa): High probability of being normal. *Shear wave velocity less than 1.7 m/s (Liver Stiffness less than 9 kPa): In the absence of other known clinical signs, rules out compensated advanced chronic liver disease. *Shear wave velocity between 1.7-2.1 m/s (Liver Stiffness 9-13 kPa): Suggestive of compensated advanced chronic liver disease but need further test for confirmation. *Shear wave velocity between 2.1-2.4 m/s (Liver Stiffness 13-17 kPa): Rules in compensated advanced chronic liver disease. *Shear wave velocity greater than 2.4 m/s (Liver Stiffness over 17 kPa): Suggestive of clinically significant portal hypertension. QUALITY OF DATA SET: *IQR/Median value equal or less than 0.15 implies a quality data set. *IQR/Median value over 0.15 implies a poor quality data set. SIGNIFICANT CHANGE FROM PRIOR EXAM: Significant change if liver stiffness measurement is 10% or greater from prior exam. OTHER CONSIDERATIONS: The stage of liver fibrosis may be overestimated in the setting of acute hepatitis, liver inflammation, elevated liver function tests, hepatic vascular congestion, obstructive cholestasis, non-fasting state, and infiltrative diseases such as amyloidosis and lymphoma. In some patients with NAFLD, the liver stiffness thresholds for compensated advanced chronic liver disease may be lower. In causes other than viral hepatitis and NAFLD, liver stiffness thresholds are not well established. Electronically signed by: Anthony Acuña MD 04/20/2025 09:47 AM EDT RP Dictated By: Anthony Acuña MD Signed By: <Electronically signed by Anthony Acuña MD in OV> 04/20/2547 DD/ TD/TT: 04/20/25922 Telephone Maintenance Mechanic: us Rishi Hyman MD [facility] PROCEDURES Edited Result - Final * (ABNORMAL) Liver Fibrosis (HCV), FibroTest-ActiTest Panel (04/20/2025 8:07 AM EDT) Liver Fibrosis Score 0.66 [facility] Liver Fibrosis Stage F3 [facility] Liver Fibrosis Interpretation SEE NOTE [facility] Comment:advanced fibrosisFib ro Test Score (f) Metavir Score f>=0 and f<=0.21 : F0 (no fibrosis)f>0.21 and f<=0.27 : F0-F1 (no fibrosis)f>0.27 and f<=0.31 : F1 (minimal fibrosis)f>0.31 and f<=0.48 : F1-F2 (minimal fibrosis)f>0.48 and f<=0.58 : F2 (moderate fibrosis)f>0.58 and f<=0.72 : F3 (advanced fibrosis)f>0.72 and f<=0.74 : F3-F4 (advanced fibrosis)f>0.74 and f<=1.00 : F4 (severe fibrosis) Nec Inflam Act Score 0.29 [facility] Nec Inflam Act Grade A0-A1 [facility] Nec Inflam Act Interpretation SEE NOTE [facility] Comment:no activityActiTest Score (a) Metavir Score a>=0 and a<=0.17 : A0 (no activity)a>0.17 and a<=0.29 : A0-A1 (no activity)a>0.29 and a<=0.36 : A1 (minimal activity)a>0.36 and a<=0.52 : A1-A2 (minimal activity)a>0.52 and a<=0.60 : A2 (significant activity)a>0.60 and a<=0.62 : A2-A3 (significant activity)a>0.62 and a<=1.00 : A3 (severe activity) SSA-Alejx-3-Macroglo bulin 317(A) 106 - 279 mg/dL [facility] FIB-Haptoglobin 55 43 - 212 mg/dL [facility] FIB-Apolipoprotein A1 145 94 - 176 mg/dL [facility] FIB-Total Bilirubin 0.6 0.2 - 1.2 mg/dL [facility] FIB-GGT 35 3 - 85 U/L [facility] FIB-ALT 36 9 - 46 U/L [facility] Reference ID [id number] [facility] Footnote SEE NOTE [facility] Comment: The reliability of results is dependent on compliance withthe preanalytical and analytical conditions recommended by[employer]. The tests have to be deferred for: acutehemolysis, acute hepatitis, acute inflammation, extrahepatic cholestasis. The advice of a specialist should besought for interpretation in chronic hemolysis and Gilbert'ssyndrome. The test interpretation is not validated in livertransplant patients. Isolated extreme values of one of thecomponents should lead to caution in interpreting theresults. In case of discordance between a biopsy result nyla test, it is recommended to seek the advice of aspecialist. The causes of these discordances could be due toa flaw of the test or to a flaw in the biopsy: i.e. a liverbiopsy has a 33% variability rate for one fibrosis stage.FibroTest is interpretable for chronic hepatitis B and C,alcoholic and non alcoholic steatosis. ActiTest isinterpretable for chronic hepatitis B and C.The performance characteristics have been determined by[employer] [facility]. Ithas not been cleared or approved by the U.S. Food and DrugAdministration. Performance characteristics refer to theanalytical performance of the test.[employer], the associated logo, [employer] and all associated [employer] roth are theregistered trademarks of [employer]. All third partymarks - (R) and (TM) - are the property of their respectiveowners. (C) [id number] [employer]. Allrights reserved.THIS TEST WAS PERFORMED AT:[employer] [id number] [facility] [place] [address]IELAKARISTIDES LU MD,PHD,EILEEN 04/20/2025 8:07 AM EDT 04/20/2025 12:29 PM EDT Generic External Data Provider LAB BLOOD ORDERAB LES Final Result Performing Organization Address [facility] Co de Phone Number [facility] [address] [place] [phone] * Hepatitis C Viral RNA, Quantitative, Real-Time PCR (04/20/2025 8:07 AM EDT) [facility] Hepatitis C Viral Load <15 NOT DETECTED NOT DETECTED IU/mL [facility] HCV Log PCR <1.18 NOT DETECTED NOT DETECTED Log IU/mL [facility] Comment:For additional infor manuel, please refer tohttp://education.Datanomic/faq/WBF03q4(This link is being provided for informational/educational purposes only.)THIS TEST WAS PERFORMED AT:[employer] [place] [phone] TRINIDAD MD Blood Venous blood specimen / Unknown 04/20/2025 8:07 AM EDT 04/20/2025 12:29 PM EDT Rishi Hyman MD LAB BLOOD ORDERABLES Final Resul t Performing Organization Address [facility] de Phone Number [facility] [address] [place] [phone] CBC auto differential (04/20/2025 8:07 AM EDT) [facility] White Blood Count 4.9 4.8 - 10.8 X10*3/uL [facility] Red Blood Count 4.96 4.60 - 5.80 X10*6/uL [facility] Hemoglobin 14.9 14.0 - 18.0 g/dl [facility] Hematocrit 42.8 42.0 - 52.0 % [facility] Mean Corpuscular Volume 86.3 80.0 - 98.0 fL [facility] Mean Corpuscular Hemoglobin 30.0 27.0 - 33.0 pg [facility] Mean Corpuscular HGB Conc 34.8 31.0 - 36.0 g/dl [facility] Red Cell Distribution Width 12.1 11.0 - 16.0 % [facility] Platelet Count 168 160 - 400 X10*3/uL [facility] Mean Platelet Volume 10.9 9.4 - 12.4 fL [facility] Neutrophils Percent Auto 58.9 45 - 73 % [facility] Imm Gran Pct Auto 0.4 0.0 - 0.4 % [facility] Lymphocytes Percent Auto 29.0 20 - 40 % [facility] Monocytes Percent Auto 8.1 2 - 11 % [facility] Eosinophils Percent Auto 3.4 0 - 4 % [facility] Basophils Percent Auto 0.2 0 - 2 % [facility] NRBC Pct Auto 0.0 0.0 - 0.2 /100WBC [facility] Neutrophils Absolute Auto 2.9 2.0 - 8.3 x10*3/uL [facility] Imm Gran Abs Auto 0.02 0.00 - 0.03 X10*3/uL [facility] Lymphocytes Absolute Auto 1.4 1.2 - 4.9 X10*3/uL [facility] Monocytes Absolute Auto 0.4 0.1 - 1.2 X10*3/uL [facility] Eosinophils Absolute Auto 0.2 0.0 - 0.4 X10*3/uL [facility] Basophils Absolute Auto 0.0 0.0 - 0.2 X10*3/uL [facility] NRBC Abs Auto 0.000 0.0 - 0.012 X10*3/uL [facility] Blood Venous blood specimen / Unknown 04/20/2025 8:07 AM EDT 04/20/2025 12:29 PM EDT Rishi Hyman MD LAB BLOOD ORDERABLES Final Resul t Performing Organization Address [facility] Co de Phone Number [facility] [address] [place] [address] [phone] * PSA,Total (04/20/2025 8:07 AM EDT) Prostate Specific Antigen 3.80 <0.05 - 4.0 ng/mL [facility] Comment:PSA methodology: Sangeetha Alvarez i ChemiluminescentMicroparticle Immunoassay (CMIA) 04/20/2025 8:07 AM EDT 04/20/2025 12:29 PM EDT Generic External Data Provider LAB BLOOD ORDERAB LES Final Result Performing Organization Address [facility] Phone Number [facility] [address] [place] [address] [phone] * Hepatic Function Panel (04/20/2025 8:07 AM EDT) Bilirubin, Direct 0.3 0.0 - 0.5 mg/dL [facility] 04/20/2025 8:07 AM EDT 04/20/2025 12:29 PM EDT Generic External Data Provider LAB BLOOD ORDERAB LES Final Result Performing Organization Address [facility] Co de Phone Number [facility] [address] [place] [address] [phone] * (ABNORMAL) Lipid Panel, Standard (04/20/2025 8:07 AM EDT) Triglycerides 116 <150 mg/dL [facility] Comment:Desirable Triglyceri de: less than 150 mg/dLBorderline High Triglyceride 150-199 mg/dLHigh Triglyceride: 200-499 mg/dLVery High Triglyceride: greater than or equal to 5OO mg/dL Cholesterol 227(H) <200 mg/dL [facility] Comment:Desirable Cholestero l: less than 200 mg/dLBorderline High Cholesterol: 200-239 mg/dLHigh Cholesterol: greater than 239 mg/dL LDL Cholesterol Calculated 160(H) <100 mg/dL [facility] Comment:Desirable LDL: less than 100 mg/dLNear Optimal/Above Optimal LDL: 110- 129 mg/dLBorderline High LDL: 130-159 mg/dLHigh LDL: 160-189 mg/dLVery High LDL: greater than or equal to 190 mg/dL HDL Cholesterol 44 >40 mg/dL [facility] Comment:Desirable HDL: great er than 40 mg/dL Note: This HDL assay may give artificially low results in patients with liver disease. Blood Venous blood specimen / Unknown 04/20/2025 8:07 AM EDT 04/20/2025 12:29 PM EDT us Rishi Name LAB BLOOD ORDERABLES Final Resul t [facility] [address] [place] [address] [phone] * (ABNORMAL) Comprehensive Metabolic Panel (04/20/2025 8:07 AM EDT) Sodium 142 135 - 145 mmol/L [facility] Potassium 3.8 3.3 - 5.1 mmol/L [facility] Chloride 106 96 - 108 mmol/L [facility] Carbon Dioxide 28 22 - 29 mmol/L [facility] Anion Gap 12 12 - 20 [facility] Urea Nitrogen (BUN) 15 9 - 16 mg/dL [facility] Creatinine, Serum 0.94 0.5 - 1.4 mg/dL [facility] Estimated Glomerular Filt Rate >60 [facility] Comment:Chronic Kidney Disea se: Estimated GFR < 60 mL/min/1.24l5Hgmtgd Kidney Disease: Estimated GFR < 15 mL/min/1.73m2 Glucose 104 60 - 115 mg/dL [facility] Calcium 9.5 8.4 - 10.2 mg/dL [facility] Bilirubin, Total 1.0 0.0 - 1.0 mg/dL [facility] Aspartate Amino Transferase 45(H) 5 - 37 U/L [facility] Alanine Aminotransferase 55(H) 0 - 40 U/L [facility] Total Protein 7.2 6.5 - 8.0 g/dL [facility] Albumin Level 4.7 3.5 - 5.0 g/dL [facility] Alkaline Phosphatase 55 39 - 117 U/L [facility] Blood Venous blood specimen / Unknown 04/20/2025 8:07 AM EDT 04/20/2025 12:29 PM EDT us Rishi Hyman MD LAB BLOOD ORDERABLES Final Resul t [facility] [address] [place] [address] [phone] * (ABNORMAL) Colonoscopy (11/02/2023) Colonoscopy Abnormal( A) Normal Comment:Colon Polyps (Tubula r Adenomas) us Rishi Hyman MD HEALTH MAINTENANCE Final Result * HIV 1/2 ANTIGEN/ANTIBODY,FOURTH GENERATION W/RFL (04/04/2021 8:10 AM EDT) HIV-1/2 ANTIGEN AND ANTIBODIES, 4TH GENERATION W/ REFLEX NON-REACT MARILIN NON-REACT MARILIN [facility] Comment: HIV-1 antigen and HIV-1/HIV-2 [...] purpose. For additional information please refer to http://education.Enerkem.Sportmaniacs/faq/EKD775 (This link is being provided for informational/ educational purposes only.) The performance of this assay has not been clinically validated in patients less than 2 years old. 04/04/2021 8:10 AM EDT us Araceli Tabares FIBER ANALYST LAB BLOOD ORDERABLES Final Res ult [facility] [address] [place] [address], from Last 3 Months or Most Recently Relevant to Health Maintenance Insurance FORMERLY [facility] HSN FULL (MEDICAID) Care Teams Produce Department Manager Relationship Specialty Start Date End Date Name, MD Rishi [address] [place] [phone] PCP - General Family Medicine 12/25/15
--- OUTSIDE RECORDS SUMMARY | 2025-06-15 14:56 | XMS_ITS | Encounter Summary ---
Author Organization [employer] Address [address] [facility] [address] [place] [address] Care Team Providers Care Outsole Cementer Name Role Phone Name, Rishi ADAM Primary Care Provider [phone] Reason for Visit * Reason Onset Date Comments nov recalls 06/13/2025 Encounter Details Date Type Department Care Team (Late st Contact Info) Description 06/13/2025 Telephone [facility] MED[facility] [address] [place], [place] [phone] Rafaela Key MA nov recalls Social History Tobacco Use Types Packs/Day Years [...] housing situation today? I have stefanialvaro gunn 03/01/[address] you [...] encounter Miscellaneous Notes * Telephone Encounter - Rafaela Key MA - 06/13/2025 2:10 PM EDT Telephone call to patient to schedule a recall appointment. No answer, Left voicemail to return call to clinic.. Recall letter sent. Visit type: Follow up Appointment notes: HTN Month due: August With: Name Please schedule appointment above if patient returns call documented in this encounter Plan of Treatment Not on file documented as of this encounter Visit Diagnoses Not on filedocumented in this encounter Additional Health Concerns Assessment Noted Time PHQ-9 Depression Total Score: 0 03/01/20 24 9:11 AM EDT documented as of this encounter Care Teams Outsole Cementer Relationship Specialty Start Date End Date Name, MD Rishi [address] [place] [address] PCP - General Family Medicine 12/25/15 documented as of this encounter
--- OUTSIDE RECORDS SUMMARY | 2025-06-15 14:56 | XMS_ITS | Encounter Summary ---
Author Organization [employer] Address [address] [place] [address] [address] [place] [address] Care Team Providers Care Metal Weather Stripper Name Role Phone Name, Rishi ADAM Primary Care Provider [phone] Reason for Visit * Reason Comments Med Refill Encounter Details Date Type Department Care Team ([facility] st Contact Info) Description 12/18/2022 Refill [facility] MEDICINE [address] [place], [place] [phone] Name, MD Rishi [address] [place], [place] [phone] Social History Tobacco Use Types Packs/Day Years [...] as of this encounter Plan of Treatment Not on file documented as of this encounter Visit Diagnoses Not on filedocumented in this encounter Care Teams Metal Weather Stripper Relationship Specialty Start Date End Date Name, MD Rishi [address] [place] [address] [phone] PCP - General Family Medicine 12/25/15 documented as of this encounter
--- OUTSIDE RECORDS SUMMARY | 2025-06-15 14:56 | XMS_ITS | Encounter Summary ---
Author Organization [employer] Address [address] [facility] [address] [place] [address] Care Team Providers Care Software Consultant Name Role Phone Name, Rishi ADAM Primary Care Provider [phone] Encounter Details Date Type Department Care Team (Late st Contact Info) Description 11/05/2023 Abstract [facility] MEDICINE [address] [place], [place] [phone] Name, MD Rishi [address] [place], [place] [phone] Social History Tobacco Use Types Packs/Day Years [...] on file documented as of this encounter Procedures Procedure [...] documented as of this encounter Care Teams Software Consultant Relationship Specialty Start Date End Date Name, MD Rishi [address] [place] [address] PCP - General Family Medicine 12/25/15 documented as of this encounter
--- OUTSIDE RECORDS SUMMARY | 2025-06-15 14:56 | XMS_ITS | Encounter Summary ---
Author Organization [employer] Address [address] [facility] [address]t [place] [address] Care Team Providers Care Adjunct Faculty Instructor Name Role Phone Name, Rishi ADAM Primary Care Provider [phone] Reason for Visit * Reason Onset Date Comments Referral 07/15/2023 Encounter Details Date Type Department Care Team (Late st Contact Info) Description 07/15/2023 Telephone [facility] MEDICINE [address] [place], [place] [phone] Name, MD Rishi [address] [place] [address] Referral Social History Tobacco Use Types Packs/Day [...] AM EDT Referral and notes resubmitted to [facility] Gastro * Telephone Encounter - Celsa Davis - 07/15/2023 9:11 AM EDT Tc from pt calling in regards to gastroenterology referral. States office never received referral. Location: [address] [place] [phone] Date: n/a Time: n/a Fax: Specialty: gastroenterology documented in this encounter Plan of Treatment Not on file documented as of this encounter Visit Diagnoses Not on filedocumented in this encounter Additional Health Concerns Assessment Noted Time PHQ-9 Depression Total Score: 3 01/29/20 23 9:39 AM EDT documented as of this encounter Care Teams Adjunct Faculty Instructor Relationship Specialty Start Date End Date Name, MD Rishi [address] [place] [phone] PCP - General Family Medicine 12/25/15 documented as of this encounter
--- OUTSIDE RECORDS SUMMARY | 2025-06-15 14:56 | XMS_ITS | Encounter Summary ---
Author Organization [employer] Address [address] [facility] [address] [place] [address] Care Team Providers Care Clinical Consultant Name Role Phone Name, Rishi ADAM Primary Care Provider [phone] Encounter Details Date Type Department Care Team (Late st Contact Info) Description 01/07/2023 Orders Only [facility] [address] [place], [place] [phone] Mady Guillen LPN Social History Tobacco Use [...] 8:10 PM EDT HEPATIC FUNCTION PANEL Routine 8:10 PM EDT COMPREHENSIVE METABOLIC PANEL Routine 01/09/2023 8:10 PM EDT documented in this encounter Results * Urinalysis w/reflex microscopic (07/01/2023 1:12 AM EDT) Color Urine Yellow [facility] Appearance Urine Clear [facility] PH 6.5 5.0 - 9.0 [facility] Glucose Urine UA Negative Negative mg/dL [facility] Urine Blood Negative Negative [facility] Specific [place] - Urine 1.020 1.005 - 1.025 [facility] Urine Protein Negative Neg-Trace mg/dL [facility] Urine Ketones Negative Negative mg/dL [facility] Nitrite Urine Negative Negative [facility] Leukocyte Esterase Urine Negative Negative [facility] 07/01/2023 1:12 AM EDT 07/01/2023 1:16 AM EDT Narrative [facility] - 07/01/2023 1:20 AM EDT Urine, Clean Catch [facility] External Provider LAB URI NE ORDERABLES Final Result Performing Organization Address City/[facility]/ZIP Co de Phone Number [facility] [address] [place] [address] [phone] * Lipase (06/30/2023 7:38 PM EDT) Pathologist [facility] Lipase 29 8 - 78 U/L [facility] 06/30/2023 7:38 PM EDT 06/30/2023 7:40 PM EDT Generic External Data Provider LAB BLOOD ORDERAB LES Final Result Performing Organization Address [facility]/ZIP Co de Phone Number [facility] [address] [place] [address] [phone] * Magnesium (06/30/2023 7:38 PM EDT) [facility] Magnesium 2.1 1.6 - 2.6 mg/dL [facility] 06/30/2023 7:38 PM EDT 06/30/2023 7:40 PM EDT Generic External Data Provider LAB BLOOD ORDERAB LES Final Result Performing Organization Address [facility] Co de Phone Number [facility] [address] [place] [address] [phone] * Basic Metabolic Panel (06/30/2023 7:38 PM EDT) Pathologist [facility] Sodium 141 135 - 145 mmol/L [facility] Potassium 3.9 3.3 - 5.1 mmol/L [facility] Chloride 105 96 - 108 mmol/L [facility] Carbon Dioxide 27 22 - 29 mmol/L [facility] Anion Gap 13 12 - 20 [facility] Urea Nitrogen (BUN) 14 9 - 16 mg/dL [facility] Creatinine, Serum 0.95 0.5 - 1.4 mg/dL [facility] Creatinine Clr Calc Pharmacy 86.0 [facility] Comment:eGFR (calculated fro m the MDRD study equation) and eCrCl(calculated from the Cockcroft-Gault equation) are based ondifferent parameters and may not yield comparable results.If eCrCl result is absurd, please check patient'sheight/weight. Estimated Glomerular Filt Rate >60 [facility] Comment:NOTE: For -Am erican individuals, multiply the result by 1.210.Chronic Kidney Disease: Estimated GFR < 60 mL/min/1.79w4Qqhvds Kidney Disease: Estimated GFR < 15 mL/min/1.73m2 Glucose 109 60 - 115 mg/dL [facility] Calcium 9.5 8.4 - 10.2 mg/dL [facility] 06/30/2023 7:38 PM EDT 06/30/2023 7:40 PM EDT Generic External Data Provider LAB BLOOD ORDERAB LES Final Result Performing Organization Address [facility] Co de Phone Number [facility] [address] [place] [address] [phone] * Hepatic Function Panel (06/30/2023 7:38 PM EDT) Bilirubin, Total 0.8 0.0 - 1.0 mg/dL [facility] Bilirubin, Direct 0.2 0.0 - 0.5 mg/dL [facility] Aspartate Amino Transferase 27 5 - 37 U/L [facility] Alanine Aminotransferase 35 0 - 40 U/L [facility] Total Protein 7.1 6.5 - 8.0 g/dL [facility] Albumin Level 4.3 3.5 - 5.0 g/dL [facility] Alkaline Phosphatase 46 39 - 117 U/L [facility] 06/30/2023 7:38 PM EDT 06/30/2023 7:40 PM EDT [facility] External Provider LAB BLO OD ORDERABLES Final Result Performing Organization Address [facility] Co de Phone Number [facility] [address] [place] [address] [phone] * (ABNORMAL) CBC auto differential (06/30/2023 7:38 PM EDT) White Blood Count 7.2 4.8 - 10.8 X10*3/uL [facility] Red Blood Count 4.85 4.60 - 5.80 X10*6/uL [facility] Hemoglobin 14.7 14.0 - 18.0 g/dl [facility] Hematocrit 41.2(L) 42.0 - 52.0 % [facility] Mean Corpuscular Volume 84.9 80.0 - 98.0 fL [facility] Mean Corpuscular Hemoglobin 30.3 27.0 - 33.0 pg [facility] Mean Corpuscular HGB Conc 35.7 31.0 - 36.0 g/dl [facility] Red Cell Distribution Width 11.7 11.0 - 16.0 % [facility] Platelet Count 152(L) 160 - 400 X10*3/uL [facility] Mean Platelet Volume 10.8 9.4 - 12.4 fL [facility] Neutrophils Percent Auto 55.2 45 - 73 % [facility] Imm Gran Pct Auto 0.3 0.0 - 0.4 % [facility] Lymphocytes Percent Auto 31.9 20 - 40 % [facility] Monocytes Percent Auto 9.2 2 - 11 % [facility] Eosinophils Percent Auto 2.8 0 - 4 % [facility] Basophils Percent Auto 0.6 0 - 2 % [facility] NRBC Pct Auto 0.0 0.0 - 0.2 /100WBC [facility] Neutrophils Absolute Auto 4.0 2.0 - 8.3 x10*3/uL [facility] Imm Gran Abs Auto 0.02 0.00 - 0.03 X10*3/uL [facility] Lymphocytes Absolute Auto 2.3 1.2 - 4.9 X10*3/uL [facility] Monocytes Absolute Auto 0.7 0.1 - 1.2 X10*3/uL [facility] Eosinophils Absolute Auto 0.2 0.0 - 0.4 X10*3/uL [facility] Basophils Absolute Auto 0.0 0.0 - 0.2 X10*3/uL [facility] NRBC Abs Auto 0.000 0.0 - 0.012 X10*3/uL [facility] 06/30/2023 7:38 PM EDT 06/30/2023 7:40 PM EDT [facility] External Provider LAB BLO OD ORDERABLES Final Result Performing Organization Address [facility]/ZIP Co de Phone Number [facility] [address] [place] [address] [phone] * HIGH SENSITIVITY TROPONIN I (01/09/2023 10:12 PM EDT) TROPONIN I HIGH SENSITIVITY <3.5 <3.5 - 35.0 ng/L [facility] Comment:The Landry high sens itivity Troponin-I results should beused in conjunction with other diagnostic information suchas ECG, clinical observations and information, and patientsymptoms to aid in the diagnosis of MS. 01/09/2023 10:1 2 PM EDT 01/09/2023 10:15 PM EDT [facility] External Provider LAB BLO OD ORDERABLES Final Result Performing Organization Address [facility] Co de Phone Number [facility] [address] [place] [phone] * Urinalysis, Complete, with Reflex to Culture (01/09/2023 9:41 PM EDT) Color Urine Yellow [facility] Appearance Urine Clear [facility] PH 6.0 5.0 - 9.0 [facility] Glucose Urine UA Negative Negative mg/dL [facility] Urine Blood Negative Negative [facility] Specific [place] - Urine 1.020 1.005 - 1.025 [facility] Urine Protein Negative Neg-Trace mg/dL [facility] Urine Ketones Negative Negative mg/dL [facility] Nitrite Urine Negative Negative [facility] Leukocyte Esterase Urine Negative Negative [facility] RBC Urine 0-2 0 - 2 /HPF [facility] Urine WBC 0-5 0 - 5 /HPF [facility] Urine Squamous Epithelial Cell 0-2 0 - 2 /HPF [facility] Urine Bacteria None Seen None Seen [facility] Hyaline Casts, Urine 0-2 0 - 2 /LPF [facility] 01/09/2023 9:41 PM EDT 01/09/2023 9:47 PM EDT Narrative [facility] - 01/09/2023 9:59 PM EDT [id number], Clean Catch [facility] External Provider LAB URI NE ORDERABLES Final Result Performing Organization Address City/[facility]/ZIP Co de Phone Number [facility] [address] [place] [address] [phone] * Lipase (01/09/2023 8:10 PM EDT) Lipase 40 8 - 78 U/L [facility] 01/09/2023 8:10 PM EDT 01/09/2023 8:12 PM EDT [facility] External Provider LAB BLO OD ORDERABLES Final Result Performing Organization Address [facility] Co de Phone Number [facility] [address] [place] [address] [phone] * Hepatic Function Panel (01/09/2023 8:10 PM EDT) Bilirubin, Direct 0.2 0.0 - 0.5 mg/dL [facility] 01/09/2023 8:10 PM EDT 01/09/2023 8:12 PM EDT us [facility] External Provider LAB BLO OD ORDERABLES Final Result [facility] [address] [place] [phone] * (ABNORMAL) Comprehensive Metabolic Panel (01/09/2023 8:10 PM EDT) Sodium 142 135 - 145 mmol/L [facility] Potassium 4.2 3.3 - 5.1 mmol/L [facility] Chloride 105 96 - 108 mmol/L [facility] Carbon Dioxide 29 22 - 29 mmol/L [facility] Anion Gap 12 12 - 20 [facility] Urea Nitrogen (BUN) 17(H) 9 - 16 mg/dL [facility] Creatinine, Serum 1.10 0.5 - 1.4 mg/dL [facility] Creatinine Clr Calc Pharmacy 73.3 [facility] Comment:eGFR (calculated fro m the MDRD study equation) and eCrCl(calculated from the Cockcroft-Gault equation) are based ondifferent parameters and may not yield comparable results.If eCrCl result is absurd, please check patient'sheight/weight. Estimated Glomerular Filt Rate >60 [facility] Comment:NOTE: For -Am erican individuals, multiply the result by 1.210.Chronic Kidney Disease: Estimated GFR < 60 mL/min/1.25c9Echotl Kidney Disease: Estimated GFR < 15 mL/min/1.73m2 Glucose 92 60 - 115 mg/dL [facility] Calcium 9.7 8.4 - 10.2 mg/dL [facility] Bilirubin, Total 1.0 0.0 - 1.0 mg/dL [facility] Aspartate Amino Transferase 36 5 - 37 U/L [facility] Alanine Aminotransferase 53(H) 0 - 40 U/L [facility] Total Protein 7.3 6.5 - 8.0 g/dL [facility] Albumin Level 4.6 3.5 - 5.0 g/dL [facility] Alkaline Phosphatase 55 39 - 117 U/L [facility] 01/09/2023 8:10 PM EDT 01/09/2023 8:12 PM EDT [facility] External Provider LAB BLO OD ORDERABLES Final Result Performing Organization Address City/[facility]/ZIP Co de Phone Number [facility] [address] [place] [address] [phone] * (ABNORMAL) CBC (01/09/2023 8:10 PM EDT) White Blood Count 12.0(H) 4.8 - 10.8 X10*3/uL [facility] Red Blood Count 5.33 4.60 - 5.80 X10*6/uL [facility] Hemoglobin 15.9 14.0 - 18.0 g/dl [facility] Hematocrit 44.8 42.0 - 52.0 % [facility] Mean Corpuscular Volume 84.1 80.0 - 98.0 fL [facility] Mean Corpuscular Hemoglobin 29.8 27.0 - 33.0 pg [facility] Mean Corpuscular HGB Conc 35.5 31.0 - 36.0 g/dl [facility] Red Cell Distribution Width 11.8 11.0 - 16.0 % [facility] Platelet Count 187 160 - 400 X10*3/uL [facility] Mean Platelet Volume 10.8 9.4 - 12.4 fL [facility] NRBC Pct Auto 0.0 0.0 - 0.2 /100WBC [facility] NRBC Abs Auto 0.000 0.0 - 0.012 X10*3/uL [facility] 01/09/2023 8:10 PM EDT 01/09/2023 8:12 PM EDT [facility] External Provider LAB BLO OD ORDERABLES Final Result Performing Organization Address City/[facility]/ZIP Co de Phone Number [facility] [address] [place] [address] [phone] documented in this encounter Visit Diagnoses Not on filedocumented in this encounter Care Teams Clinical Consultant Relationship Specialty Start Date End Date Name, MD Rishi [address] [place] [address] PCP - General Family Medicine 12/25/15 documented as of this encounter
== END 2025-06-15 14:20 | disposition home or self-care (01) ==
LOC: HO.HUSH 13:40
PROVIDERS: PCP Internal Medicine Geriatric Medicine; Visit Provider Nurse Practitioner Family
DX: R35.1 Nocturia (principal); R39.9 Unspecified symptoms and signs involving the genitourinary system; Z13.9 Encounter for screening, unspecified
CPT/HCPCS: 99213

== ENCOUNTER → 2025-06-15 13:39 | Outpatient (BNVA) | payer OTHER, SELFPAY | PROVIDERS: PCP Internal Medicine Geriatric Medicine; Visit Provider Nurse Practitioner Family | DX: R35.1 Nocturia (principal); R39.9 Unspecified symptoms and signs involving the genitourinary system | CPT/HCPCS: 51798; 81003 ==

== ENCOUNTER 2025-07-25 13:40 | Emergency (ER) | payer OTHER, SELFPAY ==
--- OUTSIDE RECORDS SUMMARY | 2025-07-24 11:00 | XMS_ITS | Encounter Summary ---
Author Organization [employer] Address [address] [place] [address] Care Team Providers Care Director Of Physical Therapy Name Role Phone Name, Rishi ADAM Primary Care Provider [phone] Reason for Visit * Reason Comments Scaling And Root Planing Encounter Details Date Type Department Care Team ([facility] st Contact Info) Description 07/24/2025 11:00 AM EDT Office Visit [facility] ADULT D[facility]AL [address] [place] [address] Darryl Kuo Dental calculus (Primary Dx) Social History Tobacco Use Types Packs/Day Years [...] AM EDT documented as of this encounter Last Filed Vital Signs Vital Sign Reading Time Taken Comments Blood Pressure 130/74 07/24/2025 11:16 AM EDT Pulse 75 07/24/2025 11:16 AM EDT Temperature - - Respiratory Rate - - Oxygen Saturation - - Inhaled Oxygen Concentration - - Weight - - Height - - Body Mass Index - - documented in this encounter Progress Notes * Darryl Kuo - 07/24/2025 11:00 AM EDT Patient ID: Daniel Odonnell is a 60 y.o. male. Time Out: Timeout Date: 07/24/25, Timeout Time: 111 Location: [facility] Tooth: UL and LL Procedure: Scaling and Root Planing Verified the above with patient, retail administrative assistant, and provider. Confirmed via patient's chart, intraorally and by radiographs. Crematorium Operator: not applicable Medical Hx: Vitals: Blood pressure 130/74, pulse 75. Medications, Med Hx reviewed with patient and updated in chart. Treatment Provided Dental procedures in this visit D4342 - PERIODONTAL SCALING AND ROOT PLANING - 1 TO 3 TEETH PER QUADRANT UL (Completed) Service provider: Darryl Kuo Billing provider: Tadeo Douglas DMD D4342 - PERIODONTAL SCALING AND ROOT PLANING - 1 TO 3 TEETH PER QUADRANT LL (Completed) Service provider: Darryl Kuo Billing provider: Tadeo Douglas DMD [id number] - ORAL HYGIENE INSTRUCTIONS (Completed) Service provider: Darryl Kuo Billing provider: Tadeo Douglas DMD [id number] - CASE PRESENTATION, DETAILED AND EXTENSIVE TREATMENT PLANNING (Completed) Service provider: Darryl Kuo Billing provider: Tadeo Misael, DMD Topical: 20% Benzocaine Anesthesia: 4% Septocaine (Articaine) w/ 1:200,000 epinephrine Number of Cartridges: 1 Injection Type: Middle superior alveolar nerve block and Posterior superior alveolar nerve block Confirmed profound anesthesia. Oral Cancer Screening: No lesions Head/Neck Exam: No Lesions Instruments Used: Ultrasonic Scalers Fluoride: N/A Calculus: Heavy, Localized, and Subgingival Plaque: Light and Generalized Stain: Moderate and Generalized Bleeding: Moderate and Localized Gingiva: Bleeding on probing OH: Fair Oral hygiene instructions provided to patient including brushing technique and flossing. Recommendations: [place] two times daily, modified sewell technique, Floss daily Recall Frequency: 6 mo NV: darwin Hygienist: Darryl Kuo RDH documented in this encounter Plan of Treatment Upcoming Encounters Date Type Department Care Team (Late st Contact Info) Description 08/01/2025 1:00 PM EDT Office Visit [facility] ADULT D[facility]AL [address] [place] [address] Gail Henderson DDS [address] [place] [address] Scheduled Orders Name Type Priority Associated Diagnoses Orde r Schedule PROPHYLAXIS - ADULT Dental Routine 1 Occ urrences starting 07/24/2025 documented as of this encounter Procedures Procedure Name Priority Date/Time Associated Diagnosis Comments LL PERIODONTAL SCALING AND ROOT PLANING - 1 TO 3 TEETH PER QUADRANT Routine 07/24/2025 11:00 AM EDT UL PERIODONTAL SCALING AND ROOT PLANING - 1 TO 3 TEETH PER QUADRANT Routine 07/24/2025 11:00 AM EDT ORAL HYGIENE INSTRUCTIONS Routine 2024 11:00 AM EDT CASE PRESENTATION, DETAILED AND EXTENSIVE TREATMENT PLANNING Routine 07/24/2025 11:00 AM EDT documented in this encounter Visit Diagnoses Diagnosis Dental calculus- Primary Accretions on teeth documented in this encounter Additional Health Concerns Assessment Noted Time PHQ-9 Depression Total Score: 0 03/01/20 24 9:11 AM EDT documented as of this encounter Care Teams Director Of Physical Therapy Relationship Specialty Start Date End Date Name, MD Rishi [address] [place] [address] PCP - General Family Medicine 12/25/15 documented as of this encounter
--- NOTE | ~2025-07-25 | CT_ITS ---
CLINICAL HISTORY: lower abd pain CT abdomen and pelvis with contrast Comparison: CT/REG/ME/SR - CT ABDOMEN PELVIS W IV CON - 10/20/23 22:06 EST Findings: The lung bases are clear. Liver is of low-attenuation, hepatic steatosis. Gallbladder, pancreas, spleen and adrenal glands are within normal limits. Kidneys are non hydronephrotic. Small bilateral nonobstructing renal calculi are present. No bowel obstruction, pneumoperitoneum, or pneumatosis. Scattered sigmoid diverticula are present without diverticulitis. Visualized appendix is normal. The bones are intact. IMPRESSION: No acute findings. This document has been electronically signed by: Moris Sams MD, PHD on 07/25/2025 23:32:33
[2025-07-25 14:11] VITALS: BP 166/92; PULSE 87; RESP 18; TEMP 36.6; O2SAT 98; BMI 29.5
--- NOTE | 2025-07-25 14:13 | ED.GENADULT ---
HPI - General Adult General Chief complaint: Abdominal Pain Stated complaint: Lower abd pain Time Seen by Provider: 07/25/25 21:23 Source: patient, RN notes reviewed and old records reviewed Mode of arrival: ambulatory Limitations: no limitations and language barrier History of Present Illness ED Provider: Dr. Massiel Voss HPI narrative: 60-year-old male with history of abdominal pain, chronic back pain and BPH presenting with urinary frequency, bladder spasms and pain after urination ongoing for the last 2 months or so. Admits that his issue with frequency has been going on for at least 2 years. He has been seen by urologist in the past and prescribed several medications to help this however, he felt that those medications did not help and they were ultimately stopped. States that he continues to have significant discomfort. Especially at the end of his urinary stream, he will have severe suprapubic and right lower quadrant abdominal pain that is sharp in nature. No changes in his bowel habits. No hematochezia or hematuria. No reported fever. No STD exposures. Denies testicular pain or swelling. Denies changes in his chronic low back pain. No loss of bowel or bladder control. No numbness/tingling/weakness of the extremities. Related Data Home Medications ?Medication ?Instructions ?Recorded ?Confirmed lisinopril 10 mg tablet 10 mg PO DAILY 07/22/22 06/15/25 Previous Rx's ?Medication ?Instructions ?Recorded acetaminophen 500 mg tablet 1,000 mg (2 x 500 mg) PO Q8H PRN 03/21/25 (Tylenol Extra Strength) pain #30 tabs lidocaine 5 % topical patch 1 patch topical DAILY #30 ea 03/21/25 amitriptyline 25 mg tablet 25 mg PO BEDTIME #30 tabs 07/25/25 bethanechol chloride 25 mg tablet 25 mg PO BID #30 tabs 07/25/25 Allergies Allergy/AdvReac Type Severity Reaction Status Date / Time sulfamethoxazole (From Allergy Unknown ITCHINESS Verified 07/25/25 14:15 Bactrim) trimethoprim (From Bactrim) Allergy Unknown ITCHINESS Verified 07/25/25 14:15 Review of Systems Review of Systems: as per HPI, full review of systems performed and negative but for the above mentioned pertinent positives and negatives. [facility] Past Medical History Medical History Bilateral carpal tunnel syndrome BPH associated with nocturia Hepatitis C Vitamin D deficiency COVID Allergic rhinitis, seasonal Liver cirrhosis Hypertension Lumbar spondylosis Other intervertebral disc degeneration, lumbar region Fatigue Surgical History Hx of colonoscopy Social History Social History Household Members: Spouse Housing: House Do you presently have visiting nurse or other home services: No Alcohol intake: former Patient Tobacco Use Status: Former Tobacco user Substance Use Type: Crack/Cocaine and Heroin Advance Directives: No Advance Directives Information Provided: No Do you have a plan to hurt others: No Plan service: No Current occupational status: employed Physical Exam ED Exam Exam: GENERAL: Well-Appearing, conversant, no acute distress. SKIN: Normal skin color for ethnicity, warm, dry, no rashes noted. HEENT: Normocephalic, atraumatic, no stridor, posterior oropharynx nonerythematous, dentition intact, EOMI. NECK: Soft, supple, full ROM, midline structures nontender, no step-offs, no deformities, no lymphadenopathy. CHEST: Heart regular rate and rhythm, no murmurs, symmetric chest rise and fall. PULMONARY: Clear to auscultation bilaterally, no labored breathing, no wheezes/rhales/rhonchi. ABDOMINAL: Soft, nondistended, suprapubic tenderness to palpation without rebound or guarding, positive bowel sounds in all quadrants. : Deferred. MUSCULOSKELETAL: Normal tone, full range of motion, no deformities, no peripheral edema. NEURO: Alert and oriented x3, CN II through XII intact, equal strength and sensation bilateral upper and lower extremities, no focal neurologic deficits. PSYCHIATRIC: Normal affect, fluid speech, good eye contact and appropriate demeanor. Vital Signs: Vital Signs - 24 hr 07/25/25 14:11 Temperature 98 F Pulse Rate 87 Respiratory Rate 18 Blood Pressure 166/92 H Pulse Oximetry 98 BMI result Body Mass Index 29.5 Course Course Course Narrative: This is a rapid medical exam performed by Kacy De Guzman NP: Additional HPI, ROS, PE not included below will be deferred to primary provider. Patient is a 60y/o male presenting with complaint of lower abdominal pain, urinary frequency and RLQ pain with urination. Reports foul smelling urine. Plan: labs, UA, imaging deferred to primary provider Medical Decision Making Medical Decision Making [facility] Narrative: This patient presents today with a chief complaint of abdominal pain. Differential diagnosis for this patient is broad. It includes appendicitis, cystitis, BPH, interstitial cystitis, prostatitis, bowel obstruction, pyelonephritis, vascular pathology, among many others. A broad-based workup based on history and physical examination was obtained. Blood work is reassuring. Patient is uncomfortable on exam and is anxious about potential colorectal cancer which 1 of his uncles had been diagnosed with before he could be treated. Patient states that he is anxious about this pain and his urinary frequency keeps him up all night. Sounds like he has excellent follow up with Urology and primary care. That being said, he has not had a abdominal we will plan for a CT of the abdomen and pelvis to evaluate this further. Blood work and urine are negative for infection or other acute process. Normal kidney function. CT does not show evidence of acute process. There is no large mass or irregularity of the bladder. Symptoms are consistent with an interstitial cystitis versus bladder spasm. I discussed this with him at length. I started him on a low-dose amitriptyline as well as bethanechol for bladder spasm. Encouraged him to follow up with his urologist for which he has an appointment at the end of this month. Discussed return precautions at length. Discharged home in stable condition Differential Diagnosis Differential Diagnoses: The differential diagnosis associated with the presentation includes (Asthma) Admission/Observation Consideration of admission/observation: Escalation of care including admission/observation considered Lab Data [facility] Lab Attestation statement: I reviewed the patient's lab results. 07/25/25 14:41 07/25/25 14:41 Labs: Lab Results 07/25/25 07/25/25 Range/Units 14:38 14:41 WBC 6.5 (4.8-10.8) X10*3/uL RBC 4.95 (4.60-5.80) X10*6/uL Hgb 14.8 (14.0-18.0) g/dl Hct 41.5 L (42.0-52.0) % MCV 83.8 (80.0-98.0) fL MCH 29.9 (27.0-33.0) pg MCHC 35.7 (31.0-36.0) g/dl RDW 11.4 (11.0-16.0) % Plt Count 157 L (160-400) X10*3/uL MPV 11.0 (9.4-12.4) fL Immature Gran % (Auto) 0.2 (0.0-0.4) % Neut % (Auto) 53.7 (45-73) % Lymph % (Auto) 34.5 (20-40) % [place] % (Auto) 9.1 (2-11) % Eos % (Auto) 2.2 (0-4) % Baso % (Auto) 0.3 (0-2) % Lymph # (Auto) 2.2 (1.2-4.9) X10*3/uL [place] # (Auto) 0.6 (0.1-1.2) X10*3/uL Eos # (Auto) 0.1 (0.0-0.4) X10*3/uL Baso # (Auto) 0.0 (0.0-0.2) X10*3/uL Abs Immat Gran (auto) 0.01 (0.00-0.03) X10*3/uL Absolute Neuts (auto) 3.5 (2.0-8.3) x10*3/uL Absolute Nucleated RBC 0.000 (0.0-0.012) X10*3/uL Nucleated RBC % (auto) 0.0 (0.0-0.2) /100WBC Sodium 144 (135-145) mmol/L Potassium 3.9 (3.3-5.1) mmol/L Chloride 108 (96-108) mmol/L Carbon Dioxide 30 H (22-29) mmol/L Anion Gap 10 L (12-20) BUN 13 (9-16) mg/dL Creatinine 1.05 (0.5-1.4) mg/dL Estim Creat Clear Calc 75.6 Estimated GFR > 60 Random Glucose 104 (60-115) mg/dL Calcium 9.5 (8.4-10.2) mg/dL Total Bilirubin 0.7 (0.0-1.0) mg/dL AST 37 (5-37) U/L ALT 53 H (0-40) U/L Alkaline Phosphatase 62 (39-117) U/L Total Protein 7.0 (6.5-8.0) g/dL Albumin 4.6 (3.5-5.0) g/dL Urine Color Yellow Urine Appearance Clear Urine pH 7.0 (5.0-9.0) Ur Specific [place] 1.020 (1.005-1.025) Urine Protein Negative (Neg-Trace) mg/dL Urine Glucose (UA) Negative (Negative) mg/dL Urine Ketones Negative (Negative) mg/dL Urine Blood Negative (Negative) Urine Nitrite Negative (Negative) Ur Leukocyte Esterase Negative (Negative) Radiology Impression Discussion of test interpretation with radiology: I have reviewed the radiologist's reading. Radiologist Impression: CT abdomen and pelvis with contrast Comparison: CT/REG/NH/SR - CT ABDOMEN PELVIS W IV CON - 10/20/23 22:06 EST Findings: The lung bases are clear. Liver is of low-attenuation, hepatic steatosis. Gallbladder, pancreas, spleen and adrenal glands are within normal limits. Kidneys are non hydronephrotic. Small bilateral nonobstructing renal calculi are present. No bowel obstruction, pneumoperitoneum, or pneumatosis. Scattered sigmoid diverticula are present without diverticulitis. Visualized appendix is normal. The bones are intact. IMPRESSION: No acute findings. This document has been electronically signed by: Moris Sams MD, PHD on 07/25/2025 23:32:33 External Record Review External record reviewed: Inpatient record, Office record and Outpatient record Prescription Management I considered prescription management with: Pain Medication and Other (Anticholinergic) Chronic Conditions Patient?s care impacted by: Hypertension and Other (Hepatic steatosis, chronic back pain) Discharge Plan Discharge Clinical Impression: Painful bladder spasm, Increased urinary frequency, Suprapubic abdominal pain Patient Disposition: Home, Self-Care Instructions: Pelvic Pain in Men (ED) Additional Instructions: Keep your appointment with the urologist this month. Try taking bethanechol for bladder spasms as needed. Alternatively, you may take amitriptyline at night. Do not take this medication if you are driving as it can make you drowsy. Return to the emergency department immediately if you develop any new or worsening symptoms including: Worsening pain despite medication, fevers greater than 100?, bloody urine, bloody bowel movements, any new symptom that concerns you. Call 911 with any medical emergency. Prescriptions: New bethanechol chloride 25 mg tablet 25 mg PO BID Qty: 30 0RF amitriptyline 25 mg tablet 25 mg PO BEDTIME Qty: 30 0RF No Action lidocaine 5 % adhesive patch,medicated 1 patch topical DAILY Qty: 30 0RF Rx Instructions: leave on most painful area for up to 12 hrs acetaminophen [Tylenol Extra Strength] 500 mg tablet 1,000 mg PO Q8H PRN (Reason: pain) Qty: 30 0RF lisinopril 10 mg tablet 10 mg PO DAILY Print Language: R[place]
[2025-07-25 14:51] LABS: MANUAL DIFF FLAG NO
[2025-07-25 14:53] LABS: Hematocrit 41.5 % (42.0-52.0); Hemoglobin 14.8 g/dl (14.0-18.0); Imm Gran Abs Auto 0.01 X10*3/uL (0.00-0.03); Imm Gran Pct Auto 0.2 % (0.0-0.4); Lymphocytes Absolute Auto 2.2 X10*3/uL (1.2-4.9); Mean Corpuscular HGB Conc 35.7 g/dl (31.0-36.0); Mean Corpuscular Hemoglobin 29.9 pg (27.0-33.0); Mean Corpuscular Volume 83.8 fL (80.0-98.0); NRBC Abs Auto 0.000 X10*3/uL (0.0-0.012); NRBC Pct Auto 0.0 /100WBC (0.0-0.2); Platelet Count 157 X10*3/uL (160-400); Red Blood Count 4.95 X10*6/uL (4.60-5.80); White Blood Count 6.5 X10*3/uL (4.8-10.8)
[2025-07-25 14:53] LABS: Appearance Urine Clear; Glucose Urine UA Negative (Negative); PH 7.0 (5.0-9.0); Specific Gravity - Urine 1.020 (1.005-1.025)
[2025-07-25 15:11] LABS: Alanine Aminotransferase 53 U/L (0-40); Albumin Level 4.6 g/dL (3.5-5.0); Alkaline Phosphatase 62 U/L (39-117); Anion Gap 10 (12-20); Aspartate Amino Transferase 37 U/L (5-37); Blood Urea Nitrogen 13 mg/dL (9-16); Calcium 9.5 mg/dL (8.4-10.2); Carbon Dioxide 30 mmol/L (22-29); Chloride 108 mmol/L (96-108); Creatinine Clr Calc Pharmacy 75.6; Estimated Glomerular Filt Rate > 60; Potassium 3.9 mmol/L (3.3-5.1); Sodium 144 mmol/L (135-145); Total Protein 7.0 g/dL (6.5-8.0)
--- OUTSIDE RECORDS SUMMARY | 2025-07-25 21:15 | XMS_ITS | Encounter Summary ---
Author Organization [employer] Address [address] [facility] [address] [place] [address] Care Team Providers Care Quality Engineer Medical Device Name Role Phone Name, Rishi ADAM Primary Care Provider [phone] Encounter Details Date Type Department Care Team ([facility] Contact Info) Description 01/07/2023 Orders Only [facility] [address], [place] [phone] Mady Guillen LPN Social History Tobacco Use [...] Department Care Team (Late Contact Info) Description 08/01/2025 1:00 PM EDT Office Visit [facility] [address], [place] [phone] Gail Henderson DDS [address], [place] [phone] documented as of this encounter Procedures Procedure [...] (07/01/2023 1:12 AM EDT) Color Urine Yellow [facility] Appearance Urine Clear [facility] PH 6.5 5.0 - 9.0 [facility] Glucose Urine UA Negative Negative mg/dL [facility] Urine Blood Negative Negative [facility] Specific [place] - Urine 1.020 1.005 - 1.025 [facility] Urine Protein Negative Neg-Trace mg/dL [facility] Urine Ketones Negative Negative mg/dL [facility] Nitrite Urine Negative Negative [facility] Leukocyte Esterase Urine Negative Negative [facility] 07/01/2023 1:12 AM EDT 07/01/2023 1:16 AM EDT Narrative [facility] - 07/01/2023 1:20 AM EDT Urine, Clean Catch [facility] External Provider LAB URI NE ORDERABLES Final Result Performing Organization Address [facility] Co de Phone Number [facility] [address] [place] [phone] * Lipase (06/30/2023 7:38 PM EDT) Pathologist [facility] Lipase 29 8 - 78 U/L [facility] 06/30/2023 7:38 PM EDT 06/30/2023 7:40 PM EDT Generic External Data Provider LAB BLOOD ORDERAB LES Final Result Performing Organization Address [facility] de Phone Number [facility] [address] [place] [phone] * Magnesium (06/30/2023 7:38 PM EDT) Pathologist [facility] Magnesium 2.1 1.6 - 2.6 mg/dL [facility] 06/30/2023 7:38 PM EDT 06/30/2023 7:40 PM EDT Generic External Data Provider LAB BLOOD ORDERAB LES Final Result Performing Organization Address [facility] de Phone Number [facility] [address] [place] [phone] * Basic Metabolic Panel (06/30/2023 7:38 PM EDT) Pathologist [facility] Sodium 141 135 - 145 mmol/L [facility] Potassium 3.9 3.3 - 5.1 mmol/L [facility] Chloride 105 96 - 108 mmol/L [facility] Carbon Dioxide 27 22 - 29 mmol/L [facility] Anion Gap 13 12 - 20 [facility] Urea Nitrogen (BUN) 14 9 - 16 mg/dL [facility] Creatinine, Serum 0.95 0.5 - 1.4 mg/dL [facility] Creatinine Clr Calc Pharmacy 86.0 [facility] Comment:eGFR (calculated fro m the MDRD study equation) and eCrCl(calculated from the Cockcroft-Gault equation) are based ondifferent parameters and may not yield comparable results.If eCrCl result is absurd, please check patient'sheight/weight. Estimated Glomerular Filt Rate >60 [facility] Comment:NOTE: For -Am erican individuals, multiply the result by 1.210.Chronic Kidney Disease: Estimated GFR < 60 mL/min/1.62l4Taanov Kidney Disease: Estimated GFR < 15 mL/min/1.73m2 Glucose 109 60 - 115 mg/dL [facility] Calcium 9.5 8.4 - 10.2 mg/dL [facility] 06/30/2023 7:38 PM EDT 06/30/2023 7:40 PM EDT us Generic External Data Provider LAB BLOOD ORDERAB LES Final Result [facility] [address] [place] [phone] * Hepatic Function Panel (06/30/2023 7:38 PM EDT) Bilirubin, Total 0.8 0.0 - 1.0 mg/dL [facility] Bilirubin, Direct 0.2 0.0 - 0.5 mg/dL [facility] Aspartate Amino Transferase 27 5 - 37 U/L [facility] Alanine Aminotransferase 35 0 - 40 U/L [facility] Total Protein 7.1 6.5 - 8.0 g/dL [facility] Albumin Level 4.3 3.5 - 5.0 g/dL [facility] Alkaline Phosphatase 46 39 - 117 U/L [facility] 06/30/2023 7:38 PM EDT 06/30/2023 7:40 PM EDT us [facility] External Provider LAB BLO OD ORDERABLES Final Result [facility] [address] [place] [phone] * (ABNORMAL) CBC auto differential (06/30/2023 7:38 PM EDT) White Blood Count 7.2 4.8 - 10.8 X10*3/uL [facility] Red Blood Count 4.85 4.60 - 5.80 X10*6/uL [facility] Hemoglobin 14.7 14.0 - 18.0 g/dl [facility] Hematocrit 41.2(L) 42.0 - 52.0 % [facility] Mean Corpuscular Volume 84.9 80.0 - 98.0 fL [facility] Mean Corpuscular Hemoglobin 30.3 27.0 - 33.0 pg [facility] Mean Corpuscular HGB Conc 35.7 31.0 - 36.0 g/dl [facility] Red Cell Distribution Width 11.7 11.0 - 16.0 % [facility] Platelet Count 152(L) 160 - 400 X10*3/uL [facility] Mean Platelet Volume 10.8 9.4 - 12.4 fL [facility] Neutrophils Percent Auto 55.2 45 - 73 % [facility] Imm Gran Pct Auto 0.3 0.0 - 0.4 % [facility] Lymphocytes Percent Auto 31.9 20 - 40 % [facility] Monocytes Percent Auto 9.2 2 - 11 % [facility] Eosinophils Percent Auto 2.8 0 - 4 % [facility] Basophils Percent Auto 0.6 0 - 2 % [facility] NRBC Pct Auto 0.0 0.0 - 0.2 /100WBC [facility] Neutrophils Absolute Auto 4.0 2.0 - 8.3 x10*3/uL [facility] Imm Gran Abs Auto 0.02 0.00 - 0.03 X10*3/uL [facility] Lymphocytes Absolute Auto 2.3 1.2 - 4.9 X10*3/uL [facility] Monocytes Absolute Auto 0.7 0.1 - 1.2 X10*3/uL [facility] Eosinophils Absolute Auto 0.2 0.0 - 0.4 X10*3/uL [facility] Basophils Absolute Auto 0.0 0.0 - 0.2 X10*3/uL [facility] NRBC Abs Auto 0.000 0.0 - 0.012 X10*3/uL [facility] 06/30/2023 7:38 PM EDT 06/30/2023 7:40 PM EDT [facility] External Provider LAB BLO OD ORDERABLES Final Result Performing Organization Address [facility] de Phone Number [facility] [address] [place] [phone] * HIGH SENSITIVITY TROPONIN I (01/09/2023 10:12 PM EDT) [facility] TROPONIN I HIGH SENSITIVITY <3.5 <3.5 - 35.0 ng/L [facility] Comment:The [place]ry high sens itivity Troponin-I results should beused in conjunction with other diagnostic information suchas ECG, clinical observations and information, and patientsymptoms to aid in the diagnosis of NE. 01/09/2023 10:1 2 PM EDT 01/09/2023 10:15 PM EDT [facility] External Provider LAB BLO OD ORDERABLES Final Result Performing Organization Address [facility] Co de Phone Number [facility] [address] [place] [phone] * Urinalysis, Complete, with Reflex to Culture (01/09/2023 9:41 PM EDT) Color Urine Yellow [facility] Appearance Urine Clear [facility] PH 6.0 5.0 - 9.0 [facility] Glucose Urine UA Negative Negative mg/dL [facility] Urine Blood Negative Negative [facility] Specific [place] - Urine 1.020 1.005 - 1.025 [facility] Urine Protein Negative Neg-Trace mg/dL [facility] Urine Ketones Negative Negative mg/dL [facility] Nitrite Urine Negative Negative [facility] Leukocyte Esterase Urine Negative Negative [facility] RBC Urine 0-2 0 - 2 /HPF [facility] Urine WBC 0-5 0 - 5 /HPF [facility] Urine Squamous Epithelial Cell 0-2 0 - 2 /HPF [facility] Urine Bacteria None Seen None Seen [facility] Hyaline Casts, Urine 0-2 0 - 2 /LPF [facility] 01/09/2023 9:41 PM EDT 01/09/2023 9:47 PM EDT Narrative [facility] - 01/09/2023 9:59 PM EDT [id number], Clean Catch [facility] External Provider LAB URI NE ORDERABLES Final Result Performing Organization Address [facility]/ZIP Co de Phone Number [facility] [address] [place] [phone] * Lipase (01/09/2023 8:10 PM EDT) Lipase 40 8 - 78 U/L [facility] 01/09/2023 8:10 PM EDT 01/09/2023 8:12 PM EDT [facility] External Provider LAB BLO OD ORDERABLES Final Result Performing Organization Address [facility] Co de Phone Number [facility] [address] [place] [phone] * Hepatic Function Panel (01/09/2023 8:10 PM EDT) Bilirubin, Direct 0.2 0.0 - 0.5 mg/dL [facility] 01/09/2023 8:10 PM EDT 01/09/2023 8:12 PM EDT us [facility] External Provider LAB BLO OD ORDERABLES Final Result [facility] [address] [place] [phone] * (ABNORMAL) Comprehensive Metabolic Panel (01/09/2023 8:10 PM EDT) Sodium 142 135 - 145 mmol/L [facility] Potassium 4.2 3.3 - 5.1 mmol/L [facility] Chloride 105 96 - 108 mmol/L [facility] Carbon Dioxide 29 22 - 29 mmol/L [facility] Anion Gap 12 12 - 20 [facility] Urea Nitrogen (BUN) 17(H) 9 - 16 mg/dL [facility] Creatinine, Serum 1.10 0.5 - 1.4 mg/dL [facility] Creatinine Clr Calc Pharmacy 73.3 [facility] Comment:eGFR (calculated fro m the MDRD study equation) and eCrCl(calculated from the Cockcroft-Gault equation) are based ondifferent parameters and may not yield comparable results.If eCrCl result is absurd, please check patient'sheight/weight. Estimated Glomerular Filt Rate >60 [facility] Comment:NOTE: For -Am erican individuals, multiply the result by 1.210.Chronic Kidney Disease: Estimated GFR < 60 mL/min/1.14g9Pracgd Kidney Disease: Estimated GFR < 15 mL/min/1.73m2 Glucose 92 60 - 115 mg/dL [facility] Calcium 9.7 8.4 - 10.2 mg/dL [facility] Bilirubin, Total 1.0 0.0 - 1.0 mg/dL [facility] Aspartate Amino Transferase 36 5 - 37 U/L [facility] Alanine Aminotransferase 53(H) 0 - 40 U/L [facility] Total Protein 7.3 6.5 - 8.0 g/dL [facility] Albumin Level 4.6 3.5 - 5.0 g/dL [facility] Alkaline Phosphatase 55 39 - 117 U/L [facility] 01/09/2023 8:10 PM EDT 01/09/2023 8:12 PM EDT us [facility] External Provider LAB BLO OD ORDERABLES Final Result [facility] [address] [place] [phone] * (ABNORMAL) CBC (01/09/2023 8:10 PM EDT) White Blood Count 12.0(H) 4.8 - 10.8 X10*3/uL [facility] Red Blood Count 5.33 4.60 - 5.80 X10*6/uL [facility] Hemoglobin 15.9 14.0 - 18.0 g/dl [facility] Hematocrit 44.8 42.0 - 52.0 % [facility] Mean Corpuscular Volume 84.1 80.0 - 98.0 fL [facility] Mean Corpuscular Hemoglobin 29.8 27.0 - 33.0 pg [facility] Mean Corpuscular HGB Conc 35.5 31.0 - 36.0 g/dl [facility] Red Cell Distribution Width 11.8 11.0 - 16.0 % [facility] Platelet Count 187 160 - 400 X10*3/uL [facility] Mean Platelet Volume 10.8 9.4 - 12.4 fL [facility] NRBC Pct Auto 0.0 0.0 - 0.2 /100WBC [facility] NRBC Abs Auto 0.000 0.0 - 0.012 X10*3/uL [facility] 01/09/2023 8:10 PM EDT 01/09/2023 8:12 PM EDT [facility] External Provider LAB BLO OD ORDERABLES Final Result [facility] [address] [place] [phone] documented in this encounter Visit Diagnoses Not on filedocumented in this encounter Care Teams Quality Engineer Medical Device Relationship Specialty Start Date End Date Name, MD Rishi [address] [place] [address] PCP - General Family Medicine 12/25/15 documented as of this encounter
--- OUTSIDE RECORDS SUMMARY | 2025-07-25 21:15 | XMS_ITS | Encounter Summary ---
Author Organization [email or web address] Address [address] [facility] [address] [place] [address] Care Team Providers Care Solar Installation Helper Name Role Phone Name, Rishi ADAM Primary Care Provider [phone] Encounter Details Date Type Department Care Team (Late st Contact Info) Description 07/25/2025 Orders Only GENERIC EXTERNAL DATA DEPARTMENT Provider, Generic External Data Social History Tobacco Use Types Packs/Day Years [...] Description 08/01/2025 1:00 PM EDT Office Visit [facility] [address] [place] [address] Gail Henderson, DDS [address] [place] [address] documented as of this encounter Procedures Procedure Name Priority Date/Time Associated Diagnosis Comments CBC WITH AUTO DIFFERENTIAL Routine 07/25/2025 2:41 PM EDT COMPREHENSIVE METABOLIC PANEL Routine 07/25/2025 2:41 PM EDT URINALYSIS WITH REFLEX MICROSCOPIC Routine 07/25/2025 2:38 PM EDT documented in this encounter Results * (ABNORMAL) Comprehensive Metabolic Panel (07/25/2025 2:41 PM EDT) Sodium 144 135 - 145 mmol/L [facility] Potassium 3.9 3.3 - 5.1 mmol/L [facility] Chloride 108 96 - 108 mmol/L [facility] Carbon Dioxide 30(H) 22 - 29 mmol/L [facility] Anion Gap 10(L) 12 - 20 [facility] Urea Nitrogen (BUN) 13 9 - 16 mg/dL [facility] Creatinine, Serum 1.05 0.5 - 1.4 mg/dL [facility] Creatinine Clr Calc Pharmacy 75.6 [facility] Comment:eGFR (calculated fro m the MDRD study equation) and eCrCl(calculated from the Cockcroft-Gault equation) are based ondifferent parameters and may not yield comparable results.If eCrCl result is absurd, please check patient'sheight/weight. Estimated Glomerular Filt Rate >60 [facility] Comment:Chronic Kidney Disea se: Estimated GFR < 60 mL/min/1.61x8Izhsxn Kidney Disease: Estimated GFR < 15 mL/min/1.73m2 Glucose 104 60 - 115 mg/dL [facility] Calcium 9.5 8.4 - 10.2 mg/dL [facility] Bilirubin, Total 0.7 0.0 - 1.0 mg/dL [facility] Aspartate Amino Transferase 37 5 - 37 U/L [facility] Alanine Aminotransferase 53(H) 0 - 40 U/L [facility] Total Protein 7.0 6.5 - 8.0 g/dL [facility] Albumin Level 4.6 3.5 - 5.0 g/dL [facility] Alkaline Phosphatase 62 39 - 117 U/L [facility] 07/25/2025 2:41 PM EDT 07/25/2025 2:48 PM EDT us Generic External Data Provider LAB BLOOD ORDERAB LES Final Result [facility] [address] [place] [phone] * (ABNORMAL) CBC auto differential (07/25/2025 2:41 PM EDT) White Blood Count 6.5 4.8 - 10.8 X10*3/uL [facility] Red Blood Count 4.95 4.60 - 5.80 X10*6/uL [facility] Hemoglobin 14.8 14.0 - 18.0 g/dl [facility] Hematocrit 41.5(L) 42.0 - 52.0 % [facility] Mean Corpuscular Volume 83.8 80.0 - 98.0 fL [facility] Mean Corpuscular Hemoglobin 29.9 27.0 - 33.0 pg [facility] Mean Corpuscular HGB Conc 35.7 31.0 - 36.0 g/dl [facility] Red Cell Distribution Width 11.4 11.0 - 16.0 % [facility] Platelet Count 157(L) 160 - 400 X10*3/uL [facility] Mean Platelet Volume 11.0 9.4 - 12.4 fL [facility] Neutrophils Percent Auto 53.7 45 - 73 % [facility] Imm Gran Pct Auto 0.2 0.0 - 0.4 % [facility] Lymphocytes Percent Auto 34.5 20 - 40 % [facility] Monocytes Percent Auto 9.1 2 - 11 % [facility] Eosinophils Percent Auto 2.2 0 - 4 % [facility] Basophils Percent Auto 0.3 0 - 2 % [facility] NRBC Pct Auto 0.0 0.0 - 0.2 /100WBC [facility] Neutrophils Absolute Auto 3.5 2.0 - 8.3 x10*3/uL [facility] Imm Gran Abs Auto 0.01 0.00 - 0.03 X10*3/uL [facility] Lymphocytes Absolute Auto 2.2 1.2 - 4.9 X10*3/uL [facility] Monocytes Absolute Auto 0.6 0.1 - 1.2 X10*3/uL [facility] Eosinophils Absolute Auto 0.1 0.0 - 0.4 X10*3/uL [facility] Basophils Absolute Auto 0.0 0.0 - 0.2 X10*3/uL [facility] NRBC Abs Auto 0.000 0.0 - 0.012 X10*3/uL [facility] 07/25/2025 2:41 PM EDT 07/25/2025 2:48 PM EDT us Generic External Data Provider LAB BLOOD ORDERAB LES Final Result [facility] [address] [place] [phone] * Urinalysis w/reflex microscopic (07/25/2025 2:38 PM EDT) Color Urine Yellow [facility] Appearance Urine Clear [facility] PH 7.0 5.0 - 9.0 [facility] Glucose Urine UA Negative Negative mg/dL [facility] Urine Blood Negative Negative [facility] Specific [place] - Urine 1.020 1.005 - 1.025 [facility] Urine Protein Negative Neg-Trace mg/dL [facility] Urine Ketones Negative Negative mg/dL [facility] Nitrite Urine Negative Negative [facility] Leukocyte Esterase Urine Negative Negative [facility] 07/25/2025 2:38 PM EDT 07/25/2025 2:48 PM EDT Narrative [facility] - 07/25/2025 2:55 PM EDT [id number], Clean Catch us Generic External Data Provider LAB URINE ORDERAB LES Final Result Performing Organization Address City/State/[facility] Co de Phone Number [facility] [address] [place] [phone] documented in this encounter Visit Diagnoses Not on filedocumented in this encounter Additional Health Concerns Assessment Noted Time PHQ-9 Depression Total Score: 0 03/01/20 24 9:11 AM EDT documented as of this encounter Care Teams Solar Installation Helper Relationship Specialty Start Date End Date Name, MD Rishi [address] [place] [address] PCP - General Family Medicine 12/25/15 documented as of this encounter
--- OUTSIDE RECORDS SUMMARY | 2025-07-25 21:15 | XMS_ITS | Clinical Summary ---
Author Organization [employer] Address [address] [facility] 7t [place] [address] Care Team Providers Care Stiff Neck Loader Name Role Phone Name, Rishi ADAM Primary Care Provider [phone] Allergies Active Allergy Reactions Criticality Noted Date [...] PCR <1.18 NOT DETECTED Comment: Treated at [facility], VL not detectable. Details of treatment on [...] 04/11/2025 Intermittent lightheadedness 10/30/2023 10/30/2023 04/11/2025 Sepsis (CMS/HCC) 10/30/2023 10/30/2023 04/11/2025 Dental abscess 10/22/2023 04/11/2025 [...] Encounters Date Type Department Care Team Description 07/25/2025 Orders Only GENERIC EXTERNAL DATA DEPARTMENT Provider, Generic External Data 07/24/2025 11:00 AM EDT Office Visit [facility] [address] [place] [address] Darryl Kuo Dental calculus (Primary Dx) 07/17/2025 11:00 AM EDT Office Visit [facility] [address] [place] [address] Darryl Kuo Dental calculus (Primary Dx) 06/13/2025 Telephone [facility] [address] [place] [address] Rafaela Key MA nov recalls 05/29/2025 1:40 PM EDT Office Visit [facility] [address] [place] [address] Starr Perez NP Viral URI 05/29/2025 Travel 05/25/2025 9:40 AM EDT Office Visit [facility] [address] [place] [address] Fatmata Posada MD Viral upper respiratory tract infection (Primary Dx) 05/25/2025 Travel 05/11/2025 2:00 PM EDT Office Visit [facility] [address] [place] [address] Gail Henderson DDS 05/01/2025 1:00 PM EDT Office Visit [facility] [address] [place] [address] Javi Avalos 04/25/2025 10:30 AM EDT Office Visit [facility] [address] [place] [address] Javi Avalos from Last 3 Months Immunizations Immunization Administration [...] Pulse 75 07/24/2025 11:16 AM EDT Temperature 36.8 C (98.2 F) 05/29/2025 [...] Description 08/01/2025 1:00 PM EDT Office Visit [facility] [address] [place] [address] Gail Henderson DDS [address] [place] [address] Health Maintenance Due Date Last Done Comments [...] 04/11/2025 Disability Screening 04/11/2026 04/11/2025 Tobacco Screening 07/24/2026 07/24/2025 Colonoscopy 11/02/2026 11/02/2023 Colorectal Cancer Screening 11/02/2026 [...] Procedure Name Priority Date/Time Associated Diagnosis Comments COMPREHENSIVE METABOLIC PANEL Routine 07/25/2025 2:41 PM EDT CBC WITH AUTO DIFFERENTIAL Routine 07/25/2025 2:41 PM EDT URINALYSIS WITH REFLEX MICROSCOPIC Routine 07/25/2025 2:38 PM EDT CASE PRESENTATION, DETAILED AND EXTENSIVE TREATMENT PLANNING Routine 07/24/2025 11:00 AM EDT ORAL HYGIENE INSTRUCTIONS Routine 07/24/2025 11:00 AM EDT LL PERIODONTAL SCALING AND ROOT PLANING - 1 TO 3 TEETH PER QUADRANT Routine 07/24/2025 11:00 AM EDT UL PERIODONTAL SCALING AND ROOT PLANING - 1 TO 3 TEETH PER QUADRANT Routine 07/24/2025 11:00 AM EDT ORAL HYGIENE INSTRUCTIONS Routine 07/17/2025 11:00 AM EDT CASE PRESENTATION, DETAILED AND EXTENSIVE TREATMENT PLANNING Routine 07/17/2025 11:00 AM EDT LR PERIODONTAL SCALING AND ROOT PLANING - 1 TO 3 TEETH PER QUADRANT Routine 07/17/2025 11:00 AM EDT UR PERIODONTAL SCALING AND ROOT PLANING - 1 TO 3 TEETH PER QUADRANT Routine 07/17/2025 11:00 AM EDT POCT INFLUENZA B (ID NOW RAPID MOLECULAR) [...] POST-OP VISIT) Routine 04/25/2025 10:30 AM EDT LIPID PANEL, STANDARD Routine 04/20/2025 8:07 AM EDT Screening for cholesterol level PROPHYLAXIS - ADULT Routine 03/22/2025 3 :00 PM EDT BITEWINGS - 4 RADIOGRAPHIC IMAGES Routine 02/22/2025 10:00 AM EDT COMPREHENSIVE ORAL EVALUATION - NEW OR ESTABLISHED PATIENT Routine 02/22/2025 10:00 AM EDT HM COLONOSCOPY Routine 11/02/2023 HIV 1/2 ANTIGEN/ANTIBODY, FOURTH GENERATION W/RFL Routine 04/04/2021 8:10 AM EDT from Last 3 Months or Most Recently Relevant to Health Maintenance Results * (ABNORMAL) CBC auto differential (07/25/2025 2:41 PM EDT) White Blood Count 6.5 4.8 - 10.8 X10*3/uL [facility] Red Blood Count 4.95 4.60 - 5.80 X10*6/uL [facility] Hemoglobin 14.8 14.0 - 18.0 g/dl [facility] Hematocrit 41.5(L) 42.0 - 52.0 % [facility] Mean Corpuscular Volume 83.8 80.0 - 98.0 fL [facility] Mean Corpuscular Hemoglobin 29.9 27.0 - 33.0 pg [facility] Mean Corpuscular HGB Conc 35.7 31.0 - 36.0 g/dl [facility] Red Cell Distribution Width 11.4 11.0 - 16.0 % [facility] Platelet Count 157(L) 160 - 400 X10*3/uL [facility] Mean Platelet Volume 11.0 9.4 - 12.4 fL [facility] Neutrophils Percent Auto 53.7 45 - 73 % [facility] Imm Gran Pct Auto 0.2 0.0 - 0.4 % [facility] Lymphocytes Percent Auto 34.5 20 - 40 % [facility] Monocytes Percent Auto 9.1 2 - 11 % [facility] Eosinophils Percent Auto 2.2 0 - 4 % [facility] Basophils Percent Auto 0.3 0 - 2 % [facility] NRBC Pct Auto 0.0 0.0 - 0.2 /100WBC [facility] Neutrophils Absolute Auto 3.5 2.0 - 8.3 x10*3/uL [facility] Imm Gran Abs Auto 0.01 0.00 - 0.03 X10*3/uL [facility] Lymphocytes Absolute Auto 2.2 1.2 - 4.9 X10*3/uL [facility] Monocytes Absolute Auto 0.6 0.1 - 1.2 X10*3/uL [facility] Eosinophils Absolute Auto 0.1 0.0 - 0.4 X10*3/uL [facility] Basophils Absolute Auto 0.0 0.0 - 0.2 X10*3/uL [facility] NRBC Abs Auto 0.000 0.0 - 0.012 X10*3/uL [facility] 07/25/2025 2:41 PM EDT 07/25/2025 2:48 PM EDT us Generic External Data Provider LAB BLOOD ORDERAB LES Final Result [facility] [address] [place] [address] [phone] * (ABNORMAL) Comprehensive Metabolic Panel (07/25/2025 2:41 PM EDT) Sodium 144 135 - 145 mmol/L [facility] Potassium 3.9 3.3 - 5.1 mmol/L [facility] Chloride 108 96 - 108 mmol/L [facility] Carbon Dioxide 30(H) 22 - 29 mmol/L [facility] Anion Gap 10(L) 12 - 20 [facility] Urea Nitrogen (BUN) 13 9 - 16 mg/dL [facility] Creatinine, Serum 1.05 0.5 - 1.4 mg/dL [facility] Creatinine Clr Calc Pharmacy 75.6 [facility] Comment:eGFR (calculated fro m the MDRD study equation) and eCrCl(calculated from the Cockcroft-Gault equation) are based ondifferent parameters and may not yield comparable results.If eCrCl result is absurd, please check patient'sheight/weight. Estimated Glomerular Filt Rate >60 [facility] Comment:Chronic Kidney Disea se: Estimated GFR < 60 mL/min/1.91d2Sipxhh Kidney Disease: Estimated GFR < 15 mL/min/1.73m2 Glucose 104 60 - 115 mg/dL [facility] Calcium 9.5 8.4 - 10.2 mg/dL [facility] Bilirubin, Total 0.7 0.0 - 1.0 mg/dL [facility] Aspartate Amino Transferase 37 5 - 37 U/L [facility] Alanine Aminotransferase 53(H) 0 - 40 U/L [facility] Total Protein 7.0 6.5 - 8.0 g/dL [facility] Albumin Level 4.6 3.5 - 5.0 g/dL [facility] Alkaline Phosphatase 62 39 - 117 U/L [facility] 07/25/2025 2:41 PM EDT 07/25/2025 2:48 PM EDT us Generic External Data Provider LAB BLOOD ORDERAB LES Final Result [facility] [address] [place] [address] [phone] * Urinalysis w/reflex microscopic (07/25/2025 2:38 PM EDT) Pathologist [facility] Color Urine Yellow [facility] Appearance Urine Clear [facility] PH 7.0 5.0 - 9.0 [facility] Glucose Urine UA Negative Negative mg/dL [facility] Urine Blood Negative Negative [facility] Specific [place] - Urine 1.020 1.005 - 1.025 [facility] Urine Protein Negative Neg-Trace mg/dL [facility] Urine Ketones Negative Negative mg/dL [facility] Nitrite Urine Negative Negative [facility] Leukocyte Esterase Urine Negative Negative [facility] 07/25/2025 2:38 PM EDT 07/25/2025 2:48 PM EDT Narrative [facility] - 07/25/2025 2:55 PM EDT [id number], [employer] us Generic External Data Provider LAB URINE ORDERAB LES Final Result Performing Organization Address [facility]/ZIP Co de Phone Number [facility] [address] [place] [phone] * Influenza B (ID NOW Rapid Molecular) (05/29/2025 1:51 PM EDT) Only the most recent of2 resultswithin the time period is included. [facility] Influenza B Negative Negative, Indeterminate [facility] Swab 05/29/2025 1:51 PM EDT us Starr Perez PRISON OFFICER POINT OF CARE TEST ENTER/EDIT OR DERABLES Final Result Performing Organization Address [facility]/ZIP Co de Phone Number [facility] [address] [place] [address] [phone] * Influenza A (ID NOW Rapid Molecular) (05/29/2025 1:51 PM EDT) Only the most recent of2 resultswithin the time period is included. Pathologist [facility] Influenza A Negative Negative, Indeterminate [facility] Swab 05/29/2025 1:51 PM EDT Starr Perez PRISON OFFICER POINT OF CARE TEST ENTER/EDIT OR DERABLES Final Result Performing Organization Address [facility] Co de Phone Number [facility] [address] [place] [address] [phone] * POCT Rapid COVID Ag (05/29/2025 1:51 PM EDT) Only the most recent of2 resultswithin the time period is included. Pathologist [facility] Rapid COVID Ag Negative [facility] Swab 05/29/2025 1:51 PM EDT Starr Perez PRISON OFFICER POINT OF CARE TEST ENTER/EDIT OR DERABLES Final Result Performing Organization Address [facility] Co de Phone Number [facility] [address] [place] [address] [phone] * (ABNORMAL) Lipid Panel, Standard (04/20/2025 8:07 AM EDT) [facility] Triglycerides 116 <150 mg/dL [facility] Comment:Desirable Triglyceri de: less than 150 mg/dLBorderline High Triglyceride 150-199 mg/dLHigh Triglyceride: 200-499 mg/dLVery High Triglyceride: greater than or equal to 5OO mg/dL Cholesterol 227(H) <200 mg/dL [facility] Comment:Desirable Cholestero l: less than 200 mg/dLBorderline High Cholesterol: 200-239 mg/dLHigh Cholesterol: greater than 239 mg/dL LDL Cholesterol Calculated 160(H) <100 mg/dL [facility] Comment:Desirable LDL: less than 100 mg/dLNear Optimal/Above Optimal LDL: 110- 129 mg/dLBorderline High LDL: 130-159 mg/dLHigh LDL: 160-189 mg/dLVery High LDL: greater than or equal to 190 mg/dL HDL Cholesterol 44 >40 mg/dL [facility] Comment:Desirable HDL: great er than 40 mg/dL Note: This HDL assay may give artificially low results in patients with liver disease. Blood Venous blood specimen / Unknown 04/20/2025 8:07 AM EDT 04/20/2025 12:29 PM EDT Result [facility] Rishi Hyman MD LAB BLOOD ORDERABLES Final Resul t [facility] [address] [place] [address] [phone] * (ABNORMAL) Colonoscopy (11/02/2023) Colonoscopy Abnormal( A) Normal Comment:Colon Polyps (Tubula r Adenomas) Result [facility] Rishi Hyman MD HEALTH MAINTENANCE Final Result * HIV 1/2 ANTIGEN/ANTIBODY,FOURTH GENERATION W/RFL (04/04/2021 8:10 AM EDT) HIV-1/2 ANTIGEN AND ANTIBODIES, 4TH GENERATION W/ REFLEX NON-[facility]ACT [facility] Comment: HIV-1 antigen and [...] purpose. For additional information please refer to http://education.[employer].Scandlines/faq/CJO022 (This link is being provided for informational/ educational purposes only.) The performance of this assay has not been clinically validated in patients less than 2 years old. 04/04/2021 8:10 AM EDT Araceli Tabares [employer] LAB BLOOD ORDERABLES Final Res ult [facility] [address] [place] [address], from Last 3 Months or Most Recently Relevant to Health Maintenance Insurance [facility] - HSN FULL (MEDICAID) Care Teams Stiff Neck Loader Relationship Specialty Start Date End Date Name, MD Rishi [address] [place] [address] PCP - General Family Medicine 12/25/15
--- OUTSIDE RECORDS SUMMARY | 2025-07-25 21:15 | XMS_ITS | Encounter Summary ---
Author Organization [employer] Address 75 [facility] 7t [place] [address] Care Team Providers Care State Comptroller Name Role Phone Name, Rishi ADAM Primary Care Provider [phone] Encounter Details Date Type Department Care Team (Late st Contact Info) Description 11/05/2023 Abstract [facility] [address] [place], [place] [phone] Name, MD Rishi [address] [place], [place] [phone] Social History Tobacco Use Types Packs/Day Years [...] Description 08/01/2025 1:00 PM EDT Office Visit [facility] [address] [place] [address] Gail Henderson DDS [address] [place] [address] documented as of this encounter Procedures Procedure Name Priority Date/Time Associated Diagnosis Comments COLONOSCOPY Routine 11/02/2023 documented in this encounter Results * (ABNORMAL) Colonoscopy (11/02/2023) Colonoscopy Abnormal( A) Normal Comment:Colon Polyps (Tubula r Adenomas) Rishi Name HEALTH MAINTENANCE Final Result documented in this encounter Visit Diagnoses Not on filedocumented in this encounter Additional Health Concerns Assessment Noted Time PHQ-9 Depression Total Score: 3 01/29/20 23 9:39 AM EDT documented as of this encounter Care Teams State Comptroller Relationship Specialty Start Date End Date Name, MD Rishi [address] [place] [address] PCP - General Family Medicine 12/25/15 documented as of this encounter
--- OUTSIDE RECORDS SUMMARY | 2025-07-25 21:15 | XMS_ITS | Encounter Summary ---
Author Organization [employer] Address [address] [facility] 7t [place] [address] Care Team Providers Care Process Maintenance Technician Name Role Phone Name, Rishi ADAM Primary Care Provider [phone] Reason for Visit * Reason Comments Med Refill Encounter Details Date Type Department Care Team (Late Contact Info) Description 12/18/2022 Refill [facility] [address] [place], [place] [phone] Name, MD Rishi [address] [place] [address] Social History Tobacco Use Types Packs/Day Years [...] Description 08/01/2025 1:00 PM EDT Office Visit [facility] [address] [place], [place] [phone] Gail Henderson DDS [address] [place], [place] [phone] documented as of this encounter Visit Diagnoses Not on filedocumented in this encounter Care Teams Process Maintenance Technician Relationship Specialty Start Date End Date Name, MD Rishi [address] [place] [address] PCP - General Family Medicine 12/25/15 documented as of this encounter
--- OUTSIDE RECORDS SUMMARY | 2025-07-25 21:16 | XMS_ITS | Encounter Summary ---
Author Organization [employer] Address 75 [facility] [address]t [place] [address] Care Team Providers Care Timber Packer Name Role Phone Name, Rishi ADAM Primary Care Provider Reason for Visit * Reason Onset Date Comments Referral 07/15/2023 Encounter Details Date Type Department Care Team ([facility] st Contact Info) Description 07/15/2023 Telephone [facility] [address] [place], [place] [phone] Name, MD Rishi [address] [place] [address] Referral Social History Tobacco Use Types Packs/Day [...] AM EDT Referral and notes resubmitted to [facility] Gastro * Telephone Encounter - Celsa Davis - 07/15/2023 9:11 AM EDT Tc from pt calling in regards to gastroenterology referral. States office never received referral. Location: [address] [place] [phone] Date: n/a Time: n/a Fax: Specialty: gastroenterology documented in this encounter Plan of Treatment Upcoming Encounters Date Type Department Care Team (Late st Contact Info) Description 08/01/2025 1:00 PM EDT Office Visit [facility] [address] [place] [address] Gail Henderson DDS [address] [place] [address] documented as of this encounter Visit Diagnoses Not on filedocumented in this encounter Additional Health Concerns Assessment Noted Time PHQ-9 Depression Total Score: 3 01/29/20 23 9:39 AM EDT documented as of this encounter Care Teams Timber Packer Relationship Specialty Start Date End Date Name, MD Rishi [address] [place] [address] PCP - General Family Medicine 12/25/15 documented as of this encounter
[2025-07-25] MEDS: iohexoL 350 MG/ML 100 ML INFUS..BTL 85 ML IV (22:29)
[2025-07-26 00:24] VITALS: BP 144/89; PULSE 71; RESP 16; O2SAT 98
[2025-07-26 00:35] VITALS: BP 144/89; PULSE 71; RESP 16; TEMP -17.7; TEMP 0; O2SAT 98
== END 2025-07-26 00:35 | disposition home or self-care (01) ==
PROVIDERS: Registered Nurse Emergency; Emergency Provider Emergency Medicine; PCP Internal Medicine Geriatric Medicine
DX: R35.0 Frequency of micturition (principal); N32.89 Other specified disorders of bladder; G89.29 Other chronic pain; N40.0 Benign prostatic hyperplasia without lower urinary tract symptoms; R10.20 Pelvic and perineal pain unspecified side; Z79.899 Other long term (current) drug therapy
CPT/HCPCS: 36415; 74177; 80053; 81003; 85025; 99283; Q9967

== ENCOUNTER → 2025-07-25 21:44 | Outpatient (BNV) | payer OTHER, SELFPAY | PROVIDERS: Emergency Provider Emergency Medicine; PCP Internal Medicine Geriatric Medicine; Visit Provider General Practice | DX: R10.31 Right lower quadrant pain (principal) | CPT/HCPCS: 74177 ==

== ENCOUNTER 2025-07-31 06:38 | Outpatient (REF) | payer OTHER, SELFPAY ==
--- OUTSIDE RECORDS SUMMARY | 2025-07-31 06:42 | XMS_ITS | Encounter Summary ---
Author Organization [employer] Address 75 [facility] [address] [place] [address] Care Team Providers Care Director Of Flight Operations Name Role Phone Name, Rishi ADAM Primary Care Provider [phone] Encounter Details Date Type Department Care Team (Late st Contact Info) Description 11/05/2023 Abstract [facility] [address] [place], [place] [phone] Name, MD Rishi [address] [place], [place] [phone] Social History Tobacco Use Types Packs/Day Years [...] 08/01/2025 1:00 PM EDT Office Visit [facility] [address] [place] [address] Gail Henderson DDS [address] [place] [address] documented as of this encounter Procedures Procedure [...] of this encounter Care Teams Director Of Flight Operations Relationship Specialty Start Date End Date Name, MD Rishi [address] [place] [address] PCP - General Family Medicine 12/25/15 documented as of this encounter
--- OUTSIDE RECORDS SUMMARY | 2025-07-31 06:42 | XMS_ITS | Encounter Summary ---
Author Organization [employer] Address [address] [facility] 7t [place] [address] Care Team Providers Care Shank Rander Name Role Phone Name, Rishi ADAM Primary Care Provider Encounter Details Date Type Department Care Team ([facility] Contact Info) Description 01/07/[address] [facility] [address] [place], [place] [phone] Mady Guillen LPN Social History Tobacco Use [...] Description 08/01/2025 1:00 PM EDT Office Visit [facility] ADULT DENTAL [address] [place], [place] [phone] Gail Henderson DDS [address] [place], [place] [phone] documented as of this encounter Procedures Procedure [...] (07/01/2023 1:12 AM EDT) Color Urine Yellow [facility] Appearance Urine Clear [facility] PH 6.5 5.0 - 9.0 [facility] Glucose Urine UA Negative Negative mg/dL [facility] Urine Blood Negative Negative [facility] Specific Boyle - Urine 1.020 1.005 - 1.025 [facility] Urine Protein Negative Neg-Trace mg/dL [facility] Urine Ketones Negative Negative mg/dL [facility] Nitrite Urine Negative Negative [facility] Leukocyte Esterase Urine Negative Negative [facility] 07/01/2023 1:12 AM EDT 07/01/2023 1:16 AM EDT Narrative [facility] - 07/01/2023 1:20 AM EDT Urine, Clean Catch [facility] External Provider LAB URI NE ORDERABLES Final Result Performing Organization Address [facility] Co de Phone Number [facility] [address] [place] [phone] * Lipase (06/30/2023 7:38 PM EDT) Pathologist [facility] Lipase 29 8 - 78 U/L [facility] 06/30/2023 7:38 PM EDT 06/30/2023 7:40 PM EDT Generic External Data Provider LAB BLOOD ORDERAB LES Final Result Performing Organization Address [facility] de Phone Number [facility] [address] [place] [phone] * Magnesium (06/30/2023 7:38 PM EDT) Pathologist [facility] Magnesium 2.1 1.6 - 2.6 mg/dL [facility] 06/30/2023 7:38 PM EDT 06/30/2023 7:40 PM EDT Generic External Data Provider LAB BLOOD ORDERAB LES Final Result Performing Organization Address [facility] de Phone Number [facility] [address] [place] [phone] * Basic Metabolic Panel (06/30/2023 7:38 PM EDT) Pathologist [facility] Sodium 141 135 - 145 mmol/L [facility] Potassium 3.9 3.3 - 5.1 mmol/L [facility] Chloride 105 96 - 108 mmol/L [facility] Carbon Dioxide 27 22 - 29 mmol/L [facility] Anion Gap 13 12 - 20 [facility] Urea Nitrogen (BUN) 14 9 - 16 mg/dL [facility] Creatinine, Serum 0.95 0.5 - 1.4 mg/dL [facility] Creatinine Clr Calc Pharmacy 86.0 [facility] Comment:eGFR (calculated fro m the MDRD study equation) and eCrCl(calculated from the Cockcroft-Gault equation) are based ondifferent parameters and may not yield comparable results.If eCrCl result is absurd, please check patient'sheight/weight. Estimated Glomerular Filt Rate >60 [facility] Comment:NOTE: For -Am erican individuals, multiply the result by 1.210.Chronic Kidney Disease: Estimated GFR < 60 mL/min/1.98o5Ilqmvy Kidney Disease: Estimated GFR < 15 mL/min/1.73m2 Glucose 109 60 - 115 mg/dL [facility] Calcium 9.5 8.4 - 10.2 mg/dL [facility] 06/30/2023 7:38 PM EDT 06/30/2023 7:40 PM EDT us Generic External Data Provider LAB BLOOD ORDERAB LES Final Result [facility] [address] [place] [phone] * Hepatic Function Panel (06/30/2023 7:38 PM EDT) Bilirubin, Total 0.8 0.0 - 1.0 mg/dL [facility] Bilirubin, Direct 0.2 0.0 - 0.5 mg/dL [facility] Aspartate Amino Transferase 27 5 - 37 U/L [facility] Alanine Aminotransferase 35 0 - 40 U/L [facility] Total Protein 7.1 6.5 - 8.0 g/dL [facility] Albumin Level 4.3 3.5 - 5.0 g/dL [facility] Alkaline Phosphatase 46 39 - 117 U/L [facility] 06/30/2023 7:38 PM EDT 06/30/2023 7:40 PM EDT us [facility] External Provider LAB BLO OD ORDERABLES Final Result [facility] [address] [place] [phone] * (ABNORMAL) CBC auto differential (06/30/2023 7:38 PM EDT) White Blood Count 7.2 4.8 - 10.8 X10*3/uL [facility] Red Blood Count 4.85 4.60 - 5.80 X10*6/uL [facility] Hemoglobin 14.7 14.0 - 18.0 g/dl [facility] Hematocrit 41.2(L) 42.0 - 52.0 % [facility] Mean Corpuscular Volume 84.9 80.0 - 98.0 fL [facility] Mean Corpuscular Hemoglobin 30.3 27.0 - 33.0 pg [facility] Mean Corpuscular HGB Conc 35.7 31.0 - 36.0 g/dl [facility] Red Cell Distribution Width 11.7 11.0 - 16.0 % [facility] Platelet Count 152(L) 160 - 400 X10*3/uL [facility] Mean Platelet Volume 10.8 9.4 - 12.4 fL [facility] Neutrophils Percent Auto 55.2 45 - 73 % [facility] Imm Gran Pct Auto 0.3 0.0 - 0.4 % [facility] Lymphocytes Percent Auto 31.9 20 - 40 % [facility] Monocytes Percent Auto 9.2 2 - 11 % [facility] Eosinophils Percent Auto 2.8 0 - 4 % [facility] Basophils Percent Auto 0.6 0 - 2 % [facility] NRBC Pct Auto 0.0 0.0 - 0.2 /100WBC [facility] Neutrophils Absolute Auto 4.0 2.0 - 8.3 x10*3/uL [facility] Imm Gran Abs Auto 0.02 0.00 - 0.03 X10*3/uL [facility] Lymphocytes Absolute Auto 2.3 1.2 - 4.9 X10*3/uL [facility] Monocytes Absolute Auto 0.7 0.1 - 1.2 X10*3/uL [facility] Eosinophils Absolute Auto 0.2 0.0 - 0.4 X10*3/uL [facility] Basophils Absolute Auto 0.0 0.0 - 0.2 X10*3/uL [facility] NRBC Abs Auto 0.000 0.0 - 0.012 X10*3/uL [facility] 06/30/2023 7:38 PM EDT 06/30/2023 7:40 PM EDT [facility] External Provider LAB BLO OD ORDERABLES Final Result Performing Organization Address [facility] de Phone Number [facility] [address] [place] [phone] * HIGH SENSITIVITY TROPONIN I (01/09/2023 10:12 PM EDT) [facility] TROPONIN I HIGH SENSITIVITY <3.5 <3.5 - 35.0 ng/L [facility] Comment:The Landry high sens itivity Troponin-I results should beused in conjunction with other diagnostic information suchas ECG, clinical observations and information, and patientsymptoms to aid in the diagnosis of ND. 01/09/2023 10:1 2 PM EDT 01/09/2023 10:15 PM EDT [facility] External Provider LAB BLO OD ORDERABLES Final Result Performing Organization Address [facility] Co de Phone Number [facility] [address] [place] [phone] * Urinalysis, Complete, with Reflex to Culture (01/09/2023 9:41 PM EDT) Color Urine Yellow [facility] Appearance Urine Clear [facility] PH 6.0 5.0 - 9.0 [facility] Glucose Urine UA Negative Negative mg/dL [facility] Urine Blood Negative Negative [facility] Specific Boyle - Urine 1.020 1.005 - 1.025 [facility] Urine Protein Negative Neg-Trace mg/dL [facility] Urine Ketones Negative Negative mg/dL [facility] Nitrite Urine Negative Negative [facility] Leukocyte Esterase Urine Negative Negative [facility] RBC Urine 0-2 0 - 2 /HPF [facility] Urine WBC 0-5 0 - 5 /HPF [facility] Urine Squamous Epithelial Cell 0-2 0 - 2 /HPF [facility] Urine Bacteria None Seen None Seen [facility] Hyaline Casts, Urine 0-2 0 - 2 /LPF [facility] 01/09/2023 9:41 PM EDT 01/09/2023 9:47 PM EDT Narrative [facility] - 01/09/2023 9:59 PM EDT [id number], Clean Catch [facility] External Provider LAB URI NE ORDERABLES Final Result Performing Organization Address [facility]/ZIP Co de Phone Number [facility] [address] [place] [phone] * Lipase (01/09/2023 8:10 PM EDT) Lipase 40 8 - 78 U/L [facility] 01/09/2023 8:10 PM EDT 01/09/2023 8:12 PM EDT [facility] External Provider LAB BLO OD ORDERABLES Final Result Performing Organization Address [facility] Co de Phone Number [facility] [address] [place] [phone] * Hepatic Function Panel (01/09/2023 8:10 PM EDT) Bilirubin, Direct 0.2 0.0 - 0.5 mg/dL [facility] 01/09/2023 8:10 PM EDT 01/09/2023 8:12 PM EDT us [facility] External Provider LAB BLO OD ORDERABLES Final Result [facility] [address] [place] [phone] * (ABNORMAL) Comprehensive Metabolic Panel (01/09/2023 8:10 PM EDT) Sodium 142 135 - 145 mmol/L [facility] Potassium 4.2 3.3 - 5.1 mmol/L [facility] Chloride 105 96 - 108 mmol/L [facility] Carbon Dioxide 29 22 - 29 mmol/L [facility] Anion Gap 12 12 - 20 [facility] Urea Nitrogen (BUN) 17(H) 9 - 16 mg/dL [facility] Creatinine, Serum 1.10 0.5 - 1.4 mg/dL [facility] Creatinine Clr Calc Pharmacy 73.3 [facility] Comment:eGFR (calculated fro m the MDRD study equation) and eCrCl(calculated from the Cockcroft-Gault equation) are based ondifferent parameters and may not yield comparable results.If eCrCl result is absurd, please check patient'sheight/weight. Estimated Glomerular Filt Rate >60 [facility] Comment:NOTE: For -Am erican individuals, multiply the result by 1.210.Chronic Kidney Disease: Estimated GFR < 60 mL/min/1.02g0Vrslho Kidney Disease: Estimated GFR < 15 mL/min/1.73m2 Glucose 92 60 - 115 mg/dL [facility] Calcium 9.7 8.4 - 10.2 mg/dL [facility] Bilirubin, Total 1.0 0.0 - 1.0 mg/dL [facility] Aspartate Amino Transferase 36 5 - 37 U/L [facility] Alanine Aminotransferase 53(H) 0 - 40 U/L [facility] Total Protein 7.3 6.5 - 8.0 g/dL [facility] Albumin Level 4.6 3.5 - 5.0 g/dL [facility] Alkaline Phosphatase 55 39 - 117 U/L [facility] 01/09/2023 8:10 PM EDT 01/09/2023 8:12 PM EDT us [facility] External Provider LAB BLO OD ORDERABLES Final Result [facility] [address] [place] [phone] * (ABNORMAL) CBC (01/09/2023 8:10 PM EDT) White Blood Count 12.0(H) 4.8 - 10.8 X10*3/uL [facility] Red Blood Count 5.33 4.60 - 5.80 X10*6/uL [facility] Hemoglobin 15.9 14.0 - 18.0 g/dl [facility] Hematocrit 44.8 42.0 - 52.0 % [facility] Mean Corpuscular Volume 84.1 80.0 - 98.0 fL [facility] Mean Corpuscular Hemoglobin 29.8 27.0 - 33.0 pg [facility] Mean Corpuscular HGB Conc 35.5 31.0 - 36.0 g/dl [facility] Red Cell Distribution Width 11.8 11.0 - 16.0 % [facility] Platelet Count 187 160 - 400 X10*3/uL [facility] Mean Platelet Volume 10.8 9.4 - 12.4 fL [facility] NRBC Pct Auto 0.0 0.0 - 0.2 /100WBC [facility] NRBC Abs Auto 0.000 0.0 - 0.012 X10*3/uL [facility] 01/09/2023 8:10 PM EDT 01/09/2023 8:12 PM EDT [facility] External Provider LAB BLO OD ORDERABLES Final Result [facility] [address] [place] [phone] documented in this encounter Visit Diagnoses Not on filedocumented in this encounter Care Teams Shank Rander Relationship Specialty Start Date End Date Name, MD Rishi [address] [place] [address] PCP - General Family Medicine 12/25/15 documented as of this encounter
--- OUTSIDE RECORDS SUMMARY | 2025-07-31 06:42 | XMS_ITS | Encounter Summary ---
Author Organization [employer] Address [address] [facility] 7[address] [place] [address] Care Team Providers Care Manager Metal Name Role Phone Name, Rishi ADAM Primary Care Provider [phone] Reason for Visit * Reason Comments Med Refill Encounter Details Date Type Department Care Team (Late Contact Info) Description 12/18/2022 Refill [facility] [address] [place], [place] [phone] Name, MD Rishi [address] [place] [address] Social History Tobacco Use Types Packs/Day Years [...] Description 08/01/2025 1:00 PM EDT Office Visit [facility] ADULT DENTAL [address] [place], [place] [phone] Gail Henderson DDS [address] [place], [place] [phone] documented as of this encounter Visit Diagnoses Not on filedocumented in this encounter Care Teams Manager Metal Relationship Specialty Start Date End Date Name, MD Rishi [address] [place] [address] PCP - General Family Medicine 12/25/15 documented as of this encounter
--- OUTSIDE RECORDS SUMMARY | 2025-07-31 06:42 | XMS_ITS | Encounter Summary ---
Author Organization [employer] Address [address] [facility] [address]t h Floor [place] [phone] Care Team Providers Care Solar Energy Engineer Name Role Phone Name, Rishi ADAM Primary Care Provider [phone] Reason for Visit * Reason Onset Date Comments Referral 07/15/2023 Encounter Details Date Type Department Care Team ([facility] st Contact Info) Description 07/15/2023 Telephone [facility] [address] [place], [place] [phone] Name, MD Rishi [address] [place] [address] Referral Social History Tobacco Use Types Packs/Day [...] AM EDT Referral and notes resubmitted to [facility] * Telephone Encounter - Celsa Davis - 07/15/2023 9:11 AM EDT Tc from pt calling in regards to gastroenterology referral. States office never received referral. Location: [address] [place] [phone] Date: n/a Time: n/a Fax: Specialty: gastroenterology documented in this encounter Plan of Treatment Upcoming Encounters Date Type Department Care Team (Late st Contact Info) Description 08/01/2025 1:00 PM EDT Office Visit [facility] AD[facility] [address] [place] [address] Gail Henderson DDS [address] [place] [address] documented as of this encounter Visit Diagnoses Not on filedocumented in this encounter Additional Health Concerns Assessment Noted Time PHQ-9 Depression Total Score: 3 01/29/20 23 9:39 AM EDT documented as of this encounter Care Teams Solar Energy Engineer Relationship Specialty Start Date End Date Name, MD Rishi [address] [place] [address] PCP - General Family Medicine 12/25/15 documented as of this encounter
--- OUTSIDE RECORDS SUMMARY | 2025-07-31 06:42 | XMS_ITS | Clinical Summary ---
Author Organization [id number] Address [address] [facility] 7[address] [place] [address] Care Team Providers Care Microfilming Document Preparer Name Role Phone Name, Rishi ADAM Primary Care Provider [phone] Allergies Active Allergy Reactions Criticality Noted Date [...] PCR <1.18 NOT DETECTED Comment: Treated at [facility], VL not detectable. Details of treatment on [...] Encounters Date Type Department Care Team Description 07/28/2025 Telephone [facility] [address] [place] [phone] Rafaela Key [place] dec recalls 07/25/2025 Orders Only GENERIC EXTERNAL DATA DEPARTMENT Provider, Generic External Data 07/24/2025 11:00 AM EDT Office Visit [facility] [address] [place] [address] Darryl Kuo Dental calculus (Primary Dx) 07/17/2025 11:00 AM EDT Office Visit [facility] [address] [place] [address] Darryl Kuo Dental calculus (Primary Dx) 06/13/2025 Telephone [facility] [address] [place] [address] Rafaela Key [place] nov recalls 05/29/2025 1:40 PM EDT Office Visit [facility] [address] [place] [address] Starr Perez, CHRISTY Viral URI 05/29/2025 Travel 05/25/2025 9:40 AM EDT Office Visit [facility] [address] [place] [address] Fatmata Posada MD Viral upper respiratory tract infection (Primary Dx) 05/25/2025 Travel 05/11/2025 2:00 PM EDT Office Visit [facility] [address] [place], [place] [phone] Gail Henderson DDS 05/01/2025 1:00 PM EDT Office Visit [facility] [address] [place] [address] Javi Avalos from Last 3 Months Immunizations [...] Description 08/01/2025 1:00 PM EDT Office Visit [facility] [address] [place] [address] Gail Henderson DDS [address] [place] [address] Health Maintenance Due Date Last Done Comments [...] Procedure Name Priority Date/Time Associated Diagnosis Comments CT ABDOMEN PELVIS W CONTRAST Routine 07/25/2025 11:32 PM EDT COMPREHENSIVE METABOLIC PANEL Routine 07/25/2025 [...] SURF, POSTERIOR Routine 05/01/2025 1:00 PM EDT LIPID PANEL, STANDARD Routine 04/20/2025 8:07 [...] Recently Relevant to Health Maintenance Results * CT Abdomen Pelvis w/ Contrast (07/25/2025 11:32 PM EDT) Anatomical Region Laterality Modality Body, Pelvis, Abdomen Computed T omography 07/25/2025 11:3 2 PM EDT Narrative 07/25/2025 11:34 PM EDT [place] [address] [address] Scan Report Signed Patient: Daniel Geiger MR#: [id number] : 1965 Acct:[id number] Age/Sex: 60 / M ADM Date: 07/25/25 Loc: HO.ED Attending Dr: Ordering Physician: Massiel Voss DO Date of Service: 07/25/25 Procedure(s): CT abdomen pelvis w IV con Accession Number(s): [id number] cc: Massiel Voss DO; Name,Rishi ADAM Report Number: [id number]: Total DLP = 611.00 mGy-cm Reason for Exam: lower abd pain CLINICAL HISTORY: lower abd pain CT abdomen and pelvis with contrast Comparison: CT/REG/WY/SR - CT ABDOMEN PELVIS W IV CON - 10/20/23 22:06 EST Findings: The lung bases are clear. Liver is of low-attenuation, hepatic steatosis. Gallbladder, pancreas, spleen and adrenal glands are within normal limits. Kidneys are non hydronephrotic. Small bilateral nonobstructing renal calculi are present. No bowel obstruction, pneumoperitoneum, or pneumatosis. Scattered sigmoid diverticula are present without diverticulitis. Visualized appendix is normal. The bones are intact. IMPRESSION: No acute findings. This document has been electronically signed by: Moris Sams MD, PHD on 07/25/2025 23:32:33 Dictated By: Moris Sams MD Signed By: <Electronically signed by Moris Sams MD in OV> 07/25/252332 DD/ 31 TD/TT: 07/25/252331 Autotransfusionist: Procedure Note Donotuseinterpreter, Image - 07/25/[address] [place] [address] [address] Scan Report Signed Patient: Charito Geiger#: [id number] : 1965Acct:[id number] Age/Sex: 60 / MADM Date: 07/25/25 Loc: HO.ED Attending Dr: Ordering Physician: Massiel Voss DO Date of Service: 07/25/25 Procedure(s): CT abdomen pelvis w IV con Accession Number(s): [id number] cc: Massiel Voss DO; Name,Rishi ADAM Report Number: [id number]: Total DLP = 611.00 mGy-cm Reason for Exam: lower abd pain CLINICAL HISTORY: lower abd pain CT abdomen and pelvis with contrast Comparison: CT/REG/WY/SR - CT ABDOMEN PELVIS W IV CON - 10/20/23 22:06 EST Findings: The lung bases are clear. Liver is of low-attenuation, hepatic steatosis. Gallbladder, pancreas, spleen and adrenal glands are within normal limits. Kidneys are non hydronephrotic. Small bilateral nonobstructing renal calculi are present. No bowel obstruction, pneumoperitoneum, or pneumatosis. Scattered sigmoid diverticula are present without diverticulitis. Visualized appendix is normal. The bones are intact. IMPRESSION: No acute findings. This document has been electronically signed by: Moris Sams MD, PHD on 07/25/2025 23:32:33 Dictated By: Moris Sams MD Signed By: <Electronically signed by Moris Sams MD in OV> 07/25/252332 DD/ 31 TD/TT: 07/25/252331 Autotransfusionist: [facility] External Provider IMG CT PROCEDURES Final Result * (ABNORMAL) CBC auto differential (07/25/2025 2:41 PM EDT) White Blood Count 6.5 4.8 - 10.8 X10*3/uL [facility] Red Blood Count 4.95 4.60 - 5.80 X10*6/uL [facility] Hemoglobin 14.8 14.0 - 18.0 g/dl [facility] Hematocrit 41.5(L) 42.0 - 52.0 % [facility] Mean Corpuscular Volume 83.8 80.0 - 98.0 fL [facility] Mean Corpuscular Hemoglobin 29.9 27.0 - 33.0 pg [facility] Mean Corpuscular HGB Conc 35.7 31.0 - 36.0 g/dl [facility] Red Cell Distribution Width 11.4 11.0 - 16.0 % [facility] Platelet Count 157(L) 160 - 400 X10*3/uL [facility] Mean Platelet Volume 11.0 9.4 - 12.4 fL [facility] Neutrophils Percent Auto 53.7 45 - 73 % [facility] Imm Gran Pct Auto 0.2 0.0 - 0.4 % [facility] Lymphocytes Percent Auto 34.5 20 - 40 % [facility] Monocytes Percent Auto 9.1 2 - 11 % [facility] Eosinophils Percent Auto 2.2 0 - 4 % [facility] Basophils Percent Auto 0.3 0 - 2 % [facility] NRBC Pct Auto 0.0 0.0 - 0.2 /100WBC [facility] Neutrophils Absolute Auto 3.5 2.0 - 8.3 x10*3/uL [facility] Imm Gran Abs Auto 0.01 0.00 - 0.03 X10*3/uL [facility] Lymphocytes Absolute Auto 2.2 1.2 - 4.9 X10*3/uL [facility] Monocytes Absolute Auto 0.6 0.1 - 1.2 X10*3/uL [facility] Eosinophils Absolute Auto 0.1 0.0 - 0.4 X10*3/uL [facility] Basophils Absolute Auto 0.0 0.0 - 0.2 X10*3/uL [facility] NRBC Abs Auto 0.000 0.0 - 0.012 X10*3/uL [facility] 07/25/2025 2:41 PM EDT 07/25/2025 2:48 PM EDT us Generic External Data Provider LAB BLOOD ORDERAB LES Final Result [facility] [address] [place] [phone] * (ABNORMAL) Comprehensive Metabolic Panel (07/25/2025 2:41 PM EDT) Sodium 144 135 - 145 mmol/L [facility] Potassium 3.9 3.3 - 5.1 mmol/L [facility] Chloride 108 96 - 108 mmol/L [facility] Carbon Dioxide 30(H) 22 - 29 mmol/L [facility] Anion Gap 10(L) 12 - 20 [facility] Urea Nitrogen (BUN) 13 9 - 16 mg/dL [facility] Creatinine, Serum 1.05 0.5 - 1.4 mg/dL [facility] Creatinine Clr Calc Pharmacy 75.6 [facility] Comment:eGFR (calculated fro m the MDRD study equation) and eCrCl(calculated from the Cockcroft-Gault equation) are based ondifferent parameters and may not yield comparable results.If eCrCl result is absurd, please check patient'sheight/weight. Estimated Glomerular Filt Rate >60 [facility] Comment:Chronic Kidney Disea se: Estimated GFR < 60 mL/min/1.27l8Wbmkts Kidney Disease: Estimated GFR < 15 mL/min/1.73m2 Glucose 104 60 - 115 mg/dL [facility] Calcium 9.5 8.4 - 10.2 mg/dL [facility] Bilirubin, Total 0.7 0.0 - 1.0 mg/dL [facility] Aspartate Amino Transferase 37 5 - 37 U/L [facility] Alanine Aminotransferase 53(H) 0 - 40 U/L [facility] Total Protein 7.0 6.5 - 8.0 g/dL [facility] Albumin Level 4.6 3.5 - 5.0 g/dL [facility] Alkaline Phosphatase 62 39 - 117 U/L [facility] 07/25/2025 2:41 PM EDT 07/25/2025 2:48 PM EDT us Generic External Data Provider LAB BLOOD ORDERAB LES Final Result [facility] [address] [place] [phone] * Urinalysis w/reflex microscopic (07/25/2025 2:38 PM EDT) Color Urine Yellow [facility] Appearance Urine Clear [facility] PH 7.0 5.0 - 9.0 [facility] Glucose Urine UA Negative Negative mg/dL [facility] Urine Blood Negative Negative [facility] Specific [place] - Urine 1.020 1.005 - 1.025 [facility] Urine Protein Negative Neg-Trace mg/dL [facility] Urine Ketones Negative Negative mg/dL [facility] Nitrite Urine Negative Negative [facility] Leukocyte Esterase Urine Negative Negative [facility] 07/25/2025 2:38 PM EDT 07/25/2025 2:48 PM EDT Narrative [facility] - 07/25/2025 2:55 PM EDT [id number], Clean Catch us Generic External Data Provider LAB URINE ORDERAB LES Final Result Performing Organization Address [facility]/ZIP Co de Phone Number [facility] [address] [place] [phone] * Influenza B (ID NOW Rapid Molecular) (05/29/2025 1:51 PM EDT) Only the most recent of2 resultswithin the time period is included. Influenza B Negative Negative, Indeterminate [facility] Swab 05/29/2025 1:51 PM EDT Starr Perez MECHANICAL SHOVEL OPERATOR POINT OF CARE TEST ENTER/EDIT OR DERABLES Final Result Performing Organization Address [facility] Co de Phone Number [facility] [address] [place] [phone] * Influenza A (ID NOW Rapid Molecular) (05/29/2025 1:51 PM EDT) Only the most recent of2 resultswithin the time period is included. Influenza A Negative Negative, Indeterminate [facility] Swab 05/29/2025 1:51 PM EDT Starr Graef MECHANICAL SHOVEL OPERATOR POINT OF CARE TEST ENTER/EDIT OR DERABLES Final Result Performing Organization Address [facility] Co de Phone Number [facility] [address] [place] [phone] * POCT Rapid COVID Ag (05/29/2025 1:51 PM EDT) Only the most recent of2 resultswithin the time period is included. Rapid COVID Ag Negative [facility] Swab 05/29/2025 1:51 PM EDT us Starr Perez NP POINT OF CARE TEST ENTER/EDIT OR DERABLES Final Result Performing Organization Address [facility] Co de Phone Number [facility] [address] [place] [phone] * (ABNORMAL) Lipid Panel, Standard (04/20/2025 8:07 AM EDT) Triglycerides 116 <150 mg/dL [facility] Comment:Desirable Triglyceri de: less than 150 mg/dLBorderline High Triglyceride 150-199 mg/dLHigh Triglyceride: 200-499 mg/dLVery High Triglyceride: greater than or equal to 5OO mg/dL Cholesterol 227(H) <200 mg/dL [facility] Comment:Desirable Cholestero l: less than 200 mg/dLBorderline High Cholesterol: 200-239 mg/dLHigh Cholesterol: greater than 239 mg/dL LDL Cholesterol Calculated 160(H) <100 mg/dL [facility] Comment:Desirable LDL: less than 100 mg/dLNear Optimal/Above Optimal LDL: 110- 129 mg/dLBorderline High LDL: 130-159 mg/dLHigh LDL: 160-189 mg/dLVery High LDL: greater than or equal to 190 mg/dL HDL Cholesterol 44 >40 mg/dL [facility] Comment:Desirable HDL: great er than 40 mg/dL Note: This HDL assay may give artificially low results in patients with liver disease. Blood Venous blood specimen / Unknown 04/20/2025 8:07 AM EDT 04/20/2025 12:29 PM EDT us Rishi Hyman MD LAB BLOOD ORDERABLES Final Resul t Performing Organization Address City/[facility]/ZIP Co de Phone Number [facility] [address] [place] [phone] [phone] * (ABNORMAL) Hm Colonoscopy (11/02/2023) Colonoscopy Abnormal( A) Normal Comment:Colon Polyps (Tubula r Adenomas) Rishi Hyman MD HEALTH MAINTENANCE Final Result * HIV 1/2 ANTIGEN/ANTIBODY,FOURTH GENERATION W/RFL (04/04/2021 8:10 AM EDT) HIV-1/2 ANTIGEN AND ANTIBODIES, 4TH GENERATION W/ REFLEX NON-REACT MARILIN NON-REACT MARILIN [facility] Comment: HIV-1 antigen and HIV-1/HIV-2 [...] purpose. For additional information please refer to http://education.[employer]/faq/RXB395 (This link is being provided for informational/ educational purposes only.) The performance of this assay has not been clinically validated in patients less than 2 years old. 04/04/2021 8:10 AM EDT Araceli Tabares WINDOW GLASS INSTALLER LAB BLOOD ORDERABLES Final Res ult [facility] [address] from Last 3 Months or Most Recently Relevant to Health Maintenance Insurance [facility] FULL (MEDICAID) Care Teams Microfilming Document Preparer Relationship Specialty Start Date End Date Name, MD Rishi [address] [place] [address] PCP - General Family Medicine 12/25/15
--- OUTSIDE RECORDS SUMMARY | 2025-07-31 06:42 | XMS_ITS | Encounter Summary ---
Author Organization [employer] Address [address] [facility] [address] [place] [address] Care Team Providers Care Manager Electrical Name Role Phone Name, Rishi ADAM Primary Care Provider [phone] Reason for Visit * Reason Onset Date Comments dec recalls 07/28/2025 Encounter Details Date Type Department Care Team (Late st Contact Info) Description 07/28/2025 Telephone [facility] [address] [place], [place] [phone] Rafaela Key [place] dec recalls Social History Tobacco Use Types Packs/Day [...] Telephone Encounter - Rafaela Key [place] - 07/28/2025 2:16 PM EDT Telephone call to patient to schedule a recall appointment. No answer, Left voicemail to return call to clinic.. Recall letter sent. Visit type: Follow up Appointment notes: HTN Month due: September With: Name Please schedule appointment above if patient returns call documented in this encounter Plan of Treatment Upcoming Encounters Date Type Department Care Team (Late st Contact Info) Description 08/01/2025 1:00 PM EDT Office Visit [facility] [address] [place] [address] Gail Henderson DDS [address] [place] [address] documented as of this encounter Visit Diagnoses Not on filedocumented in this encounter Additional Health Concerns Assessment Noted Time PHQ-9 Depression Total Score: 0 03/01/20 24 9:11 AM EDT documented as of this encounter Care Teams Manager Electrical Relationship Specialty Start Date End Date Name, MD Rishi [address] [place] [address] PCP - General Family Medicine 12/25/15 documented as of this encounter
[2025-07-31 08:12] LABS: Prostate Specific Antigen 3.04 ng/mL (<0.05-4.0)
== END 2025-07-31 06:39 | disposition home or self-care (01) ==
LOC: HO.LAB 06:38
PROVIDERS: PCP Internal Medicine Geriatric Medicine; Visit Provider Nurse Practitioner Family
DX: R39.9 Unspecified symptoms and signs involving the genitourinary system (principal); Z12.5 Encounter for screening for malignant neoplasm of prostate
CPT/HCPCS: 36415; 84153

== ENCOUNTER 2025-08-09 13:02 | Outpatient (AMB) | payer OTHER, SELFPAY ==
--- OUTSIDE RECORDS SUMMARY | 2025-08-01 13:00 | XMS_ITS | Encounter Summary ---
Author Organization [employer] Address [address] [facility] [address] [place] [address] Care Team Providers Care Director Consumer Affairs Name Role Phone Name, Rishi ADAM Primary Care Provider [phone] Reason for Visit * Reason Comments Filling Encounter Details Date Type Department Care Team ([facility] st Contact Info) Description 08/01/2025 1:00 PM EDT Office Visit [facility] [address] [place] [address] Gail Henderson, ZAHIRAS [address] [place] [address] Social History Tobacco Use Types Packs/Day Years [...] Sign Reading Time Taken Comments Blood Pressure 110/82 08/01/2025 1:07 PM EDT Pulse - - Temperature - - Respiratory Rate - - Oxygen Saturation - - Inhaled Oxygen Concentration - - Weight - - Height - - Body Mass Index - - documented in this encounter Progress Notes * Gail Henderson DDS - 08/01/2025 1:00 PM EDT Dental procedures in this visit D2394 - RESIN-BASED COMPOSITE - 4+ SURF, POSTERIOR 12 MODB(V) (Completed) Service provider: Gail Henderson DDS Billing provider: Tadeo Douglas DMD [id number] - CASE PRESENTATION, DETAILED AND EXTENSIVE TREATMENT PLANNING (Completed) Service provider: Gail Henderson DDS Billing provider: Tadeo Douglas DMD Patient ID: Daniel Odonnell is a 60 y.o. male. Time Out: Date: 08/01/2025 Location: [facility] Tooth: #12 Procedure: Sabianist Verified the above with patient, assistant teacher primary, and provider. Confirmed via patient's chart, intraorally and by radiographs. Supervisor Wheel Shop: not applicable Composite religious done on # [address] Gail Henderson DDS Risk, benefits, and alternatives discussed with the patient. CONSENT FORM INITIALED & SIGNED BY THE PATIENT AND COUNTERSIGNED BY Dr. Gail Henderson DDS Medical history: Reviewed in EHR Vitals: Blood pressure 110/82. Allergies: Reviewed in EHR Medications: Reviewed in EHR ASA II - Local infiltration with 1 carpule 2% lidocaine 1:100,000 epinephrine - Existing religious and recurrent decay removed - Matrix band and wedge used as needed - Etching done using 37% phosphoric acid. - Desensitizer: Gluma - scale agent applied. - Composite religious done using Filtek body composite, shade A3 - Anatomy and margins adjusted - Proximal contact confirmed with floss. - Occlusion checked with articulating paper - Necessary reductions made. - Sabianist smoothed and polished. - Post op instructions given During the procedure, an amalgam fragment distal to tooth #11 became undone as contacts were being opened for religious. This tooth is currently treatment planned for multi surface religious. Patient satisfied, left in stable condition Patient made aware possible post op sensitivity NV: Continue Restorative Provider: Dr. Gail Henderson DDS Shingle Weaver: Padma Supervising dentist: Dr. Douglas * Tadeo Douglas DMD - 08/01/2025 1:00 PM EDT I have reviewed the documentation and dental procedures made by the rendering provider, Gail Henderson DDS, and approve their chart entries for this visit. Tadeo Douglas DMD documented in this encounter Plan of Treatment Upcoming Encounters Date Type Department Care Team (Late st Contact Info) Description 08/10/2025 2:30 PM EDT Office Visit [facility] [address] [place] [address] Gail Henderson DDS [address] [place] [address] 10/23/2025 12:45 PM EST Office Visit [facility] [address] [place] [address] Darryl Kuo documented as of this encounter Procedures Procedure Name Priority Date/Time Associated Diagnosis Comments 12 MODB(V) RESIN-BASED COMPOSITE - 4+ SURF, POSTERIOR Routine 08/01/2025 1:00 PM EDT CASE PRESENTATION, DETAILED AND EXTENSIVE TREATMENT PLANNING Routine 08/01/2025 1:00 PM EDT documented in this encounter Visit Diagnoses Not on filedocumented in this encounter Additional Health Concerns Assessment Noted Time PHQ-9 Depression Total Score: 0 03/01/20 24 9:11 AM EDT documented as of this encounter Care Teams Director Consumer Affairs Relationship Specialty Start Date End Date Name, MD Rishi [address] [place] [address] PCP - General Family Medicine 12/25/15 documented as of this encounter
--- NOTE | 2025-08-09 13:56 | A.OFFVIS_ITS ---
Intake Visit Reasons: cysto/PSA Intake Note: Patient is Present for Cystoscopy/PSA Urology Med: None Antibiotic Allergy: Sulfa, Triemthoprim Blood Thinner:None URO- G Disposable Cystoscope lot: [id number] exp: 03/20/2028 Accompanied by: Self / Same As Patient Allergies sulfamethoxazole (From Bactrim) Allergy (Unknown, Verified 08/09/25 14:00) ITCHINESS trimethoprim (From Bactrim) Allergy (Unknown, Verified 08/09/25 14:00) ITCHINESS HPI Comments Details: Fitz is a pleasant male. He is a patient of Dr. Hyman. He is seen for the following urologic conditions. 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 Three-month trimethoprim, Toviaz, famotidine May benefit from hydrodistention with biopsy Bladder ultrasound effective emptying, maximum prevoid volume 220 cc, prostate volume 25 cc PFSH Medical History Bilateral carpal tunnel syndrome BPH associated with nocturia Hepatitis C Vitamin D deficiency COVID Allergic rhinitis, seasonal Liver cirrhosis Hypertension Lumbar spondylosis Other intervertebral disc degeneration, lumbar region Fatigue Surgical History Hx of colonoscopy Social History Household Members: Spouse Housing: House Do you presently have visiting nurse or other home services: No Alcohol intake: former Patient Tobacco Use Status: Former Tobacco user Substance Use Type: Crack/Cocaine and Heroin service: No Current occupational status: employed Review of Systems Const Denies chills and Denies fever(s) Card Reports no additional complaints and Denies syncope Resp Denies cough GI Denies abdominal pain and Denies heartburn Reports as per HPI and Denies change in libido Neuro Denies syncope Psych Denies change in libido Endo Denies change in libido Physical Exam Const General: cooperative, healthy appearing, comfortable and no acute distress Orientation/consciousness: patient oriented x3 HEENT Face and sinus: Yes normal facial exam Mouth: moist mucous membranes Neck Neck: Yes normal visual inspection, Yes full ROM and Yes trachea midline Chest Chest palpation & inspection: normal inspection of the chest Resp Effort & Inspection: normal respiratory effort, able to speak in complete sentences and no respiratory distress GI Inspection: Yes normal to inspection Back/Spine/Pelvis Cervical Spine: normal cervical lordosis Thoracic/Lumbar Spine: thoracic and lumbar spine normal to inspection Skin General skin exam: no rashes or lesions noted Neuro General: patient oriented x3, gait normal, tone normal and moves all extremities Extrem General: Yes normal to inspection and Yes capillary refill normal Office Procedures Cystoscopy Consent Discussed risk and benefit or proposed procedure with the patient. Information consent for procedure given to the patient. Discussed technical aspects, risks, benefits and alternatives in full. Addressed all of the patient's questions and concerns regarding the procedure. The patient demonstrated knowledge and understanding. They wish to proceed with this procedure. Preparation The patient was prepped in the usual manner. A training technician was present and in the room. Genitalia was prepped with betadine solution in a sterile manner. Lidocaine Jelly 2% was placed into the urethra and 16Fr flexible Olympus cystoscope was inserted into the meatus after adequate lubrication. Procedure Cystoscopy performed using a disposable Urovue digital 16 Icelandic cystoscope. Meatus circumcised Urethra anterior and posterior urethra normal Prostatic Urethra unremarkable Bladder examination with retroflexion of cystoscope Bladder Orifices normal shape and position - inflamed trigone Bladder Capacity small Trabeculations grade 1 Cellule Formation None Diverticulum Formation None Mucosal Erythema injected diffuse erythema consistent with cystitis cystica versus interstitial cystitis Bladder Tumor None [id number] DISPOSABLE SCOPE URO-G FLEXIBLE SCOPE Procedure code (CPT) selection complete Office Meds lidocaine HCl 2 % mucosal jelly in applicator Performing Provider: Antwon Barney MD Performing Location: [facility] Administered by: Gladis Toscano RN on 08/09/25 14:17 Dose Route Admin Location Dispensed Lot Number Expiration Date NDC [employer] 10 mL intra-urethral 10 mL nitrofurantoin monohydrate/macrocrystals 100 mg capsule Performing Provider: Antwon Barney MD Performing Location: [facility] Administered by: Gladis Toscano RN on 08/09/25 14:17 Dose Route Admin Location Dispensed Lot Number Expiration Date ND [employer] 100 mg PO 1 cap Results AMB Urinalysis, Automated UA Leukoctes 0 Siobhan/uL Last Edit by CHAD Renteria on 08/09/25 14:12 UA Nitrite Negative Last Edit by Mady Bowen A on 08/09/25 14:12 UA Urobilinogen 0.2 mg/dL Last Edit by Mady Bowen, A on 08/09/25 14:1 2 UA Protein 15 mg/dL Last Edit by Mady Bowen, A on 08/09/25 14:12 UA pH 6.0 Last Edit by Mady Bowen, A on 08/09/25 14:12 UA Blood 0 Jerrell/uL Last Edit by Mady Bowen, RMA on 08/09/25 14:12 UA Specific [place] 1.025 Last Edit by Mady Bowen, A on 08/09/25 14: 12 UA Ketone Negative Last Edit by Mady Bowen A on 08/09/25 14:12 UA Bilirubin 0 mg/dL Last Edit by Mady Bowen, A on 08/09/25 14:12 UA Glucose 0 mg/dL Last Edit by Mady Bowen A on 08/09/25 14:12 Results Reviewed Results Reviewed: Laboratory Last Values Urine pH (Auto) 6.0 08/09/25 14:11 Specific [place] (Auto) 1.025 08/09/25 14:11 Urine Protein (Auto) 15 mg/dL 08/09/25 14:11 Glucose (UA)(Auto) 0 mg/dL 08/09/25 14:11 Urine Ketones (Auto) Negative 08/09/25 14:11 Urine Blood (Auto) 0 Jerrell/uL 08/09/25 14:11 Urine Nitrite (Auto) Negative 08/09/25 14:11 Urine Bilirubin (Auto) 0 mg/dL 08/09/25 14:11 Urine Urobilinogen (Auto) 0.2 mg/dL 08/09/25 14:11 Leukocyte Esterase (Auto) 0 Siobhan/uL 08/09/25 14:11 Assessment & Plan Assessment & Plan (1) Interstitial cystitis: Code(s): N30.10 - Interstitial cystitis (chronic) without hematuria Category: Medical Plan Trial medications for three-month Orders: Orders AMB Cystoscopy Today R39.9 - Unspecified symptoms and signs involving the genitourinary system AMB Urinalysis Automated Today Z13.9 - Encounter for screening, unspecified Medications: New trimethoprim 100 mg PO DAILY 90 tabs 1RF 90 days N30.10 - Interstitial cystitis (chronic) without hematuria, R33.9 - Retention of urine, unspecified fesoterodine ER (Toviaz) 4 mg PO DAILY 90 tabs 0RF 90 days N30.10 - Interstitial cystitis (chronic) without hematuria, N39.41 - Urge incontinence famotidine 40 mg PO BEDTIME 30 tabs 1RF 30 days N30.10 - Interstitial cystitis (chronic) without hematuria, R39.15 - Urgency of urination Discontinued bethanechol chloride Discontinued Reason: Patient Completed Course 25 mg PO BID 30 tabs 0RF Patient Instructions: This note is constructed using voice recognition software. While every effort has been made to ensure accuracy double end tenoner setter errors may have been included. Imaging studies, laboratory and physical exam results were discussed and reviewed in detail. No major barriers to patient understanding were identified. An opportunity to ask questions regarding the treatment plan was provided. All questions were answered. The patient expressed understanding and agreement with the above treatment plan. The patient is aware they should contact our office by phone for worsening of their current condition or the appearance of new urologic symptoms. Compliance is encouraged with any medications and followup testing that is ordered. It is a privilege to participate in the urologic care of your patient. If you have any questions or concerns regarding treatment for the above conditions, or other urologic issues, please do not hesitate to contact me. The office telephone contact is [phone]. Sincerely, Dr Antwon Barney MD, EILEEN [facility] - Urology Compassionate Specialist Care for the Genitourinary System Coding Level of Care Code Est Pt Level 4 (75947) Diagnoses Interstitial cystitis N30.10 CPT Codes Cystoscopy - CPT: 29368-[id number] ([id number])
--- OUTSIDE RECORDS SUMMARY | 2025-08-09 16:32 | XMS_ITS | Encounter Summary ---
Author Organization [employer] Address [address] [facility] [address] [place] [address] Care Team Providers Care Radiagraph Operator Name Role Phone Name, Rishi ADAM Primary Care Provider [phone] Encounter Details Date Type Department Care Team ([facility] Contact Info) Description 01/07/2023 Orders Only [facility] [address] [place] [address] Mady Guillen LPN Social History Tobacco Use [...] Department Care Team (Late Contact Info) Description 08/10/2025 2:30 PM EDT Office Visit [facility] ADULT D[facility] [address] [place] [address] Gail Henderson, YASH [address] [place] [address] 10/23/2025 12:45 PM EST Office Visit [facility] AD[facility] [address] [place] [address] Darryl Kuo documented as of this encounter [...] (07/01/2023 1:12 AM EDT) Color Urine Yellow [facility] Appearance Urine Clear [facility] PH 6.5 5.0 - 9.0 [facility] Glucose Urine UA Negative Negative mg/dL [facility] Urine Blood Negative Negative [facility] Specific [place] - Urine 1.020 1.005 - 1.025 [facility] Urine Protein Negative Neg-Trace mg/dL [facility] Urine Ketones Negative Negative mg/dL [facility] Nitrite Urine Negative Negative [facility] Leukocyte Esterase Urine Negative Negative [facility] 07/01/2023 1:12 AM EDT 07/01/2023 1:16 AM EDT Narrative [facility] - 07/01/2023 1:20 AM EDT Urine, Clean Catch us [facility] External Provider LAB URI NE ORDERABLES Final Result Performing Organization Address [facility] Co de Phone Number [facility] [address] [place] [phone] * Lipase (06/30/2023 7:38 PM EDT) Lipase 29 8 - 78 U/L [facility] 06/30/2023 7:38 PM EDT 06/30/2023 7:40 PM EDT Generic External Data Provider LAB BLOOD ORDERAB LES Final Result Performing Organization Address [facility] Co de Phone Number [facility] [address] [place] [phone] * Magnesium (06/30/2023 7:38 PM EDT) Magnesium 2.1 1.6 - 2.6 mg/dL [facility] 06/30/2023 7:38 PM EDT 06/30/2023 7:40 PM EDT Generic External Data Provider LAB BLOOD ORDERAB LES Final Result Performing Organization Address [facility] Co de Phone Number [facility] [address] [place] [phone] * Basic Metabolic Panel (06/30/2023 7:38 PM EDT) Sodium 141 135 - 145 mmol/L [facility] Potassium 3.9 3.3 - 5.1 mmol/L [facility] Chloride 105 96 - 108 mmol/L [facility] Carbon Dioxide 27 22 - 29 mmol/L [facility] Anion Gap 13 12 - 20 [facility] Urea Nitrogen (BUN) 14 9 - 16 mg/dL [facility] Creatinine, Serum 0.95 0.5 - 1.4 mg/dL [facility] Creatinine Clr Calc Pharmacy 86.0 [facility] Comment:eGFR (calculated fro m the MDRD study equation) and eCrCl(calculated from the Cockcroft-Gault equation) are based ondifferent parameters and may not yield comparable results.If eCrCl result is absurd, please check patient'sheight/weight. Estimated Glomerular Filt Rate >60 [facility] Comment:NOTE: For -Am erican individuals, multiply the result by 1.210.Chronic Kidney Disease: Estimated GFR < 60 mL/min/1.83d0Ryqkte Kidney Disease: Estimated GFR < 15 mL/min/1.73m2 Glucose 109 60 - 115 mg/dL [facility] Calcium 9.5 8.4 - 10.2 mg/dL [facility] 06/30/2023 7:38 PM EDT 06/30/2023 7:40 PM EDT us Generic External Data Provider LAB BLOOD ORDERAB LES Final Result [facility] [address] [place] [phone] * Hepatic Function Panel (06/30/2023 7:38 PM EDT) Bilirubin, Total 0.8 0.0 - 1.0 mg/dL [facility] Bilirubin, Direct 0.2 0.0 - 0.5 mg/dL [facility] Aspartate Amino Transferase 27 5 - 37 U/L [facility] Alanine Aminotransferase 35 0 - 40 U/L [facility] Total Protein 7.1 6.5 - 8.0 g/dL [facility] Albumin Level 4.3 3.5 - 5.0 g/dL [facility] Alkaline Phosphatase 46 39 - 117 U/L [facility] 06/30/2023 7:38 PM EDT 06/30/2023 7:40 PM EDT us [facility] External Provider LAB BLO OD ORDERABLES Final Result [facility] [address] [place] [phone] * (ABNORMAL) CBC auto differential (06/30/2023 7:38 PM EDT) White Blood Count 7.2 4.8 - 10.8 X10*3/uL [facility] Red Blood Count 4.85 4.60 - 5.80 X10*6/uL [facility] Hemoglobin 14.7 14.0 - 18.0 g/dl [facility] Hematocrit 41.2(L) 42.0 - 52.0 % [facility] Mean Corpuscular Volume 84.9 80.0 - 98.0 fL [facility] Mean Corpuscular Hemoglobin 30.3 27.0 - 33.0 pg [facility] Mean Corpuscular HGB Conc 35.7 31.0 - 36.0 g/dl [facility] Red Cell Distribution Width 11.7 11.0 - 16.0 % [facility] Platelet Count 152(L) 160 - 400 X10*3/uL [facility] Mean Platelet Volume 10.8 9.4 - 12.4 fL [facility] Neutrophils Percent Auto 55.2 45 - 73 % [facility] Imm Gran Pct Auto 0.3 0.0 - 0.4 % [facility] Lymphocytes Percent Auto 31.9 20 - 40 % [facility] Monocytes Percent Auto 9.2 2 - 11 % [facility] Eosinophils Percent Auto 2.8 0 - 4 % [facility] Basophils Percent Auto 0.6 0 - 2 % [facility] NRBC Pct Auto 0.0 0.0 - 0.2 /100WBC [facility] Neutrophils Absolute Auto 4.0 2.0 - 8.3 x10*3/uL [facility] Imm Gran Abs Auto 0.02 0.00 - 0.03 X10*3/uL [facility] Lymphocytes Absolute Auto 2.3 1.2 - 4.9 X10*3/uL [facility] Monocytes Absolute Auto 0.7 0.1 - 1.2 X10*3/uL [facility] Eosinophils Absolute Auto 0.2 0.0 - 0.4 X10*3/uL [facility] Basophils Absolute Auto 0.0 0.0 - 0.2 X10*3/uL [facility] NRBC Abs Auto 0.000 0.0 - 0.012 X10*3/uL [facility] 06/30/2023 7:38 PM EDT 06/30/2023 7:40 PM EDT [facility] External Provider LAB BLO OD ORDERABLES Final Result Performing Organization Address City/[facility]/ZIP Co de Phone Number [facility] [address] [place] [phone] * HIGH SENSITIVITY TROPONIN I (01/09/2023 10:12 PM EDT) TROPONIN I HIGH SENSITIVITY <3.5 <3.5 - 35.0 ng/L [facility] Comment:The [place] high sens itivity Troponin-I results should beused in conjunction with other diagnostic information suchas ECG, clinical observations and information, and patientsymptoms to aid in the diagnosis of [place]. 01/09/2023 10:1 2 PM EDT 01/09/2023 10:15 PM EDT [facility] External Provider LAB BLO OD ORDERABLES Final Result Performing Organization Address City/[facility]/ZIP Co de Phone Number [facility] [address] [place] [address] [phone] * Urinalysis, Complete, with Reflex to Culture (01/09/2023 9:41 PM EDT) Color Urine Yellow [facility] Appearance Urine Clear [facility] PH 6.0 5.0 - 9.0 [facility] Glucose Urine UA Negative Negative mg/dL [facility] Urine Blood Negative Negative [facility] Specific [place] - Urine 1.020 1.005 - 1.025 [facility] Urine Protein Negative Neg-Trace mg/dL [facility] Urine Ketones Negative Negative mg/dL [facility] Nitrite Urine Negative Negative [facility] Leukocyte Esterase Urine Negative Negative [facility] RBC Urine 0-2 0 - 2 /HPF [facility] Urine WBC 0-5 0 - 5 /HPF [facility] Urine Squamous Epithelial Cell 0-2 0 - 2 /HPF [facility] Urine Bacteria None Seen None Seen [facility] Hyaline Casts, Urine 0-2 0 - 2 /LPF [facility] 01/09/2023 9:41 PM EDT 01/09/2023 9:47 PM EDT Narrative [facility] - 01/09/2023 9:59 PM EDT [id number], Clean Catch [facility] External Provider LAB URI NE ORDERABLES Final Result Performing Organization Address City/[facility]/ZIP Co de Phone Number [facility] [address] [place] [phone] * Lipase (01/09/2023 8:10 PM EDT) Lipase 40 8 - 78 U/L [facility] 01/09/2023 8:10 PM EDT 01/09/2023 8:12 PM EDT [facility] External Provider LAB BLO OD ORDERABLES Final Result [facility] [address] [place] [phone] * Hepatic Function Panel (01/09/2023 8:10 PM EDT) Bilirubin, Direct 0.2 0.0 - 0.5 mg/dL [facility] 01/09/2023 8:10 PM EDT 01/09/2023 8:12 PM EDT us [facility] External Provider LAB BLO OD ORDERABLES Final Result Performing Organization Address [facility] Co de Phone Number [facility] [address] [place] [phone] * (ABNORMAL) Comprehensive Metabolic Panel (01/09/2023 8:10 PM EDT) Sodium 142 135 - 145 mmol/L [facility] Potassium 4.2 3.3 - 5.1 mmol/L [facility] Chloride 105 96 - 108 mmol/L [facility] Carbon Dioxide 29 22 - 29 mmol/L [facility] Anion Gap 12 12 - 20 [facility] Urea Nitrogen (BUN) 17(H) 9 - 16 mg/dL [facility] Creatinine, Serum 1.10 0.5 - 1.4 mg/dL [facility] Creatinine Clr Calc Pharmacy 73.3 [facility] Comment:eGFR (calculated fro m the MDRD study equation) and eCrCl(calculated from the Cockcroft-Gault equation) are based ondifferent parameters and may not yield comparable results.If eCrCl result is absurd, please check patient'sheight/weight. Estimated Glomerular Filt Rate >60 [facility] Comment:NOTE: For -Am erican individuals, multiply the result by 1.210.Chronic Kidney Disease: Estimated GFR < 60 mL/min/1.58c8Mwmmfj Kidney Disease: Estimated GFR < 15 mL/min/1.73m2 Glucose 92 60 - 115 mg/dL [facility] Calcium 9.7 8.4 - 10.2 mg/dL [facility] Bilirubin, Total 1.0 0.0 - 1.0 mg/dL [facility] Aspartate Amino Transferase 36 5 - 37 U/L [facility] Alanine Aminotransferase 53(H) 0 - 40 U/L [facility] Total Protein 7.3 6.5 - 8.0 g/dL [facility] Albumin Level 4.6 3.5 - 5.0 g/dL [facility] Alkaline Phosphatase 55 39 - 117 U/L [facility] 01/09/2023 8:10 PM EDT 01/09/2023 8:12 PM EDT us [facility] External Provider LAB BLO OD ORDERABLES Final Result [facility] [address], [place] [phone] * (ABNORMAL) CBC (01/09/2023 8:10 PM EDT) White Blood Count 12.0(H) 4.8 - 10.8 X10*3/uL [facility] Red Blood Count 5.33 4.60 - 5.80 X10*6/uL [facility] Hemoglobin 15.9 14.0 - 18.0 g/dl [facility] Hematocrit 44.8 42.0 - 52.0 % [facility] Mean Corpuscular Volume 84.1 80.0 - 98.0 fL [facility] Mean Corpuscular Hemoglobin 29.8 27.0 - 33.0 pg [facility] Mean Corpuscular HGB Conc 35.5 31.0 - 36.0 g/dl [facility] Red Cell Distribution Width 11.8 11.0 - 16.0 % [facility] Platelet Count 187 160 - 400 X10*3/uL [facility] Mean Platelet Volume 10.8 9.4 - 12.4 fL [facility] NRBC Pct Auto 0.0 0.0 - 0.2 /100WBC [facility] NRBC Abs Auto 0.000 0.0 - 0.012 X10*3/uL [facility] 01/09/2023 8:10 PM EDT 01/09/2023 8:12 PM EDT us [facility] External Provider LAB BLO OD ORDERABLES Final Result Performing Organization Address City/State/[facility] Co de Phone Number [facility] [address] [place] [phone] documented in this encounter Visit Diagnoses Not on filedocumented in this encounter Care Teams Radiagraph Operator Relationship Specialty Start Date End Date Name, MD Rishi [address] [place] [address] PCP - General Family Medicine 12/25/15 documented as of this encounter
--- OUTSIDE RECORDS SUMMARY | 2025-08-09 16:32 | XMS_ITS | Encounter Summary ---
Author Organization [employer] Address [address] [facility] [address] [place] [address] Care Team Providers Care Nc Machinist Name Role Phone Name, Rishi ADAM Primary Care Provider [phone] Reason for Visit * Reason Comments Med Refill Encounter Details Date Type Department Care Team (Late Contact Info) Description 12/18/2022 Refill [facility] [address] [place], [place] [phone] Name, MD Rishi [address] [place] [address] Social History Tobacco Use Types Packs/Day Years [...] Description 08/10/2025 2:30 PM EDT Office Visit [facility] [address] [place], [place] [phone] Gail Henderson DDS [address] [place], [place] [phone] 10/23/2025 12:45 PM EST Office Visit [facility] [address] [place] [address] Darryl Kuo documented as of this encounter Visit Diagnoses Not on filedocumented in this encounter Care Teams Nc Machinist Relationship Specialty Start Date End Date Name, MD Rishi [address] [place] [address] PCP - General Family Medicine 12/25/15 documented as of this encounter
--- OUTSIDE RECORDS SUMMARY | 2025-08-09 16:32 | XMS_ITS | Encounter Summary ---
Author Organization [employer] Address [address] [facility] [address] [place] [address] Care Team Providers Care Electric Meter Installer Helper Name Role Phone Name, Rishi ADAM Primary Care Provider [phone] Encounter Details Date Type Department Care Team (Late st Contact Info) Description 11/05/2023 Abstract [facility] [address] [place], [place] [phone] Name, MD Rishi [address] [place], [place] [phone] Social History Tobacco Use Types Packs/Day Years [...] 08/10/2025 2:30 PM EDT Office Visit [facility] ADULT D[facility] [address] [place] [address] Gail Henderson DDS [address] [place] [address] 10/23/2025 12:45 PM EST Office Visit [facility] ADULT D[facility] [address] [place] [address] Darryl Kuo documented as of this encounter [...] documented as of this encounter Care Teams Electric Meter Installer Helper Relationship Specialty Start Date End Date Name, MD Rishi [address] [place] [address] PCP - General Family Medicine 12/25/15 documented as of this encounter
--- OUTSIDE RECORDS SUMMARY | 2025-08-09 16:32 | XMS_ITS | Clinical Summary ---
Author Organization [employer] Address [address] [facility] [address] [place] [address] Care Team Providers Care Personnel Manager Name Role Phone Name, Rishi ADAM Primary Care Provider [phone] Allergies Active Allergy Reactions Criticality Noted Date [...] PCR <1.18 NOT DETECTED Comment: Treated at [facility], VL not detectable. Details of treatment on [...] Encounters Date Type Department Care Team Description 08/01/2025 1:00 PM EDT Office Visit [facility] [address] [place] [address] Gail Henderson DDS 07/31/2025 Orders Only GENERIC EXTERNAL DATA DEPARTMENT Provider, Generic External Data 07/28/[address] [address] Rafaela Key [place] dec recalls 07/25/2025 Orders Only GENERIC EXTERNAL DATA DEPARTMENT Provider, Generic External Data 07/24/2025 11:00 AM EDT Office Visit [facility] [address] [place] [address] Darryl Kuo Dental calculus (Primary Dx) 07/17/2025 11:00 AM EDT Office Visit [facility] [address] [place] [address] Darryl Kuo Dental calculus (Primary Dx) 06/13/[address] [phone] Noy Keyevansabra AURELIANO nov recalls 05/29/2025 1:40 PM EDT Office Visit [facility] [address] [place] [address] Starr Perez NP Viral URI 05/29/2025 Travel 05/25/2025 9:40 AM EDT Office Visit [facility] [address] [place] [address] Fatmata Posada MD Viral upper respiratory tract infection (Primary Dx) 05/25/2025 Travel 05/11/2025 2:00 PM EDT Office Visit [facility] [address] [place] [address] Gail Henderson DDS from Last 3 Months Immunizations Immunization Administration [...] Pressure 110/82 08/01/2025 1:07 PM EDT Pulse 75 07/24/2025 11:16 AM EDT [...] [facility] [address] [place] [address] Gail Henderson DDS [address] [place] [address] 10/23/2025 12:45 PM EST Office Visit [facility] [address] [place] [address] Darryl Kuo Health Maintenance Due Date Last Done Comments [...] 04/11/2025 Disability Screening 04/11/2026 04/11/2025 Tobacco Screening 08/01/2026 08/01/2025 Colonoscopy 11/02/2026 11/02/2023 Colorectal Cancer Screening 11/02/2026 [...] TREATMENT PLANNING Routine 08/01/2025 1:00 PM EDT 12 MODB(V) RESIN-BASED COMPOSITE - 4+ SURF, POSTERIOR Routine 08/01/2025 1:00 PM EDT PSA, TOTAL Routine 07/31/2025 6:[address] ABDOMEN PELVIS W CONTRAST Routine 07/25/2025 [...] TREATMENT PLANNING Routine 05/11/2025 2:00 PM EDT LIPID PANEL, STANDARD Routine 04/20/2025 [...] Recently Relevant to Health Maintenance Results * PSA,Total (07/31/2025 6:47 AM EDT) Prostate Specific Antigen 3.04 <0.05 - 4.0 ng/mL [facility] Comment:PSA methodology: Abb gopal Alvarez i ChemiluminescentMicroparticle Immunoassay (CMIA) 07/31/2025 6:47 AM EDT 07/31/2025 6:47 AM EDT Narrative [facility] - 07/31/2025 8:12 AM EDT PATIENT HAS UPCOMING APPOINTMENT 08/09 OK TO DO NOW us Generic External Data Provider LAB BLOOD ORDERAB LES Final Result [facility] [address] [place] [phone] * CT Abdomen Pelvis w/ Contrast (07/25/2025 11:32 PM EDT) Anatomical Region Laterality Modality Body, Pelvis, Abdomen Computed T omography 07/25/2025 11:3 2 PM EDT Narrative 07/25/2025 11:34 PM EDT [address] [address] [address] Scan Report Signed Patient: Daniel Geiger MR#: [id number] : 1965 Acct:[id number] Age/Sex: 60 / M ADM Date: 07/25/25 Loc: HO.ED Attending Dr: Ordering Physician: Massiel Voss DO Date of Service: 07/25/25 Procedure(s): CT abdomen pelvis w IV con Accession Number(s): [id number] cc: Massiel Voss DO; Name,Rishi ADAM Report Number: [id number]: Total DLP = 611.00 mGy-cm Reason for Exam: lower abd pain CLINICAL HISTORY: lower abd pain CT abdomen and pelvis with contrast Comparison: CT/REG/MN/SR - CT ABDOMEN PELVIS W IV CON [...] in OV> 07/25/252332 DD/ 31 TD/TT: 07/25/252331 Substation Supervisor: Procedure Note Donotuseinterpreter, Image - 07/25/[address] [address] [address] Scan Report Signed Patient: Charito Geiger#: [id number] : 1965Acct:[id number] Age/Sex: 60 / MADM Date: 07/25/25 Loc: HO.ED Attending Dr: Ordering Physician: Massiel Voss DO Date of Service: 07/25/25 Procedure(s): CT abdomen pelvis w IV con Accession Number(s): [id number] cc: Massiel Voss DO; Name,Rishi ADAM Report Number: [id number]: Total DLP = 611.00 mGy-cm Reason for Exam: lower abd pain CLINICAL HISTORY: lower abd pain CT abdomen and pelvis with contrast Comparison: CT/REG/MN/SR - CT ABDOMEN PELVIS W IV CON [...] in OV> 07/25/252332 DD/ 31 TD/TT: 07/25/252331 Substation Supervisor: [facility] External Provider IMG CT PROCEDURES Final Result * (ABNORMAL) CBC auto differential (07/25/2025 2:41 PM EDT) White Blood Count 6.5 4.8 - 10.8 X10*3/uL [facility] Red Blood Count 4.95 4.60 - 5.80 X10*6/uL [facility] Hemoglobin 14.8 14.0 - 18.0 g/dl [facility] Hematocrit 41.5(L) 42.0 - 52.0 % [facility] Mean Corpuscular Volume 83.8 80.0 - 98.0 fL [facility] Mean Corpuscular Hemoglobin 29.9 27.0 - 33.0 pg [facility] Mean Corpuscular HGB Conc 35.7 31.0 - 36.0 g/dl [facility] Red Cell Distribution Width 11.4 11.0 - 16.0 % [facility] Platelet Count 157(L) 160 - 400 X10*3/uL [facility] Mean Platelet Volume 11.0 9.4 - 12.4 fL [facility] Neutrophils Percent Auto 53.7 45 - 73 % [facility] Imm Gran Pct Auto 0.2 0.0 - 0.4 % [facility] Lymphocytes Percent Auto 34.5 20 - 40 % [facility] Monocytes Percent Auto 9.1 2 - 11 % [facility] Eosinophils Percent Auto 2.2 0 - 4 % [facility] Basophils Percent Auto 0.3 0 - 2 % [facility] NRBC Pct Auto 0.0 0.0 - 0.2 /100WBC [facility] Neutrophils Absolute Auto 3.5 2.0 - 8.3 x10*3/uL [facility] Imm Gran Abs Auto 0.01 0.00 - 0.03 X10*3/uL [facility] Lymphocytes Absolute Auto 2.2 1.2 - 4.9 X10*3/uL [facility] Monocytes Absolute Auto 0.6 0.1 - 1.2 X10*3/uL [facility] Eosinophils Absolute Auto 0.1 0.0 - 0.4 X10*3/uL [facility] Basophils Absolute Auto 0.0 0.0 - 0.2 X10*3/uL [facility] NRBC Abs Auto 0.000 0.0 - 0.012 X10*3/uL [facility] 07/25/2025 2:41 PM EDT 07/25/2025 2:48 PM EDT us Generic External Data Provider LAB BLOOD ORDERAB LES Final Result [facility] [address] [place] [phone] * (ABNORMAL) Comprehensive Metabolic Panel (07/25/2025 2:41 PM EDT) Sodium 144 135 - 145 mmol/L [facility] Potassium 3.9 3.3 - 5.1 mmol/L [facility] Chloride 108 96 - 108 mmol/L [facility] Carbon Dioxide 30(H) 22 - 29 mmol/L [facility] Anion Gap 10(L) 12 - 20 [facility] Urea Nitrogen (BUN) 13 9 - 16 mg/dL [facility] Creatinine, Serum 1.05 0.5 - 1.4 mg/dL [facility] Creatinine Clr Calc Pharmacy 75.6 [facility] Comment:eGFR (calculated fro m the MDRD study equation) and eCrCl(calculated from the Cockcroft-Gault equation) are based ondifferent parameters and may not yield comparable results.If eCrCl result is absurd, please check patient'sheight/weight. Estimated Glomerular Filt Rate >60 [facility] Comment:Chronic Kidney Disea se: Estimated GFR < 60 mL/min/[id number] Kidney Disease: Estimated GFR < 15 mL/min/1.73m2 Glucose 104 60 - 115 mg/dL [facility] Calcium 9.5 8.4 - 10.2 mg/dL [facility] Bilirubin, Total 0.7 0.0 - 1.0 mg/dL [facility] Aspartate Amino Transferase 37 5 - 37 U/L [facility] Alanine Aminotransferase 53(H) 0 - 40 U/L [facility] Total Protein 7.0 6.5 - 8.0 g/dL [facility] Albumin Level 4.6 3.5 - 5.0 g/dL [facility] Alkaline Phosphatase 62 39 - 117 U/L [facility] 07/25/2025 2:41 PM EDT 07/25/2025 2:48 PM EDT us Generic External Data Provider LAB BLOOD ORDERAB LES Final Result Performing Organization Address [facility] Co de Phone Number [facility] [address] [place] [phone] * Urinalysis w/reflex microscopic (07/25/2025 2:38 PM EDT) Color Urine Yellow [facility] Appearance Urine Clear [facility] PH 7.0 5.0 - 9.0 [facility] Glucose Urine UA Negative Negative mg/dL [facility] Urine Blood Negative Negative [facility] Specific [place] - Urine 1.020 1.005 - 1.025 [facility] Urine Protein Negative Neg-Trace mg/dL [facility] Urine Ketones Negative Negative mg/dL [facility] Nitrite Urine Negative Negative [facility] Leukocyte Esterase Urine Negative Negative [facility] 07/25/2025 2:38 PM EDT 07/25/2025 2:48 PM EDT Narrative [facility] - 07/25/2025 2:55 PM EDT [id number], Clean Catch us Generic External Data Provider LAB URINE ORDERAB LES Final Result Performing Organization Address [facility] Co de Phone Number [facility] [address] [place] [phone] * Influenza B (ID NOW Rapid Molecular) (05/29/2025 1:51 PM EDT) Only the most recent of2 resultswithin the time period is included. Influenza B Negative Negative, Indeterminate [facility] Swab 05/29/2025 1:51 PM EDT Starr Perez CARPENTER ASSISTANT INSTALLER POINT OF CARE TEST ENTER/EDIT OR DERABLES Final Result Performing Organization Address City/[facility]/ZIP Co de Phone Number [facility] [address] [place] [phone] * Influenza A (ID NOW Rapid Molecular) (05/29/2025 1:51 PM EDT) Only the most recent of2 resultswithin the time period is included. Influenza A Negative Negative, Indeterminate [facility] Swab 05/29/2025 1:51 PM EDT Starr Perez CARPENTER ASSISTANT INSTALLER POINT OF CARE TEST ENTER/EDIT OR DERABLES Final Result Performing Organization Address [facility] Co de Phone Number [facility] [address] [place] [phone] * POCT Rapid COVID Ag (05/29/2025 1:51 PM EDT) Only the most recent of2 resultswithin the time period is included. Rapid COVID Ag Negative [facility] Swab 05/29/2025 1:51 PM EDT Starr Perez CARPENTER ASSISTANT INSTALLER POINT OF CARE TEST ENTER/EDIT OR DERABLES Final Result Performing Organization Address City/[facility] Co de Phone Number [facility] [address] [place] [phone] * (ABNORMAL) Lipid Panel, Standard (04/20/2025 8:07 AM EDT) Triglycerides 116 <150 mg/dL [facility] Comment:Desirable Triglyceri de: less than 150 mg/dLBorderline High Triglyceride 150-199 mg/dLHigh Triglyceride: 200-499 mg/dLVery High Triglyceride: greater than or equal to 5OO mg/dL Cholesterol 227(H) <200 mg/dL [facility] Comment:Desirable Cholestero l: less than 200 mg/dLBorderline High Cholesterol: 200-239 mg/dLHigh Cholesterol: greater than 239 mg/dL LDL Cholesterol Calculated 160(H) <100 mg/dL [facility] Comment:Desirable LDL: less than 100 mg/dLNear Optimal/Above Optimal LDL: 110- 129 mg/dLBorderline High LDL: 130-159 mg/dLHigh LDL: 160-189 mg/dLVery High LDL: greater than or equal to 190 mg/dL HDL Cholesterol 44 >40 mg/dL [facility] Comment:Desirable HDL: great er than 40 mg/dL Note: This HDL assay may give artificially low results in patients with liver disease. Blood Venous blood specimen / Unknown 04/20/2025 8:07 AM EDT 04/20/2025 12:29 PM EDT us Rishi Hyman MD LAB BLOOD ORDERABLES Final Resul t [facility] [address] [place] [phone] * (ABNORMAL) Colonoscopy (11/02/2023) Colonoscopy Abnormal( A) Normal Comment:Colon Polyps (Tubula r Adenomas) us Rishi Hyman MD HEALTH MAINTENANCE Final Result * HIV 1/2 ANTIGEN/ANTIBODY,FOURTH GENERATION W/RFL (04/04/2021 8:10 AM EDT) HIV-1/2 ANTIGEN AND ANTIBODIES, 4TH GENERATION W/ REFLEX NON-REACT MARILIN NON-REACT MARLIIN [facility] Comment: HIV-1 antigen and HIV-1/HIV-2 [...] purpose. For additional information please refer to http://education.SimpleDeal.StrikeAd/faq/BAR737 (This link is being provided for informational/ educational purposes only.) The performance of this assay has not been clinically validated in patients less than 2 years old. 04/04/2021 8:10 AM EDT us [facility] SCI[facility] LAB BLOOD ORDERABLES Final Res ult [facility] [address] [place] [address], from Last 3 Months or Most Recently Relevant to Health Maintenance Insurance [facility] FULL (MEDICAID) Care Teams Personnel Manager Relationship Specialty Start Date End Date Name, MD Rishi [address] [place] [phone] PCP - General Family Medicine 12/25/15
--- OUTSIDE RECORDS SUMMARY | 2025-08-09 16:32 | XMS_ITS | Encounter Summary ---
Author Organization [employer] Address [address] [place] [id number] Care Team Providers Care Cook Syrup Maker Name Role Phone Name, Rishi ADAM Primary Care Provider [phone] Reason for Visit * Reason Onset Date Comments Referral 07/15/2023 Encounter Details Date Type Department Care Team ([facility] st Contact Info) Description 07/15/2023 Telephone [facility] [address] [place], [place] [phone] Name, MD Rishi [address] [place] [address] Referral Social History Tobacco Use Types Packs/Day [...] AM EDT Referral and notes resubmitted to [facility] * Telephone Encounter - Celsa Davis - 07/15/2023 9:11 AM EDT Tc from pt calling in regards to gastroenterology referral. States office never received referral. Location: [address] [place] [phone] Date: n/a Time: n/a Fax: Specialty: gastroenterology documented in this encounter Plan of Treatment Upcoming Encounters Date Type Department Care Team (Late st Contact Info) Description 08/10/2025 2:30 PM EDT Office Visit [facility] [address] [place] [address] Gail Henderson DDS [address] [place] [address] 10/23/2025 12:45 PM EST Office Visit [facility] [address] [place] [address] Darryl Kuo documented as of this encounter Visit Diagnoses Not on filedocumented in this encounter Additional Health Concerns Assessment Noted Time PHQ-9 Depression Total Score: 3 01/29/20 23 9:39 AM EDT documented as of this encounter Care Teams Cook Syrup Maker Relationship Specialty Start Date End Date Name, MD Rishi [address] [place] [address] PCP - General Family Medicine 12/25/15 documented as of this encounter
== END 2025-08-09 14:32 | disposition home or self-care (01) ==
LOC: HO.HUSH 13:03
PROVIDERS: PCP Internal Medicine Geriatric Medicine; Visit Provider Urology
DX: R39.9 Unspecified symptoms and signs involving the genitourinary system (principal); N30.10 Interstitial cystitis (chronic) without hematuria
CPT/HCPCS: 52000

== ENCOUNTER → 2025-08-09 13:02 | Outpatient (BNVA) | payer OTHER, SELFPAY | PROVIDERS: PCP Internal Medicine Geriatric Medicine; Visit Provider Urology | DX: N30.10 Interstitial cystitis (chronic) without hematuria (principal) | CPT/HCPCS: 52000; 81003 ==